=== PATIENT | male | born 1950 | race Caucasian/White ===

== ENCOUNTER 2017-01-14 09:33 | Inpatient (IN) | payer MEDICARE, OTHER ==
[~2017-01-14] VITALS: Ht 172.7 cm; Wt 134.5 kg
[2017-01-14] VITALS (11 sets, daily range): BP systolic 95–142; BP diastolic 56–90; PULSE 82–123; RESP 15–21; TEMP 100; Ht 172.7 cm; Wt 134.5 kg
[~2017-01-14 09:33] MED LIST: ADV25050; AMLO5TAB4; ASPI-535; CARV25TA43; COL250; DUTA0.5C; ENOX40DI14; FERR-55; FINA5TAB; LAS20; LISI40TA9; METF500T4 PO; SIMV20TA; SPIR25TA
[2017-01-14] MEDS ORDERED: SODIUM CHLORIDE 0.9% 1L BAG IV* STA (09:40)
[2017-01-14 09:47] LABS: AADO2 Arterial 64.6 mmHg (7.0-24.0); Allen Test ACCEPTAB; Arterial Base Excess 7.6 mmol/L (-3.0-3); Arterial COHb 0.1 % (0.0-3.0); Arterial Fraction of Oxyhgb 95.4 % (93.0-99.0); Arterial HCO3 31.9 mmol/L (22.0-26.0); Arterial MetHb 0.1 % (0.0-1.5); Arterial Total Hemglobin 13.5 g/dl (12.0-18.0); MODE NASAL CANNULA
[2017-01-14] MEDS ORDERED: CEFEPIME 1GM/50 ML (PMX) 50 ML IVPB ONE (10:00)
[2017-01-14] MEDS ORDERED: ACETAMINOPHEN 650 MG SUPP PR ONE (10:00)
[2017-01-14] MEDS ORDERED: VANCOMYCIN 1 GM (PMX) 250 ML IVPB SCH (10:00)
[2017-01-14] MEDS ORDERED: ALBUTEROL 0.083% (NEB) 2.5 MG/3 ML AMP HHN STA (10:00)
[2017-01-14] MEDS ORDERED: PIPER-TAZO 3.375 GM IV (PMX) 50 ML IV ONE (10:00)
[2017-01-14] MEDS ORDERED: HYDROCORTISONE 100 MG INJ IV ONE (10:00)
[2017-01-14] MEDS ORDERED: ALBUTEROL 0.5% (NEB) 2.5 MG/0.5 ML AMP ONE (10:03)
[2017-01-14] MEDS ORDERED: IPRATROPIUM (NEB) 0.5 MG/2.5 ML AMP ONE (10:03)
--- NOTE | 2017-01-14 10:04 | ERD ---
ER Documentation Chief Complaint Chief Complaint HPI 66-year-old man brought in by EMS from intermediate for decreased mentation beginning this morning. Patient has a history of recent sepsis and has difficulty ambulating, normally using a wheelchair which was near his bed. Patient has had no vomiting or diarrhea. HPI was limited as patient was mostly nonverbal. Patient was transported here by EMS without further complications. HPI supplemented by reviewing past medical history, intermediate records, speaking to EMS, and later his PMD. ROS All systems reviewed and are negative except as per history of present illness. Medications Home Meds Reported Medications Potassium Chloride* (K-Dur*) 20 Meq Tab.prt.sr, 20 MEQ PO DAILY, TAB.SA GIVIN AT 9AM 01/14/17 Vancomycin Hcl* (Vancomycin Hcl* Liq) 8.33 Mg/Ml Soln, 250 MG PO QID, ML FOR 14 DAYS STOP 01-16-17 01/14/17 Ascorbic Acid* (Vitamin C*) 500 Mg Capsule.sa, 500 MG PO DAILY, CAP 01/14/17 Tiotropium [place]* (Spiriva*) 18 Mcg Cap.w.dev, 1 CAP INHALATION DAILY, #30 CAP 01/14/17 Tamsulosin Hcl* (Tamsulosin Hcl*) 0.4 Mg Cap.er.24h, 0.4 MG PO HS, CAP 01/14/17 Spironolactone* (Aldactone*) 25 Mg Tablet, 25 MG PO DAILY, #30 TAB 01/14/17 Risperidone* (Risperidone*) 1 Mg Tablet, 1 MG PO BID, TAB 01/14/17 Protein Supplement (Promod) 946 Ml Liquid, 30 ML PO TID STOP 02-05-17 01/14/17 Potassium Chloride* (K-Dur*) 10 Meq Tab.prt.sr, 10 MEQ PO DAILY, TAB GIVE AT 5PM 01/14/17 Multivitamins* (Theragran*) 1 Tab Tab, 1 TAB PO DAILY, TAB 01/14/17 Magnesium Hydroxide* (Milk Of Magnesia*) 400 Mg/5 Ml Oral.susp, 30 ML PO DAILY Y for CONSTIPATION, ML 01/14/17 Metronidazole* (Metronidazole*) 500 Mg Tablet, 500 MG PO TID, TAB FOR 14 DAYS STOP 01-16-17 01/14/17 Lactobacillus Acidophilus* (Lactinex*) 1 Tab Chew, 1 TAB PO TID, TAB 01/14/17 Furosemide* (Furosemide*) 40 Mg Tablet, 40 MG PO BID, TAB 01/14/17 Ipratropium-Albuterol (Ipratropium-Albuterol) 0.5-3 Mg/3 Ml Ampul.neb, 3 ML INHALATION Q6 Y for SHORTNESS OF BREATH, #30 VIAL 01/14/17 Cholecalciferol* (Vitamin D3*) 1,000 Unit Tablet, 1000 UNIT PO DAILY, TAB 01/14/17 Carvedilol* (Carvedilol*) 12.5 Mg Tablet, 12.5 MG PO BID, #60 TAB 01/14/17 Atorvastatin Calcium (Atorvastatin Calcium) 10 Mg Tablet, 10 MG PO QHS, #30 TAB 01/14/17 Aspirin (Low Dose Aspirin) 81 Mg Tablet., 81 MG PO DAILY, #30 TAB 01/14/17 Acetaminophen* (Acetaminophen*) 650 Mg Tablet, 650 MG PO Q4 Y for PAIN AND OR ELEVATED TEMP, #30 TAB 01/14/17 Discontinued Reported Medications Metformin* (Glucophage*) 500 Mg Tab, 500 MG PO DAILY 04/24/11 Dutasteride* (Avodart*) 0.5 Mg Capsule 04/10/10 Docusate Sodium (Colace) 250 Mg Cap 04/10/10 Carvedilol (Coreg) 25 Mg Tablet 04/10/10 Aspirin Ec (Aspir 81) 81 Mg Tablet. 04/10/10 Amlodipine Besylate* (Norvasc*) 5 Mg Tablet 04/10/10 Lisinopril* (Lisinopril*) 40 Mg Tablet 04/10/10 Furosemide (Lasix) 20 Mg Tab 04/10/10 Ferrous Sulfate* (Ferrous Sulfate*) 325 Mg Tablet 04/10/10 Enoxaparin Sodium* (Lovenox*) 40 Mg/0.4 Ml Disp.syrin 04/10/10 Salmeterol Xinaf/Fluticasone* (Advair 250/50 Diskus*) 1 Inh Inha 04/10/10 Finasteride* (Proscar*) 5 Mg Tablet 04/10/10 Simvastatin* (Zocor*) 20 Mg Tablet 04/10/10 Spironolactone* (Aldactone*) 25 Mg Tablet 04/10/10 Allergies Allergies: Coded Allergies: Sulfa (Sulfonamide Antibiotics) (Verified Allergy, Mild, 01/14/17) codeine (Verified Allergy, Mild, 01/14/17) iodine (Verified Allergy, Mild, 01/14/17) meperidine (Verified Allergy, Mild, 01/14/17) PMhx/Soc Super morbid obesity, recent C. difficile colitis, schizophrenia, CHF, COPD, hypertension, diabetes mellitus, hyperlipidemia, recent septic shock, BPH, wheelchair-bound, sacral decubitus ulceration, pacemaker History of Surgery: Yes (PILONIDAL CYST,TONSILS,REPAIR WOUND RT LEG,FACIAL SX,) Anesthesia Reaction: No Hx Neurological Disorder: No Hx Respiratory Disorders: Yes (COPD,CHRONIC BROCHITIS) Hx Cardiac Disorders: Yes (A FIB, HTN, CAD) Hx Psychiatric Problems: Yes (SCHIZOPHRENIA) Hx Miscellaneous Medical Probl: No (HX OF DVT,PULMONARY EMBOLISM) Hx Alcohol Use: Yes (HX OF ALCHOHOL ABUSE) Hx Substance Use: No Hx Tobacco Use: Yes (HX OF 3 1/2PACKS DAILY 30 YEARS) FmHx Family History: diabetes Physical Exam Vitals Vital Signs Date Time Temp Pulse Resp B/P Pulse Ox O2 Delivery O2 Flow Rate FiO2 01/14/17 10:16 136 20 94 Nasal Cannula 2.0 01/14/17 10:00 100.0 105 20 128/78 100 Nasal Cannula 6.0 01/14/17 09:51 Nasal Cannula 01/14/17 09:33 100.3 129 24 127/82 96 Per nursing records Physical Exam GENERAL: Well-developed, dehydrated, rectal temperature 100.3F HEENT: Dry mucous membranes, pink conjunctiva, no cervical spine tenderness or step-off deformities, no goiter. NEURO: Eyes closed although patient is able to follow simple commands, pupils equal round reactive to light, no focal deficits, no facial asymmetry, nonverbal CARDIAC: Tachycardic and regular, no murmurs rubs or gallops LUNGS: Poor breath sounds bilaterally, no wheezing or stridor ABDOMEN: Soft nontender, no guarding, no rigidity, no rebound, no psoas sign no obturator sign. SKIN: Hot to touch and dry, he has a malodorous sacral decubitus ulceration with purulent discharge and surrounding skin erythema, chronic skin changes to the lower extremities bilaterally EXTREMITIES: 3+ pitting edema in the lower extremities and dependent areas, calves are bilaterally symmetrical, no Homans sign, no popliteal cord sign. Distal pulses equal and bilateral PSYCH: Unable to assess Result Diagram: 01/14/1793901/14/1740 Results 24 hrs Laboratory Tests Test 01/14/17 09:35 01/14/17 09:40 01/14/17 09:45 01/14/17 09:50 Blood Gas Specimen Source Blood arterial Arterial Blood Date Drawn 01/14/2017 9:40:43 AM Arterial Blood pH (Temp corrected) 7.486 Arterial Blood pCO2 (Temp correct) 43.2mmhg Arterial Blood pO2 (Temp corrected) 76.8mmHG Arterial Blood HCO3 31.9mmol/L Arterial Blood Base Excess 7.6mmol/L Arterial Blood Oxygen Saturation 95.6mmHG Ernesto Test ACCEPTAB Arterial Blood Gas Puncture Site Right Radial Arterial Blood Carboxyhemoglobin 0.1% Arterial Blood Methemoglobin 0.1% Blood Gas A-a O2 Differential 64.6mmHg Oxyhemoglobin Percent 95.4% Total Hemoglobin 13.5g/dl Blood Gas Temperature 37.0C Blood Gas Modality NASAL CANNULA FiO2 27.0% Blood Gas Notified Whom RT Blood Gas Notified Time 01/14/2017 9:47:15 AM White Blood Count 8.210^3/ul Red Blood Count 4.5810^6/ul Hemoglobin 13.0g/dl Hematocrit 42.1% Mean Corpuscular Volume 91.9fl Mean Corpuscular Hemoglobin 28.4pg Mean Corpuscular Hemoglobin Concent 30.9g/dl Red Cell Distribution Width 16.6% Platelet Count 94964^3/UL Mean Platelet Volume 10.4fl Neutrophils % 76.9% Lymphocytes % 11.6% Monocytes % 8.7% Eosinophils % 1.3% Basophils % 0.5% Nucleated Red Blood Cells % 0.0/100WBC Neutrophils # 6.310^3/ul Lymphocytes # 1.010^3/ul Monocytes # 0.710^3/ul Eosinophils # 0.110^3/ul Basophils # 0.010^3/ul Nucleated Red Blood Cells # 0.010^3/ul Prothrombin Time 16.6Sec Prothrombin Time Ratio 1.3 INR International Normalized Ratio 1.33 Activated Partial Thromboplast Time 27.5Sec Sodium Level 153mmol/L Potassium Level 3.5mmol/L Chloride Level 105mmol/L Carbon Dioxide Level 38mmol/L Anion Gap 14 Blood Urea Nitrogen 17mg/dl Creatinine 0.95mg/dl Glucose Level 95mg/dl Lactic Acid Level 1.2mmol/L Calcium Level 8.5mg/dl Total Bilirubin 0.2mg/dl Direct Bilirubin 0.00mg/dl Indirect Bilirubin 0.2mg/dl Aspartate Amino Transf (AST/SGOT) 28IU/L Alanine Aminotransferase (ALT/SGPT) 37IU/L Alkaline Phosphatase 49IU/L Troponin I 0.058ng/ml Total Protein 5.6g/dl Albumin 2.9g/dl Globulin 2.70g/dl Albumin/Globulin Ratio 1.07 Lipase 174U/L Bedside Glucose 92mg/dL Urine Color CADY Urine Clarity CLEAR Urine pH 5.0 Urine Specific [place] 1.021 Urine Ketones TRACEmg/dL Urine Nitrite NEGATIVEmg/dL Urine Bilirubin NEGATIVEmg/dL Urine Urobilinogen NEGATIVEmg/dL Urine Leukocyte Esterase 1+Jatinder/ul Urine Microscopic RBC 3/HPF Urine Microscopic WBC 12/HPF Urine Mucus MODERATE/HPF Urine Hemoglobin NEGATIVEmg/dL Urine Glucose NEGATIVEmg/dL Urine Total Protein NEGATIVEmg/dl Current Medications Medications (Trade) Dose Ordered Sig/Joana Route PRN Reason Start Time Stop Time Status Last Admin Dose Admin Sodium Chloride 2000 ml 2,000 ml BOLUS OVER 2 HOURS STAT IV* 01/14/17 09:40 01/14/17 09:43 DC 01/14/17 10:22 Cefepime HCl 50 ml @ 100 mls/hr ONCE ONCE IVPB 01/14/17 10:00 01/14/17 10:29 DC 01/14/17 10:18 Piperacillin Sod/ Tazobactam Sod 50 ml @ 100 mls/hr ONCE ONCE IV 01/14/17 10:00 01/14/17 10:29 DC 01/14/17 10:18 Vancomycin HCl (Vancocin) 250 ml @ 125 mls/hr ONCE IVPB 01/14/17 10:00 01/14/17 11:59 DC 01/14/17 10:21 Acetaminophen (Tylenol Supp) 650 mg ONCE ONCE MS 01/14/17 10:00 01/14/17 10:01 DC 01/14/17 10:00 Hydrocortisone (Solu-Cortef) 200 mg ONCE ONCE IV 01/14/17 10:00 01/14/17 10:07 DC 01/14/17 11:15 Albuterol (Proventil 0.083% (Neb)) 10 mg ONCE STAT HHN 01/14/17 10:00 01/14/17 10:07 DC 01/14/17 10:15 Ipratropium [place] (Atrovent 0.02% (Neb)) 0.5 mg STK-MED ONCE .ROUTE 01/14/17 10:03 01/14/17 10:04 DC Albuterol (Proventil 0.5% (Neb)) 2.5 mg STK-MED ONCE .ROUTE 01/14/17 10:03 01/14/17 10:04 DC Procedures/MDM IV line was established patient was placed on child monitor rhythm strip revealed a tachycardia at 120 bpm. Rectal temperature was 100.3F although I suspect early sepsis and active infection. Blood cultures, urine cultures, respiratory cultures, wound cultures were all ordered results are pending I will follow-up. Nielsen catheter was placed. EKG performed, read by me revealed a sinus tachycardia at 120 bpm with PACs, normal axis, intraventricular conduction delay with a QRS duration of 118 ms, no concerning ST elevations or depressions noted. ABG on low flow oxygen revealed a pH of 7.49, PCO2 43, PaO2 80 revealing chronic metabolic alkalosis due to COPD. Patient was suctioned. I ordered 2 L normal saline intravenously for dehydration, sepsis protocol IV fluids were deferred as patient has a history of congestive heart failure. Patient also received acetaminophen 650 mg per rectum, cefepime 1 g IV, Zosyn 3.375 g IV, vancomycin 1 g IV. I administered albuterol 10 mg via nebulizer and hydrocortisone 200 mg IV 1 One view chest x-ray reveals a right lower lobe infiltrate, no pneumothorax, no under the diaphragm. Urine analysis was concerning for early urinary tract infection. CBC was unremarkable, electrolytes revealed dehydration, liver function tests are normal, troponin was negative Lactic acid level was low. I do not suspect sepsis. Patient will be admitted to telemetry setting for continued medical management and IV antibiotics. Departure Diagnosis: Primary Impression: Acute encephalopathy Additional Impressions: Infected decubitus ulcer Pressure ulcer stage: unspecified pressure ulcer stage Qualified Code: L89.90 - Infected decubitus ulcer, unspecified ulcer stage Acute UTI Healthcare-associated pneumonia Condition: Serious JOHANNE HICKMAN MD Jan 14, 2017 09:59
[2017-01-14 10:07] LABS: BASOPHILS % 0.5 % (0.0-2.0); EOSINOPHILS # 0.1 10^3/ul (0.0-0.5); EOSINOPHILS % 1.3 % (0.0-7.0); HEMATOCRIT 42.1 % (42.0-52.0); LYMPHOCYTES % 11.6 % (15.0-51.0); MEAN CORPUSCULAR HEMOGLOBIN 28.4 pg (29.0-33.0); MEAN CORPUSCULAR HGB CONC 30.9 g/dl (32.0-37.0); MEAN CORPUSCULAR VOLUME 91.9 fl (82.0-101.0); MEAN PLATELET VOLUME 10.4 fl (7.4-10.4); MONOCYTE # 0.7 10^3/ul (0.3-0.9); MONOCYTES % 8.7 % (0.0-11.0); NEUTROPHIL # 6.3 10^3/ul (1.6-7.5); NEUTROPHILS % 76.9 % (39.0-77.0); PLATELET COUNT 231 10^3/UL (140-415); RED BLOOD COUNT 4.58 10^6/ul (4.70-6.10); RED CELL DISTRIBUTION WIDTH 16.6 % (11.5-14.5); WHITE BLOOD COUNT 8.2 10^3/ul (4.8-10.8)
--- NOTE | 2017-01-14 10:08 | RADRPT ---
PROCEDURE: XR Chest. CLINICAL INDICATION: Shortness of breath. TECHNIQUE: Single frontal view. COMPARISON: None. FINDINGS: There is right basilar atelectasis. The lungs are otherwise clear. The heart is enlarged. There is a left-sided single lead permanent pacemaker/internal cardiac defibr illator. There is no pleural effusion. There is no pneumothorax. IMPRESSION: 1. Right basilar atelectasis. 2. Cardiomegaly. 3. Permanent pacemaker/AICD. 4. Otherwise unremarkable chest radiograph. RPTAT: QQ .Buck Cruz MD, MD Date Time Electronically viewed and signed by .Buck Cruz MD, MD on 01/14/2017 10:08 .R/
[2017-01-14] MEDS ORDERED: ASPI-664 PO (10:13)
[2017-01-14] MEDS ORDERED: ATOR10TA65 PO (10:13)
[2017-01-14] MEDS ORDERED: ACET-2047 PO (10:13)
[2017-01-14] MEDS ORDERED: CHOL100062 PO (10:14)
[2017-01-14] MEDS ORDERED: CARV12.579 PO (10:14)
[2017-01-14] MEDS ORDERED: IPRA3AMP INHALATION (10:15)
[2017-01-14] MEDS ORDERED: FURO40TA4 PO (10:15)
[2017-01-14] MEDS ORDERED: LACTINEX PO (10:16)
[2017-01-14] MEDS ORDERED: METR500T14 PO (10:17)
[2017-01-14] MEDS ORDERED: MAGN400O4 PO (10:17)
[2017-01-14] MEDS ORDERED: MULTI PO (10:18)
[2017-01-14] MEDS ORDERED: POTA10TA37 PO (10:20)
[2017-01-14] MEDS ORDERED: RISP1TAB3 PO (10:21)
[2017-01-14] MEDS ORDERED: PROT946L PO (10:21)
[2017-01-14 10:22] LABS: ADD UMIC YES; UR ASCORBIC ACID NEGATIVE (NEGATIVE); UR BILIRUBIN (Dip) NEGATIVE (NEGATIVE); UR BLOOD (Dip) NEGATIVE (NEGATIVE); UR CLARITY CLEAR (CLEAR); UR COLOR AMBER (YELLOW); UR GLUCOSE (Dip) NEGATIVE (NEGATIVE); UR KETONES (Dip) TRACE mg/dL (NEGATIVE); UR LEUKOCYTE ESTERASE (Dip) 1+ Leu/ul (NEGATIVE); UR MUCUS MODERATE /HPF (NONE SEEN); UR NITRITE (Dip) NEGATIVE (NEGATIVE); UR RBC 3 /HPF (0-5); UR SPECIFIC GRAVITY (Dip) 1.021 (1.003-1.030); UR TOTAL PROTEIN (Dip) NEGATIVE (NEGATIVE); UR UROBILINOGEN (Dip) NEGATIVE (NEGATIVE)
[2017-01-14] MEDS ORDERED: SPIR25TA PO (10:22)
[2017-01-14] MEDS ORDERED: TAMS0.4C2 PO (10:22)
[2017-01-14] MEDS ORDERED: TIOT18CA INHALATION (10:23)
[2017-01-14] MEDS ORDERED: ASCO500C7 PO (10:23)
[2017-01-14] MEDS ORDERED: VAN120L PO (10:26)
[2017-01-14 10:28] LABS: INR 1.33; PARTIAL THROMBOPLASTIN TIME 27.5 Sec (25.0-35.0); PROTIME 16.6 Sec (12.2-14.2); PT RATIO 1.3
[2017-01-14] MEDS ORDERED: POTA20TA15 PO (10:31)
[2017-01-14 10:32] LABS: ALBUMIN 2.9 g/dl (3.3-4.9); ALBUMIN/GLOBULIN RATIO 1.07; BILIRUBIN,INDIRECT 0.2 mg/dl (0-1.1); BILIRUBIN,TOTAL 0.2 mg/dl (0.2-1.3); CALCIUM 8.5 mg/dl (8.4-10.2); CREATININE 0.95 mg/dl (0.61-1.24); POTASSIUM 3.5 mmol/L (3.5-5.1); TOTAL PROTEIN 5.6 g/dl (6.1-8.1)
[2017-01-14 10:43] LABS: TROPONIN-I 0.058 ng/ml (0.00-0.12)
[2017-01-14] MEDS ORDERED: DOCUSATE SODIUM 100 MG CAP PO PRN (14:30)
[2017-01-14] MEDS ORDERED: ONDANSETRON 4 MG INJ IV PRN (14:30)
[2017-01-14] MEDS ORDERED: ACETAMINOPHEN 325 MG TAB PO PRN ×2 (14:30)
[2017-01-14] MEDS ORDERED: MAGNESIUM HYDROXIDE 30ML CUP PO PRN (14:30)
[2017-01-14] MEDS ORDERED: NACL 0.9% 3 ML SYG IV SCH (14:30)
[2017-01-14] MEDS ORDERED: VANCOMYCIN IV PER PHARMACY XX SCH (14:30)
[2017-01-14] MEDS ORDERED: VANCOMYCIN 1 GM in NS 250 ML IVPB ONE (15:30)
[2017-01-14] MEDS: ENOXAPARIN 40 MG/0.4 ML SYG SC SCH (16:28)
--- NOTE | 2017-01-14 16:39 | HP ---
DATE OF ADMISSION: 01/14/2017 REASON FOR ADMISSION: Encephalopathy, sepsis, urinary rule out pneumonia, decubitus wound. HISTORY OF PRESENT ILLNESS: The patient is a 66-year-old morbidly obese female with histo ry of congestive heart failure, status post AICD placement by Dr. Ruiz in March 2010 and histor y of extensive psychiatric disorder, hypertension, diabetes mellitus, BPH, schizophrenia, who was re cently discharged home at [facility] secondary to sepsis, was found to have C. diff colitis, d ehydration, renal failure and urinary tract infection as well. The patient at that time was between 10 and was to the intensive care unit and be seen by the infectious disease specialist, Dr. Marvin pichardo. Patient was then stabilized and transferred to [facility] nursing [facility]. During his stay, the patient continued to his treatment for C. diff colitis with oral vancomycin and Flagy l. I have seen him and are multiple times in the past 2 to 3 weeks, there was concern of possible p roblem with swallowing flash dysphagia and he was placed on a pureed diet and do awaiting further te sting. Patient was in usual state of health up until today when the nursing staff noted the patient to be more encephalopathic. With consider increasing concern for possible impending respiratory fa ilure, and 911 was called. The patient was brought into [facility], the patient w as evaluated extensively was found to be febrile up to 100.3. Tachycardic to 129 suggestive of seps is workup revealed a urinalysis was positive for nitrite, not hypoxic for leukocyte esterase suggest martina of UTI. He was noted to have a stage II sacral wound which may be infected and chest x-ray show ed right lung atelectasis versus possible pneumonia. Per ER interpretation, the patient was admitte d to telemetry unit, currently in the ICU but steady status. The patient is overall lethargic but o verall arousable and answering my questions. The patient did report having some phlegm production a nd slight congestion earlier and was noticing shortness of breath. Otherwise, no other complaints. As of note I also did multiple blood workup at [facility] and there was no specific acute find ings. The patient now is admitted for further care. PAST MEDICAL HISTORY: Congestive heart failure, both systolic and diastolic dysfunction, status post AICD, history of diab etes mellitus, appears to be controlled, BPH, recurrent UTIs, dyslipidemia, morbidly obese state and history of sacral wounds, schizophrenia, dysphagia, psychiatric disorder, recent Clostridium diffic ile colitis. Scrotal edema. ALLERGIES: 1. CODEINE, IODINE, MEPERIDINE, SULFA. MEDICATIONS: Include the followin. Flagyl 500 t.i.d. 2. Vancomycin 250 q.i.d. post-opium and albuterol every as directed. 3. Flomax 0.4 at bedtime. 4. Spiriva 1 cap daily. 5. Atorvastatin 10 mg at bedtime. 6. Coreg 12.5 b.i.d. 7. Aldactone 25 mg daily. 8. Tylenol p.r.n. 9. Aspirin 81 mg daily. 10. Risperidone 1 mg b.i.d. 11. Lasix 40 mg b.i.d. 12. KCL 10 mEq daily and Xarelto 20 daily. Promod t.i.d. 13. Lactinex 1 tab t.i.d. commode BCG as directed Vitamin C 500 mg daily. 14. Vitamin D 1000 daily. 15. Multivitamin 1 tablet daily. SURGICAL HISTORY: Pacemaker, AICD placement. DIET: Pureed diet. FAMILY HISTORY: Unknown. The patient's primary medical doctor is unknown. His prior primary docto r was Dr Kristian Heath. . SOCIAL HISTORY: No history of tobacco, alcohol or drug use. The patient lives at [facility]. PHYSICAL EXAMINATION: VITAL SIGNS: Blood pressure is 170/86, pulse is 101, respiration is 20, and temperature, saturation 100% on 6 liters nasal cannula. GENERAL: The patient is lethargic, arousable. The patient is pale Morbidly obese state. CARDIOVASCULAR: S1, S2 irregular, irregular. LUNGS: Clear bilaterally. Faint rhonchi at the bases. ABDOMEN: Soft, nontender. EXTREMITIES: Trace edema to +1 edema bilateral lower extremities, much better than we I aw him last time. NEUROLOGIC: The patient is spontaneously moving all extremities. LABORATORY DATA: White count is 8.2, hemoglobin 13, hematocrit 42, platelets 231, neutrophils 77%, lymphocytes 12%. Chemistry: Sodium is 153, potassium 3.5, chloride 105, bicarbonate 30, BUN 17, cr eatinine 0.95, glucose of 95. Lactic acid 1.5. AST 28, ALT 37, alkaline phosphatase 49, troponin n egative at 0.058, total protein 5.6, albumin 2.8, lipase is 174. Urinalysis shows +1 leukocyte laura rase, WBC 12, INR is 1.33. Blood gas shows a pH of 7.48, pCO2 of 43, pO2 of 77, bicarbonate 31% sat uration is adequate at 96% on 27% FIO2. INR was 1.33. IMAGING TESTS: Chest x-ray shows efficiently right basilar atelectasis, cardiomegaly, permanent pac emaker, AICD, otherwise unremarkable chest radiograph. EKG: shows atrial fibrillation with RVR with premature aberrantly conducted complexes, low voltage QRS, incomplete right bundle branch block, ST-T abnormality, consider anterolateral ischemia or digi talis dystonic affect. ASSESSMENT AND PLAN: This is an unfortunate 66-year-old male with a history of congestive heart failure, AICD placement, atrial fibrillation, diabetes mellitus, off medication, psychiatric disorder, presents with increased encephalopathy and patient's condition and chest congestion. 1. Respiratory: The patient was placed on O2 support, breathing treatment as needed will be provid ed and aspiration precautions and speech therapy to evaluate for possible aspiration. The patient w ill be treated for pneumonia with cefepime and vancomycin. 2. Cardiovascular: Patient with history of congestive heart failure. Appears to be overall compen sated. Will resume all home Lasix dose at 40 b.i.d. obtain. Another equal cardiogram to evaluate e jection fraction. We will consult cardiology, patient has atrial fibrillation, currently on anticoa gulation with aspirin and will place him on Lovenox as well for DVT prophylaxis. Further anticoagulation: Cardiology team. Continue Coreg, Lipitor and Aldactone. 1. Infectious disease. The patient with evidence of infection, possible infected sacral wound. Cu ltures will be obtained and also possible pneumonia. The patient was placed on cefepime and vancomy leonidas, but wound care. Continue empiric treatment for C. difficile colitis with oral vancomycin. 2. Renal. Observe no evidence of renal insufficiency. 3. Dysphagia. Speech therapy to evaluate the patient. 4. The patient will be placed on Protonix for GI prophylaxis. 5. Psychiatric disorder. We will hold some of his psych meds as the patient is encephalopathic and weak to prevent drowsiness 6. May benefit from a sleep study as an outpatient basis. The patient is morbidly obese with a BMI of 45 definite likely has obstructive sleep apnea. 7. Benign prostatic hypertrophy. Continue Flomax. 8. Stool softeners will be provided. 9. We decided to try to contact family members and informed them of the patient's condition. Again , air mattress bed. Vitamins will be done and wound consultation will be obtained. 10. Sacral wound. Offloading. We will follow closely. Dictated By: MARY MONTERO/SHANTAL Conf#: [id number] DID#: [id number]
--- NOTE | 2017-01-14 16:45 | CONS ---
DATE OF ADMISSION: 01/14/2017 DATE OF CONSULTATION: 01/14/2017 TYPE OF CONSULTATION: Infectious Disease. REASON FOR CONSULTATION: Antibiotic management. HISTORY OF PRESENT ILLNESS: Nickolas Dey is a 66-year-old male brought in from care home with decreased mentation. His past problems include a history of sepsis. 1. Difficulty ambulating. 2. Morbid obesity. 3. Recent Clostridium difficile colitis. 4. Schizophrenia. 5. Chronic obstructive pulmonary disease. 6. Congestive heart failure with coronary artery disease 7. Hypertension. 8. Diabetes mellitus. 9. Hyperlipidemia. 10. Benign prostatic hypertrophy. 11. Atrial fibrillation. 12. History of deep venous thrombosis and pulmonary emboli. 13. History of alcohol abuse. 14. Status post pilonidal cyst surgery. 15. Status post tonsillectomy and appendectomy, status post T and A. 16. Status post repair of a wound in the right leg. 17. Facial surgery. 18. History of tobacco abuse, 3.5 packs per day for 30 years. Acutely, the patient comes in the emergency room with shortness of breath and presumed sepsis. On a dmission, his white count is 8.2, H and H of 13 and 42.1, platelet count 231,000. BUN and creatinin e 17/0.95. Sodium is elevated at 153. His CO2 was 38 consistent with COPD. PAST MEDICAL HISTORY: Operations as outlined. FAMILY HISTORY: Noncontributory. SOCIAL HISTORY: As outlined he smokes 3 and a half packs of cigarettes a day for last 30 years. No history of stroke. He has a history of alcohol abuse. No IV drug abuse. ALLERGIES: 1. SULFA. 2. CODEINE. 3. IODINE 4. MEPERIDINE. MEDICATIONS: Per chart. REVIEW OF SYSTEMS: Noncontributory. PHYSICAL EXAMINATION: GENERAL: The patient is a chronically ill-appearing male who is morbidly obese, in no acute distres s. VITAL SIGNS: Stable. T-max of 100.3. SKIN: Warm to the touch. He has a malodorous sacral decubitus ulcer with purulent discharge and peterson rrounding skin erythema and chronic skin changes in the lower extremities. HEENT: Within normal limits. NECK: Supple. LYMPH NODES: None palpable. CHEST: Decreased breath sounds at the bases. HEART: Tachycardic without murmur or gallop. ABDOMEN: Soft, obese, nontender, without organosplenomegaly or masses. EXTREMITIES: 3+ pitting edema in the lower extremities without cyanosis or clubbing. RECTAL AND GENITAL: Deferred. NEUROLOGIC: No obvious focal neurological abnormalities. IMPRESSION AND PLAN: The patient had an IV line placed, the blood cultures, urine, respiratory cult ures, wound cultures were done, the impression in the emergency room was acute encephalopathy infect ed decubitus ulcer. He denied also have an acute urinary tract infection. His urine showed 1+ leuk ocyte esterase and 12 white cells per high powered field. He was placed on vancomycin and cefepime. Cultures have been taken. Blood cultures, urine and wound cultures, stool and sputum cultures so he is well covered with regard to his cultures. He may need some intervention with regard to his in fected decubitus and some surgery should become involved. I will dictate my findings to Dr. Heath. Dictated By: ANNA ROACH MD, JD/SHANTAL Conf#: [id number] DID#: [id number]
[2017-01-14] MEDS: FUROSEMIDE 40 MG TAB PO SCH ×2 (18:00→21:01)
[2017-01-14] MEDS: VANCOMYCIN HCL 250 MG/5ML POSYG PO SCH ×2 (18:00→20:56)
[2017-01-14] MEDS: ATORVASTATIN 10 MG TAB PO SCH (20:55)
[2017-01-14] MEDS: TAMSULOSIN (SR) 0.4 MG CAP PO SCH (20:56)
[2017-01-14] MEDS: L ACIDOPHIL/B LACTIS/B LONGUM CAPSULE PO SCH (20:56)
[2017-01-14] MEDS: CEFEPIME 1GM/50 ML (PMX) 50 ML IV SCH (21:00)
[2017-01-15] VITALS (26 sets, daily range): BP systolic 98–147; BP diastolic 55–104; PULSE 71–144; RESP 12–20
[2017-01-15] MEDS: VANCOMYCIN HCL 250 MG/5ML POSYG PO SCH ×5 (00:29→21:24)
[2017-01-15] MEDS: VANCOMYCIN 1.5 GM in SOD CHLORIDE 0.9% 250 ML IVPB SCH ×2 (02:26→13:42)
[2017-01-15 05:16] LABS: BASOPHILS % 0.3 % (0.0-2.0); EOSINOPHILS % 0.2 % (0.0-7.0); HEMATOCRIT 37.5 % (42.0-52.0); HEMOGLOBIN 11.7 g/dl (14.0-18.0); LYMPHOCYTES # 0.9 10^3/ul (0.8-2.9); LYMPHOCYTES % 10.3 % (15.0-51.0); MEAN CORPUSCULAR HEMOGLOBIN 28.5 pg (29.0-33.0); MEAN CORPUSCULAR HGB CONC 31.2 g/dl (32.0-37.0); MEAN CORPUSCULAR VOLUME 91.5 fl (82.0-101.0); MEAN PLATELET VOLUME 10.3 fl (7.4-10.4); MONOCYTE # 0.9 10^3/ul (0.3-0.9); MONOCYTES % 10.6 % (0.0-11.0); NEUTROPHIL # 6.7 10^3/ul (1.6-7.5); NEUTROPHILS % 77.1 % (39.0-77.0); PLATELET COUNT 203 10^3/UL (140-415); RED CELL DISTRIBUTION WIDTH 16.7 % (11.5-14.5); WHITE BLOOD COUNT 8.7 10^3/ul (4.8-10.8)
[2017-01-15 05:48] LABS: ALBUMIN 2.5 g/dl (3.3-4.9); ALBUMIN/GLOBULIN RATIO 0.92; BILIRUBIN,INDIRECT 0.2 mg/dl (0-1.1); BILIRUBIN,TOTAL 0.2 mg/dl (0.2-1.3); CALCIUM 8.5 mg/dl (8.4-10.2); CHOL/HDL RATIO 2.4 RATIO; CREATININE 0.9 mg/dl (0.61-1.24); POTASSIUM 3.4 mmol/L (3.5-5.1); TOTAL PROTEIN 5.2 g/dl (6.1-8.1)
[2017-01-15 06:16] LABS: THYROID STIMULATING HORMONE 0.732 MIU/L (0.465-4.680)
[2017-01-15] MEDS: PANTOPRAZOLE (EC) 40 MG TAB PO SCH (06:42)
[2017-01-15] MEDS: FUROSEMIDE 40 MG TAB PO SCH ×2 (06:43→17:05)
[2017-01-15] MEDS: L ACIDOPHIL/B LACTIS/B LONGUM CAPSULE PO SCH ×2 (08:13→21:25)
[2017-01-15] MEDS: ASPIRIN (EC) 81 MG TAB PO SCH ×2 (08:13→08:59)
[2017-01-15] MEDS: ASCORBIC ACID 500 MG TAB PO SCH (08:13)
[2017-01-15] MEDS: MULTIVITAMINS THERAPEUTIC TAB PO SCH (08:13)
[2017-01-15] MEDS: CHOLECALCIFEROL 1,000 UNIT TAB PO SCH (08:16)
[2017-01-15] MEDS: SPIRONOLACTONE 25 MG TAB PO SCH ×2 (08:16→08:59)
[2017-01-15] MEDS: CEFEPIME 1GM/50 ML (PMX) 50 ML IV SCH ×2 (08:24→21:25)
[2017-01-15] MEDS: ENOXAPARIN 40 MG/0.4 ML SYG SC SCH (08:31)
--- NOTE | 2017-01-15 09:33 | CONS ---
Date/Time of Note Date/Time of Note DATE: 01/15/17 TIME: 09:30 Assessment/Plan Assessment/Plan Chief Complaint/Hosp Course ID PROGRESS NOTE CURRENT ABX: DAY # 2=> Vanco IV + Cefepime + Vanco PO 24H INTERVAL SUMMARY * Awake & responsive, afebrile, VSS, NAD, not able to move BUEXT or BLEXT on command * 01/14/17 CXR: IMPRESSION:1. Right basilar atelectasis. 2. Cardiomegaly. 3. Permanent pacemaker/AICD. 4. Otherwise unremarkable chest radiograph. * MICRO: UA 1+ Leuk Esterase, 15 pyuria; * 01/14/17 Shannan: 01/14/17-0955Source: BLOOD Microbiology BLOOD CULTURE Preliminary BCULT GRAM BOTTLE 1 Gram positive cocci in pairs and clusters . seen on gram stain of the broth MEDICAL HISTORY 1. Difficulty ambulating-> WC bound 2. Morbid obesity. 3. Recent Clostridium difficile colitis. 4. Schizophrenia. 5. Chronic obstructive pulmonary disease. 6. Congestive heart failure with coronary artery disease 7. Hypertension. 8. Diabetes mellitus. 9. Hyperlipidemia. 10. Benign prostatic hypertrophy. 11. Atrial fibrillation. 12. History of deep venous thrombosis and pulmonary emboli. 13. History of alcohol abuse. 14. Status post pilonidal cyst surgery. 15. Status post tonsillectomy and appendectomy, status post T and A. 16. Status post repair of a wound in the right leg. 17. Facial surgery. 18. History of tobacco abuse, 3.5 packs per day for 30 years. PHYSICAL EXAMINATION: GENERAL: Awake, super morbid obese, VSS, NAD HEENT: AT, NC, anicteric, moist oral membranes NECK: Trach midline, supple, increased neck circumference makes it difficult to appreciate JVD status CHEST: Equal chest rise bilaterally, without dyspnea on observation HEART: Pulse RRR ABDOMEN: Large, Soft, NT, EXT: Warm, moves all ext, generalized edema SKIN: No rash, no diaphoresis ID ASSESSMENT: 66 yo super morbid obesity, schozophrenia, hx of ETOH, CMY w/EF<30%, ICD M admit with: 1. Sepsis w/GPC bacteremia, w/Tmax 100.3, tachycardia, mild rise in lactic acid 1.2-> 1.5-> 1.1, acute encephalopathy * ?UTI per UA? * 01/14/17 Shannan: 01/14/17-0955Source: BLOOD Microbiology BLOOD CULTURE Preliminary BCULT GRAM BOTTLE 1 Gram positive cocci in pairs and clusters . seen on gram stain of the broth 2. HCAP @ SN[facility] 3. Large infected sacral decub 4. Recent C. difficile colitis 5. COPD-> Hx of former long-term tobacco 6. HTN 7. HLD 8. Diabetes mellitus 9. CAD/Hx of remote NM, Afib w/pacemaker implant status 10. CHF -> Hx of ischemic + ETOH cardiomyopathy w/systolic HF, s/p ICD placement 11. BPH w/hx of urinary retention, hx of UTI 12. Wheelchair-bound 13. Sacral decubitus ulceration (?)MRSA ABX ALLERGY: Sulfa, Iodine INVASIVES: PIV CURRENT ABX: DAY # 2=> Vanco IV + Cefepime + Vanco PO ID RECOMMENDATIONS/PLAN: 1. Continue current ABX awaiting results of urine cx 2. Patient is now awake, alert, and responsive => Improved on current ABX . . Problems: Consultation Date/Type/Reason Admit Date/Time Jan 14, 2017 at 10:52 Initial Consult Date Exam/Review of Systems Vital Signs Vitals Vital Signs Date Time Temp Pulse Resp B/P Pulse Ox O2 Delivery O2 Flow Rate FiO2 01/15/17 08:00 114 138/92 99 Nasal Cannula 2.0 01/15/17 07:00 97.7 17 Intake and Output 01/14/17 01/14/17 01/15/17 15:00 23:00 07:00 Intake Total 150 ml 400 ml Output Total 100 ml 125 ml 510 ml Balance -100 ml 25 ml -110 ml Results Result Diagram: 01/15/17 0448 01/15/17 0448 Results 24 hrs Laboratory Tests Test 01/14/17 09:35 01/14/17 09:40 01/14/17 09:45 01/14/17 09:50 Blood Gas Specimen Source Blood arterial Arterial Blood Date Drawn 01/14/2017 9:40:43 AM Arterial Blood pH (Temp corrected) 7.486 H Arterial Blood pCO2 (Temp correct) 43.2 Arterial Blood pO2 (Temp corrected) 76.8 L Arterial Blood HCO3 31.9 H Arterial Blood Base Excess 7.6 H Arterial Blood Oxygen Saturation 95.6 Ernesto Test ACCEPTAB Arterial Blood Gas Puncture Site Right Radial Arterial Blood Carboxyhemoglobin 0.1 Arterial Blood Methemoglobin 0.1 Blood Gas A-a O2 Differential 64.6 H Oxyhemoglobin Percent 95.4 Total Hemoglobin 13.5 Blood Gas Temperature 37.0 Blood Gas Modality NASAL CANNULA FiO2 27.0 Blood Gas Notified Whom RT Blood Gas Notified Time 01/14/2017 9:47:15 AM White Blood Count 8.2 Red Blood Count 4.58 L Hemoglobin 13.0 L Hematocrit 42.1 Mean Corpuscular Volume 91.9 Mean Corpuscular Hemoglobin 28.4 L Mean Corpuscular Hemoglobin Concent 30.9 L Red Cell Distribution Width 16.6 H Platelet Count 231 Mean Platelet Volume 10.4 Neutrophils % 76.9 Lymphocytes % 11.6 L Monocytes % 8.7 Eosinophils % 1.3 Basophils % 0.5 Nucleated Red Blood Cells % 0.0 Neutrophils # 6.3 Lymphocytes # 1.0 Monocytes # 0.7 Eosinophils # 0.1 Basophils # 0.0 Nucleated Red Blood Cells # 0.0 Prothrombin Time 16.6 H Prothrombin Time Ratio 1.3 INR International Normalized Ratio 1.33 Activated Partial Thromboplast Time 27.5 Sodium Level 153 H Potassium Level 3.5 Chloride Level 105 Carbon Dioxide Level 38 H Anion Gap 14 Blood Urea Nitrogen 17 Creatinine 0.95 Glucose Level 95 Lactic Acid Level 1.2 Calcium Level 8.5 Total Bilirubin 0.2 Direct Bilirubin 0.00 Indirect Bilirubin 0.2 Aspartate Amino Transf (AST/SGOT) 28 Alanine Aminotransferase (ALT/SGPT) 37 Alkaline Phosphatase 49 Troponin I 0.058 Total Protein 5.6 L Albumin 2.9 L Globulin 2.70 Albumin/Globulin Ratio 1.07 Lipase 174 Bedside Glucose 92 Urine Color CADY Urine Clarity CLEAR Urine pH 5.0 Urine Specific Kun[place] 1.021 Urine Ketones TRACE A Urine Nitrite NEGATIVE Urine Bilirubin NEGATIVE Urine Urobilinogen NEGATIVE Urine Leukocyte Esterase 1+ H Urine Microscopic RBC 3 Urine Microscopic WBC 12 H Urine Mucus MODERATE Urine Hemoglobin NEGATIVE Urine Glucose NEGATIVE Urine Total Protein NEGATIVE Test 01/14/17 12:28 01/14/17 15:44 01/15/17 04:48 Lactic Acid Level 1.5 1.1 White Blood Count 8.7 Red Blood Count 4.10 L Hemoglobin 11.7 L Hematocrit 37.5 L Mean Corpuscular Volume 91.5 Mean Corpuscular Hemoglobin 28.5 L Mean Corpuscular Hemoglobin Concent 31.2 L Red Cell Distribution Width 16.7 H Platelet Count 203 Mean Platelet Volume 10.3 Neutrophils % 77.1 H Lymphocytes % 10.3 L Monocytes % 10.6 Eosinophils % 0.2 Basophils % 0.3 Nucleated Red Blood Cells % 0.0 Neutrophils # 6.7 Lymphocytes # 0.9 Monocytes # 0.9 Eosinophils # 0.0 Basophils # 0.0 Nucleated Red Blood Cells # 0.0 Sodium Level 155 H Potassium Level 3.4 L Chloride Level 113 H Carbon Dioxide Level 34 H Anion Gap 11 Blood Urea Nitrogen 22 H Creatinine 0.90 Glucose Level 85 Hemoglobin A1c 5.8 Calcium Level 8.5 Total Bilirubin 0.2 Direct Bilirubin 0.00 Indirect Bilirubin 0.2 Aspartate Amino Transf (AST/SGOT) 26 Alanine Aminotransferase (ALT/SGPT) 34 Alkaline Phosphatase 39 L Total Protein 5.2 L Albumin 2.5 L Globulin 2.70 Albumin/Globulin Ratio 0.92 Triglycerides Level 64 Cholesterol Level 65 L LDL Cholesterol, Calculated 25 HDL Cholesterol 27 L Cholesterol/HDL Ratio 2.4 Thyroid Stimulating Hormone (TSH) 0.732 Medications Medications Current Medications Ondansetron HCl (Zofran Inj) 4 mg Q6H PRN IV NAUSEA AND/OR VOMITING; Start at 14:30 Docusate Sodium (Colace) 100 mg Q12H PRN PO CONSTIPATION; Start 01/14/17 at 14 :30 Magnesium Hydroxide (Milk Of Mag) 30 ml DAILY PRN PO CONSTIPATION; Start 01/14 at 14:30 Pantoprazole 40 mg 40 mg DAILY@06 PO Last administered on 01/15/17 06:42; Admin Dose 40 MG; Start 01/15/17 at 06:00 Cefepime HCl (Maxipime 1gm/50 ml (Pmx)) 50 ml @ 100 mls/hr Q12 IV Last administered on 01/15/17 08:24; Admin Dose 100 MLS/HR; Start 01/14/17 at 21: 00 Acetaminophen (Tylenol Tab) 650 mg Q4 PRN PO PAIN AND OR ELEVATED TEMP; Start 01/14/17 at 14:30 Ascorbic Acid (Vitamin C) 500 mg DAILY PO ; Start 01/15/17 at 09:00 Aspirin (Halfprin) 81 mg DAILY PO Last administered on 01/15/17 08:59; Admin Dose 81 MG; Start 01/15/17 at 09:00 Atorvastatin Calcium (Lipitor) 10 mg QHS PO Last administered on 01/14/17 20: 55; Admin Dose 10 MG; Start 01/14/17 at 21:00 Carvedilol (Coreg) 12.5 mg BID PO Last administered on 01/15/17 08:59; Admin Dose 12.5 MG; Start 01/14/17 at 21:00 Cholecalciferol (Vitamin D) 1,000 unit DAILY PO ; Start 01/15/17 at 09:00 Multivitamins Therapeutic (Theragran) 1 tab DAILY PO ; Start 01/15/17 at 09:00 Spironolactone (Aldactone) 25 mg DAILY PO Last administered on 01/15/17 08:59 ; Admin Dose 25 MG; Start 01/15/17 at 09:00 Tamsulosin HCl (Flomax) 0.4 mg HS PO Last administered on 01/14/17 20:56; Admin Dose 0.4 MG; Start 01/14/17 at 21:00 Vancomycin HCl (Vancomycin Oral Syringe) 250 mg Q6 PO Last administered on 06:42; Admin Dose 250 MG; Start 01/14/17 at 18:00 Lactobacillus Acidophilus (Florajen3 Capsule) 1 each BID PO Last administered on 01/14/17 20:56; Admin Dose 1 EACH; Start 01/14/17 at 21:00 Enoxaparin Sodium 40 mg 40 mg DAILY SC Last administered on 01/15/17 08:31; Admin Dose 40 MG; Start 01/14/17 at 15:30 Vancomycin HCl/ Sodium Chloride (Vancocin/NS) 250 ml @ 83.333 mls/ hr Q12H IVPB Last administered on 01/15/17 02:26; Admin Dose 83.333 MLS/HR; Start at 02:00 MIKE RHODES NP Jan 15, 2017 09:33
[2017-01-15] MEDS ORDERED: POTASSIUM CHLORIDE (SR) 20 MEQ TAB PO STA (10:05)
[2017-01-15] MEDS ORDERED: POTASSIUM CHLORIDE 250 ML IVPB ONE (10:30)
--- NOTE | 2017-01-15 12:32 | RADRPT ---
PROCEDURE: CT Brain without contrast. CLINICAL INDICATION: Stroke TECHNIQUE: A CT of the brain was performed on a Siemens CT scanner utilizing axial imaging from th e skull base through the vertex without IV contrast. Multiplanar reformatted images were made. Belkis ges were reviewed on a PACS workstation. The CTDIvol is 50.97 mGy and the DLP is 821 mGycm. DICOM images are available. One of the following 3 dose reduction techniques were used during this CT examination: 1) Automated exposure control 2) Adjustment of the mA +/- kV according to patient size or 3) Use of iterative reconstruction technique COMPARISON: None FINDINGS: There is no intracranial hemorrhage, mass effect, or midline shift. No extra-axial fluid collection is seen. The ventricles and sulci are age appropriate. Mild diffuse volume loss is present. Mild de creased attenuation is present in the bilateral centrum semiovale and periventricular white matter c ompatible with mild chronic microvascular ischemic disease. Mild vascular calcifications are present of the intracranial internal carotid arteries per The visualized scalp and calvarium are normal. The bilateral orbits are normal. The bilateral parana bernardo sinuses, mastoid air cells and middle ear cavities are clear. IMPRESSION: 1. No evidence of acute intracranial infarcts, hemorrhage, or acute intracranial pathology. 2. Mild chronic microvascular ischemic disease and diffuse volume loss. 3. Mild atherosclerotic vascular disease A call report was made to Patient's ICU Nurse, Renetta Clark, at 01/15/2017 12:29:50 PM following th e completion of the examination by the undersigned. RPTAT: HDC .Dominga Johnson MD, Date Time Electronically viewed and signed by .Dominga Johnson MD, MD on 01/15/2017 12:32 .C/
[2017-01-15] MEDS: FLUCONAZOLE 100 MG/NS (PMX) 50 ML IVPB SCH ×2 (14:30→17:06)
--- NOTE | 2017-01-15 14:59 | PN ---
DATE: 01/15/2017 SUBJECTIVE: Patient seen. Unfortunately, he failed bedside swallow evaluation and he remains n.p.o . Because of his dysphagia and somewhat lethargy, I ordered a CAT scan of the brain as MRI cannot b e done as he had a pacemaker and AICD placed. A CAT scan showed no evidence of acute intracranial i nfarct, hemorrhage or acute intracranial pathology. There is mild chronic microvascular ischemic di sease and diffuse volume loss and moderate atherosclerotic vascular disease is seen. I asked Dr. Yamila moon, the neurologist, to see the patient in consultation and I appreciate ID involvement and cardio logy involvement by Dr. Ruiz. All cultures showing some pathology. PHYSICAL EXAMINATION: VITAL SIGNS: Temperature 98.3, pulse 86, respirations 16, blood pressure 123/97, saturation 100% on 2 liters. GENERAL: The patient is lying in bed, flat affect, staring, but arousable and answering my question s. CARDIOVASCULAR: S1 and S2, irregularly irregular. LUNGS: Clear, decreased bilaterally. ABDOMEN: Soft, obese. EXTREMITIES: Trace to +1 edema lower extremities. LABORATORY DATA: White count is 8.7, hemoglobin 11.7, hematocrit 38, platelet 203. Neutrophils 77%, lymphocytes 10%. Chemistry: Sodium is 155, potassium is low at 3.4, chloride 113, bicarbonate ___ __, BUN is 22, creatinine 0.9, glucose of 85. Hemoglobin A1c is 5.8, normal. AST 26, ALT 34, alkal ine phosphatase 39, albumin is low at 2.5. Cholesterol 65, LDL 25, HDL 27. Lipase was 174 on admis mahnaz. TSH 0.7. Cultures: Blood cultures showed gram-positive cocci in clusters. Urine culture sh owed gram-negative rods, less than 10 to the 4th. Respiratory culture shows yeast and wound culture shows gram-negative rods, +1. Stool for C. diff turned out negative. ASSESSMENT AND PLAN: This is a 66-year-old male with history of congestive heart failure, automatic implantable cardioverter-defibrillator placement, atrial fibrillation, diabetes mellitus, off medications, psychiatric disorder who presented with increased encephalopathy, was found to hav e pneumonia, urinary tract infection, sacral wound. 1. Respiratory. Continue O2 support, breathing treatments. Failed his speech eval. We will sundeep nue to attempt to evaluate his swallowing: Continue treatment for pneumonia with cefepime and vanco mycin. 2. Cardiovascular. Patient with history of congestive heart failure. Continue to observe. Unable to tolerate p.o. We may just put NG tube placement so he can get his meds and food. Patient with atrial fibrillation. Continue anticoagulation with Lovenox for now. Follow up echocardiogram resul ts. I appreciate Dr. Ruiz, cardiology input. We will follow recommendations. 3. Infectious disease. The patient with sacral wound, pneumonia, urinary tract infection. Follow up all cultures. Continue broad spectrum antibiotic. Continue empiric treatment with oral vancomyc in for Clostridium difficile colitis. 4. Renal: Monitor kidney function. The patient with hypernatremia. Free fluid via NG tube would be beneficial. 5. Dysphagia, failed speech eval. Continue to monitor. 6. Continue Protonix for gastrointestinal prophylaxis. 7. Psychiatric disorder. I held psychiatric medications secondary to patient's drowsiness and cons ulted neurology as the patient has flat affect. 8. Benign prostatic hypertrophy. Continue Flomax. 9. I spoke with family members, with Rahat Dey phone number [phone]. 10. Sacral wound. Continue wound care. 11. Add Diflucan for yeast in the sputum. We will follow. Dictated By: MARY MONTERO/SHANTAL Conf#: [id number] DID#: [id number]
--- NOTE | 2017-01-15 15:16 | RADRPT ---
PROCEDURE: XR Chest. CLINICAL INDICATION: Ng tube placement TECHNIQUE: Single portable view of the chest was obtained COMPARISON: CHEST 01/14/2017 FINDINGS: There is a nasogastric tube within the distal esophagus/GE junction.. The heart, lungs and mediastin um are otherwise unchanged. There is mild cardiomegaly. There is right lower lobe atelectasis. There is a left-sided AICD in place. RPTAT:AA IMPRESSION: Nasogastric tube with its tip within the distal esophagus/GE junction. Advancement is recommended. No other significant change. Right lower lobe atelectasis/infiltrate. .Christian Zhu MD, MD Date Time Electronically viewed and signed by .Christian Zhu MD, MD on 01/15/2017 15:15 .S/
--- NOTE | 2017-01-15 15:50 | RADRPT ---
Echocardiogram Report Patient Name: LINDA LOCKHART Gender: Male Date: 1950 Study Date: 15-Jan-2017 [employer] Porter: [facility] Location: 112-A Ref. Physician: MARY FORREST Quality: Technically Difficult Study Procedures: Transthoracic echocardiogram with complete 2D, M-Mode, and doppler examination. Indications: Congestive Heart Failure. 2D/M Mode Doppler Measurement Value Normal Ranges Measurement Value Normal Ranges LVIDd 2D 4.7 3.5 - 5.6 cm AV Peak Kiet 1.2 m/sec LVIDs 2D 3.1 2.1 - 4.1 cm AV Peak PG 6.0 mmHg FS 2D 34.6 % LVOT Peak Kiet 0.9 m/sec LVPWd 2D 1.1 0.6 - 1.1 cm LVOT Peak PG 3.0 mmHg IVSd 2D 1.1 0.6 - 1.1 cm MV E Peak Kiet 1.1 m/sec IVS/LVPW 2D 1.0 MV A Peak Kiet 0.6 m/sec AoR Diam 2D 2.9 2.0 - 3.7 cm MV E/A 1.9 LA/Ao 2D 1 0 - 1 MV Decel Time 116 msec EDV 2D 103.0 cm3 MV E/A 1.9 ESV 2D 28.7 cm3 TR Peak Kiet 2.9 m/sec LA Dimen 2D 3.3 2.3 - 4.0 cm TR Peak PG 34.0 mmHg RVSP 37.0 mmHg Findings Left Ventricle: Normal left ventricular systolic function. Normal left ventricular cavity size. Left ventricular wall thickness upper limits of normal. Ejection fraction is visually estimated at 60 %. Abnormal Diastolic Function. Right Ventricle: Normal right ventricular size. Normal right ventricular systolic function. Pacemaker right heart. Left Atrium: The left atrium is normal in size. Right Atrium: The right atrium is normal in size. Mitral Valve: Mild mitral leaflet calcification. Mild mitral annular calcification. Trace mitral regurgitation. Aortic Valve: No significant aortic stenosis. Aortic cusps appear mildly calcified. Mild aortic valve regurgitation. Tricuspid Valve: Normal appearance of the tricuspid valve. Estimated peak PA systolic pressure 37 mmHg. There is mild tricuspid regurgitation. Pulmonic Valve: Pulmonic valve not well visualized. There is trace pulmonic regurgitation. Pericardium: Normal pericardium with no significant pericardial effusion. Aorta: Normal aortic root. IVC: Normal IVC with respiratory collapse, however patient on ventilator. Conclusions Normal left ventricular systolic function. Normal left ventricular cavity size. Left ventricular wall thickness upper limits of normal. Ejection fraction is visually estimated at 60 %. Abnormal Diastolic Function. Normal appearance of the tricuspid valve. Estimated peak PA systolic pressure 37 mmHg. There is mild tricuspid regurgitation. Mild mitral leaflet calcification. Mild mitral annular calcification. Trace mitral regurgitation. No significant aortic stenosis. Aortic cusps appear mildly calcified. Mild aortic valve regurgitation. Electronically Signed By: Flavio Ruiz 15-Jan-2017 15:50:11 -0800 Patient Name: LINDA LOCKHART Study Date: 15-Jan-2017 [id number]
--- NOTE | 2017-01-15 17:56 | RADRPT ---
PROCEDURE: XR Chest. CLINICAL INDICATION: NG tube placement. TECHNIQUE: Single frontal view of the chest was obtained COMPARISON: Chest radiograph dated January 15, 2017 at 2:52 p.m. FINDINGS: AICD device overlying the left chest wall. Feeding tube tip overlying the stomach. The heart is magnified. There are low lung volumes with bibasilar subsegmental atelectasis. No definite focal consolidations , pleural effusion, or pneumothorax is seen. The osseous structures are not well visualized. IMPRESSION: 1. Feeding tube tip overlying the stomach. 2. Low lung volumes with bibasilar subsegmental atelectasis. RPTAT:AAJJ Physician Lily Date Time Electronically viewed and signed by Physician Lily on 01/15/2017 17:56 QL/
--- NOTE | 2017-01-15 19:25 | CONS ---
DATE OF ADMISSION: 01/14/2017 DATE OF CONSULTATION: 01/15/2017 REFERRING PHYSICIAN: Dr. Heath REASON FOR EVALUATION: Cough, tachybrady arrhythmia, ICD, hypertension. HISTORY OF PRESENT ILLNESS: Mr. Dey is a 66-year-old gentleman known to me for a long time with a history of heart failure with improved ejection fraction, history of ICD placement, history of psyc hiatric disease, hypertension, diabetes, schizoaffective disorder who was recently hospitalized at [facility] with C. diff colitis as well as dehydration, renal failure who represents to the [facility] now with episodes of hypoxia and altered mental status. The patient has been borderline febri le and tachycardic to 129. It appears that he has urinary tract infections as well. I have been as ked to see the patient in consultation for cardiac risk stratification. The patient is definitely n ot at his baseline. He has a strong evidence of fluid overload. He is with waning mental status. He also has episodes of atrial tachycardias as well as SVTs, which were noted. The patient had an I CD interrogated at my office fairly recently. There is no ischemia noted. He is in fluid overload. I think for now conservative therapy is expected. The patient will be treated for his infectious process, and we will continue to adjust therapy as needed. From a cardiac standpoint, we will try t o diurese the patient. He is already on Lasix to which he appears to be somewhat responding. We wi ll continue to follow now and provide more recommendations and more information as his condition bec omes available. PAST MEDICAL HISTORY: Heart failure, systolic, acute on chronic; ICD; diabetes; hypertension; BPH; ____ ejection fraction; morbid obesity; schizoaffective disorder; psychiatric disorder; recent C. di ff infection; scrotal edema. ALLERGIES: THE PATIENT IS ALLERGIC TO: 1. CODEINE. 2. IODINE. 3. MEPERIDINE. 4. SULFA. MEDICATIONS: The patient is on: 1. Flagyl 500 mg. 2. Vancomycin. 3. Flomax 0.5 mg. 4. Spiriva. 5. Atorvastatin. 6. Coreg 12.5 mg a day. 7. Aldactone. 8. Aspirin 81 mg. 9. Risperdal 10. Lasix 40 mg b.i.d. 11. ____. 12. Vitamin D. SURGICAL HISTORY: The patient had ICD placement. FAMILY HISTORY: Negative for sudden cardiac or premature coronary artery disease. SOCIAL HISTORY: The patient does not smoke, does not drink, does not use any drugs. REVIEW OF SYSTEMS: CONSTITUTIONAL: Some fevers and chills, recent weight gain, has altered mental status. HEENT: No changes in vision or hearing. CARDIAC: No chest pain reported now. RESPIRATORY: No shortness of breath. GASTROINTESTINAL: No nausea or vomiting. GENITOURINARY: No dysuria or hematuria. NEUROLOGIC: History of altered mental status with history of psychiatric disease. PHYSICAL EXAMINATION: VITAL SIGNS: Temperature is 97.6, heart rate now in the 90s, blood pressure 102/62. GENERAL: He is an obese gentleman, in no distress, alert and oriented x2 to 3, waning and waxing. HEAD: Normocephalic, atraumatic. Eyes anicteric. NECK: Supple. JVD is about 9 to 10 cm. There is no lymphadenopathy or thyromegaly. HEART: ICD site appears to be well healed. PMI is nondisplaced. LUNGS: Coarse with some scattered wheezes. ABDOMEN: Distended, bowel sounds present. No hepatosplenomegaly. GENITOURINARY: Intact. EXTREMITIES: Show edema. LABORATORY DATA: White blood cell 8.7, hemoglobin ____, platelets 203. Sodium 155, potassium 3.5. BUN is 22, creatinine 0.9. Troponin is negative at 0.01. ASSESSMENT AND PLAN: 1. Congestive heart failure. The patient has heart failure, systolic, acute on chronic. Will cont inue to adjust therapy as necessary, now patient appears to be responding somewhat to diuresis. Con tinue to monitor. 2. Hypernatremia, etiology is unclear. Dr. Heath follows. Will defer to Dr. Heath. 3. Implantable cardioverter defibrillator. The patient has history of ICD. The device was interro gated in the last 3 months in my office with good function. No further risk stratification needed. 4. Supraventricular tachycardia. The patient with SVTs, likely atrial tachycardias. Continue to m onitor now. Continue to replace electrolytes. 5. Hypokalemia. Continue to replace potassium as needed. I would like to thank Dr. Heath for referring this patient for my evaluation. Dictated By: LAM GONZALEZ MD ML/NTS Conf#: [id number] [facility]#: [id number] CC: MARY HEATH MD;*[facility]*
[2017-01-15] MEDS: TAMSULOSIN (SR) 0.4 MG CAP PO SCH (21:24)
[2017-01-15] MEDS: ATORVASTATIN 10 MG TAB PO SCH (21:25)
[2017-01-16] VITALS (16 sets, daily range): BP systolic 107–138; BP diastolic 61–92; PULSE 93–129; RESP 16–21
[2017-01-16] MEDS: PANTOPRAZOLE (EC) 40 MG TAB PO SCH (05:57)
[2017-01-16] MEDS: VANCOMYCIN 1 GM in NS 250 ML IVPB SCH ×2 (05:57→17:12)
[2017-01-16] MEDS: FUROSEMIDE 40 MG TAB PO SCH ×2 (05:58→17:11)
[2017-01-16] MEDS ORDERED: DIGOXIN 500 MCG INJ IV ONE (06:00)
[2017-01-16] MEDS: VANCOMYCIN HCL 250 MG/5ML POSYG PO SCH ×3 (06:06→18:25)
[2017-01-16 07:34] LABS: BASOPHIL # 0.1 10^3/ul (0.0-0.1); BASOPHILS % 0.5 % (0.0-2.0); EOSINOPHILS # 0.2 10^3/ul (0.0-0.5); EOSINOPHILS % 1.9 % (0.0-7.0); HEMATOCRIT 41.2 % (42.0-52.0); HEMOGLOBIN 12.6 g/dl (14.0-18.0); LYMPHOCYTES # 0.9 10^3/ul (0.8-2.9); LYMPHOCYTES % 8.3 % (15.0-51.0); MEAN CORPUSCULAR HEMOGLOBIN 28.3 pg (29.0-33.0); MEAN CORPUSCULAR HGB CONC 30.6 g/dl (32.0-37.0); MEAN CORPUSCULAR VOLUME 92.6 fl (82.0-101.0); MEAN PLATELET VOLUME 10.8 fl (7.4-10.4); MONOCYTES % 9.6 % (0.0-11.0); NEUTROPHIL # 8.2 10^3/ul (1.6-7.5); NEUTROPHILS % 78.6 % (39.0-77.0); PLATELET COUNT 221 10^3/UL (140-415); RED BLOOD COUNT 4.45 10^6/ul (4.70-6.10); RED CELL DISTRIBUTION WIDTH 17.2 % (11.5-14.5); WHITE BLOOD COUNT 10.5 10^3/ul (4.8-10.8)
[2017-01-16 07:56] LABS: CALCIUM 8.8 mg/dl (8.4-10.2); CREATININE 0.95 mg/dl (0.61-1.24); POTASSIUM 3.7 mmol/L (3.5-5.1)
[2017-01-16 07:59] LABS: MAGNESIUM 2.3 mg/dl (1.7-2.5); PHOSPHORUS 2.9 mg/dl (2.5-4.9)
[2017-01-16] MEDS: CEFEPIME 1GM/50 ML (PMX) 50 ML IV SCH ×2 (08:55→21:22)
[2017-01-16] MEDS: MULTIVITAMINS THERAPEUTIC TAB PO SCH (08:56)
[2017-01-16] MEDS: ASPIRIN (EC) 81 MG TAB PO SCH (08:56)
[2017-01-16] MEDS: ASCORBIC ACID 500 MG TAB PO SCH (08:56)
[2017-01-16] MEDS: SPIRONOLACTONE 25 MG TAB PO SCH (08:56)
[2017-01-16] MEDS: CHOLECALCIFEROL 1,000 UNIT TAB PO SCH (08:56)
[2017-01-16] MEDS: L ACIDOPHIL/B LACTIS/B LONGUM CAPSULE PO SCH ×2 (09:04→21:22)
[2017-01-16] MEDS: ENOXAPARIN 40 MG/0.4 ML SYG SC SCH (09:23)
--- NOTE | 2017-01-16 11:13 | CONS ---
Date/Time of Note Date/Time of Note DATE: 01/16/17 TIME: 11:08 Assessment/Plan Assessment/Plan Additional Assessment/Plan 1. Congestive heart failure. The patient has heart failure, systolic, acute on chronic. Will continue to adjust therapy as necessary, now patient appears to be responding somewhat to diuresis. Continue to monitor. CON't diuresis as tolerated. 2. Hypernatremia, etiology is unclear. Dr. Heath follows. Will defer to Dr. Heath. 3. Implantable cardioverter defibrillator. The patient has history of ICD. The device was interrogated in the last 3 months in my office with good function. No further risk stratification needed. 4. Supraventricular tachycardia. The patient with SVTs, likely atrial tachycardias. Continue to monitor now. Continue to replace electrolytes. Per report: A. Fib with RVR last night - added dig and coreg - will increase therapy as tolerated. i reviewed rhytym strip - dificult tracing, maybe sinus tach with PAC - will hold off on global anti-coag now. 5. Hypokalemia. Continue to replace potassium as needed. Consultation Date/Type/Reason Admit Date/Time Jan 14, 2017 at 10:52 Initial Consult Date 24 HR Interval Summary Free Text/Dictation Per report: A. Fib with RVR last night - added dig and coreg - will increase therapy as tolerated. i reviewed rhytym strip - dificult tracing, maybe sinus tach with PAC - will hold off on global anti-coag now. ROS: No fever, no chills, no nausea, no vomiting, no diarrhea/constipation No recent weight changes No chest pain, no PND, no orthopnea + SOB No dizziness, blurred vision No thirst, no heat or cold intolerance Exam/Review of Systems Vital Signs Vitals Vital Signs Date Time Temp Pulse Resp B/P Pulse Ox O2 Delivery O2 Flow Rate FiO2 01/16/17 08:08 96 01/16/17 08:00 Nasal Cannula 2.0 01/16/17 07:55 97.6 16 136/92 99 Intake and Output 01/15/17 01/15/17 01/16/17 14:59 22:59 06:59 Intake Total 383.333 ml 459.999 ml 1120 ml Output Total 560 ml 275 ml 650 ml Balance -176.667 ml 184.999 ml 470 ml Exam General: WN/WD/NAD, AOx confused HEENT: Unicetric/atraumatic/EOMI (follow commands) NECK: JVD elevated, no thyromegaly Lymph: no lymphadenopathy HEART: regular with no S3, II/ systolic murmur at apex LUNGS: Coarse sounds ABD: soft, NT, ND, +BS : Intact Neuro: non focal SKIN: chronic changes EXT: 1-2+ edema Results Result Diagram: 01/16/17 0707 01/16/17 0707 Results 24 hrs Laboratory Tests Test 01/16/17 01:20 01/16/17 07:07 Vancomycin Level Trough 20.7 *H White Blood Count 10.5 # Red Blood Count 4.45 L Hemoglobin 12.6 L Hematocrit 41.2 L Mean Corpuscular Volume 92.6 Mean Corpuscular Hemoglobin 28.3 L Mean Corpuscular Hemoglobin Concent 30.6 L Red Cell Distribution Width 17.2 H Platelet Count 221 Mean Platelet Volume 10.8 H Neutrophils % 78.6 H Lymphocytes % 8.3 L Monocytes % 9.6 Eosinophils % 1.9 Basophils % 0.5 Nucleated Red Blood Cells % 0.0 Neutrophils # 8.2 H Lymphocytes # 0.9 Monocytes # 1.0 H Eosinophils # 0.2 Basophils # 0.1 Nucleated Red Blood Cells # 0.0 Sodium Level 156 H Potassium Level 3.7 Chloride Level 115 H Carbon Dioxide Level 34 H Anion Gap 11 Blood Urea Nitrogen 25 H Creatinine 0.95 Glucose Level 96 Calcium Level 8.8 Phosphorus Level 2.9 Magnesium Level 2.3 Medications Medications Current Medications Ondansetron HCl (Zofran Inj) 4 mg Q6H PRN IV NAUSEA AND/OR VOMITING; Start at 14:30 Docusate Sodium (Colace) 100 mg Q12H PRN PO CONSTIPATION; Start 01/14/17 at 14 :30 Magnesium Hydroxide (Milk Of Mag) 30 ml DAILY PRN PO CONSTIPATION; Start 01/14 at 14:30 Pantoprazole 40 mg 40 mg DAILY@06 PO Last administered on 01/16/17 05:57; Admin Dose 40 MG; Start 01/15/17 at 06:00 Cefepime HCl (Maxipime 1gm/50 ml (Pmx)) 50 ml @ 100 mls/hr Q12 IV Last administered on 01/16/17 08:55; Admin Dose 100 MLS/HR; Start 01/14/17 at 21: 00 Acetaminophen (Tylenol Tab) 650 mg Q4 PRN PO PAIN AND OR ELEVATED TEMP; Start 01/14/17 at 14:30 Ascorbic Acid (Vitamin C) 500 mg DAILY PO Last administered on 01/16/17 08:56 ; Admin Dose 500 MG; Start 01/15/17 at 09:00 Aspirin (Halfprin) 81 mg DAILY PO Last administered on 01/16/17 08:56; Admin Dose 81 MG; Start 01/15/17 at 09:00 Atorvastatin Calcium (Lipitor) 10 mg QHS PO Last administered on 01/15/17 21: 25; Admin Dose 10 MG; Start 01/14/17 at 21:00 Carvedilol (Coreg) 12.5 mg BID PO Last administered on 01/16/17 05:58; Admin Dose 12.5 MG; Start 01/14/17 at 21:00 Cholecalciferol (Vitamin D) 1,000 unit DAILY PO Last administered on 08:56; Admin Dose 1,000 UNIT; Start 01/15/17 at 09:00 Multivitamins Therapeutic (Theragran) 1 tab DAILY PO Last administered on 01/16 08:56; Admin Dose 1 TAB; Start 01/15/17 at 09:00 Spironolactone (Aldactone) 25 mg DAILY PO Last administered on 01/16/17 08:56 ; Admin Dose 25 MG; Start 01/15/17 at 09:00 Tamsulosin HCl (Flomax) 0.4 mg HS PO Last administered on 01/15/17 21:24; Admin Dose 0.4 MG; Start 01/14/17 at 21:00 Vancomycin HCl (Vancomycin Oral Syringe) 250 mg Q6 PO Last administered on 06:06; Admin Dose 250 MG; Start 01/14/17 at 18:00 Lactobacillus Acidophilus (Florajen3 Capsule) 1 each BID PO Last administered on 01/16/17 09:04; Admin Dose 1 EACH; Start 01/14/17 at 21:00 Enoxaparin Sodium 40 mg 40 mg DAILY SC Last administered on 01/16/17 09:23; Admin Dose 40 MG; Start 01/14/17 at 15:30 Fluconazole/ Sodium Chloride 50 ml @ 50 mls/hr Q24H IVPB Last administered on 01/15/17 17:06; Admin Dose 50 MLS/HR; Start 01/15/17 at 14:30 Vancomycin HCl (Vancocin) 250 ml @ 125 mls/hr Q12H IVPB Last administered on 01/16/17 05:57; Admin Dose 125 MLS/HR; Start 01/16/17 at 06:00 LAM GONZALEZ MD Jan 16, 2017 11:12
[2017-01-16] MEDS ORDERED: PENDING SANTYL ORDER FOR WOUND CARE XX PRN (12:00)
--- NOTE | 2017-01-16 13:22 | CONS ---
Date/Time of Note Date/Time of Note DATE: 01/16/17 TIME: 13:10 Assessment/Plan Assessment/Plan Chief Complaint/Hosp Course Dysphagia Problems: Additional Assessment/Plan The patient is a 66-year-old morbidly obese male with history of congestive heart failure, status post AICD, psychiatric disorder, hypertension, diabetes mellitus, BPH, schizophrenia, recently discharged home at [facility] secondary to sepsis, was found to have C. diff colitis, dehydration, renal failure and urinary tract infection. He started with difficulty swallowing and was noted while he was in custodial. He was transferred to [facility] following found to be altered and confusion. His initial evaluation shows him to have been febrile and tachycardia suggestive of sepsis. He was also seen to have a sacral wound with possible infection. Chest x-ray showed possible pneumonia. He had several blood cultures while in custodial and they were reported as negative. He obviously has progressive dysphagia. Differential diagnoses is stroke, infection, structural esophageal abnormality or even a cervical spine spur causing compression of the esophagus. Plan 1 MRI of the brain 2 MRI of the C-spine 3 speech and swallowing evaluation 4 may need a GI evaluation for upper endoscopy 5 continue NG tube until then 6 will follow Consultation Date/Type/Reason Admit Date/Time Jan 14, 2017 at 10:52 Date of Consultation: Jan 16, 2017 Type of Consultation: Neurology Reason for Consultation Difficulty swallowing Referring Provider: MARY FORREST MD Hx of Present Illness The patient is a 66-year-old morbidly obese male with history of congestive heart failure, status post AICD, psychiatric disorder, hypertension, diabetes mellitus, BPH, schizophrenia, recently discharged home at [facility] secondary to sepsis, was found to have C. diff colitis, dehydration, renal failure and urinary tract infection. He started with difficulty swallowing and was noted while he was in custodial. He was transferred to [facility] following found to be altered and confusion. His initial evaluation shows him to have been febrile and tachycardia suggestive of sepsis. He was also seen to have a sacral wound with possible infection. Chest x-ray showed possible pneumonia. He had several blood cultures while in custodial and they were reported as negative. Neurology consult was called to evaluate his dysphagia. CT scan of the brain showed mild chronic white matter disease, mild atrophy, nothing acute. Constitutional: febrile Eyes: no complaints ENT: no complaints Respiratory: no complaints Cardiovascular: no complaints Gastrointestinal: no complaints Genitourinary: no complaints Musculoskeletal: no complaints Skin: no complaints Neurologic: other (Difficulty swallowing) Endocrine: no complaints Lymphatic: no complaints Psychological: nl mood/affect, no complaints Immunologic: no complaints Social History Smoking Status: Never smoker Exam/Review of Systems Vital Signs Vitals Vital Signs Date Time Temp Pulse Resp B/P Pulse Ox O2 Delivery O2 Flow Rate FiO2 01/16/17 12:07 102 01/16/17 11:41 98.7 16 123/84 97 01/16/17 08:00 Nasal Cannula 2.0 Intake and Output 01/15/17 01/15/17 01/16/17 15:00 23:00 07:00 Intake Total 466.666 ml 416.666 ml 1080 ml Output Total 295 ml 305 ml 585 ml Balance 171.666 ml 111.666 ml 495 ml Exam Constitutional: alert, obese, oriented Psych: nl mood/affect, no complaints Head: atraumatic, normocephalic Eyes: EOMI, nl conjunctiva, nl lids, nl sclera ENMT: mucosa pink and moist, nl external ears & nose, nl lips & teeth, nl nasal mucosa & septum Neck: non-tender, supple Respiratory: clear to auscultation, normal air movement Cardiovascular: nl pulses, regular rate and rhythm Gastrointestinal: nl liver, spleen, non-tender, soft Extremities: normal pulses Neurological: other (Alert, awake, oriented 3, extraocular movements are present, gag reflex is present, no focal cranial nerve abnormality except for dysphagia, currently has NG tube placed, limited but nonfocal motor exam, hyperreflexia) Results Result Diagram: 01/16/1770601/16/17 0707 Results 24 hrs Laboratory Tests Test 01/16/17 01:20 01/16/17 07:07 Vancomycin Level Trough 20.7 *H White Blood Count 10.5 # Red Blood Count 4.45 L Hemoglobin 12.6 L Hematocrit 41.2 L Mean Corpuscular Volume 92.6 Mean Corpuscular Hemoglobin 28.3 L Mean Corpuscular Hemoglobin Concent 30.6 L Red Cell Distribution Width 17.2 H Platelet Count 221 Mean Platelet Volume 10.8 H Neutrophils % 78.6 H Lymphocytes % 8.3 L Monocytes % 9.6 Eosinophils % 1.9 Basophils % 0.5 Nucleated Red Blood Cells % 0.0 Neutrophils # 8.2 H Lymphocytes # 0.9 Monocytes # 1.0 H Eosinophils # 0.2 Basophils # 0.1 Nucleated Red Blood Cells # 0.0 Sodium Level 156 H Potassium Level 3.7 Chloride Level 115 H Carbon Dioxide Level 34 H Anion Gap 11 Blood Urea Nitrogen 25 H Creatinine 0.95 Glucose Level 96 Calcium Level 8.8 Phosphorus Level 2.9 Magnesium Level 2.3 Medications Medications Current Medications Ondansetron HCl (Zofran Inj) 4 mg Q6H PRN IV NAUSEA AND/OR VOMITING; Start at 14:30 Docusate Sodium (Colace) 100 mg Q12H PRN PO CONSTIPATION; Start 01/14/17 at 14 :30 Magnesium Hydroxide (Milk Of Mag) 30 ml DAILY PRN PO CONSTIPATION; Start 01/14 at 14:30 Pantoprazole 40 mg 40 mg DAILY@06 PO Last administered on 01/16/17 05:57; Admin Dose 40 MG; Start 01/15/17 at 06:00 Cefepime HCl (Maxipime 1gm/50 ml (Pmx)) 50 ml @ 100 mls/hr Q12 IV Last administered on 01/16/17 08:55; Admin Dose 100 MLS/HR; Start 01/14/17 at 21: 00 Acetaminophen (Tylenol Tab) 650 mg Q4 PRN PO PAIN AND OR ELEVATED TEMP; Start 01/14/17 at 14:30 Ascorbic Acid (Vitamin C) 500 mg DAILY PO Last administered on 01/16/17 08:56 ; Admin Dose 500 MG; Start 01/15/17 at 09:00 Aspirin (Halfprin) 81 mg DAILY PO Last administered on 01/16/17 08:56; Admin Dose 81 MG; Start 01/15/17 at 09:00 Atorvastatin Calcium (Lipitor) 10 mg QHS PO Last administered on 01/15/17 21: 25; Admin Dose 10 MG; Start 01/14/17 at 21:00 Carvedilol (Coreg) 12.5 mg BID PO Last administered on 01/16/17 05:58; Admin Dose 12.5 MG; Start 01/14/17 at 21:00 Cholecalciferol (Vitamin D) 1,000 unit DAILY PO Last administered on 08:56; Admin Dose 1,000 UNIT; Start 01/15/17 at 09:00 Multivitamins Therapeutic (Theragran) 1 tab DAILY PO Last administered on 01/16 08:56; Admin Dose 1 TAB; Start 01/15/17 at 09:00 Spironolactone (Aldactone) 25 mg DAILY PO Last administered on 01/16/17 08:56 ; Admin Dose 25 MG; Start 01/15/17 at 09:00 Tamsulosin HCl (Flomax) 0.4 mg HS PO Last administered on 01/15/17 21:24; Admin Dose 0.4 MG; Start 01/14/17 at 21:00 Vancomycin HCl (Vancomycin Oral Syringe) 250 mg Q6 PO Last administered on 11:34; Admin Dose 250 MG; Start 01/14/17 at 18:00 Lactobacillus Acidophilus (Florajen3 Capsule) 1 each BID PO Last administered on 01/16/17 09:04; Admin Dose 1 EACH; Start 01/14/17 at 21:00 Enoxaparin Sodium 40 mg 40 mg DAILY SC Last administered on 01/16/17 09:23; Admin Dose 40 MG; Start 01/14/17 at 15:30 Fluconazole/ Sodium Chloride 50 ml @ 50 mls/hr Q24H IVPB Last administered on 01/15/17 17:06; Admin Dose 50 MLS/HR; Start 01/15/17 at 14:30 Vancomycin HCl (Vancocin) 250 ml @ 125 mls/hr Q12H IVPB Last administered on 01/16/17 05:57; Admin Dose 125 MLS/HR; Start 01/16/17 at 06:00 Aspirin (Ecotrin) 325 mg DAILY PO ; Start 01/17/17 at 09:00 Miscellaneous Information (Pending Santyl Order For Wound Care) This patient hampton... PRN PRN XX WOUND CARE; Start 01/16/17 at 12:00 Collagenase (Santyl) 1 applic DAILY TOP ; Start 01/16/17 at 13:[address] scan of the brain 01/15/2017 IMPRESSION: 1. No evidence of acute intracranial infarcts, hemorrhage, or acute intracranial pathology. 2. Mild chronic microvascular ischemic disease and diffuse volume loss. 3. Mild atherosclerotic vascular disease A call report was made to Patient's ICU Nurse, Renetta Clark, at 01/15/2017 12: 29:50 PM following the completion of the examination by the undersigned. RPTAT: HDC .Dominga Johnson MD, MD Date Time Electronically viewed and signed by .Dominga Johnson MD, MD on 01/15/2017 12: 32 SURENDRA VAZQUEZ MD Jan 16, 2017 13:21
[2017-01-16] MEDS: COLLAGENASE 30 GM TUBE TOP SCH (14:13)
[2017-01-16] MEDS: FLUCONAZOLE 100 MG/NS (PMX) 50 ML IVPB SCH (15:06)
--- NOTE | 2017-01-16 17:36 | CONS ---
Date/Time of Note Date/Time of Note DATE: 01/16/17 TIME: 17:34 Assessment/Plan Assessment/Plan Chief Complaint/Hosp Course ID PROGRESS NOTE CURRENT ABX: DAY # 3=> Vanco IV + Cefepime + Vanco PO 24H INTERVAL SUMMARY * TNS out of ICU to tele -> NPO w/NGT in place / * Awake & responsive, afebrile, VSS, NAD, not able to move BUEXT or BLEXT on command * 01/14/17 CXR: IMPRESSION:1. Right basilar atelectasis. 2. Cardiomegaly. 3. Permanent pacemaker/AICD. 4. Otherwise unremarkable chest radiograph. * MICRO: UA 1+ Leuk Esterase, 15 pyuria; = GNR Proteus Mirabilis * Suspect contaminated BCx on admission due to * BLOOD CULTURE Preliminary BCULT GRAM BOTTLE 1 Gram positive rods . seen on gram stain of the broth Organism 1 GRAM POSITIVE RIC * 01/14/17 Shannan: 01/14/[id number]: BLOOD Microbiology BLOOD CULTURE Preliminary BCULT GRAM BOTTLE 1 Gram positive cocci in pairs and clusters . seen on gram stain of the broth MEDICAL HISTORY 1. Difficulty ambulating-> WC bound 2. Morbid obesity. 3. Recent Clostridium difficile colitis. 4. Schizophrenia. 5. Chronic obstructive pulmonary disease. 6. Congestive heart failure with coronary artery disease 7. Hypertension. 8. Diabetes mellitus. 9. Hyperlipidemia. 10. Benign prostatic hypertrophy. 11. Atrial fibrillation. 12. History of deep venous thrombosis and pulmonary emboli. 13. History of alcohol abuse. 14. Status post pilonidal cyst surgery. 15. Status post tonsillectomy and appendectomy, status post T and A. 16. Status post repair of a wound in the right leg. 17. Facial surgery. 18. History of tobacco abuse, 3.5 packs per day for 30 years. PHYSICAL EXAMINATION: GENERAL: Awake, super morbid obese, VSS, NAD HEENT: AT, NC, anicteric, moist oral membranes NECK: Trach midline, supple, increased neck circumference makes it difficult to appreciate JVD status CHEST: Equal chest rise bilaterally, without dyspnea on observation HEART: Pulse RRR ABDOMEN: Large, Soft, NT, EXT: Warm, moves all ext, generalized edema SKIN: No rash, no diaphoresis ID ASSESSMENT: 66 yo super morbid obesity, schozophrenia, hx of ETOH, CMY w/EF<30%, ICD M admit with: 1. Sepsis w/Tmax 100.3, tachycardia, mild rise in lactic acid 1.2-> 1.5-> 1.1, acute encephalopathy * UTI = GNR Proteus Mirabilis * Suspect contaminated BCx on admission due to different pathogens growing = GPRods #1 & Gram positive cocci in pairs and clusters #2 2. HCAP @ SNF 3. Large infected sacral decub WOUND CULTURE Preliminary Organism 1 PROTEUS MIRABILIS QUANTITY 1+ Organism 2 COLIFORM QUANTITY SCANT GROWTH Organism 3 GRAM NEGATIVE RIC QUANTITY SCANT GROWTH Organism 4 ENTEROCOCCUS SPECIES QUANTITY ISOLATED FROM BROTH ONLY 4. Recent C. difficile colitis 5. COPD-> Hx of former long-term tobacco 6. HTN 7. HLD 8. Diabetes mellitus 9. CAD/Hx of remote [place], Afib w/pacemaker implant status 10. CHF -> Hx of ischemic + ETOH cardiomyopathy w/systolic HF, s/p ICD placement 11. BPH w/hx of urinary retention, hx of UTI 12. Wheelchair-bound 13. Oral Candidiasis (-)MRSA ABX ALLERGY: Sulfa, Iodine INVASIVES: PIV CURRENT ABX: DAY # 3=> Vanco IV + Cefepime + Vanco PO ID RECOMMENDATIONS/PLAN: 1. Continue current ABX awaiting final results of blood/wound Cx 2. Patient is now awake, alert, and responsive => Improved on current ABX 3. Aspiration precautions . . Problems: Consultation Date/Type/Reason Admit Date/Time Jan 14, 2017 at 10:52 Type of Consultation: ID Referring Provider: MARY FORREST MD Exam/Review of Systems Vital Signs Vitals Vital Signs Date Time Temp Pulse Resp B/P Pulse Ox O2 Delivery O2 Flow Rate FiO2 01/16/17 16:41 104 01/16/17 15:39 99.2 17 124/80 99 01/16/17 08:00 Nasal Cannula 2.0 Intake and Output 01/15/17 01/15/17 01/16/17 15:00 23:00 07:00 Intake Total 466.666 ml 416.666 ml 1080 ml Output Total 295 ml 305 ml 585 ml Balance 171.666 ml 111.666 ml 495 ml Results Result Diagram: 01/16/17 0707 01/16/17 0707 Results 24 hrs Laboratory Tests Test 01/16/17 01:20 01/16/17 07:07 Vancomycin Level Trough 20.7 *H White Blood Count 10.5 # Red Blood Count 4.45 L Hemoglobin 12.6 L Hematocrit 41.2 L Mean Corpuscular Volume 92.6 Mean Corpuscular Hemoglobin 28.3 L Mean Corpuscular Hemoglobin Concent 30.6 L Red Cell Distribution Width 17.2 H Platelet Count 221 Mean Platelet Volume 10.8 H Neutrophils % 78.6 H Lymphocytes % 8.3 L Monocytes % 9.6 Eosinophils % 1.9 Basophils % 0.5 Nucleated Red Blood Cells % 0.0 Neutrophils # 8.2 H Lymphocytes # 0.9 Monocytes # 1.0 H Eosinophils # 0.2 Basophils # 0.1 Nucleated Red Blood Cells # 0.0 Sodium Level 156 H Potassium Level 3.7 Chloride Level 115 H Carbon Dioxide Level 34 H Anion Gap 11 Blood Urea Nitrogen 25 H Creatinine 0.95 Glucose Level 96 Calcium Level 8.8 Phosphorus Level 2.9 Magnesium Level 2.3 Medications Medications Current Medications Ondansetron HCl (Zofran Inj) 4 mg Q6H PRN IV NAUSEA AND/OR VOMITING; Start at 14:30 Docusate Sodium (Colace) 100 mg Q12H PRN PO CONSTIPATION; Start 01/14/17 at 14 :30 Magnesium Hydroxide (Milk Of Mag) 30 ml DAILY PRN PO CONSTIPATION; Start 01/14 at 14:30 Pantoprazole 40 mg 40 mg DAILY@06 PO Last administered on 01/16/17 05:57; Admin Dose 40 MG; Start 01/15/17 at 06:00 Cefepime HCl (Maxipime 1gm/50 ml (Pmx)) 50 ml @ 100 mls/hr Q12 IV Last administered on 01/16/17 08:55; Admin Dose 100 MLS/HR; Start 01/14/17 at 21: 00 Acetaminophen (Tylenol Tab) 650 mg Q4 PRN PO PAIN AND OR ELEVATED TEMP; Start 01/14/17 at 14:30 Ascorbic Acid (Vitamin C) 500 mg DAILY PO Last administered on 01/16/17 08:56 ; Admin Dose 500 MG; Start 01/15/17 at 09:00 Aspirin (Halfprin) 81 mg DAILY PO Last administered on 01/16/17 08:56; Admin Dose 81 MG; Start 01/15/17 at 09:00 Atorvastatin Calcium (Lipitor) 10 mg QHS PO Last administered on 01/15/17 21: 25; Admin Dose 10 MG; Start 01/14/17 at 21:00 Carvedilol (Coreg) 12.5 mg BID PO Last administered on 01/16/17 05:58; Admin Dose 12.5 MG; Start 01/14/17 at 21:00 Cholecalciferol (Vitamin D) 1,000 unit DAILY PO Last administered on 08:56; Admin Dose 1,000 UNIT; Start 01/15/17 at 09:00 Multivitamins Therapeutic (Theragran) 1 tab DAILY PO Last administered on 01/16 08:56; Admin Dose 1 TAB; Start 01/15/17 at 09:00 Spironolactone (Aldactone) 25 mg DAILY PO Last administered on 01/16/17 08:56 ; Admin Dose 25 MG; Start 01/15/17 at 09:00 Tamsulosin HCl (Flomax) 0.4 mg HS PO Last administered on 01/15/17 21:24; Admin Dose 0.4 MG; Start 01/14/17 at 21:00 Vancomycin HCl (Vancomycin Oral Syringe) 250 mg Q6 PO Last administered on 11:34; Admin Dose 250 MG; Start 01/14/17 at 18:00 Lactobacillus Acidophilus (Florajen3 Capsule) 1 each BID PO Last administered on 01/16/17 09:04; Admin Dose 1 EACH; Start 01/14/17 at 21:00 Enoxaparin Sodium 40 mg 40 mg DAILY SC Last administered on 01/16/17 09:23; Admin Dose 40 MG; Start 01/14/17 at 15:30 Fluconazole/ Sodium Chloride 50 ml @ 50 mls/hr Q24H IVPB Last administered on 01/16/17 15:06; Admin Dose 50 MLS/HR; Start 01/15/17 at 14:30 Vancomycin HCl (Vancocin) 250 ml @ 125 mls/hr Q12H IVPB Last administered on 01/16/17 17:12; Admin Dose 125 MLS/HR; Start 01/16/17 at 06:00 Aspirin (Ecotrin) 325 mg DAILY PO ; Start 01/17/17 at 09:00 Miscellaneous Information (Pending Santyl Order For Wound Care) This patient [place]... PRN PRN XX WOUND CARE; Start 01/16/17 at 12:00 Collagenase (Santyl) 1 applic DAILY TOP Last administered on 01/16/17t 14:13; Admin Dose 1 APPLIC; Start 01/16/17 at 13:00 MIKE RHODES NP Jan 16, 2017 17:36
--- NOTE | 2017-01-16 17:41 | PN ---
DATE: 01/16/2017 The patient was transferred to telemetry unit floor. I appreciate Dr. Vazquez, neurology consult, Dr. Ruiz, cardiology followup. The patient overnight was tachycardic to the 140's. I did give h im a dose of digoxin x1. The patient remains tachycardic at 102. The patient is alert, answering my questions appropriately. Most of his cultures all positive including blood cultures, urine cult ures and respiratory cultures and wound cultures. Still awaiting air mattress bed. The patient is complaining of pain in the sacral area. PHYSICAL EXAMINATION: VITAL SIGNS: Temperature is 98.7, pulse 102, respirations 16, blood pressure 123/84, saturation 97% on 2 liters. GENERAL: The patient is morbidly obese patient is pale, weak looking. CARDIOVASCULAR: S1, S2, tachycardic. LUNGS: Decreased bilaterally. ABDOMEN: Soft. Slight discomfort throughout. EXTREMITIES: Trace to +1 edema. LABORATORY DATA: White count is 10.5, hemoglobin is 12.6, hematocrit 41, platelet count of 221, grace trophils 79%, lymphocytes 8%. Chemistry: Sodium 156, potassium 3.7, chloride 115, bicarbonate 34, BUN is 25, creatinine 0.95, glucose of 96. Urinalysis on admission was positive. Blood cultures s hows gram-positive rods and then gram-positive cocci in clusters in the second bottle. Urine cultu re shows Proteus mirabilis sensitive to cefotaxime, gentamicin, tobramycin. Sputum culture shows y east, not Meghana albicans. Wound culture shows Proteus mirabilis sensitive to cefotaxime, gentamic in, tobramycin. Stool for C. diff negative. MEDICATIONS: 1. Aspirin 325 daily. 2. Santyl daily. 3. Vancomycin dose per pharmacy. 4. Diflucan 100 IV q.24h. 5. Vitamin C 500 mg daily. 6. Aspirin 81 mg daily. 7. Vitamin D 1000 daily. 8. Multivitamin 1 tablet daily. 9. Aldactone 25 daily. 10. Protonix 40 mg daily. 11. Cefepime 1 gram q.12h. 12. Lipitor 10 mg at bedtime. 13. Coreg 12.5 b.i.d. 14. Flomax 0.4 at bedtime, 15. Lactobacillus b.i.d. 16. Vancomycin dose per pharmacy. 17. Lasix 40 p.o. b.i.d. 18. Lovenox 40 mg subcutaneous daily. 19. Zofran p.r.n. 20. Colace p.r.n. 21. Milk of magnesia p.r.n. 22. Vancomycin dose per pharmacy. 23. DuoNeb as directed. 24. Tylenol p.r.n. ASSESSMENT AND PLAN: This is an unfortunate 66-year-old male with history of CHF, AICD de fibrillator, atrial fibrillation, diabetes mellitus, off medications, psychiatric disorder, who pre sents with increased encephalopathy, was found basically to be septic with evidence of pneumonia, UT I, sacral wound. 1. Respiratory. Continue O2 support and breathing treatments. Monitor for fluid overload state. Continue broad spectrum antibiotics. May need to discontinue Diflucan and start him on other antifu ngals. 2. Cardiovascular. Patient with history of CHF. Continue oral diuretic therapy. He is on aspirin for cardiac protection. 3. Infectious disease. The patient with sacral wound, pneumonia, UTI, follow up all cultures. ID to follow. No evidence of Clostridium difficile. 4. Renal. The patient with hypernatremia. Continue water flushes. 5. Dysphagia. Likely secondary to above medical problems continue to evaluate his speech. 6. Continue Protonix for GI prophylaxis. 7. Psychiatric disorder. I held all antipsychotics, as patient was lethargic, currently more awak e observe. 8. Benign prostatic hypertrophy. Continue Flomax. 9. Sacral wound, awaiting air mattress bed. Continue vitamins. 10. Continue beta blockers. The patient is already on Coreg. 11. We will follow. Dictated By: MARY MONTERO/SHANTAL Conf#: [id number] DID#: [id number] CC: SURENDRA VAZQUEZ MD; LAM RUIZ MD; MARY FORREST MD;*End*
[2017-01-16] MEDS: TAMSULOSIN (SR) 0.4 MG CAP PO SCH (21:22)
[2017-01-16] MEDS: ATORVASTATIN 10 MG TAB PO SCH (21:22)
[2017-01-17] VITALS (12 sets, daily range): BP systolic 100–125; BP diastolic 57–79; PULSE 84–120; RESP 17–18
[2017-01-17] MEDS: VANCOMYCIN HCL 250 MG/5ML POSYG PO SCH ×4 (00:10→17:37)
[2017-01-17] MEDS: ALBUTEROL/IPRATROPIUM (NEB) 3 ML AMP NEB PRN (01:22)
[2017-01-17] MEDS: VANCOMYCIN 1 GM in NS 250 ML IVPB SCH ×2 (05:25→17:34)
[2017-01-17] MEDS: PANTOPRAZOLE (EC) 40 MG TAB PO SCH (05:25)
[2017-01-17] MEDS: FUROSEMIDE 40 MG TAB PO SCH ×2 (05:26→17:37)
[2017-01-17 08:30] LABS: BASOPHILS % 0.2 % (0.0-2.0); EOSINOPHILS % 0.2 % (0.0-7.0); HEMOGLOBIN 11.9 g/dl (14.0-18.0); LYMPHOCYTES # 0.6 10^3/ul (0.8-2.9); LYMPHOCYTES % 4.6 % (15.0-51.0); MEAN CORPUSCULAR HEMOGLOBIN 28.3 pg (29.0-33.0); MEAN CORPUSCULAR HGB CONC 30.5 g/dl (32.0-37.0); MEAN CORPUSCULAR VOLUME 92.9 fl (82.0-101.0); MEAN PLATELET VOLUME 10.6 fl (7.4-10.4); MONOCYTE # 1.2 10^3/ul (0.3-0.9); MONOCYTES % 9.5 % (0.0-11.0); NEUTROPHILS % 84.5 % (39.0-77.0); PLATELET COUNT 177 10^3/UL (140-415); RED CELL DISTRIBUTION WIDTH 17.3 % (11.5-14.5)
[2017-01-17] MEDS: CEFEPIME 1GM/50 ML (PMX) 50 ML IV SCH ×2 (08:35→20:26)
[2017-01-17] MEDS: SPIRONOLACTONE 25 MG TAB PO SCH (08:38)
[2017-01-17] MEDS: CHOLECALCIFEROL 1,000 UNIT TAB PO SCH (08:38)
[2017-01-17] MEDS: L ACIDOPHIL/B LACTIS/B LONGUM CAPSULE PO SCH ×2 (08:39→20:48)
[2017-01-17] MEDS: MULTIVITAMINS THERAPEUTIC TAB PO SCH (08:39)
[2017-01-17] MEDS: ASCORBIC ACID 500 MG TAB PO SCH (08:39)
[2017-01-17] MEDS: COLLAGENASE 30 GM TUBE TOP SCH (08:40)
[2017-01-17] MEDS: ENOXAPARIN 40 MG/0.4 ML SYG SC SCH (08:42)
[2017-01-17] MEDS: ASPIRIN 325 MG TAB NGT SCH (08:53)
[2017-01-17 08:58] LABS: CALCIUM 8.4 mg/dl (8.4-10.2); CREATININE 0.92 mg/dl (0.61-1.24); POTASSIUM 3.4 mmol/L (3.5-5.1)
[2017-01-17] MEDS ORDERED: ASPIRIN (EC) 325 MG TAB PO SCH (09:00)
[2017-01-17] MEDS: FLUCONAZOLE 100 MG/NS (PMX) 50 ML IVPB SCH (14:13)
--- NOTE | 2017-01-17 15:21 | CONS ---
Date/Time of Note Date/Time of Note DATE: 01/17/17 TIME: 15:18 Assessment/Plan Assessment/Plan Chief Complaint/Hosp Course Dysphagia Problems: Additional Assessment/Plan The patient is a 66-year-old morbidly obese male with history of congestive heart failure, status post AICD, psychiatric disorder, hypertension, diabetes mellitus, BPH, schizophrenia, recently discharged home at [facility] secondary to sepsis, was found to have C. diff colitis, dehydration, renal failure and urinary tract infection. He started with difficulty swallowing and was noted while he was in intermediate. He was transferred to [facility] following found to be altered and confusion. His initial evaluation shows him to have been febrile and tachycardia suggestive of sepsis. He was also seen to have a sacral wound with possible infection. Chest x-ray showed possible pneumonia. He had several blood cultures while in intermediate and they were reported as negative. He obviously has progressive dysphagia. Differential diagnoses is stroke, infection, structural esophageal abnormality or even a cervical spine spur causing compression of the esophagus. MRI of the brain and C-spine could not be done due to pacemaker. Plan 1 CT of the C-spine 2 speech and swallowing evaluation 3 may need a GI evaluation for upper endoscopy 4 continue NG tube until then 5 will follow Consultation Date/Type/Reason Admit Date/Time Jan 14, 2017 at 10:52 Initial Consult Date 01/16/17 Type of Consultation: ID Referring Provider: MARY FORREST MD 24 HR Interval Summary Free Text/Dictation Clinically same. MRI could not be done due to pacemaker Exam/Review of Systems Vital Signs Vitals Vital Signs Date Time Temp Pulse Resp B/P Pulse Ox O2 Delivery O2 Flow Rate FiO2 01/17/17 12:28 84 01/17/17 11: 99.2 17 115/64 91 01/17/17 07:56 Nasal Cannula 2.0 Intake and Output 01/16/17 01/16/17 01/17/17 15:00 23:00 07:00 Intake Total 300 ml 1110 ml 1085 ml Output Total 900 ml 500 ml Balance 300 ml 210 ml 585 ml Exam Sleepy but arousable, following all commands, moving all extremities on verbal commands. Constitutional: other (Sleepy) Psych: nl mood/affect, no complaints Head: atraumatic, normocephalic Eyes: EOMI, nl conjunctiva, nl lids, nl sclera ENMT: mucosa pink and moist, nl external ears & nose, nl lips & teeth, nl nasal mucosa & septum Neck: non-tender, supple Respiratory: clear to auscultation, normal air movement Cardiovascular: nl pulses, regular rate and rhythm Gastrointestinal: nl liver, spleen, non-tender, soft Musculoskeletal: nl extremities to inspection Results Result Diagram: 01/17/17 0801/17/17 0805 Results 24 hrs Laboratory Tests Test 01/17/17 08:05 White Blood Count 13.0 #H Red Blood Count 4.20 L Hemoglobin 11.9 L Hematocrit 39.0 L Mean Corpuscular Volume 92.9 Mean Corpuscular Hemoglobin 28.3 L Mean Corpuscular Hemoglobin Concent 30.5 L Red Cell Distribution Width 17.3 H Platelet Count 177 Mean Platelet Volume 10.6 H Neutrophils % 84.5 H Lymphocytes % 4.6 L Monocytes % 9.5 Eosinophils % 0.2 Basophils % 0.2 Nucleated Red Blood Cells % 0.0 Neutrophils # 11.0 H Lymphocytes # 0.6 L Monocytes # 1.2 H Eosinophils # 0.0 Basophils # 0.0 Nucleated Red Blood Cells # 0.0 Sodium Level 155 H Potassium Level 3.4 L Chloride Level 114 H Carbon Dioxide Level 35 H Anion Gap 9 Blood Urea Nitrogen 22 H Creatinine 0.92 Glucose Level 134 Calcium Level 8.4 Medications Medications Current Medications Ondansetron HCl (Zofran Inj) 4 mg Q6H PRN IV NAUSEA AND/OR VOMITING; Start at 14:30 Docusate Sodium (Colace) 100 mg Q12H PRN PO CONSTIPATION; Start 01/14/17 at 14 :30 Magnesium Hydroxide (Milk Of Mag) 30 ml DAILY PRN PO CONSTIPATION; Start 01/14 at 14:30 Pantoprazole 40 mg 40 mg DAILY@06 PO Last administered on 01/17/17 05:25; Admin Dose 40 MG; Start 01/15/17 at 06:00 Cefepime HCl (Maxipime 1gm/50 ml (Pmx)) 50 ml @ 100 mls/hr Q12 IV Last administered on 01/17/17 08:35; Admin Dose 100 MLS/HR; Start 01/14/17 at 21: 00 Acetaminophen (Tylenol Tab) 650 mg Q4 PRN PO PAIN AND OR ELEVATED TEMP; Start 01/14/17 at 14:30 Ascorbic Acid (Vitamin C) 500 mg DAILY PO Last administered on 01/17/17 08:39 ; Admin Dose 500 MG; Start 01/15/17 at 09:00 Atorvastatin Calcium (Lipitor) 10 mg QHS PO Last administered on 01/16/17 21: 22; Admin Dose 10 MG; Start 01/14/17 at 21:00 Carvedilol (Coreg) 12.5 mg BID PO Last administered on 01/17/17 08:39; Admin Dose 12.5 MG; Start 01/14/17 at 21:00 Cholecalciferol (Vitamin D) 1,000 unit DAILY PO Last administered on 08:38; Admin Dose 1,000 UNIT; Start 01/15/17 at 09:00 Multivitamins Therapeutic (Theragran) 1 tab DAILY PO Last administered on 01/17 08:39; Admin Dose 1 TAB; Start 01/15/17 at 09:00 Spironolactone (Aldactone) 25 mg DAILY PO Last administered on 01/17/17 08:38 ; Admin Dose 25 MG; Start 01/15/17 at 09:00 Tamsulosin HCl (Flomax) 0.4 mg HS PO Last administered on 01/16/17 21:22; Admin Dose 0.4 MG; Start 01/14/17 at 21:00 Vancomycin HCl (Vancomycin Oral Syringe) 250 mg Q6 PO Last administered on 12:13; Admin Dose 250 MG; Start 01/14/17 at 18:00 Lactobacillus Acidophilus (Florajen3 Capsule) 1 each BID PO Last administered on 01/17/17 08:39; Admin Dose 1 EACH; Start 01/14/17 at 21:00 Enoxaparin Sodium 40 mg 40 mg DAILY SC Last administered on 01/17/17 08:42; Admin Dose 40 MG; Start 01/14/17 at 15:30 Vancomycin HCl (Vancocin) 250 ml @ 125 mls/hr Q12H IVPB Last administered on 01/17/17 05:25; Admin Dose 125 MLS/HR; Start 01/16/17 at 06:00 Miscellaneous Information (Pending [facility] Order For Wound Care) This patient hampton... PRN PRN XX WOUND CARE; Start 01/16/17 at 12:00 Collagenase (Santyl) 1 applic DAILY TOP Last administered on 01/17/17 08:40; Admin Dose 1 APPLIC; Start 01/16/17 at 13:00 Aspirin (Aspirin) 325 mg DAILY NGT Last administered on 01/17/17 08:53; Admin Dose 325 MG; Start 01/17/17 at 09:00 Miscellaneous Information VANCOMYCIN TROUGH AT 0500 ONCE ONCE XX ; Start 01/18/17 at 05:00; Stop 01/18/17 at 05:01 Caspofungin/ Sodium Chloride (Cancidas/NS) 250 ml @ 250 mls/hr Q24H IVPB ; Start 01/17/17 at 15:30; Status UNSURENDRA MAHONEY MD Jan 17, 2017 15:21
--- NOTE | 2017-01-17 15:26 | CONS ---
Date/Time of Note Date/Time of Note DATE: 01/17/17 TIME: 15:18 Assessment/Plan Assessment/Plan Chief Complaint/Hosp Course ID PROGRESS NOTE CURRENT ABX: DAY # 4=> Vanco IV + Cefepime + Vanco PO 24H INTERVAL SUMMARY * Low grade TMax 99.+, WBC elevated to 13. today * More lethargic today, NGT in place, generalized edema -- was more awake prior days, taking POs w/help, confused requires soft restraints * 01/14/17 CXR: IMPRESSION:1. Right basilar atelectasis. 2. Cardiomegaly. 3. Permanent pacemaker/AICD. 4. Otherwise unremarkable chest radiograph. * MICRO: * UA 1+ Leuk Esterase, 15 pyuria; = GNR Proteus Mirabilis * 01/14/17 BCx 1/ bottles = MDRO COAGULASE NEGATIVE STAPH * 01/14/17 BCx 1/2 still pending final ID BLOOD CULTURE Preliminary GRAM POSITIVE RIC * WOUND CULTURE Preliminary Organism 1 PROTEUS MIRABILIS QUANTITY 1+ Organism 2 K.PNEUMONIAE SSP PNEUMONIAE QUANTITY SCANT GROWTH Organism 3 ENTEROCOCCUS SPECIES QUANTITY ISOLATED FROM BROTH ONLY P. MIRAB K PNE SPP ENT SPS M.I.C. RX M.I.C. RX M.I.C. RX --------- --- --------- --- --------- --- AMPICILLIN >=32 R <=2 S CEFAZOLIN R CEFOTAXIME S S CIPROFLOXACIN >=4 R <=0.25 S GENTAMICIN <=1 S <=1 S LEVOFLOXACIN >=8 R <=0.12 S PENICILLIN-G 4 S VANCOMYCIN <=0.5 S TOBRAMYCIN <=1 S <=1 S TRIMETHOPRIM/SULFAMETHOXAZOLE >=320 R <=20 S ----- MEDICAL HISTORY 1. Difficulty ambulating-> WC bound 2. Morbid obesity. 3. Recent Clostridium difficile colitis. 4. Schizophrenia. 5. Chronic obstructive pulmonary disease. 6. Congestive heart failure with coronary artery disease 7. Hypertension. 8. Diabetes mellitus. 9. Hyperlipidemia. 10. Benign prostatic hypertrophy. 11. Atrial fibrillation. 12. History of deep venous thrombosis and pulmonary emboli. 13. History of alcohol abuse. 14. Status post pilonidal cyst surgery. 15. Status post tonsillectomy and appendectomy, status post T and A. 16. Status post repair of a wound in the right leg. 17. Facial surgery. 18. History of tobacco abuse, 3.5 packs per day for 30 years. PHYSICAL EXAMINATION: GENERAL: Lethargic, morbid obese, VSS, NAD HEENT: AT, NC, anicteric, moist oral membranes NECK: Trach midline, supple, increased neck circumference makes it difficult to appreciate JVD status CHEST: Equal chest rise bilaterally, without dyspnea on observation HEART: Pulse RRR ABDOMEN: Large, Soft, NT, EXT: Warm, moves all ext, generalized edema SKIN: No rash, no diaphoresis ID ASSESSMENT: 66 yo super morbid obesity, schozophrenia, hx of ETOH, CMY w/EF<30%, ICD M admit with: 1. Sepsis w/Tmax 100.3, tachycardia, mild rise in lactic acid 1.2-> 1.5-> 1.1, acute encephalopathy => due to #2 #3 #4 #5 2. UTI = GNR Proteus Mirabilis 3. Bacteremia =>Possible true opportunistic septicemia due to large infected wound * 01/14/17 BCx 1/2 bottles = MDRO COAGULASE NEGATIVE STAPH * 01/14/17 BCx 1/2 still pending final ID BLOOD CULTURE Preliminary GRAM POSITIVE RIC 4. HCAP @ SNF 5. Large infected sacral decub WOUND CULTURE Preliminary Organism 1 PROTEUS MIRABILIS QUANTITY 1+ Organism 2 K.PNEUMONIAE SSP PNEUMONIAE QUANTITY SCANT GROWTH Organism 3 ENTEROCOCCUS SPECIES 4. Recent C. difficile colitis 5. COPD-> Hx of former long-term tobacco 6. HTN 7. HLD 8. Diabetes mellitus 9. CAD/Hx of remote [place], Afib w/pacemaker implant status 10. CHF -> Hx of ischemic + ETOH cardiomyopathy w/systolic HF, s/p ICD placement 11. BPH w/hx of urinary retention, hx of UTI 12. Wheelchair-bound 13. Oral Candidiasis (-)MRSA ABX ALLERGY: Sulfa, Iodine INVASIVES: PIV CURRENT ABX: DAY #4 => Vanco IV + Cefepime + Vanco PO ID RECOMMENDATIONS/PLAN: 1. Continue current ABX awaiting final results of blood/wound Cx 2. Patient is now awake, alert, and responsive => Improved on current ABX 3. Aspiration precautions . . Problems: Consultation Date/Type/Reason Admit Date/Time Jan 14, 2017 at 10:52 Type of Consultation: ID Referring Provider: MARY FORREST MD Exam/Review of Systems Vital Signs Vitals Vital Signs Date Time Temp Pulse Resp B/P Pulse Ox O2 Delivery O2 Flow Rate FiO2 01/17/17 12:28 84 01/17/17 11: 99.2 17 115/64 91 01/17/17 07:56 Nasal Cannula 2.0 Intake and Output 01/16/17 01/16/17 01/17/17 15:00 23:00 07:00 Intake Total 300 ml 1110 ml 1085 ml Output Total 900 ml 500 ml Balance 300 ml 210 ml 585 ml Results Result Diagram: 01/17/17 0801/17/17 0805 Results 24 hrs Laboratory Tests Test 01/17/17 08:05 White Blood Count 13.0 #H Red Blood Count 4.20 L Hemoglobin 11.9 L Hematocrit 39.0 L Mean Corpuscular Volume 92.9 Mean Corpuscular Hemoglobin 28.3 L Mean Corpuscular Hemoglobin Concent 30.5 L Red Cell Distribution Width 17.3 H Platelet Count 177 Mean Platelet Volume 10.6 H Neutrophils % 84.5 H Lymphocytes % 4.6 L Monocytes % 9.5 Eosinophils % 0.2 Basophils % 0.2 Nucleated Red Blood Cells % 0.0 Neutrophils # 11.0 H Lymphocytes # 0.6 L Monocytes # 1.2 H Eosinophils # 0.0 Basophils # 0.0 Nucleated Red Blood Cells # 0.0 Sodium Level 155 H Potassium Level 3.4 L Chloride Level 114 H Carbon Dioxide Level 35 H Anion Gap 9 Blood Urea Nitrogen 22 H Creatinine 0.92 Glucose Level 134 Calcium Level 8.4 Medications Medications Current Medications Ondansetron HCl (Zofran Inj) 4 mg Q6H PRN IV NAUSEA AND/OR VOMITING; Start at 14:30 Docusate Sodium (Colace) 100 mg Q12H PRN PO CONSTIPATION; Start 01/14/17 at 14 :30 Magnesium Hydroxide (Milk Of Mag) 30 ml DAILY PRN PO CONSTIPATION; Start 01/14 at 14:30 Pantoprazole 40 mg 40 mg DAILY@06 PO Last administered on 01/17/17 05:25; Admin Dose 40 MG; Start 01/15/17 at 06:00 Cefepime HCl (Maxipime 1gm/50 ml (Pmx)) 50 ml @ 100 mls/hr Q12 IV Last administered on 01/17/17 08:35; Admin Dose 100 MLS/HR; Start 01/14/17 at 21: 00 Acetaminophen (Tylenol Tab) 650 mg Q4 PRN PO PAIN AND OR ELEVATED TEMP; Start 01/14/17 at 14:30 Ascorbic Acid (Vitamin C) 500 mg DAILY PO Last administered on 01/17/17 08:39 ; Admin Dose 500 MG; Start 01/15/17 at 09:00 Atorvastatin Calcium (Lipitor) 10 mg QHS PO Last administered on 01/16/17 21: 22; Admin Dose 10 MG; Start 01/14/17 at 21:00 Carvedilol (Coreg) 12.5 mg BID PO Last administered on 01/17/17 08:39; Admin Dose 12.5 MG; Start 01/14/17 at 21:00 Cholecalciferol (Vitamin D) 1,000 unit DAILY PO Last administered on 08:38; Admin Dose 1,000 UNIT; Start 01/15/17 at 09:00 Multivitamins Therapeutic (Theragran) 1 tab DAILY PO Last administered on 01/17 08:39; Admin Dose 1 TAB; Start 01/15/17 at 09:00 Spironolactone (Aldactone) 25 mg DAILY PO Last administered on 01/17/17 08:38 ; Admin Dose 25 MG; Start 01/15/17 at 09:00 Tamsulosin HCl (Flomax) 0.4 mg HS PO Last administered on 01/16/17 21:22; Admin Dose 0.4 MG; Start 01/14/17 at 21:00 Vancomycin HCl (Vancomycin Oral Syringe) 250 mg Q6 PO Last administered on 12:13; Admin Dose 250 MG; Start 01/14/17 at 18:00 Lactobacillus Acidophilus (Florajen3 Capsule) 1 each BID PO Last administered on 01/17/17 08:39; Admin Dose 1 EACH; Start 01/14/17 at 21:00 Enoxaparin Sodium 40 mg 40 mg DAILY SC Last administered on 01/17/17 08:42; Admin Dose 40 MG; Start 01/14/17 at 15:30 Vancomycin HCl (Vancocin) 250 ml @ 125 mls/hr Q12H IVPB Last administered on 01/17/17 05:25; Admin Dose 125 MLS/HR; Start 01/16/17 at 06:00 Miscellaneous Information (Pending Santyl Order For Wound Care) This patient hampton... PRN PRN XX WOUND CARE; Start 01/16/17 at 12:00 Collagenase (Santyl) 1 applic DAILY TOP Last administered on 01/17/17 08:40; Admin Dose 1 APPLIC; Start 01/16/17 at 13:00 Aspirin (Aspirin) 325 mg DAILY NGT Last administered on 01/17/17 08:53; Admin Dose 325 MG; Start 01/17/17 at 09:00 Miscellaneous Information VANCOMYCIN TROUGH AT 0500 ONCE ONCE XX ; Start 01/18/17 at 05:00; Stop 01/18/17 at 05:01 Caspofungin/ Sodium Chloride (Cancidas/NS) 250 ml @ 250 mls/hr Q24H IVPB ; Start 01/17/17 at 15:30; Status MIKE ROSS INSULATOR TECHNICIAN Jan 17, 2017 15:26
[2017-01-17] MEDS ORDERED: CASPOFUNGIN 70 MG in NS 250 ML IVPB ONE (16:30)
[2017-01-17] MEDS: ATORVASTATIN 10 MG TAB PO SCH (20:48)
[2017-01-17] MEDS: TAMSULOSIN (SR) 0.4 MG CAP PO SCH (20:48)
[2017-01-18] VITALS (11 sets, daily range): BP systolic 93–115; BP diastolic 63–70; PULSE 85–106; RESP 16–19
[2017-01-18] MEDS: VANCOMYCIN HCL 250 MG/5ML POSYG PO SCH ×4 (00:31→18:00)
[2017-01-18] MEDS: PANTOPRAZOLE (EC) 40 MG TAB PO SCH (05:58)
[2017-01-18] MEDS: FUROSEMIDE 40 MG TAB PO SCH ×2 (05:58→18:00)
[2017-01-18] MEDS: VANCOMYCIN 1 GM in NS 250 ML IVPB SCH (06:00)
[2017-01-18 06:39] LABS: BASOPHILS % 0.3 % (0.0-2.0); EOSINOPHILS # 0.1 10^3/ul (0.0-0.5); EOSINOPHILS % 0.6 % (0.0-7.0); HEMATOCRIT 36.5 % (42.0-52.0); HEMOGLOBIN 11.1 g/dl (14.0-18.0); LYMPHOCYTES # 0.6 10^3/ul (0.8-2.9); LYMPHOCYTES % 5.8 % (15.0-51.0); MEAN CORPUSCULAR HEMOGLOBIN 28.7 pg (29.0-33.0); MEAN CORPUSCULAR HGB CONC 30.4 g/dl (32.0-37.0); MEAN CORPUSCULAR VOLUME 94.3 fl (82.0-101.0); MEAN PLATELET VOLUME 11.2 fl (7.4-10.4); MONOCYTE # 0.9 10^3/ul (0.3-0.9); MONOCYTES % 8.8 % (0.0-11.0); NEUTROPHIL # 8.7 10^3/ul (1.6-7.5); NEUTROPHILS % 83.3 % (39.0-77.0); PLATELET COUNT 168 10^3/UL (140-415); RED BLOOD COUNT 3.87 10^6/ul (4.70-6.10); RED CELL DISTRIBUTION WIDTH 17.5 % (11.5-14.5); WHITE BLOOD COUNT 10.5 10^3/ul (4.8-10.8)
[2017-01-18 06:46] LABS: ALBUMIN 2.3 g/dl (3.3-4.9); ALBUMIN/GLOBULIN RATIO 0.92; BILIRUBIN,DIRECT 0.1 mg/dl (0.00-0.20); BILIRUBIN,INDIRECT 0.4 mg/dl (0-1.1); BILIRUBIN,TOTAL 0.5 mg/dl (0.2-1.3); CALCIUM 8.3 mg/dl (8.4-10.2); CREATININE 0.93 mg/dl (0.61-1.24); POTASSIUM 3.9 mmol/L (3.5-5.1); TOTAL PROTEIN 4.8 g/dl (6.1-8.1)
--- NOTE | 2017-01-18 06:57 | PN ---
DATE: 01/17/2017 SUBJECTIVE: The patient seen, remains lethargic but overall responds to me when I wake him or stimu late him. The patient remains very weak. Case discussed with Dr. Meyers, the neurologist. The jimmy baxter continues to have a low-grade temperature of 99.5 and he is slightly tachycardic at times. PHYSICAL EXAMINATION: VITAL SIGNS: Temperature 99.2 most recent temperature, pulse 84, respirations 17, blood pressure 11 5/64, saturation 91% on 2 liters. GENERAL: The patient is lethargic, sick looking, patient is pale. HEENT: Dry mucous membranes. CARDIOVASCULAR: S1 and S2, irregular. Distant heart sounds. LUNGS: Decreased bilaterally. ABDOMEN: Soft, nontender. EXTREMITIES: Trace to +1 edema upper and lower extremities. LABORATORY DATA: White count increased to 13, hemoglobin 11.9, hematocrit 39, platelets 177, neutro phils 85%, lymphocytes 4%. Chemistry: Sodium 155, potassium 3.4, chloride 114, bicarbonate 35, BUN is 22, creatinine 0.92, glucose of 134. Again, blood cultures 1 bottle showed coagulase negative s taph. The second one shows gram-positive rods. Urine culture shows Proteus mirabilis sensitive to tobramycin, gentamicin, and cefotaxime. Respiratory culture shows yeast, not Meghana albicans, and wound culture shows multiple organisms including Proteus mirabilis, Klebsiella pneumoniae and Enter ococcus. The first 2 are sensitive to cefotaxime. Enterococcus is sensitive to vancomycin. Stool for C. diff is negative. CURRENT MEDICATIONS: Include: 1. Aspirin 325 daily. 2. Santyl daily. 3. Vancomycin IV dose per pharmacy. 4. Diflucan IV daily. Will discontinue that and place him on Cancidas. 5. Vitamin C 500 mg daily. 6. Vitamin D 1000 daily. 7. Multivitamin 1 tablet daily. 8. daily. 9. Protonix 40 mg daily. 10. Cefepime 1 gram q.12h. 11. Lipitor 10 mg at bedtime. 12. Coreg 12.5 b.i.d. 13. Flomax 0.4 at bedtime. 14. Lactobacillus b.i.d. 15. Vancomycin orally 250 q. 6. 16. Lasix 40 b.i.d. 17. Lovenox 40 mg subcutaneous daily. 18. Zofran p.r.n. 19. Colace p.r.n. 20. Milk of magnesia p.r.n. 21. Vancomycin as directed. 22. DuoNeb as directed. 23. Tylenol p.r.n. ASSESSMENT AND PLAN: This is a 66-year-old male with history of congestive heart failure, automatic implantable cardioverter-defibrillator, atrial fibrillation, diabetes mellitus off medica tions and psychiatric disorder, presents with increased encephalopathy, was found to be basically se ptic with evidence of pneumonia, urinary tract infection, sacral wound and possible bacteremia. 1. Respiratory. Continue O2 support. Monitor for fluid overload state. Remains on diuretics. Ch est x-ray done on the shows low lung volumes with basilar atelectasis. Continue breathing bernadette tments, supportive care. 2. Cardiovascular: Slightly remains tachycardic, likely from sepsis, observe. Continue Lovenox fo r deep venous thrombosis prophylaxis. Continue beta blockers. 3. Infectious disease. The patient with a sacral wound, pneumonia, urinary tract infection. The p atient does have sputum culture positive for Meghana, not albicans. Will discontinue Diflucan and p lace the patient on Cancidas. The patient may have dysphagia secondary to infectious etiology such as Meghana. Empirically remains on oral vancomycin since patient recently had Clostridium difficile colitis. 4. Renal. The patient remains with hypernatremia. Continue free water flushes. 5. Dysphagia. Continue nasogastric tube feeding. 6. Nutrition. Increase feeding to 40 mL as recommended by dietitian. 7. Psychiatric disorder. I am avoiding any antipsychotics secondary to lethargy and a CAT scan of the brain was otherwise unremarkable. 8. Benign prostatic hypertrophy, on Flomax. 9. Sacral wound. Air mattress bed, vitamins, offloading as much as possible. Condition remains gu arded. Still very concerned, especially is very weak. 10. Renal. Again, replace potassium and we will monitor sodium levels. We will keep the family in formed him patient's ongoing condition. Dictated By: MARY MONTERO/SHANTAL Conf#: [id number] DID#: [id number]
[2017-01-18 07:12] LABS: MAGNESIUM 2.5 mg/dl (1.7-2.5); PHOSPHORUS 2.3 mg/dl (2.5-4.9)
--- NOTE | 2017-01-18 10:07 | RADRPT ---
PROCEDURE: CT scan of the neck without contrast. CLINICAL INDICATION: Dysphagia TECHNIQUE: CT scan of the neck was performed. The patient was examined without the use of intrave nous iodinated contrast. No reported complications occurred. One or more of the following dose re duction techniques were used: Automated exposure control, Adjustment of the mA and/or kV according t o patient size, and/or use of iterative reconstruction technique. DICOM images are available. DOSE: CTDI = 19 mGy and the DLP = 505 mGy-cm. COMPARISON: None available FINDINGS: Evaluation of the soft tissues and vasculature is limited without contrast. Nasal-enteric tube is looped in the posterior oral cavity/oropharynx and with inferior tip not inclu ded in this scan. No evidence of cervical lymphadenopathy The bilateral parotid and submandibular glands are unremarkable The thyroid gland is unremarkable. No significant airway narrowing The bilateral prestyloid parapharyngeal spaces and retropharyngeal s paces are unremarkable. Mild scattered paranasal sinus mucosal thickening with layering fluid in the right sphenoid sinus. T race right mastoid fluid. Cervical spine degenerative changes. No aggressive osteoblastic or osteolytic lesions of the visuali zed skull base or cervical spine. The visualized lung apices are clear. IMPRESSION: Nasal-enteric tube is looped in the posterior oral cavity/oropharynx and with inferior tip not inclu ded in this scan. No evidence of cervical lymphadenopathy Mild layering fluid in the right sphenoid sinus. Trace right mastoid fluid. RPTAT: AA .Refugio Schwab MD, MD Date Time Electronically viewed and signed by .Refugio Schwab MD, on 01/18/2017 10:07 .T/
[2017-01-18] MEDS: COLLAGENASE 30 GM TUBE TOP SCH (11:27)
[2017-01-18] MEDS: CEFEPIME 1GM/50 ML (PMX) 50 ML IV SCH ×2 (11:27→20:13)
[2017-01-18] MEDS: L ACIDOPHIL/B LACTIS/B LONGUM CAPSULE PO SCH ×2 (11:28→20:14)
[2017-01-18] MEDS: ASCORBIC ACID 500 MG TAB PO SCH (11:28)
[2017-01-18] MEDS: CHOLECALCIFEROL 1,000 UNIT TAB PO SCH (11:28)
[2017-01-18] MEDS: ASPIRIN 325 MG TAB NGT SCH (11:29)
[2017-01-18] MEDS: MULTIVITAMINS THERAPEUTIC TAB PO SCH (11:29)
[2017-01-18] MEDS: SPIRONOLACTONE 25 MG TAB PO SCH (11:30)
[2017-01-18] MEDS: ENOXAPARIN 40 MG/0.4 ML SYG SC SCH (11:59)
--- NOTE | 2017-01-18 12:39 | CONS ---
Date/Time of Note Date/Time of Note DATE: 01/18/17 TIME: 12:37 Consult Date/Type/Reason Admit Date/Time Jan 14, 2017 at 10:52 Initial Consult Date 01/16/17 Type of Consultation: Neurology Reason for Consultation dysphagia Ordering Provider: MARY FORREST MD Subjective remains encephalopathic NGT in place Objective Vital Signs Date Time Temp Pulse Resp B/P Pulse Ox O2 Delivery O2 Flow Rate FiO2 01/18/17 12:19 98.4 92 18 115/66 97 01/18/17 06:22 4.0 01/17/17 20:06 Nasal Cannula Intake and Output 01/17/17 01/17/17 01/18/17 15:00 23:00 07:00 Intake Total 50 ml 880 ml 1080 ml Output Total 500 ml 450 ml Balance 50 ml 380 ml 630 ml Exam Sleepy but arousable, following all commands, moving all extremities on verbal commands. Constitutional: other (Sleepy) Psych: nl mood/affect, no complaints Head: atraumatic, normocephalic Eyes: EOMI, nl conjunctiva, nl lids, nl sclera ENMT: mucosa pink and moist, nl external ears & nose, nl lips & teeth, nl nasal mucosa & septum Neck: non-tender, supple Respiratory: clear to auscultation, normal air movement Cardiovascular: nl pulses, regular rate and rhythm Gastrointestinal: nl liver, spleen, non-tender, soft Musculoskeletal: nl extremities to inspection Results/Medications Result Diagram: 01/18/1712 01/18/1712 Results 24 hrs Laboratory Tests Test 01/18/17 06:11 01/18/17 06:12 Ammonia < 9 L White Blood Count 10.5 Red Blood Count 3.87 L Hemoglobin 11.1 L Hematocrit 36.5 L Mean Corpuscular Volume 94.3 Mean Corpuscular Hemoglobin 28.7 L Mean Corpuscular Hemoglobin Concent 30.4 L Red Cell Distribution Width 17.5 H Platelet Count 168 Mean Platelet Volume 11.2 H Neutrophils % 83.3 H Lymphocytes % 5.8 L Monocytes % 8.8 Eosinophils % 0.6 Basophils % 0.3 Nucleated Red Blood Cells % 0.0 Neutrophils # 8.7 H Lymphocytes # 0.6 L Monocytes # 0.9 Eosinophils # 0.1 Basophils # 0.0 Nucleated Red Blood Cells # 0.0 Sodium Level 157 H Potassium Level 3.9 Chloride Level 115 H Carbon Dioxide Level 37 H Anion Gap 9 Blood Urea Nitrogen 24 H Creatinine 0.93 Glucose Level 110 Calcium Level 8.3 L Phosphorus Level 2.3 L Magnesium Level 2.5 Total Bilirubin 0.5 Direct Bilirubin 0.10 Indirect Bilirubin 0.4 Aspartate Amino Transf (AST/SGOT) 294 H Alanine Aminotransferase (ALT/SGPT) 91 H Alkaline Phosphatase 331 H Total Protein 4.8 L Albumin 2.3 L Globulin 2.50 Albumin/Globulin Ratio 0.92 Vancomycin Level Trough 19.3 Medications Current Medications Ondansetron HCl (Zofran Inj) 4 mg Q6H PRN IV NAUSEA AND/OR VOMITING; Start at 14:30 Docusate Sodium (Colace) 100 mg Q12H PRN PO CONSTIPATION; Start 01/14/17 at 14 :30 Magnesium Hydroxide (Milk Of Mag) 30 ml DAILY PRN PO CONSTIPATION; Start 01/14 at 14:30 Pantoprazole 40 mg 40 mg DAILY@06 PO Last administered on 01/18/17 05:58; Admin Dose 40 MG; Start 01/15/17 at 06:00 Cefepime HCl (Maxipime 1gm/50 ml (Pmx)) 50 ml @ 100 mls/hr Q12 IV Last administered on 01/18/17 11:27; Admin Dose 100 MLS/HR; Start 01/14/17 at 21: 00 Acetaminophen (Tylenol Tab) 650 mg Q4 PRN PO PAIN AND OR ELEVATED TEMP; Start 01/14/17 at 14:30 Ascorbic Acid (Vitamin C) 500 mg DAILY PO Last administered on 01/18/17 11:28 ; Admin Dose 500 MG; Start 01/15/17 at 09:00 Atorvastatin Calcium (Lipitor) 10 mg QHS PO Last administered on 01/17/17 20: 48; Admin Dose 10 MG; Start 01/14/17 at 21:00 Carvedilol (Coreg) 12.5 mg BID PO Last administered on 01/18/17 11:35; Admin Dose 12.5 MG; Start 01/14/17 at 21:00 Cholecalciferol (Vitamin D) 1,000 unit DAILY PO Last administered on 11:28; Admin Dose 1,000 UNIT; Start 01/15/17 at 09:00 Multivitamins Therapeutic (Theragran) 1 tab DAILY PO Last administered on 01/18 11:29; Admin Dose 1 TAB; Start 01/15/17 at 09:00 Spironolactone (Aldactone) 25 mg DAILY PO Last administered on 01/18/17 11:30 ; Admin Dose 25 MG; Start 01/15/17 at 09:00 Tamsulosin HCl (Flomax) 0.4 mg HS PO Last administered on 01/17/17 20:48; Admin Dose 0.4 MG; Start 01/14/17 at 21:00 Vancomycin HCl (Vancomycin Oral Syringe) 250 mg Q6 PO Last administered on 12:04; Admin Dose 250 MG; Start 01/14/17 at 18:00 Lactobacillus Acidophilus (Florajen3 Capsule) 1 each BID PO Last administered on 01/18/17 11:28; Admin Dose 1 EACH; Start 01/14/17 at 21:00 Enoxaparin Sodium (Lovenox) 40 mg DAILY SC Last administered on 01/18/17 11: 59; Admin Dose 40 MG; Start 01/14/17 at 15:30 Miscellaneous Information (Pending Santyl Order For Wound Care) This patient hampton... PRN PRN XX WOUND CARE; Start 01/16/17 at 12:00 Collagenase (Santyl) 1 applic DAILY TOP Last administered on 01/18/17 11:27; Admin Dose 1 APPLIC; Start 01/16/17 at 13:00 Aspirin 325 mg 325 mg DAILY NGT Last administered on 01/18/17 11:29; Admin Dose 325 MG; Start 01/17/17 at 09:00 Caspofungin 50 mg/ Sodium Chloride 250 ml @ 250 mls/hr Q24H IVPB ; Start 01/18 at 16:00 Vancomycin HCl 750 mg/Dextrose/ Water 150 ml @ 75 mls/hr Q12H IVPB ; Start at 13:00 Dextrose (D5W) 1,000 ml @ 50 mls/hr Q20H IV ; Start 01/18/17 at 12:30 Assessment/Plan Chief Complaint/Hosp Course 66-year-old morbidly obese male with history of congestive heart failure, status post AICD, psychiatric disorder, hypertension, diabetes mellitus, BPH, schizophrenia, recently discharged home at [facility] secondary to sepsis , was found to have C. diff colitis, dehydration, renal failure and urinary tract infection. He started with difficulty swallowing and was noted [facility] he was [facility]. He was transferred to [facility] following found to be altered and confusion. His initial evaluation shows him to have been febrile and tachycardia suggestive of sepsis. He was also seen to have a sacral wound with possible infection. Chest x-ray showed possible pneumonia. He had several blood cultures while in penitentiary and they were reported as negative. He obviously has progressive dysphagia. Differential diagnoses is stroke, infection, structural esophageal abnormality or even a cervical spine spur causing compression of the esophagus. MRI of the brain and C-spine could not be done due to pacemaker. CT head no acute pathology. Plan CT- soft tissues- Nasal-enteric tube is looped in the posterior oral cavity/oropharynx and with inferior tip not included in this scan. No evidence of cervical lymphadenopathy Mild layering fluid in the right sphenoid sinus. Trace right mastoid fluid. Continue speech and swallow eval, NGT in placement GI evaluation will follow Problems: MANDI COOMBS MD Jan 18, 2017 12:39
--- NOTE | 2017-01-18 14:44 | PN ---
DATE: 01/18/2017 SUBJECTIVE: The patient is lethargic, lying comfortably in bed. He is afebrile. WBC today 10.5, H and H 11.1 and 36.5, platelets 168, neutrophils 83.3, BUN 24, creatinine 0.93. MICROBIOLOGY: Blood culture on admission grew Corynebacterium and coagulase-negative Staph species. Urine culture grew Proteus mirabilis. Sputum culture grew yeast. Sacral wound grew Enterococcus staph species, Klebsiella pneumoniae and Proteus mirabilis. Stool for C. diff was negative. Repea t blood cultures negative. MRSA negative. DIAGNOSTICS: Patient had a soft tissue neck CT this morning that revealed no evidence of cervical l ymphadenopathy, trace right mastoid fluid and mild layering fluid in the right sphenoid sinus. INDWELLINGS: NG tube, Nielsen catheter, peripheral IV. ANTIMICROBIALS: 1. Vancomycin. 2. Cancidas. 3. Cefepime 4. Oral vancomycin. PHYSICAL EXAMINATION: GENERAL: This is a morbidly obese elderly white man who is in no distress. HEENT: Head atraumatic, normocephalic. Sclerae anicteric. Buccal mucosa dry. NECK: Supple. CHEST: Rise symmetrical. Breath sounds diminished to bases. HEART: S1, S2. ABDOMEN: Soft. Bowel tones present. EXTREMITIES: Without cyanosis. ASSESSMENT: 1. Sepsis with fevers, tachycardia and encephalopathy on admission. 2. Proteus mirabilis urinary tract infection. 3. Bacteremia, likely contaminant with repeat blood cultures negative. 4. Infected sacral decubitus. 5. History of recent Clostridium difficile colitis. 6. Diabetes. 7. Oral candidiasis. PLAN: The patient remains stable. Continue present care. Continue on current antibiotics, anti-as piration measures, local wound care. Dictated By: JONY ANDERS CONSTRUCTION FRAMER for ANNA ROACH MD NI/NTS Conf#: [id number] DID#: [id number] CC: MARY FORREST MD;*EndCC*
[2017-01-18] MEDS: ALBUTEROL/IPRATROPIUM (NEB) 3 ML AMP NEB PRN (14:52)
--- NOTE | 2017-01-18 15:11 | PN ---
DATE: 01/18/2017 SUBJECTIVE: Patient seen. The patient is feeling better, responding to me appropriately overall ap pears to be weak. The patient remains with NG tube feeding. Noted increased sodium at 157. I star toyin the patient on D5W at a low rate IV. PHYSICAL EXAMINATION: VITAL SIGNS: Temperature 98.4, pulse 92, respirations 18, blood pressure 115/66, saturation 97% on 4 liters. GENERAL: The patient is morbidly obese, frail, pale. CARDIOVASCULAR: S1, S2. LUNGS: Decreased bilaterally, poor inspiratory effort. ABDOMEN: Soft, nontender. EXTREMITIES: Trace to +1 edema throughout, actually right upper extremity is +2 edema, he had it ly ing down. LABORATORY DATA: White count 10.5, hemoglobin 11.1, hematocrit 37, platelet count 116, ____. Chemi stry: Sodium 157, potassium 3.9, chloride 115, bicarbonate 37, BUN is 24, creatinine 0.93 and gluco se of 110, phosphorus 2.3, magnesium 2.5, alkaline phosphatase is very high at 331. AST 294, ALT 91 . Ammonia level is less than 9. Albumin 2.3. His LFTs jumped up, on the 24th LFTs were all normal . Repeat blood cultures 01/17/2017 are negative. No MRSA of the nares, ____ was negative and blood cultures on admission shows choline and bacterium species 1 out of 2 bottles which may be secondary to contamination. MEDICATIONS: 1. Caspofungin IV daily. 2. Vancomycin dose per pharmacy. 3. D5W at 50 mL an hour. 4. Aspirin 325 daily. 5. Santyl daily. 6. Vitamin C 500 mg daily. 7. Vitamin D 1000 daily. 8. Multivitamin 1 tab daily. 9. Aldactone 25 daily. 10. Protonix 40 mg daily. 11. Cefepime 1 gram IV q.12h. 12. Lipitor 10 mg at bedtime. 13. Coreg 12.5 b.i.d. 14. Flomax 0.4 at bedtime. 15. Lactobacillus b.i.d. 16. Vancomycin 250 q.6h. 17. Lasix 40 twice a day. 18. Lovenox 40 mg subq every day. 19. Zofran p.r.n. 20. Colace p.r.n. 21. Milk of magnesia p.r.n. 22. DuoNebs p.r.n. 23. Tylenol p.r.n. ASSESSMENT AND PLAN: This is an unfortunate 66-year-old male with history of congestive h eart failure, automatic implantable cardioverter-defibrillator, history of atrial fibrillation, diab etes mellitus, off medications, who presents with increased encephalopathy, was found to be basicall y septic with evidence of pneumonia, urinary tract infection, sacral wound and possible bacteremia. 1. Respiratory. Continue O2 support. Monitor for fluid overload state. Continue diuretic therapy , antibiotics, aspiration precautions, remains n.p.o. as he has dysphagia. 2. Cardiovascular. Observe. Continue deep venous thrombosis prophylaxis. Continue beta blockers with Coreg. 3. Infectious disease. Currently being treated for sacral wound, pneumonia urinary tract infection . Continue Cancidas as sputum culture show yeast, not Meghana albicans, +1. 4. Renal. The patient with hypernatremia, free water and D5W IV to be given. 5. Dysphagia. Speech therapy to follow. 6. He underwent also CT scan of the neck which showed no evidence of cervical lymphadenopathy, mild layering fluid in the right sphenoid sinus in place. Right mastoid fluid. There is also nasal ___ _ looped in the posterior oral pharynx with inferior ____ fluid in the scan. I also consulted gastr ointestinal for dysphagia for possible EGD. 7. Nutrition. Continue current diet is. Diabetisource is 40 mL an hour. 8. Psychiatric disorder antipsychotics are on hold secondary to patient's weakness. 9. Benign prostatic hypertrophy. On Flomax. 10. Sacral wound. Continue offloading, vitamins, and nutrition. Continue to monitor closely. Ove rall, condition remains guarded. We will follow. Dictated By: MARY MONTERO/SHANTAL Conf#: [id number] DID#: [id number]
[2017-01-18] MEDS: VANCOMYCIN 750 MG in DEXTROSE 5% 150 ML IVPB SCH (16:51)
--- NOTE | 2017-01-18 18:07 | CONS ---
Date/Time of Note Date/Time of Note DATE: 01/18/17 TIME: 18:01 Assessment/Plan Assessment/Plan Chief Complaint/Hosp Course IMp: 1.SVT's- currently SR with PAC's. TSH WNL 2.CHF-diastolic acute on chronic by echo this admit 3.HTN 4. 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 -Contnue coreg -Continue asa -Continue abx's and f/u cx data -Continue statin Problems: Consultation Date/Type/Reason Admit Date/Time Jan 14, 2017 at 10:52 Initial Consult Date 01/16/17 Type of Consultation: cardiology Reason for Consultation PAC/CHF Referring Provider: MARY FORREST MD Exam/Review of Systems Vital Signs Vitals Vital Signs Date Time Temp Pulse Resp B/P Pulse Ox O2 Delivery O2 Flow Rate FiO2 01/18/17 18:01 4.0 01/18/17 16:26 85 01/18/17 16:00 98.4 16 115/66 98 01/18/17 14:56 Nasal Cannula Intake and Output 01/17/17 01/17/17 01/18/17 15:00 23:00 07:00 Intake Total 50 ml 880 ml 1080 ml Output Total 500 ml 450 ml Balance 50 ml 380 ml 630 ml Exam Review of Systems: CONSTITUTIONAL: No fevers, chills. PULMONARY: No sob CARDIOVASCULAR: No chest pain/palpitations GASTROINTESTINAL: No nausea/vomiting. GENITOURINARY: No hematuria/dysuria. MUSCULOSKELETAL: No myagias/arthalgias. PSYCHIATRIC: The patient denies depression. NEUROLOGIC: confused/lethargic Constitutional: alert Psych: confusion Head: normocephalic ENMT: mucosa pink and moist, other (NGT in place) Respiratory: diminished breath sounds (at bases/B) Cardiovascular: other (PAC), regular rate and rhythm Gastrointestinal: non-tender, soft Musculoskeletal: muscle weakness (generalized) Extremities: edema (bilateral) Neurological: lethargic Results Result Diagram: 01/18/17 0612 01/18/17 0612 Results 24 hrs Laboratory Tests Test 01/18/17 06:11 01/18/17 06:12 Ammonia < 9 L White Blood Count 10.5 Red Blood Count 3.87 L Hemoglobin 11.1 L Hematocrit 36.5 L Mean Corpuscular Volume 94.3 Mean Corpuscular Hemoglobin 28.7 L Mean Corpuscular Hemoglobin Concent 30.4 L Red Cell Distribution Width 17.5 H Platelet Count 168 Mean Platelet Volume 11.2 H Neutrophils % 83.3 H Lymphocytes % 5.8 L Monocytes % 8.8 Eosinophils % 0.6 Basophils % 0.3 Nucleated Red Blood Cells % 0.0 Neutrophils # 8.7 H Lymphocytes # 0.6 L Monocytes # 0.9 Eosinophils # 0.1 Basophils # 0.0 Nucleated Red Blood Cells # 0.0 Sodium Level 157 H Potassium Level 3.9 Chloride Level 115 H Carbon Dioxide Level 37 H Anion Gap 9 Blood Urea Nitrogen 24 H Creatinine 0.93 Glucose Level 110 Calcium Level 8.3 L Phosphorus Level 2.3 L Magnesium Level 2.5 Total Bilirubin 0.5 Direct Bilirubin 0.10 Indirect Bilirubin 0.4 Aspartate Amino Transf (AST/SGOT) 294 H Alanine Aminotransferase (ALT/SGPT) 91 H Alkaline Phosphatase 331 H Total Protein 4.8 L Albumin 2.3 L Globulin 2.50 Albumin/Globulin Ratio 0.92 Vancomycin Level Trough 19.3 Medications Medications Current Medications Ondansetron HCl (Zofran Inj) 4 mg Q6H PRN IV NAUSEA AND/OR VOMITING; Start at 14:30 Docusate Sodium (Colace) 100 mg Q12H PRN PO CONSTIPATION; Start 01/14/17 at 14 :30 Magnesium Hydroxide (Milk Of Mag) 30 ml DAILY PRN PO CONSTIPATION; Start 01/14 at 14:30 Pantoprazole 40 mg 40 mg DAILY@06 PO Last administered on 01/18/17 05:58; Admin Dose 40 MG; Start 01/15/17 at 06:00 Cefepime HCl (Maxipime 1gm/50 ml (Pmx)) 50 ml @ 100 mls/hr Q12 IV Last administered on 01/18/17 11:27; Admin Dose 100 MLS/HR; Start 01/14/17 at 21: 00 Acetaminophen (Tylenol Tab) 650 mg Q4 PRN PO PAIN AND OR ELEVATED TEMP; Start 01/14/17 at 14:30 Ascorbic Acid (Vitamin C) 500 mg DAILY PO Last administered on 01/18/17 11:28 ; Admin Dose 500 MG; Start 01/15/17 at 09:00 Atorvastatin Calcium (Lipitor) 10 mg QHS PO Last administered on 01/17/17 20: 48; Admin Dose 10 MG; Start 01/14/17 at 21:00 Carvedilol (Coreg) 12.5 mg BID PO Last administered on 01/18/17 11:35; Admin Dose 12.5 MG; Start 01/14/17 at 21:00 Cholecalciferol (Vitamin D) 1,000 unit DAILY PO Last administered on 11:28; Admin Dose 1,000 UNIT; Start 01/15/17 at 09:00 Multivitamins Therapeutic (Theragran) 1 tab DAILY PO Last administered on 01/18 11:29; Admin Dose 1 TAB; Start 01/15/17 at 09:00 Spironolactone (Aldactone) 25 mg DAILY PO Last administered on 01/18/17 11:30 ; Admin Dose 25 MG; Start 01/15/17 at 09:00 Tamsulosin HCl (Flomax) 0.4 mg HS PO Last administered on 01/17/17 20:48; Admin Dose 0.4 MG; Start 01/14/17 at 21:00 Vancomycin HCl (Vancomycin Oral Syringe) 250 mg Q6 PO Last administered on 12:04; Admin Dose 250 MG; Start 01/14/17 at 18:00 Lactobacillus Acidophilus (Florajen3 Capsule) 1 each BID PO Last administered on 01/18/17 11:28; Admin Dose 1 EACH; Start 01/14/17 at 21:00 Enoxaparin Sodium (Lovenox) 40 mg DAILY SC Last administered on 01/18/17 11: 59; Admin Dose 40 MG; Start 01/14/17 at 15:30 Miscellaneous Information (Pending Santyl Order For Wound Care) This patient hampton... PRN PRN XX WOUND CARE; Start 01/16/17 at 12:00 Collagenase (Santyl) 1 applic DAILY TOP Last administered on 01/18/17 11:27; Admin Dose 1 APPLIC; Start 01/16/17 at 13:00 Aspirin 325 mg 325 mg DAILY NGT Last administered on 01/18/17 11:29; Admin Dose 325 MG; Start 01/17/17 at 09:00 Caspofungin 50 mg/ Sodium Chloride 250 ml @ 250 mls/hr Q24H IVPB ; Start 01/18 at 16:00 Vancomycin HCl 750 mg/Dextrose/ Water 150 ml @ 75 mls/hr Q12H IVPB Last administered on 01/18/17t 16:51; Admin Dose 75 MLS/HR; Start 01/18/17 at 13:00 Dextrose (D5W) 1,000 ml @ 50 mls/hr Q20H IV ; Start 01/18/17 at 12:30 PREET BECERRA Jan 18, 2017 18:07
[2017-01-18] MEDS: CASPOFUNGIN 50 MG in SOD CHLORIDE 0.9% 250 ML IVPB SCH ×2 (19:46→19:51)
[2017-01-18] MEDS: DEXTROSE 5% 1,000 ML IV SCH (19:46)
[2017-01-18] MEDS: ATORVASTATIN 10 MG TAB PO SCH (20:14)
[2017-01-18] MEDS: TAMSULOSIN (SR) 0.4 MG CAP PO SCH (20:14)
[2017-01-19] VITALS (13 sets, daily range): BP systolic 100–125; BP diastolic 46–68; PULSE 85–117; RESP 15–22
[2017-01-19] MEDS: VANCOMYCIN HCL 250 MG/5ML POSYG PO SCH ×4 (00:39→17:28)
[2017-01-19] MEDS: VANCOMYCIN 750 MG in DEXTROSE 5% 150 ML IVPB SCH ×2 (00:52→12:43)
[2017-01-19] MEDS: FUROSEMIDE 40 MG TAB PO SCH ×2 (05:40→17:29)
[2017-01-19] MEDS: PANTOPRAZOLE (EC) 40 MG TAB PO SCH (05:40)
[2017-01-19] MEDS: DEXTROSE 5% 1,000 ML IV SCH (08:30)
[2017-01-19] MEDS: ASPIRIN 325 MG TAB NGT SCH (09:00)
[2017-01-19] MEDS: CHOLECALCIFEROL 1,000 UNIT TAB PO SCH (09:00)
[2017-01-19] MEDS: MULTIVITAMINS THERAPEUTIC TAB PO SCH (09:01)
[2017-01-19] MEDS: CEFEPIME 1GM/50 ML (PMX) 50 ML IV SCH ×2 (09:01→21:28)
[2017-01-19] MEDS: SPIRONOLACTONE 25 MG TAB PO SCH (09:01)
[2017-01-19] MEDS: ASCORBIC ACID 500 MG TAB PO SCH (09:01)
[2017-01-19] MEDS: L ACIDOPHIL/B LACTIS/B LONGUM CAPSULE PO SCH ×2 (09:01→21:33)
[2017-01-19] MEDS: COLLAGENASE 30 GM TUBE TOP SCH (09:02)
[2017-01-19] MEDS: ENOXAPARIN 40 MG/0.4 ML SYG SC SCH (09:11)
[2017-01-19 09:14] LABS: ABNORMAL IP MESSAGE 1; BASOPHILS % 0.6 % (0.0-2.0); EOSINOPHILS # 0.1 10^3/ul (0.0-0.5); EOSINOPHILS % 1.8 % (0.0-7.0); HEMATOCRIT 36.7 % (42.0-52.0); LYMPHOCYTES # 0.4 10^3/ul (0.8-2.9); LYMPHOCYTES % 6.7 % (15.0-51.0); MEAN CORPUSCULAR HEMOGLOBIN 28.5 pg (29.0-33.0); MEAN CORPUSCULAR VOLUME 95.1 fl (82.0-101.0); MEAN PLATELET VOLUME 11.3 fl (7.4-10.4); MONOCYTE # 0.6 10^3/ul (0.3-0.9); MONOCYTES % 10.1 % (0.0-11.0); NEUTROPHIL # 4.9 10^3/ul (1.6-7.5); NEUTROPHILS % 78.9 % (39.0-77.0); NUCLEATED RED BLOOD CELLS% 0.3 /100WBC (0.0-0.0); PLATELET COUNT 152 10^3/UL (140-415); POSITIVE DIFF @See below; RED BLOOD COUNT 3.86 10^6/ul (4.70-6.10); RED CELL DISTRIBUTION WIDTH 17.6 % (11.5-14.5); WHITE BLOOD COUNT 6.3 10^3/ul (4.8-10.8)
[2017-01-19 09:29] LABS: ALBUMIN 2.4 g/dl (3.3-4.9); ALBUMIN/GLOBULIN RATIO 0.85; BILIRUBIN,INDIRECT 0.3 mg/dl (0-1.1); BILIRUBIN,TOTAL 0.3 mg/dl (0.2-1.3); CALCIUM 8.4 mg/dl (8.4-10.2); CREATININE 0.99 mg/dl (0.61-1.24); POTASSIUM 3.4 mmol/L (3.5-5.1); TOTAL PROTEIN 5.2 g/dl (6.1-8.1)
[2017-01-19 09:45] LABS: MAGNESIUM 2.5 mg/dl (1.7-2.5); PHOSPHORUS 2.5 mg/dl (2.5-4.9)
--- NOTE | 2017-01-19 09:50 | RADRPT ---
PROCEDURE: US right upper quadrant abdomen CLINICAL INDICATION: Abnormal liver function tests TECHNIQUE: Multiple real-time images were acquired of the abdomen right upper quadrant COMPARISON: None available FINDINGS: Suboptimal sonogram secondary to patient's body habitus and inability to move. The liver is within normal limits in size. Liver parenchyma is diffusely heterogeneous and predomin antly hyperechoic; the liver is partially visualized. Echogenic material within the gallbladder lumen is suspicious for sludge. Possible gallstone in the gallbladder neck. There is no abnormal pericholecystic fluid or gallbladder wall thickening. No i ntrahepatic bile duct dilation seen. The common bile duct measures 9.6 mm in maximal dimension. The pancreas, upper abdominal aorta, and upper inferior vena cava are obscured by overlying bowel ga s and thus not evaluable. The right kidney measures 12.9 cm in length. There is suspicion for right kidney parenchyma increas ed echogenicity, but this is not certain secondary to suboptimal analysis of the right kidney. No right upper quadrant ascites or right hydronephrosis seen. Possible small right pleural effusion. IMPRESSION: 1. Suboptimal sonogram secondary to the patient's body habitus and inability to move. 2. Suspect gallbladder sludge. Possible gallstone in the gallbladder neck. Dilated common bile duct. 3. Incompletely visualized liver is diffusely heterogeneous and predominantly hyperechoic; different ial considerations include fatty liver, but other etiologies are possible. Possible small right pleu ral effusion. 4. Suspect right kidney parenchyma increased echogenicity which may be secondary to medical renal d isease. 5. Pancreas, upper abdominal aorta, and upper inferior vena cava are obscured by overlying bowel gas and thus not evaluable. Compare to prior corresponding imaging studies. RPTAT: TT Physician Cass Date Time Electronically viewed and signed by Physician Cass on 01/19/2017 09:49 HOA/
--- NOTE | 2017-01-19 10:44 | CONS ---
Date/Time of Note Date/Time of Note DATE: 01/19/17 TIME: 10:41 Assessment/Plan Assessment/Plan Additional Assessment/Plan 1. Congestive heart failure. The patient has heart failure, systolic, acute on chronic. Will continue to adjust therapy as necessary, now patient appears to be responding somewhat to diuresis. Continue to monitor. Con't diuresis as tolerated. GOOD URINE OUTPUT. EF normalized by latest ECHO. 2. Hypernatremia, etiology is unclear. Dr. Heath follows. Will defer to Dr. Heath. 3. Implantable cardioverter defibrillator. The patient has history of ICD. The device was interrogated in the last 3 months in my office with good function. No further risk stratification needed. 4. Supraventricular tachycardia. The patient with SVTs, likely atrial tachycardias. Continue to monitor now. Continue to replace electrolytes. Per report: A. Fib with RVR last night - added dig and coreg - will increase therapy as tolerated. i reviewed rhytym strip - dificult tracing, maybe sinus tach with PAC - will hold off on global anti-coag now. 5. Hypokalemia. Continue to replace potassium as needed.REPLACE NOW. Consultation Date/Type/Reason Admit Date/Time Jan 14, 2017 at 10:52 Type of Consultation: cardiology Referring Provider: MARY HEATH MD 24 HR Interval Summary Free Text/Dictation NO acute events - no ectopy on tele - HR controlled - good urine output. ROS: No fever, no chills, no nausea, no vomiting, no diarrhea/constipation No recent weight changes No chest pain, no PND, no orthopnea No dizziness, blurred vision No thirst, no heat or cold intolerance (per nurse, pot confused) Exam/Review of Systems Vital Signs Vitals Vital Signs Date Time Temp Pulse Resp B/P Pulse Ox O2 Delivery O2 Flow Rate FiO2 01/19/17 08:15 Nasal Cannula 4.0 01/19/17 08:00 90 01/19/17 07:25 99.3 15 100/53 95 Intake and Output 01/18/17 01/18/17 01/19/17 15:00 23:00 07:00 Intake Total 1230 ml 1390 ml Output Total 550 ml 550 ml Balance 680 ml 840 ml Exam General: WN/WD/NAD, AOx 0 confused HEENT: Unicetric/atraumatic/EOMI (does not follow commands) NECK: JVD elevated, no thyromegaly Lymph: no lymphadenopathy, NGT in HEART: regular with no S3, II/ systolic murmur at apex LUNGS: Coarse sounds ABD: soft, NT, ND, +BS : Intact Neuro: non focal SKIN: chronic changes EXT: trace edema Results Result Diagram: 01/19/17 0842 01/19/17 0842 Results 24 hrs Laboratory Tests Test 01/19/17 08:42 White Blood Count 6.3 # Red Blood Count 3.86 L Hemoglobin 11.0 L Hematocrit 36.7 L Mean Corpuscular Volume 95.1 Mean Corpuscular Hemoglobin 28.5 L Mean Corpuscular Hemoglobin Concent 30.0 L Red Cell Distribution Width 17.6 H Platelet Count 152 Mean Platelet Volume 11.3 H Neutrophils % 78.9 H Lymphocytes % 6.7 L Monocytes % 10.1 Eosinophils % 1.8 Basophils % 0.6 Nucleated Red Blood Cells % 0.3 H Neutrophils # 4.9 Lymphocytes # 0.4 L Monocytes # 0.6 Eosinophils # 0.1 Basophils # 0.0 Nucleated Red Blood Cells # 0.0 Sodium Level 155 H Potassium Level 3.4 L Chloride Level 114 H Carbon Dioxide Level 38 H Anion Gap 6 L Blood Urea Nitrogen 20 Creatinine 0.99 Glucose Level 106 Calcium Level 8.4 Phosphorus Level 2.5 Magnesium Level 2.5 Total Bilirubin 0.3 Direct Bilirubin 0.00 Indirect Bilirubin 0.3 Aspartate Amino Transf (AST/SGOT) 152 H Alanine Aminotransferase (ALT/SGPT) 106 H Alkaline Phosphatase 394 H Total Protein 5.2 L Albumin 2.4 L Globulin 2.80 Albumin/Globulin Ratio 0.85 Medications Medications Current Medications Ondansetron HCl (Zofran Inj) 4 mg Q6H PRN IV NAUSEA AND/OR VOMITING; Start at 14:30 Docusate Sodium (Colace) 100 mg Q12H PRN PO CONSTIPATION; Start 01/14/17 at 14 :30 Magnesium Hydroxide (Milk Of Mag) 30 ml DAILY PRN PO CONSTIPATION; Start 01/14 at 14:30 Pantoprazole 40 mg 40 mg DAILY@06 PO Last administered on 01/19/17t 05:40; Admin Dose 40 MG; Start 01/15/17 at 06:00 Cefepime HCl (Maxipime 1gm/50 ml (Pmx)) 50 ml @ 100 mls/hr Q12 IV Last administered on 01/19/17 09:01; Admin Dose 100 MLS/HR; Start 01/14/17 at 21: 00 Acetaminophen (Tylenol Tab) 650 mg Q4 PRN PO PAIN AND OR ELEVATED TEMP; Start 01/14/17 at 14:30 Ascorbic Acid (Vitamin C) 500 mg DAILY PO Last administered on 01/19/17 09:01 ; Admin Dose 500 MG; Start 01/15/17 at 09:00 Atorvastatin Calcium (Lipitor) 10 mg QHS PO Last administered on 01/18/17 20: 14; Admin Dose 10 MG; Start 01/14/17 at 21:00 Carvedilol (Coreg) 12.5 mg BID PO Last administered on 01/18/17 11:35; Admin Dose 12.5 MG; Start 01/14/17 at 21:00 Cholecalciferol (Vitamin D) 1,000 unit DAILY PO Last administered on 09:00; Admin Dose 1,000 UNIT; Start 01/15/17 at 09:00 Multivitamins Therapeutic (Theragran) 1 tab DAILY PO Last administered on 01/19 09:01; Admin Dose 1 TAB; Start 01/15/17 at 09:00 Spironolactone (Aldactone) 25 mg DAILY PO Last administered on 01/19/17 09:01 ; Admin Dose 25 MG; Start 01/15/17 at 09:00 Tamsulosin HCl (Flomax) 0.4 mg HS PO Last administered on 01/18/17 20:14; Admin Dose 0.4 MG; Start 01/14/17 at 21:00 Vancomycin HCl (Vancomycin Oral Syringe) 250 mg Q6 PO Last administered on 05:40; Admin Dose 250 MG; Start 01/14/17 at 18:00 Lactobacillus Acidophilus (Florajen3 Capsule) 1 each BID PO Last administered on 01/19/17 09:01; Admin Dose 1 EACH; Start 01/14/17 at 21:00 Enoxaparin Sodium (Lovenox) 40 mg DAILY SC Last administered on 01/19/17 09: 11; Admin Dose 40 MG; Start 01/14/17 at 15:30 Miscellaneous Information (Pending Santyl Order For Wound Care) This patient hampton... PRN PRN XX WOUND CARE; Start 01/16/17 at 12:00 Collagenase (Santyl) 1 applic DAILY TOP Last administered on 01/19/17 09:02; Admin Dose 1 APPLIC; Start 01/16/17 at 13:00 Aspirin 325 mg 325 mg DAILY NGT Last administered on 01/19/17 09:00; Admin Dose 325 MG; Start 01/17/17 at 09:00 Caspofungin 50 mg/ Sodium Chloride 250 ml @ 250 mls/hr Q24H IVPB Last administered on 01/18/17 19:51; Admin Dose 250 MLS/HR; Start 01/18/17 at 16: 00 Vancomycin HCl 750 mg/Dextrose/ Water 150 ml @ 75 mls/hr Q12H IVPB Last administered on 01/19/17 00:52; Admin Dose 75 MLS/HR; Start 01/18/17 at 13:00 Dextrose (D5W) 1,000 ml @ 50 mls/hr Q20H IV Last administered on 01/18/17 19 :46; Admin Dose 50 MLS/HR; Start 01/18/17 at 12:30 Miscellaneous Information (*Rx Drug Level Order Reminder*) VANCOMYCIN TROUGH ON 12/24... ONCE ONCE XX ; Start 01/20/17 at 00:00; Stop 01/20/17 at 00:01 LAM GONZALEZ MD Jan 19, 2017 10:44
[2017-01-19] MEDS ORDERED: POTASSIUM CHLORIDE 20 MEQ POWDER FOR ORAL SOLN NGT ONE (11:00)
[2017-01-19 14:50] LABS: AADO2 Arterial 43.4 mmHg (7.0-24.0); Allen Test ACCEPTAB; Arterial Base Excess 7.4 mmol/L (-3.0-3); Arterial COHb 0.3 % (0.0-3.0); Arterial Fraction of Oxyhgb 97.7 % (93.0-99.0); Arterial HCO3 33.7 mmol/L (22.0-26.0); Arterial MetHb 0.2 % (0.0-1.5); Arterial Total Hemglobin 11.8 g/dl (12.0-18.0); MODE NASAL CANNULA
[2017-01-19] MEDS: CASPOFUNGIN 50 MG in SOD CHLORIDE 0.9% 250 ML IVPB SCH (16:22)
--- NOTE | 2017-01-19 17:09 | PN ---
DATE: 01/19/2017 SUBJECTIVE: Patient seen, and upon evaluation, I noted the patient has difficulty talking. He told me that he is feeling that he is going to choke. I got his nurse, and we both suctioned him orally and then deep suctioning was done by the nursing staff through the nose and a copious amount of thi ck secretions was removed. The patient is overall now feeling much better, able to talk more clearl y, but overall I am very concerned that the patient has difficulty clearing his own secretions. Car diology and neurology are involved. I just consulted also gastroenterology, as patient may need a f eeding tube and also may need ERCP as abdominal ultrasound revealed slightly increased common bile d uct size at 9.6 mm and he has some gallbladder sludge. PHYSICAL EXAMINATION: VITAL SIGNS: The patient continues to have a fever. Temperature was 100.2 at midnight. GENERAL: The patient is very frail, weak, morbidly obese, pale, copious secretions were suctioned. CARDIOVASCULAR: S1, S2. LUNGS: Decreased bilaterally, decreased airway movement. ABDOMEN: Soft, nontender. EXTREMITIES: Trace to +1 edema throughout. LABORATORY DATA: White count is 6.3, hemoglobin 11, hematocrit 37, platelets 152, neutrophils 79%, lymphocytes 7%. Chemistry: Sodium 155, potassium 3.4, chloride 114, bicarbonate 38, BUN is 20, cre atinine 0.99, glucose of 106, AST is high at 152, better, ALT high at 106, alkaline phosphatase very high 394. Blood cultures, repeat ones, are negative. MRSA screening negative. Stool for C. diff was negative. CURRENT MEDICATIONS: Include: 1. Caspofungin IV dose per pharmacy. 2. Vancomycin dose per pharmacy. 3. Aspirin 325 daily. 4. Santyl 1 ____ daily. 5. Vitamin C 500 mg daily. 6. Vitamin D 1000 daily. 7. Multivitamin 1 tab daily. 8. Aldactone 25 mg daily. 9. Protonix 40 mg daily. 10. Cefepime 1 gram q. 12. 11. Lipitor 10 mg at bedtime. 12. Coreg 12.5 b.i.d. 13. Flomax 0.4 at bedtime. 14. Lactobacillus b.i.d. 15. Vancomycin orally 250 q. 6. 16. Lasix 40 mg b.i.d. 17. Lovenox p.r.n. 18. Zofran p.r.n. 19. Colace p.r.n. 20. Milk of magnesia p.r.n. 21. DuoNeb p.r.n. 22. Tylenol p.r.n. The patient is also closely seen by the infectious disease specialist. ASSESSMENT AND PLAN: This is a very unfortunate 66-year-old male with history of CHF, AIC D pacemaker, atrial fibrillation, diabetes mellitus, off medication, who presented with increased en cephalopathy, was found to be septic with possible pneumonia, UTI, sacral wounds and possible bacter emia. 1. Respiratory. Continue aggressive suctioning, O2 support, breathing treatments. Consider ABG to see if he has CO2 retention. He may benefit from BiPAP at night. 2. Cardiovascular: The patient is on deep vein thrombosis prophylaxis and beta blockers with Coreg . 3. Infectious disease. Patient with sacral wound, pneumonia, urinary tract infection. Continue ab ove antibiotics. Also, on Cancidas for yeast in the sputum. 4. Renal. The patient with hyponatremia. Continue gentle hydration with D5W. 5. Dysphagia. Continue speech swallow evaluation. The patient most likely is too high risk to gris mae, would recommend to proceed with G-tube placement. 6. Dilated common bile duct with possible gallbladder sludge. We will consult GI and possible surg ical team. 7. Nutrition. Continue DiabetiSource at 40 mL an hour. G-tube will be probably the next step. 8. Psychiatric disorder: All psych medications are on hold secondary to increased weakness and let hargy. 9. Benign prostatic hypertrophy. Continue Flomax. 10. Continue wound care to the sacral wound. The patient is on air mattress bed, frequent turning and wound care. We will follow. Dictated By: MARY MONTERO/SHANTAL Conf#: [id number] DID#: [id number]
--- NOTE | 2017-01-19 17:22 | PN ---
DATE: 01/19/2017 SUBJECTIVE: No acute changes. The patient remains lethargic, in no distress and afebrile, T-max 10 0.2 last night. T-current 99.3, pulse 84, respirations 15, blood pressure 105/68, saturation 97% on 4 liters nasal cannula. WBC 6.3, H and H 11 and 36.7, platelets 152, neutrophils 78.9, BUN 20, creatinine 0.99. INDWELLINGS: Nielsen and NG tube, peripheral IV. ANTIMICROBIALS: 1. Vancomycin. 2. Cancidas. 3. Cefepime. PHYSICAL EXAMINATION: GENERAL: This is an obese, chronically ill-appearing, elderly man who is in no distress. HEENT: Head atraumatic, normocephalic. Sclerae anicteric. Buccal mucosa dry. NECK: Supple. CHEST: Rise symmetrical. Breath sounds diminished to bases. HEART: S1, S2. ABDOMEN: Soft. Bowel tones present. EXTREMITIES: Bilateral trace edema. ASSESSMENT 1. Sepsis. 2. Acute encephalopathy. 3. Proteus mirabilis urinary tract infection. 4. Bacteremia with blood culture on admission growing coagulase-negative Staphylococcus and Coryneb acterium species. Repeat blood cultures negative. 5. Unstageable sacral wound with wound culture growing Klebsiella and Enterococcus species, coagula se-negative Staphylococcus species and Proteus mirabilis. 6. Pneumonia with sputum culture growing yeast, not Meghana albicans. 7. Diabetes. 8. History of recent Clostridium difficile colitis, completing treatment with oral vancomycin. PLAN: The patient remains stable. We will continue him on current antibiotics. Continue anti-aspi ration measures. Follow recommendations of specialists. Dictated By: JONY ANDERS WORKERS COMPENSATION ADMINISTRATOR for ANNA ROACH MD NI/NTS Conf#: [id number] DID#: [id number] CC: MARY FORREST MD;*EndCC*
--- NOTE | 2017-01-19 20:16 | CONS ---
DATE OF ADMISSION: 01/14/2017 DATE OF CONSULTATION: GASTROINTESTINAL CONSULTATION REASON FOR CONSULT: Dilated bile duct and dysphagia. Dear Dr. Heath: Thank you for allowing me to participate in taking care of your patient, who is a 66-year-old gentle man with morbid obesity, status post AICD, psychiatric disorder, diabetes mellitus, hypertension, __ ___ schizophrenia, comes to the hospital complaining of shortness of breath. The patient was found to have a temperature of 103. He was tachycardic, brought to the emergency room. In the ER, the jayjay ya was found to be in respiratory distress. He was placed on oxygen, aspiration precaution and a dmitted to the telemetry floor. The patient was started on appropriate antibiotic. GI consult was called in for a dilated biliary system, and also for possible dysphagia. The patient is lethargic, barely he will answer the question, but he denies upper abdominal pain. He is nauseous, but no vomi ting. PAST MEDICAL HISTORY: As described. ALLERGIES: 1. CODEINE. 2. MEPERIDINE. MEDICATIONS: All reviewed. PAST SURGICAL HISTORY: Pacemaker, AICD placement. DIET: He is on pureed diet. FAMILY HISTORY: Unknown. SOCIAL HISTORY: No history of tobacco, alcohol or drug use. PHYSICAL EXAMINATION: GENERAL: He is overweight. VITALS: Stable. Lethargic. HEENT: Unremarkable. CARDIOVASCULAR: No murmur. LUNGS: Clear. ABDOMEN: Benign. EXTREMITIES: He has trace edema. LABORATORY DATA: WBC is 6.3, hematocrit is 36, SGOT is 152, SGPT 106, alkaline phosphatase 394. He had an imaging study done. Ultrasound of the abdomen showed possible gallstone in the gallbladder neck, and also dilated bile duct. The bile duct was 9.6 mm in diameter. He also had a fatty liver. IMPRESSION: 1. Abnormal LFT, most probably related to fatty liver. Rule out bile duct stone, given the dilated biliary system. Patient is not a candidate for MRCP, given AICD. We will get a CAT scan of the ab domen and pelvis done. 2. Status post AICD. 3. Atrial fibrillation. 4. Diabetes mellitus. 5. Possible pneumonia. 6. Urinary tract infection. 7. Sacral wound. 8. Psychiatric disorder. 9. Dysphagia. PLAN: To continue present care. We will get CT scan done. The patient is not a candidate for MRCP and we will ask speech therapy to also do a swallow evaluation. Dictated By: HERRERA HARGROVE/SHANTAL Conf#: [id number] DID#: [id number] CC: MARY HEATH MD;*EndCC*
[2017-01-19] MEDS: TAMSULOSIN (SR) 0.4 MG CAP PO SCH (21:28)
[2017-01-19] MEDS: ATORVASTATIN 10 MG TAB PO SCH (21:28)
[2017-01-20] VITALS (13 sets, daily range): BP systolic 84–141; BP diastolic 55–91; PULSE 68–90; RESP 14–20
[2017-01-20] MEDS: VANCOMYCIN HCL 250 MG/5ML POSYG PO SCH ×4 (00:09→17:26)
[2017-01-20] MEDS: VANCOMYCIN 750 MG in DEXTROSE 5% 150 ML IVPB SCH ×2 (01:41→12:24)
[2017-01-20] MEDS: DEXTROSE 5% 1,000 ML IV SCH (04:35)
[2017-01-20] MEDS: PANTOPRAZOLE (EC) 40 MG TAB PO SCH (04:59)
[2017-01-20] MEDS: FUROSEMIDE 40 MG TAB PO SCH ×2 (05:00→17:27)
--- NOTE | 2017-01-20 07:32 | RADRPT ---
AMENDMENT: 01/20/2017 12:55:10 AM Ashley Edwards M.d That this report is not for this patient was discussed with Kia Sanchez RN by Dr. Ashley Edwards on N 2016 at 12:52 AM. IT is unable to delete the report this evening but will be notified in the morning. AMENDMENT: 01/20/2017 12:46:48 AM Ashley Edwards M.d Please note that this report is not for this patient. Please disregard this report. PROCEDURE: CT RIGHT FOOT WITHOUT CONTRAST CLINICAL INDICATION: 66-year of age, male. Trauma. Lisfranc injury. TECHNIQUE: A noncontrast CT of the right foot was performed. Coronal and sagittal reformatted im ages were obtained from the axial source images. Images were reviewed on a high-resolution PACS work station. DICOM images are available. CTDIvol: 18.4 mGy. DLP: 738 mGy-cm. One or more of the following dose reduction techniques were used: - Automated exposure control. - Adjustment of the mA and/or kV according to patient size. - Use of iterative reconstruction technique. COMPARISON: None available. FINDINGS: There is a lateral fracture dislocation of the tarsometatarsal joints of all five rays in keeping wi th a homolateral Lisfranc injury. Injury is as follows. There is a mild lateral subluxation of the first metatarsal at the tarsometatarsal joint with a tiny bone fragment at the medial base of the first metatarsal. There is dorsal and lateral dislocation of the second metatarsal at the tarsometatarsal joint with d isruption of the Lisfranc ligament and multiple small avulsion fractures arising from the medial and middle cuneiforms. There is a well corticated ossicle between the bases of the first and second met atarsals that is developmental. There is an acute mildly comminuted and displaced fracture through t he distal shaft of the second metatarsal with medial displacement of the distal fracture fragment a full shaft width. There is lateral dislocation of the third, fourth and fifth metatarsals at the tarsometatarsal joint s with tiny avulsion fracture fragments at the dislocation. There are displaced fractures through th e distal shafts of the third and fourth metatarsals with displacement a full shaft width. Negative f or acute fracture of the fifth metatarsal. Normal alignment of the MTP joints. No additional acute fractures are identified at the ankle or in the hind foot. Talonavicular and calcaneocuboid joints are normal. Well corticated ossicle at the do rsal aspect of the talonavicular joint is unrelated to acute trauma. MTP joints and phalanges are no rmal. Flexor tendons, peroneal tendons and extensor tendons appear normal of the ankle. Achilles tendon an d plantar fascia are normal. There is extensive soft tissue swelling at the dorsum of the forefoot. IMPRESSION: Homolateral Lisfranc fracture dislocation involving all five rays with lateral subluxation of the fi rst metatarsal and lateral dislocation of the second through fifth metatarsals at the TMT joints. Th ere are associated displaced fractures of the distal shafts of the second, third and fourth metatars als as described. RPTAT: HCTS Physician Rowena Date Time Electronically viewed and signed by Physician Rowena on 01/20/2017 00:56 /
[2017-01-20] MEDS: MULTIVITAMINS THERAPEUTIC TAB PO SCH (08:20)
[2017-01-20] MEDS: ASCORBIC ACID 500 MG TAB PO SCH (08:20)
[2017-01-20] MEDS: CEFEPIME 1GM/50 ML (PMX) 50 ML IV SCH ×2 (08:20→20:31)
[2017-01-20] MEDS: CHOLECALCIFEROL 1,000 UNIT TAB PO SCH (08:20)
[2017-01-20] MEDS: L ACIDOPHIL/B LACTIS/B LONGUM CAPSULE PO SCH ×2 (08:20→20:32)
[2017-01-20] MEDS: ASPIRIN 325 MG TAB NGT SCH (08:20)
[2017-01-20] MEDS: SPIRONOLACTONE 25 MG TAB PO SCH (08:20)
[2017-01-20] MEDS: ENOXAPARIN 40 MG/0.4 ML SYG SC SCH (08:25)
[2017-01-20] MEDS: COLLAGENASE 30 GM TUBE TOP SCH (08:29)
[2017-01-20 09:08] LABS: ABNORMAL IP MESSAGE 1; BASOPHILS % 0.7 % (0.0-2.0); EOSINOPHILS # 0.1 10^3/ul (0.0-0.5); EOSINOPHILS % 2.6 % (0.0-7.0); HEMATOCRIT 35.9 % (42.0-52.0); LYMPHOCYTES # 0.5 10^3/ul (0.8-2.9); LYMPHOCYTES % 9.5 % (15.0-51.0); MEAN CORPUSCULAR HEMOGLOBIN 28.9 pg (29.0-33.0); MEAN CORPUSCULAR HGB CONC 30.6 g/dl (32.0-37.0); MEAN CORPUSCULAR VOLUME 94.2 fl (82.0-101.0); MEAN PLATELET VOLUME 11.8 fl (7.4-10.4); MONOCYTE # 0.7 10^3/ul (0.3-0.9); MONOCYTES % 13.2 % (0.0-11.0); NEUTROPHIL # 3.9 10^3/ul (1.6-7.5); NEUTROPHILS % 71.8 % (39.0-77.0); PLATELET COUNT 151 10^3/UL (140-415); POSITIVE DIFF @See below; RED BLOOD COUNT 3.81 10^6/ul (4.70-6.10); RED CELL DISTRIBUTION WIDTH 17.6 % (11.5-14.5); WHITE BLOOD COUNT 5.5 10^3/ul (4.8-10.8)
[2017-01-20 09:19] LABS: MAGNESIUM 2.4 mg/dl (1.7-2.5); PHOSPHORUS 2.9 mg/dl (2.5-4.9)
[2017-01-20 09:21] LABS: ALBUMIN 2.5 g/dl (3.3-4.9); ALBUMIN/GLOBULIN RATIO 0.86; BILIRUBIN,INDIRECT 0.3 mg/dl (0-1.1); BILIRUBIN,TOTAL 0.3 mg/dl (0.2-1.3); CALCIUM 8.3 mg/dl (8.4-10.2); CREATININE 0.96 mg/dl (0.61-1.24); POTASSIUM 3.7 mmol/L (3.5-5.1); TOTAL PROTEIN 5.4 g/dl (6.1-8.1)
--- NOTE | 2017-01-20 14:04 | CONS ---
Date/Time of Note Date/Time of Note DATE: 01/20/17 TIME: 13:59 Assessment/Plan Assessment/Plan Chief Complaint/Hosp Course IMp: 1.SVT's- currently SR with PAC's. TSH WNL. Review of strip stoday reveal likley PAF short runs 2.CHF-diastolic acute on chronic by echo this admit 3.HTN 4. Hypernatremia 5.encephalopathy 6.H/O ICD Recc: -Tele -serial ecg's -Continue lasix/aldactone po and follow volume status/blending coordinator -Contnue coreg -Continue abx's and f/u cx data -Continue statin -Continue free water for na -Continue asa/lovenox for now but will discuss with PMD if no contraindication will start systemic apple-coag with eliquis and d/c asa/lovenox Problems: Consultation Date/Type/Reason Admit Date/Time Jan 14, 2017 at 10:52 Initial Consult Date 01/16/17 Type of Consultation: cardiology Reason for Consultation AF Referring Provider: MARY FORREST MD Exam/Review of Systems Vital Signs Vitals Vital Signs Date Time Temp Pulse Resp B/P Pulse Ox O2 Delivery O2 Flow Rate FiO2 01/20/17 13:59 4.0 01/20/17 12:16 71 01/20/17 12:00 Nasal Cannula 01/20/17 11:15 98.4 15 111/71 100 Intake and Output 01/19/17 01/19/17 01/20/17 15:00 23:00 07:00 Intake Total 1780 ml 1240 ml Output Total 800 ml Balance 1780 ml 440 ml Exam Review of Systems: CONSTITUTIONAL: No fevers, chills. PULMONARY: No sob CARDIOVASCULAR: No chest pain/palpitations GASTROINTESTINAL: No nausea/vomiting. GENITOURINARY: No hematuria/dysuria. MUSCULOSKELETAL: No myagias/arthalgias. PSYCHIATRIC: The patient denies depression. NEUROLOGIC: lethargic/confused Constitutional: alert, oriented Psych: no complaints Head: normocephalic ENMT: mucosa pink and moist Neck: jvd (9 cm water), supple Respiratory: diminished breath sounds (at bases/B) Cardiovascular: regular rate and rhythm Gastrointestinal: non-tender, soft Musculoskeletal: muscle weakness (generalized) Extremities: pitting pedal edema (trace/B) Neurological: lethargic Results Result Diagram: 11/29/17 0820 01/20/17 0820 Results 24 hrs Laboratory Tests Test 01/19/17 14:26 01/20/17 00:23 01/20/17 08:20 Blood Gas Specimen Source Blood arterial Arterial Blood Date Drawn 01/19/2017 2:40:31 PM Arterial Blood pH (Temp corrected) 7.397 Arterial Blood pCO2 (Temp correct) 56.1 H Arterial Blood pO2 (Temp corrected) 126.4 H Arterial Blood HCO3 33.7 H Arterial Blood Base Excess 7.4 H Arterial Blood Oxygen Saturation 98.2 H Ernesto Test ACCEPTAB Arterial Blood Gas Puncture Site Left Radial Arterial Blood Carboxyhemoglobin 0.3 Arterial Blood Methemoglobin 0.2 Blood Gas A-a O2 Differential 43.4 H Oxyhemoglobin Percent 97.7 Total Hemoglobin 11.8 L Blood Gas Temperature 37.0 Blood Gas Modality NASAL CANNULA FiO2 33.0 Blood Gas Notified Whom JLD Blood Gas Notified Time 01/19/2017 2:50:08 PM Vancomycin Level Trough 14.5 White Blood Count 5.5 Red Blood Count 3.81 L Hemoglobin 11.0 L Hematocrit 35.9 L Mean Corpuscular Volume 94.2 Mean Corpuscular Hemoglobin 28.9 L Mean Corpuscular Hemoglobin Concent 30.6 L Red Cell Distribution Width 17.6 H Platelet Count 151 Mean Platelet Volume 11.8 H Neutrophils % 71.8 Lymphocytes % 9.5 L Monocytes % 13.2 H Eosinophils % 2.6 Basophils % 0.7 Nucleated Red Blood Cells % 0.0 Neutrophils # 3.9 Lymphocytes # 0.5 L Monocytes # 0.7 Eosinophils # 0.1 Basophils # 0.0 Nucleated Red Blood Cells # 0.0 Sodium Level 150 H Potassium Level 3.7 Chloride Level 110 Carbon Dioxide Level 37 H Anion Gap 7 L Blood Urea Nitrogen 20 Creatinine 0.96 Glucose Level 125 Calcium Level 8.3 L Phosphorus Level 2.9 Magnesium Level 2.4 Total Bilirubin 0.3 Direct Bilirubin 0.00 Indirect Bilirubin 0.3 Aspartate Amino Transf (AST/SGOT) 101 H Alanine Aminotransferase (ALT/SGPT) 103 H Alkaline Phosphatase 413 H Total Protein 5.4 L Albumin 2.5 L Globulin 2.90 Albumin/Globulin Ratio 0.86 Medications Medications Current Medications Ondansetron HCl (Zofran Inj) 4 mg Q6H PRN IV NAUSEA AND/OR VOMITING; Start at 14:30 Docusate Sodium (Colace) 100 mg Q12H PRN PO CONSTIPATION; Start 01/14/17 at 14 :30 Magnesium Hydroxide (Milk Of Mag) 30 ml DAILY PRN PO CONSTIPATION; Start 01/14 at 14:30 Pantoprazole 40 mg 40 mg DAILY@06 PO Last administered on 01/20/17 04:59; Admin Dose 40 MG; Start 01/15/17 at 06:00 Cefepime HCl (Maxipime 1gm/50 ml (Pmx)) 50 ml @ 100 mls/hr Q12 IV Last administered on 01/20/17 08:20; Admin Dose 100 MLS/HR; Start 01/14/17 at 21: 00 Acetaminophen (Tylenol Tab) 650 mg Q4 PRN PO PAIN AND OR ELEVATED TEMP; Start 01/14/17 at 14:30 Ascorbic Acid (Vitamin C) 500 mg DAILY PO Last administered on 01/20/17 08:20 ; Admin Dose 500 MG; Start 01/15/17 at 09:00 Atorvastatin Calcium (Lipitor) 10 mg QHS PO Last administered on 01/19/17 21: 28; Admin Dose 10 MG; Start 01/14/17 at 21:00 Carvedilol (Coreg) 12.5 mg BID PO Last administered on 01/20/17 09:02; Admin Dose 12.5 MG; Start 01/14/17 at 21:00 Cholecalciferol (Vitamin D) 1,000 unit DAILY PO Last administered on 08:20; Admin Dose 1,000 UNIT; Start 01/15/17 at 09:00 Multivitamins Therapeutic (Theragran) 1 tab DAILY PO Last administered on 01/20 08:20; Admin Dose 1 TAB; Start 01/15/17 at 09:00 Spironolactone (Aldactone) 25 mg DAILY PO Last administered on 01/20/17 08:20 ; Admin Dose 25 MG; Start 01/15/17 at 09:00 Tamsulosin HCl (Flomax) 0.4 mg HS PO Last administered on 01/19/17 21:28; Admin Dose 0.4 MG; Start 01/14/17 at 21:00 Vancomycin HCl (Vancomycin Oral Syringe) 250 mg Q6 PO Last administered on 12:24; Admin Dose 250 MG; Start 01/14/17 at 18:00 Lactobacillus Acidophilus (Florajen3 Capsule) 1 each BID PO Last administered on 01/20/17 08:20; Admin Dose 1 EACH; Start 01/14/17 at 21:00 Enoxaparin Sodium (Lovenox) 40 mg DAILY SC Last administered on 01/20/17 08: 25; Admin Dose 40 MG; Start 01/14/17 at 15:30 Miscellaneous Information (Pending Santyl Order For Wound Care) This patient hampton... PRN PRN XX WOUND CARE; Start 01/16/17 at 12:00 Collagenase (Santyl) 1 applic DAILY TOP Last administered on 01/20/17 08:29; Admin Dose 1 APPLIC; Start 01/16/17 at 13:00 Aspirin 325 mg 325 mg DAILY NGT Last administered on 01/20/17 08:20; Admin Dose 325 MG; Start 01/17/17 at 09:00 Caspofungin 50 mg/ Sodium Chloride 250 ml @ 250 mls/hr Q24H IVPB Last administered on 01/19/17 16:22; Admin Dose 250 MLS/HR; Start 01/18/17 at 16: 00 Vancomycin HCl 750 mg/Dextrose/ Water 150 ml @ 75 mls/hr Q12H IVPB Last administered on 01/20/17 12:24; Admin Dose 75 MLS/HR; Start 01/18/17 at 13:00 Dextrose (D5W) 1,000 ml @ 50 mls/hr Q20H IV Last administered on 01/20/17 04 :35; Admin Dose 50 MLS/HR; Start 01/18/17 at 12:30 PREET BECERRA 29, 2017 14:04
--- NOTE | 2017-01-20 15:31 | PN ---
DATE: 01/20/2017 INFECTIOUS DISEASE PROGRESS NOTE SUBJECTIVE: No acute changes. The patient is more awake, looks comfortable. Afebrile. WBC today 5.5, no shift, no bands. BUN 20, creatinine 0.96. MICROBIOLOGY: Blood culture on admission grew coag negative staph species. Repeat blood cultures n egative. ANTIMICROBIALS: The patient is on ____ vancomycin and Cefepime day #7. INDWELLINGS: NG tube, Nielsen catheter. PHYSICAL EXAMINATION: GENERAL: This is a chronically ill-appearing, obese elderly man who is in no distress. The patient is lethargic but arousable and follows simple commands. HEAD: Atraumatic, normocephalic. Sclerae anicteric. NECK: Obese. CHEST: Rise symmetrical. Breath sounds diminished to bases. HEART: S1, S2. ABDOMEN: Soft, bowel tones present. EXTREMITIES: Without cyanosis. Bilateral lower extremity edema. ASSESSMENT: 1. Status post septic shock. 2. Resolving encephalopathy. 3. Proteus mirabilis urinary tract infection. 4. Coagulase-negative Staphylococcus bacteremia, possibly contaminant, repeat blood cultures negati ve. 5. Sacral decubitus with wound culture growing Klebsiella, Enterococcus, coagulase-negative Staphyl ococcus species and Proteus mirabilis. 6. Resolving pneumonia, sputum culture grew yeast, not Meghana albicans, remains on ____. 7. Diabetes. 8. History of recent Clostridium difficile colitis, patient remains on oral vancomycin. 9. Abnormal liver function tests, gastroenterology on case. 10. Coronary artery disease with atrial fibrillation, status post automatic implantable cardioverte r-defibrillator. PLAN: Patient remains clinically stable. He is being followed by multiple consultants. Repeat blo od cultures negative. Continue on current antibiotics. Continue anti-aspiration measures, pending CT abdomen. Dictated By: JONY ANDERS TOP CUTTER for ANNA ROACH MD NI/NTS Conf#: [id number] DID#: [id number] CC: MARY FORREST MD;*EndCC*
[2017-01-20] MEDS: CASPOFUNGIN 50 MG in SOD CHLORIDE 0.9% 250 ML IVPB SCH (15:53)
--- NOTE | 2017-01-20 18:39 | CONS ---
Date/Time of Note Date/Time of Note DATE: 01/20/17 TIME: 18:36 Assessment/Plan Assessment/Plan Additional Assessment/Plan IMPRESSION: 1. Abnormal LFT, most probably related to fatty liver. Rule out bile duct stone, given the dilated biliary system. Patient is not a candidate for MRCP, given AICD. We will get a CAT scan of the abdomen and pelvis done. 2. Status post AICD. 3. Atrial fibrillation. 4. Diabetes mellitus. 5. Possible pneumonia. 6. Urinary tract infection. 7. Sacral wound. 8. Psychiatric disorder. 9. Dysphagia. Plan The could not do a CAT scan of the abdomen and pelvis because of his weight MRCP is not possible because of AICD We will continue to monitor liver function tests PEG once he is more stable Consultation Date/Type/Reason Admit Date/Time Jan 14, 2017 at 10:52 Initial Consult Date 01/16/17 Type of Consultation: cardiology Referring Provider: MARY FORREST MD 24 HR Interval Summary Free Text/Dictation Patient is lethargic and does not communicate Exam/Review of Systems Vital Signs Vitals Vital Signs Date Time Temp Pulse Resp B/P Pulse Ox O2 Delivery O2 Flow Rate FiO2 01/20/17 16:21 78 01/20/17 16:00 Nasal Cannula 5.0 01/20/17 15:34 98.8 16 126/91 98 Intake and Output 01/19/17 01/19/17 01/20/17 15:00 23:00 07:00 Intake Total 1780 ml 1240 ml Output Total 800 ml Balance 1780 ml 440 ml Exam Respiratory: diminished breath sounds Cardiovascular: nl pulses, regular rate and rhythm Gastrointestinal: nl liver, spleen, non-tender, soft Extremities: normal pulses Neurological: lethargic Results Result Diagram: 01/20/17 0820 01/20/17 0820 Results 24 hrs Laboratory Tests Test 01/20/17 00:23 01/20/17 08:20 Vancomycin Level Trough 14.5 White Blood Count 5.5 Red Blood Count 3.81 L Hemoglobin 11.0 L Hematocrit 35.9 L Mean Corpuscular Volume 94.2 Mean Corpuscular Hemoglobin 28.9 L Mean Corpuscular Hemoglobin Concent 30.6 L Red Cell Distribution Width 17.6 H Platelet Count 151 Mean Platelet Volume 11.8 H Neutrophils % 71.8 Lymphocytes % 9.5 L Monocytes % 13.2 H Eosinophils % 2.6 Basophils % 0.7 Nucleated Red Blood Cells % 0.0 Neutrophils # 3.9 Lymphocytes # 0.5 L Monocytes # 0.7 Eosinophils # 0.1 Basophils # 0.0 Nucleated Red Blood Cells # 0.0 Sodium Level 150 H Potassium Level 3.7 Chloride Level 110 Carbon Dioxide Level 37 H Anion Gap 7 L Blood Urea Nitrogen 20 Creatinine 0.96 Glucose Level 125 Calcium Level 8.3 L Phosphorus Level 2.9 Magnesium Level 2.4 Total Bilirubin 0.3 Direct Bilirubin 0.00 Indirect Bilirubin 0.3 Aspartate Amino Transf (AST/SGOT) 101 H Alanine Aminotransferase (ALT/SGPT) 103 H Alkaline Phosphatase 413 H Total Protein 5.4 L Albumin 2.5 L Globulin 2.90 Albumin/Globulin Ratio 0.86 Medications Medications Current Medications Ondansetron HCl (Zofran Inj) 4 mg Q6H PRN IV NAUSEA AND/OR VOMITING; Start at 14:30 Docusate Sodium (Colace) 100 mg Q12H PRN PO CONSTIPATION; Start 01/14/17 at 14 :30 Magnesium Hydroxide (Milk Of Mag) 30 ml DAILY PRN PO CONSTIPATION; Start 01/14 at 14:30 Pantoprazole 40 mg 40 mg DAILY@06 PO Last administered on 01/20/17 04:59; Admin Dose 40 MG; Start 01/15/17 at 06:00 Cefepime HCl (Maxipime 1gm/50 ml (Pmx)) 50 ml @ 100 mls/hr Q12 IV Last administered on 01/20/17 08:20; Admin Dose 100 MLS/HR; Start 01/14/17 at 21: 00 Acetaminophen (Tylenol Tab) 650 mg Q4 PRN PO PAIN AND OR ELEVATED TEMP; Start 01/14/17 at 14:30 Ascorbic Acid (Vitamin C) 500 mg DAILY PO Last administered on 01/20/17 08:20 ; Admin Dose 500 MG; Start 01/15/17 at 09:00 Atorvastatin Calcium (Lipitor) 10 mg QHS PO Last administered on 01/19/17 21: 28; Admin Dose 10 MG; Start 01/14/17 at 21:00 Carvedilol (Coreg) 12.5 mg BID PO Last administered on 01/20/17 09:02; Admin Dose 12.5 MG; Start 01/14/17 at 21:00 Cholecalciferol (Vitamin D) 1,000 unit DAILY PO Last administered on 08:20; Admin Dose 1,000 UNIT; Start 01/15/17 at 09:00 Multivitamins Therapeutic (Theragran) 1 tab DAILY PO Last administered on 01/20 08:20; Admin Dose 1 TAB; Start 01/15/17 at 09:00 Spironolactone (Aldactone) 25 mg DAILY PO Last administered on 01/20/17 08:20 ; Admin Dose 25 MG; Start 01/15/17 at 09:00 Tamsulosin HCl (Flomax) 0.4 mg HS PO Last administered on 01/19/17 21:28; Admin Dose 0.4 MG; Start 01/14/17 at 21:00 Vancomycin HCl (Vancomycin Oral Syringe) 250 mg Q6 PO Last administered on 17:26; Admin Dose 250 MG; Start 01/14/17 at 18:00 Lactobacillus Acidophilus (Florajen3 Capsule) 1 each BID PO Last administered on 01/20/17 08:20; Admin Dose 1 EACH; Start 01/14/17 at 21:00 Enoxaparin Sodium (Lovenox) 40 mg DAILY SC Last administered on 01/20/17 08: 25; Admin Dose 40 MG; Start 01/14/17 at 15:30 Miscellaneous Information (Pending Santyl Order For Wound Care) This patient hampton... PRN PRN XX WOUND CARE; Start 01/16/17 at 12:00 Collagenase (Santyl) 1 applic DAILY TOP Last administered on 01/20/17 08:29; Admin Dose 1 APPLIC; Start 01/16/17 at 13:00 Aspirin 325 mg 325 mg DAILY NGT Last administered on 01/20/17 08:20; Admin Dose 325 MG; Start 01/17/17 at 09:00 Caspofungin 50 mg/ Sodium Chloride 250 ml @ 250 mls/hr Q24H IVPB Last administered on 01/20/17 15:53; Admin Dose 250 MLS/HR; Start 01/18/17 at 16: 00 Vancomycin HCl 750 mg/Dextrose/ Water 150 ml @ 75 mls/hr Q12H IVPB Last administered on 01/20/17 12:24; Admin Dose 75 MLS/HR; Start 01/18/17 at 13:00 Dextrose (D5W) 1,000 ml @ 50 mls/hr Q20H IV Last administered on 01/20/17 04 :35; Admin Dose 50 MLS/HR; Start 01/18/17 at 12:30 HERRERA ELLSI MD Jan 20, 2017 18:39
[2017-01-20] MEDS: ALBUTEROL/IPRATROPIUM (NEB) 3 ML AMP NEB PRN (19:47)
[2017-01-20] MEDS: ACETYLCYSTEINE 20% 4 ML VIAL NEB SCH (19:47)
[2017-01-20] MEDS: TAMSULOSIN (SR) 0.4 MG CAP PO SCH (20:31)
[2017-01-20] MEDS: ATORVASTATIN 10 MG TAB PO SCH (20:32)
--- NOTE | 2017-01-20 23:21 | PN ---
DATE: 01/20/2017 SUBJECTIVE: Patient seen. The patient continues to have quite a lot of secretions, we are suctioni ng him frequently. We will add Mucomyst nebulizer to help to open up the secretions. I requested a sandee culture. PHYSICAL EXAMINATION: VITAL SIGNS: Patient is now afebrile, temperature is 98.8, pulse 78, respirations 16, blood pressur e 126/91, saturation is adequate, 98% on 5 liters. GENERAL: The patient remains quite lethargic. The patient is pale, difficult for him to swallow. His gag reflex is almost absent. CARDIOVASCULAR: Positive S1 and S2. Irregularly irregular. LUNGS: Clear. Decreased airway movement. ABDOMEN: Soft, nontender. EXTREMITIES: Trace to +1 edema in lower extremities. LABORATORY DATA: White count is 5.5, hemoglobin is 11, hematocrit 36, platelet count is 151, neutro phils 72%, lymphocytes 10%, monocytes 13%. Chemistry: Sodium 150, improved, potassium 3.7, chlorid e 110, bicarbonate 37, BUN of 20, creatinine 0.96 and glucose of 125. LFTs improved. AST 101, ALT 103, alkaline phosphatase 413, it is high. MRCP could not be done as patient has a pacemaker. In a ddition, a CAT scan could not be done because of patient's weight. Urinalysis did show positive ulices dence of UTI with +1 leukocyte esterase on admission. Urine culture and multiple other cultures wer e all positive, including wound culture shows Proteus mirabilis, Klebsiella pneumoniae, enterococcus and coagulase negative staph; respiratory culture shows yeast, not Meghana albicans; urine culture shows Proteus mirabilis, and one blood culture shows Corynebacterium species. Repeat blood cultures 01/17/2017 are negative. MEDICATIONS: Include: 1. Caspofungin IV dose per pharmacy. 2. Vancomycin dose per pharmacy. 3. Aspirin 81 mg daily. 4. Santyl daily. 5. Vitamin C 500 mg daily. 6. Vitamin D 1000 daily. 7. Multivitamin 1 tab daily. 8. Aldactone 25 daily. 9. Protonix 40 mg daily. 10. Cefepime 1 gram q.12. 11. Lipitor 10 mg at bedtime. 12. Coreg 12.5 b.i.d. 13. Flomax 0.4 at bedtime. 14. Lactobacillus b.i.d. 15. Vancomycin 250 orally q.6. 16. Lasix 40 b.i.d. 17. Lovenox 40 mg subcutaneous every day. 18. Zofran p.r.n. 19. Colace p.r.n. 20. Milk of magnesia p.r.n. 21. Vancomycin dose per pharmacy. 22. DuoNeb p.r.n. 23. Tylenol p.r.n. ASSESSMENT AND PLAN: This is a 66-year-old male with history of congestive heart failure, AICD pacemaker, atrial fibrillation, diabetes mellitus, off medication, who presented with increase d encephalopathy, was found to be septic with possible pneumonia, urinary tract infection, sacral wo und and possible bacteremia. 1. Respiratory. Continue aggressive suctioning, breathing treatment around the clock and O2 suppor t. We will add Mucomyst to open up his secretions. 2. Cardiovascular. Continue DVT prophylaxis. Continue beta blockers. 3. Infectious disease. Remains on the above antibiotics. Follow up all cultures and repeat sputum culture. 4. Renal. Patient with hypernatremia, improved with gentle hydration with D5W. 5. Dysphagia, likely will not be able to swallow in the near future as patient appears to be quite lethargic and very high risk of aspiration, failed swallow evaluation initially. Would continue wit h NG tube feeding. May proceed with G-tube feeding, most likely. 6. Dilated common bile duct. MRCP cannot be done, as well as a CAT scan. We may need to proceed w ith MRCP in the setting of elevated LFTs and alkaline phosphatase. 7. Nutrition. Continue current diet. 8. Psychiatric disorder. All psych meds are on hold secondary to patient's condition. 9. BPH. Continue Flomax. 10. Continue wound care to the sacral wound. Again, the patient does not have any significant abdominal pain, so I doubt cholecystitis, but we wi ll follow closely. Condition is guarded. The patient is FULL CODE. Dictated By: MARY MONTERO/SHANTAL Conf#: [id number] DID#: [id number]
[2017-01-21] VITALS (11 sets, daily range): BP systolic 108–127; BP diastolic 63–84; PULSE 73–116; RESP 16–20
[2017-01-21] MEDS: VANCOMYCIN HCL 250 MG/5ML POSYG PO SCH ×4 (00:14→18:55)
[2017-01-21] MEDS: DEXTROSE 5% 1,000 ML IV SCH ×2 (00:15→20:30)
[2017-01-21] MEDS: VANCOMYCIN 750 MG in DEXTROSE 5% 150 ML IVPB SCH ×2 (01:24→12:52)
[2017-01-21] MEDS: ACETYLCYSTEINE 20% 4 ML VIAL NEB SCH ×4 (01:35→20:27)
[2017-01-21] MEDS: ALBUTEROL/IPRATROPIUM (NEB) 3 ML AMP NEB PRN ×4 (01:35→20:27)
[2017-01-21] MEDS: PANTOPRAZOLE (EC) 40 MG TAB PO SCH (06:26)
[2017-01-21] MEDS: FUROSEMIDE 40 MG TAB PO SCH ×2 (06:31→18:55)
[2017-01-21] MEDS: COLLAGENASE 30 GM TUBE TOP SCH (09:00)
[2017-01-21 09:15] LABS: ABNORMAL IP MESSAGE 1; BASOPHILS % 0.5 % (0.0-2.0); EOSINOPHILS # 0.2 10^3/ul (0.0-0.5); EOSINOPHILS % 2.7 % (0.0-7.0); HEMATOCRIT 35.6 % (42.0-52.0); HEMOGLOBIN 10.6 g/dl (14.0-18.0); LYMPHOCYTES # 0.6 10^3/ul (0.8-2.9); LYMPHOCYTES % 10.1 % (15.0-51.0); MEAN CORPUSCULAR HGB CONC 29.8 g/dl (32.0-37.0); MEAN CORPUSCULAR VOLUME 94.2 fl (82.0-101.0); MONOCYTE # 0.6 10^3/ul (0.3-0.9); MONOCYTES % 11.1 % (0.0-11.0); NEUTROPHILS % 72.9 % (39.0-77.0); PLATELET COUNT 175 10^3/UL (140-415); POSITIVE DIFF @See below; RED BLOOD COUNT 3.78 10^6/ul (4.70-6.10); WHITE BLOOD COUNT 5.5 10^3/ul (4.8-10.8)
[2017-01-21 09:48] LABS: ALBUMIN 2.6 g/dl (3.3-4.9); BILIRUBIN,INDIRECT 0.2 mg/dl (0-1.1); BILIRUBIN,TOTAL 0.2 mg/dl (0.2-1.3); CREATININE 0.89 mg/dl (0.61-1.24); TOTAL PROTEIN 5.2 g/dl (6.1-8.1)
[2017-01-21 10:02] LABS: MAGNESIUM 2.4 mg/dl (1.7-2.5); PHOSPHORUS 3.2 mg/dl (2.5-4.9)
[2017-01-21] MEDS: L ACIDOPHIL/B LACTIS/B LONGUM CAPSULE PO SCH ×2 (10:08→22:02)
[2017-01-21] MEDS: CHOLECALCIFEROL 1,000 UNIT TAB PO SCH (10:08)
[2017-01-21] MEDS: SPIRONOLACTONE 25 MG TAB PO SCH (10:08)
[2017-01-21] MEDS: ASPIRIN 325 MG TAB NGT SCH (10:08)
[2017-01-21] MEDS: ASCORBIC ACID 500 MG TAB PO SCH (10:09)
[2017-01-21] MEDS: MULTIVITAMINS THERAPEUTIC TAB PO SCH (10:09)
[2017-01-21] MEDS: CEFEPIME 1GM/50 ML (PMX) 50 ML IV SCH ×2 (10:09→22:02)
[2017-01-21] MEDS: ENOXAPARIN 40 MG/0.4 ML SYG SC SCH (10:18)
--- NOTE | 2017-01-21 14:50 | CONS ---
Date/Time of Note Date/Time of Note DATE: 01/21/17 TIME: 14:46 Assessment/Plan Assessment/Plan Chief Complaint/Hosp Course SUBJECTIVE: No acute changes. Sleeping, looks comfortable. Afebrile. MICROBIOLOGY: Blood culture on admission grew coag negative staph species. Repeat blood cultures negative. ANTIMICROBIALS: The patient is on Cefepime vancomycin and Cefepime day #8. INDWELLINGS: NG tube, Nielsen catheter. PHYSICAL EXAMINATION: GENERAL: This is a chronically ill-appearing, obese elderly man who is in no distress. The patient is lethargic but arousable and follows simple commands. HEAD: Atraumatic, normocephalic. Sclerae anicteric. NECK: Obese. CHEST: Rise symmetrical. Breath sounds diminished to bases. HEART: S1, S2. ABDOMEN: Soft, bowel tones present. EXTREMITIES: Without cyanosis. Bilateral lower extremity edema. ASSESSMENT: 1. Status post septic shock. 2. Encephalopathy. 3. Proteus mirabilis urinary tract infection. 4. Coagulase-negative Staphylococcus bacteremia, possibly contaminant, repeat blood cultures negative. 5. Sacral decubitus with wound culture growing Klebsiella, Enterococcus, coagulase-negative Staphylococcus species and Proteus mirabilis. 6. Resolving pneumonia, sputum culture grew yeast, not Meghana albicans 7. Diabetes. 8. History of recent Clostridium difficile colitis, patient remains on oral vancomycin. 9. Abnormal liver function tests, gastroenterology on case. 10. Coronary artery disease with atrial fibrillation, status post automatic implantable cardioverter-defibrillator. PLAN: Patient remains stable. He is being followed by multiple consultants. Repeat blood cultures negative. Continue antibiotics. Continue anti-aspiration measures DW staff Problems: Consultation Date/Type/Reason Admit Date/Time Jan 14, 2017 at 10:52 Initial Consult Date 01/16/17 Type of Consultation: ID Referring Provider: MARY FORREST MD Exam/Review of Systems Vital Signs Vitals Vital Signs Date Time Temp Pulse Resp B/P Pulse Ox O2 Delivery O2 Flow Rate FiO2 01/21/17 12:00 116 01/21/17 11:16 97.7 16 110/84 98 01/21/17 08:30 Nasal Cannula 5.0 Intake and Output 01/20/17 01/20/17 01/21/17 15:00 23:00 07:00 Intake Total 200 ml 1605 ml 940 ml Output Total 900 ml Balance 200 ml 705 ml 940 ml Results Result Diagram: 01/21/1772101/21/17 0722 Results 24 hrs Laboratory Tests Test 01/21/17 07:22 White Blood Count 5.5 Red Blood Count 3.78 L Hemoglobin 10.6 L Hematocrit 35.6 L Mean Corpuscular Volume 94.2 Mean Corpuscular Hemoglobin 28.0 L Mean Corpuscular Hemoglobin Concent 29.8 L Red Cell Distribution Width 17.0 H Platelet Count 175 Mean Platelet Volume 12.0 H Neutrophils % 72.9 Lymphocytes % 10.1 L Monocytes % 11.1 H Eosinophils % 2.7 Basophils % 0.5 Nucleated Red Blood Cells % 0.0 Neutrophils # 4.0 Lymphocytes # 0.6 L Monocytes # 0.6 Eosinophils # 0.2 Basophils # 0.0 Nucleated Red Blood Cells # 0.0 Sodium Level 146 H Potassium Level 4.0 Chloride Level 106 Carbon Dioxide Level 35 H Anion Gap 9 Blood Urea Nitrogen 21 H Creatinine 0.89 Glucose Level 123 Calcium Level 8.0 L Phosphorus Level 3.2 Magnesium Level 2.4 Total Bilirubin 0.2 Direct Bilirubin 0.00 Indirect Bilirubin 0.2 Aspartate Amino Transf (AST/SGOT) 61 H Alanine Aminotransferase (ALT/SGPT) 75 H Alkaline Phosphatase 320 H Total Protein 5.2 L Albumin 2.6 L Globulin 2.60 Albumin/Globulin Ratio 1.00 Medications Medications Current Medications Ondansetron HCl (Zofran Inj) 4 mg Q6H PRN IV NAUSEA AND/OR VOMITING; Start at 14:30 Docusate Sodium (Colace) 100 mg Q12H PRN PO CONSTIPATION; Start 01/14/17 at 14 :30 Magnesium Hydroxide (Milk Of Mag) 30 ml DAILY PRN PO CONSTIPATION; Start 01/14 at 14:30 Pantoprazole 40 mg 40 mg DAILY@06 PO Last administered on 01/21/17 06:26; Admin Dose 40 MG; Start 01/15/17 at 06:00 Cefepime HCl (Maxipime 1gm/50 ml (Pmx)) 50 ml @ 100 mls/hr Q12 IV Last administered on 01/21/17 10:09; Admin Dose 100 MLS/HR; Start 01/14/17 at 21: 00 Acetaminophen (Tylenol Tab) 650 mg Q4 PRN PO PAIN AND OR ELEVATED TEMP; Start 01/14/17 at 14:30 Ascorbic Acid (Vitamin C) 500 mg DAILY PO Last administered on 01/21/17 10:09 ; Admin Dose 500 MG; Start 01/15/17 at 09:00 Atorvastatin Calcium (Lipitor) 10 mg QHS PO Last administered on 01/20/17 20: 32; Admin Dose 10 MG; Start 01/14/17 at 21:00 Carvedilol (Coreg) 12.5 mg BID PO Last administered on 01/21/17 10:09; Admin Dose 12.5 MG; Start 01/14/17 at 21:00 Cholecalciferol (Vitamin D) 1,000 unit DAILY PO Last administered on 10:08; Admin Dose 1,000 UNIT; Start 01/15/17 at 09:00 Multivitamins Therapeutic (Theragran) 1 tab DAILY PO Last administered on 01/21 10:09; Admin Dose 1 TAB; Start 01/15/17 at 09:00 Spironolactone (Aldactone) 25 mg DAILY PO Last administered on 01/21/17 10:08 ; Admin Dose 25 MG; Start 01/15/17 at 09:00 Tamsulosin HCl (Flomax) 0.4 mg HS PO Last administered on 01/20/17 20:31; Admin Dose 0.4 MG; Start 01/14/17 at 21:00 Vancomycin HCl (Vancomycin Oral Syringe) 250 mg Q6 PO Last administered on 12:52; Admin Dose 250 MG; Start 01/14/17 at 18:00 Lactobacillus Acidophilus (Florajen3 Capsule) 1 each BID PO Last administered on 01/21/17 10:08; Admin Dose 1 EACH; Start 01/14/17 at 21:00 Enoxaparin Sodium (Lovenox) 40 mg DAILY SC Last administered on 01/21/17 10: 18; Admin Dose 40 MG; Start 01/14/17 at 15:30 Miscellaneous Information (Pending Santyl Order For Wound Care) This patient hampton... PRN PRN XX WOUND CARE; Start 01/16/17 at 12:00 Collagenase (Santyl) 1 applic DAILY TOP Last administered on 01/21/17 09:00; Admin Dose 1 APPLIC; Start 11/25/17 at 13:00 Aspirin 325 mg 325 mg DAILY NGT Last administered on 01/21/17 10:08; Admin Dose 325 MG; Start 01/17/17 at 09:00 Caspofungin 50 mg/ Sodium Chloride 250 ml @ 250 mls/hr Q24H IVPB Last administered on 01/20/17 15:53; Admin Dose 250 MLS/HR; Start 01/18/17 at 16: 00 Vancomycin HCl 750 mg/Dextrose/ Water 150 ml @ 75 mls/hr Q12H IVPB Last administered on 01/21/17 12:52; Admin Dose 75 MLS/HR; Start 01/18/17 at 13:00 Dextrose (D5W) 1,000 ml @ 50 mls/hr Q20H IV Last administered on 01/20/17 04 :35; Admin Dose 50 MLS/HR; Start 01/18/17 at 12:30 JONY ANDERS NP Jan 21, 2017 14:50
[2017-01-21] MEDS: CASPOFUNGIN 50 MG in SOD CHLORIDE 0.9% 250 ML IVPB SCH (16:00)
--- NOTE | 2017-01-21 17:42 | RADRPT ---
PROCEDURE: XR Chest. CLINICAL INDICATION: Shortness of breath TECHNIQUE: PA and Lateral views of the chest were obtained. COMPARISON: January 15, 2017 FINDINGS: There are low lung volumes bilaterally. There is cardiomegaly. There is calcified atherosclerosis of the aortic arch. There is left-sided pacer with a single lead. There is no evidence of pleural effu mahnaz. There is no pneumothorax. There is a large shaped opacity in the right mid/lower lung field wh ich may be secondary to atelectasis. Follow-up to resolution is advised. If this does not resolve a CT scan is recommended. There is a feeding tube seen projecting over the expected location of the st omach. IMPRESSION: Wedge-shaped opacity in the right mid/lower lung field most consistent with atelectasis, pneumonia i s less likely differential consideration. Follow-up to resolution is advised. If this does not resol ve a CT scan is recommended. Left-sided pacer. Feeding tube seen projecting over the expected location of the stomach. Cardiomegaly and calcified atherosclerosis of the aortic arch. RPTAT: QQ .Jed Dunlap MD, Date Time Electronically viewed and signed by .Jed Dunlap MD, MD on 01/21/2017 17:42 .G/
--- NOTE | 2017-01-21 18:55 | CONS ---
Date/Time of Note Date/Time of Note DATE: 01/21/17 TIME: 18:51 Assessment/Plan Assessment/Plan Chief Complaint/Hosp Course IMp: 1.SVT's- currently SR with PAC's. TSH WNL. Review of or prior strip reveal likley PAF short runs. 2.CHF-diastolic acute on chronic by echo this admit 3.HTN 4. Hypernatremia-slowly decreasing 5.encephalopathy 6.H/O ICD Recc: -Tele -serial ecg's -Continue lasix/aldactone po and follow volume status/manager language -Contnue coreg -Continue abx's and f/u cx data -Continue statin -Continue free water for na -Continue asa/lovenox for now but will discuss with PMD if no contraindication will start systemic apple-coag with eliquis and d/c asa/lovenox Problems: Consultation Date/Type/Reason Admit Date/Time Jan 14, 2017 at 10:52 Initial Consult Date 01/16/17 Type of Consultation: cardiology Reason for Consultation arrythmia Referring Provider: MARY FORREST MD Exam/Review of Systems Vital Signs Vitals Vital Signs Date Time Temp Pulse Resp B/P Pulse Ox O2 Delivery O2 Flow Rate FiO2 01/21/17 17:17 98 6.0 01/21/17 16:00 96 01/21/17 16:00 Simple Mask 01/21/17 15:55 98.1 16 127/65 Intake and Output 01/20/17 01/20/17 01/21/17 15:00 23:00 07:00 Intake Total 200 ml 1605 ml 940 ml Output Total 900 ml Balance 200 ml 705 ml 940 ml Exam Review of Systems: CONSTITUTIONAL: No fevers, chills. PULMONARY: No sob CARDIOVASCULAR: No chest pain/palpitations GASTROINTESTINAL: No nausea/vomiting. GENITOURINARY: No hematuria/dysuria. MUSCULOSKELETAL: No myagias/arthalgias. PSYCHIATRIC: The patient denies depression. NEUROLOGIC: lethargic Constitutional: alert Psych: no complaints Head: normocephalic ENMT: mucosa pink and moist Neck: jvd (9 cm water), supple Respiratory: diminished breath sounds Cardiovascular: regular rate and rhythm Gastrointestinal: non-tender, soft Musculoskeletal: muscle tone (normal) Extremities: edema (none) Neurological: other (No focal deficits) Results Result Diagram: 01/21/1722 01/21/17 0722 Results 24 hrs Laboratory Tests Test 01/21/17 07:22 White Blood Count 5.5 Red Blood Count 3.78 L Hemoglobin 10.6 L Hematocrit 35.6 L Mean Corpuscular Volume 94.2 Mean Corpuscular Hemoglobin 28.0 L Mean Corpuscular Hemoglobin Concent 29.8 L Red Cell Distribution Width 17.0 H Platelet Count 175 Mean Platelet Volume 12.0 H Neutrophils % 72.9 Lymphocytes % 10.1 L Monocytes % 11.1 H Eosinophils % 2.7 Basophils % 0.5 Nucleated Red Blood Cells % 0.0 Neutrophils # 4.0 Lymphocytes # 0.6 L Monocytes # 0.6 Eosinophils # 0.2 Basophils # 0.0 Nucleated Red Blood Cells # 0.0 Sodium Level 146 H Potassium Level 4.0 Chloride Level 106 Carbon Dioxide Level 35 H Anion Gap 9 Blood Urea Nitrogen 21 H Creatinine 0.89 Glucose Level 123 Calcium Level 8.0 L Phosphorus Level 3.2 Magnesium Level 2.4 Total Bilirubin 0.2 Direct Bilirubin 0.00 Indirect Bilirubin 0.2 Aspartate Amino Transf (AST/SGOT) 61 H Alanine Aminotransferase (ALT/SGPT) 75 H Alkaline Phosphatase 320 H Total Protein 5.2 L Albumin 2.6 L Globulin 2.60 Albumin/Globulin Ratio 1.00 Medications Medications Current Medications Ondansetron HCl (Zofran Inj) 4 mg Q6H PRN IV NAUSEA AND/OR VOMITING; Start at 14:30 Docusate Sodium (Colace) 100 mg Q12H PRN PO CONSTIPATION; Start 01/14/17 at 14 :30 Magnesium Hydroxide (Milk Of Mag) 30 ml DAILY PRN PO CONSTIPATION; Start 01/14 at 14:30 Pantoprazole 40 mg 40 mg DAILY@06 PO Last administered on 01/21/17 06:26; Admin Dose 40 MG; Start 01/15/17 at 06:00 Cefepime HCl (Maxipime 1gm/50 ml (Pmx)) 50 ml @ 100 mls/hr Q12 IV Last administered on 01/21/17 10:09; Admin Dose 100 MLS/HR; Start 01/14/17 at 21: 00 Acetaminophen (Tylenol Tab) 650 mg Q4 PRN PO PAIN AND OR ELEVATED TEMP; Start 01/14/17 at 14:30 Ascorbic Acid (Vitamin C) 500 mg DAILY PO Last administered on 01/21/17 10:09 ; Admin Dose 500 MG; Start 01/15/17 at 09:00 Atorvastatin Calcium (Lipitor) 10 mg QHS PO Last administered on 01/20/17 20: 32; Admin Dose 10 MG; Start 01/14/17 at 21:00 Carvedilol (Coreg) 12.5 mg BID PO Last administered on 01/21/17 10:09; Admin Dose 12.5 MG; Start 01/14/17 at 21:00 Cholecalciferol (Vitamin D) 1,000 unit DAILY PO Last administered on 10:08; Admin Dose 1,000 UNIT; Start 01/15/17 at 09:00 Multivitamins Therapeutic (Theragran) 1 tab DAILY PO Last administered on 01/21 10:09; Admin Dose 1 TAB; Start 01/15/17 at 09:00 Spironolactone (Aldactone) 25 mg DAILY PO Last administered on 01/21/17 10:08 ; Admin Dose 25 MG; Start 01/15/17 at 09:00 Tamsulosin HCl (Flomax) 0.4 mg HS PO Last administered on 01/20/17 20:31; Admin Dose 0.4 MG; Start 01/14/17 at 21:00 Vancomycin HCl (Vancomycin Oral Syringe) 250 mg Q6 PO Last administered on 12:52; Admin Dose 250 MG; Start 01/14/17 at 18:00 Lactobacillus Acidophilus (Florajen3 Capsule) 1 each BID PO Last administered on 01/21/17 10:08; Admin Dose 1 EACH; Start 01/14/17 at 21:00 Enoxaparin Sodium (Lovenox) 40 mg DAILY SC Last administered on 01/21/17 10: 18; Admin Dose 40 MG; Start 01/14/17 at 15:30 Miscellaneous Information (Pending Santyl Order For Wound Care) This patient hampton... PRN PRN XX WOUND CARE; Start 01/16/17 at 12:00 Collagenase (Santyl) 1 applic DAILY TOP Last administered on 01/21/17 09:00; Admin Dose 1 APPLIC; Start 01/16/17 at 13:00 Aspirin 325 mg 325 mg DAILY NGT Last administered on 01/21/17 10:08; Admin Dose 325 MG; Start 01/17/17 at 09:00 Caspofungin 50 mg/ Sodium Chloride 250 ml @ 250 mls/hr Q24H IVPB Last administered on 01/21/17 16:00; Admin Dose 250 MLS/HR; Start 01/18/17 at 16: 00 Vancomycin HCl 750 mg/Dextrose/ Water 150 ml @ 75 mls/hr Q12H IVPB Last administered on 01/21/17 12:52; Admin Dose 75 MLS/HR; Start 01/18/17 at 13:00 Dextrose (D5W) 1,000 ml @ 50 mls/hr Q20H IV Last administered on 01/20/17 04 :35; Admin Dose 50 MLS/HR; Start 01/18/17 at 12:30 PREET BECERRA Jan 21, 2017 18:55
--- NOTE | 2017-01-21 19:29 | PN ---
DATE: 01/21/2017 SUBJECTIVE: The patient remains lethargic, arousable, but still has a lot of secretions, we are meagan te concerned as the patient has difficulty managing his secretions, very concerning. We will obtain another ABG to monitor for CO2 retention. PHYSICAL EXAMINATION: VITAL SIGNS: Temperature 97.7, pulse 60 to 116, respirations 16, blood pressure 110/84, saturation 98% on 5 liters. GENERAL: The patient is in no acute distress but lethargic and needs to be suctioned frequently. CARDIOVASCULAR: S1, S2. Distant heart sounds. LUNGS: Decreased bilaterally. ABDOMEN: Soft, nontender. EXTREMITIES: Trace to +1 edema. LABORATORY DATA: White count is 5.5, hemoglobin 10.6, hematocrit 36, platelet count 135. 73% , lymphocytes 10%. Chemistry: Sodium 146, potassium 4.0, chloride 106, bicarbonate 35, BUN is 21, creatinine 0.89, glucose 123. LFTs did improve, AST 61, ALT 75, alkaline phosphatase 320. Albumin is 2.6. Respiratory culture shows normal respiratory leif, culture is from yesterday. Blood cultu res negative. MRSA negative. Initial cultures of the wound. Respiratory culture, urine and blood were all positive. MEDICATIONS: 1. Mucomyst every 6 hours. 2. Caspofungin IV daily. 3. Vancomycin dose per pharmacy. 4. Aspirin 325 daily. 5. Santyl as directed. 6. Vitamin C 500 mg daily. 7. Vitamin D 1000 daily. 8. Multivitamin 1 tablet daily. 9. Aldactone 25 daily. 10. Protonix 40 mg daily. 11. Cefepime 1 gram q.12h. 12. Lipitor 10 mg at bedtime. 13. Coreg 12.5 b.i.d. 14. Flomax 0.4 nightly. 15. Lactobacillus b.i.d. 16. Vancomycin 250 q. 6 hours. 17. Lasix 40 p.o. b.i.d. 18. Lovenox 20 mg b.i.d. subcutaneous daily. 17. Zofran p.r.n. 18. Colace p.r.n. 19. Milk of magnesia p.r.n. 20. DuoNeb p.r.n. 21. Tylenol p.r.n. IMAGING: Again, last chest x-ray on 01/15/2017 was reviewed. Will obtain another chest x-ray. ASSESSMENT AND PLAN: This is a 66-year-old male with history of CHF, AICD pacemaker, atri al fibrillation, diabetes mellitus, off medications, presents with increased encephalopathy, was fou nd to be septic with possible pneumonia, UTI, sacral wound and possible bacteremia. 1. Respiratory: Still has difficulty with secretions. Continue aggressive suctioning obtain anoth er chest x-ray and ABG. Consider pulmonary consult as I am quite concerned. Continue Mucomyst to o pen up his secretions. 2. Cardiovascular. Continue deep venous thrombosis prophylaxis, beta blockers. 3. Infectious disease. Continue above antibiotics. The patient is afebrile. Repeat cultures are negative. 4. Renal. Hypernatremia, improving with D5W. 5. Dysphagia. I do not anticipate him able to swallow, we will continue NG tube feeding, will amy adams recommend G-tube placement. Dr. Rubalcava is following. 6. Transaminitis. MRCP and CAT scan cannot be done because patient is morbidly obese and has a pac emaker. Continue monitoring closely LFTs. 7. Nutrition support via NG tube. No evidence of residual. 8. Psychiatric disorder, on hold secondary to patient's mental status. 9. Benign prostatic hypertrophy. Continue Flomax. 11. Continue wound care to the sacrum. On air mattress bed, frequent turning. Overall, prognosis remains guarded am concerned he may have suffered a stroke and he has problems sw allowing and he is more lethargic because of it. Again, CAT scan upon presentation to the brain did not show any acute pathology. We will follow. Dictated By: MARY MONTERO/SHANTAL Conf#: [id number] DID#: [id number]
--- NOTE | 2017-01-21 19:50 | CONS ---
Date/Time of Note Date/Time of Note DATE: 01/21/17 TIME: 19:49 Assessment/Plan Assessment/Plan Additional Assessment/Plan Assessment/Plan Additional Assessment/Plan IMPRESSION: 1. Abnormal LFT, most probably related to fatty liver. Rule out bile duct stone, given the dilated biliary system. Patient is not a candidate for MRCP, given AICD. We will get a CAT scan of the abdomen and pelvis done. 2. Status post AICD. 3. Atrial fibrillation. 4. Diabetes mellitus. 5. Possible pneumonia. 6. Urinary tract infection. 7. Sacral wound. 8. Psychiatric disorder. 9. Dysphagia. 10. Obesity Plan Radiology department could not do a CAT scan of the abdomen and pelvis because of his weight MRCP is not possible because of AICD We will continue to monitor liver function tests PEG once he is more stable Consultation Date/Type/Reason Admit Date/Time Jan 14, 2017 at 10:52 Initial Consult Date 01/16/17 Type of Consultation: cardiology Referring Provider: MARY FORREST MD 24 HR Interval Summary Constitutional: no complaints Exam/Review of Systems Vital Signs Vitals Vital Signs Date Time Temp Pulse Resp B/P Pulse Ox O2 Delivery O2 Flow Rate FiO2 01/21/17 17:17 98 6.0 01/21/17 16:00 96 01/21/17 16:00 Simple Mask 01/21/17 15:55 98.1 16 127/65 Intake and Output 01/20/17 01/20/17 01/21/17 14:59 22:59 06:59 Intake Total 200 ml 1605 ml 940 ml Output Total 900 ml Balance 200 ml 705 ml 940 ml Exam Constitutional: alert, oriented, well developed Psych: nl mood/affect, no complaints Head: atraumatic, normocephalic Eyes: EOMI, PERRL, nl conjunctiva, nl lids, nl sclera ENMT: nl external ears & nose, nl lips & teeth, nl nasal mucosa & septum Neck: non-tender, supple Respiratory: clear to auscultation, normal air movement Cardiovascular: nl pulses, regular rate and rhythm Gastrointestinal: nl liver, spleen, non-tender, soft Musculoskeletal: nl extremities to inspection, nl gait and stance Extremities: normal pulses Neurological: MATERIAL ANALYST II-XII intact, nl mental status, nl speech, nl strength Skin: nl turgor, No rash or lesions Lymph: nl lymph nodes Results Result Diagram: 01/21/17 0722 01/21/17 0722 Results 24 hrs Laboratory Tests Test 01/21/17 07:22 White Blood Count 5.5 Red Blood Count 3.78 L Hemoglobin 10.6 L Hematocrit 35.6 L Mean Corpuscular Volume 94.2 Mean Corpuscular Hemoglobin 28.0 L Mean Corpuscular Hemoglobin Concent 29.8 L Red Cell Distribution Width 17.0 H Platelet Count 175 Mean Platelet Volume 12.0 H Neutrophils % 72.9 Lymphocytes % 10.1 L Monocytes % 11.1 H Eosinophils % 2.7 Basophils % 0.5 Nucleated Red Blood Cells % 0.0 Neutrophils # 4.0 Lymphocytes # 0.6 L Monocytes # 0.6 Eosinophils # 0.2 Basophils # 0.0 Nucleated Red Blood Cells # 0.0 Sodium Level 146 H Potassium Level 4.0 Chloride Level 106 Carbon Dioxide Level 35 H Anion Gap 9 Blood Urea Nitrogen 21 H Creatinine 0.89 Glucose Level 123 Calcium Level 8.0 L Phosphorus Level 3.2 Magnesium Level 2.4 Total Bilirubin 0.2 Direct Bilirubin 0.00 Indirect Bilirubin 0.2 Aspartate Amino Transf (AST/SGOT) 61 H Alanine Aminotransferase (ALT/SGPT) 75 H Alkaline Phosphatase 320 H Total Protein 5.2 L Albumin 2.6 L Globulin 2.60 Albumin/Globulin Ratio 1.00 Medications Medications Current Medications Ondansetron HCl (Zofran Inj) 4 mg Q6H PRN IV NAUSEA AND/OR VOMITING; Start at 14:30 Docusate Sodium (Colace) 100 mg Q12H PRN PO CONSTIPATION; Start 01/14/17 at 14 :30 Magnesium Hydroxide (Milk Of Mag) 30 ml DAILY PRN PO CONSTIPATION; Start 01/14 at 14:30 Pantoprazole 40 mg 40 mg DAILY@06 PO Last administered on 01/21/17 06:26; Admin Dose 40 MG; Start 01/15/17 at 06:00 Cefepime HCl (Maxipime 1gm/50 ml (Pmx)) 50 ml @ 100 mls/hr Q12 IV Last administered on 01/21/17 10:09; Admin Dose 100 MLS/HR; Start 01/14/17 at 21: 00 Acetaminophen (Tylenol Tab) 650 mg Q4 PRN PO PAIN AND OR ELEVATED TEMP; Start 01/14/17 at 14:30 Ascorbic Acid (Vitamin C) 500 mg DAILY PO Last administered on 01/21/17 10:09 ; Admin Dose 500 MG; Start 01/15/17 at 09:00 Atorvastatin Calcium (Lipitor) 10 mg QHS PO Last administered on 01/20/17 20: 32; Admin Dose 10 MG; Start 01/14/17 at 21:00 Carvedilol (Coreg) 12.5 mg BID PO Last administered on 01/21/17 10:09; Admin Dose 12.5 MG; Start 01/14/17 at 21:00 Cholecalciferol (Vitamin D) 1,000 unit DAILY PO Last administered on 10:08; Admin Dose 1,000 UNIT; Start 01/15/17 at 09:00 Multivitamins Therapeutic (Theragran) 1 tab DAILY PO Last administered on 01/21 10:09; Admin Dose 1 TAB; Start 01/15/17 at 09:00 Spironolactone (Aldactone) 25 mg DAILY PO Last administered on 01/21/17 10:08 ; Admin Dose 25 MG; Start 01/15/17 at 09:00 Tamsulosin HCl (Flomax) 0.4 mg HS PO Last administered on 01/20/17 20:31; Admin Dose 0.4 MG; Start 01/14/17 at 21:00 Vancomycin HCl (Vancomycin Oral Syringe) 250 mg Q6 PO Last administered on 18:55; Admin Dose 250 MG; Start 01/14/17 at 18:00 Lactobacillus Acidophilus (Florajen3 Capsule) 1 each BID PO Last administered on 01/21/17 10:08; Admin Dose 1 EACH; Start 01/14/17 at 21:00 Enoxaparin Sodium (Lovenox) 40 mg DAILY SC Last administered on 01/21/17 10: 18; Admin Dose 40 MG; Start 01/14/17 at 15:30 Miscellaneous Information (Pending Santyl Order For Wound Care) This patient hampton... PRN PRN XX WOUND CARE; Start 01/16/17 at 12:00 Collagenase (Santyl) 1 applic DAILY TOP Last administered on 01/21/17 09:00; Admin Dose 1 APPLIC; Start 01/16/17 at 13:00 Aspirin 325 mg 325 mg DAILY NGT Last administered on 01/21/17 10:08; Admin Dose 325 MG; Start 01/17/17 at 09:00 Caspofungin 50 mg/ Sodium Chloride 250 ml @ 250 mls/hr Q24H IVPB Last administered on 01/21/17 16:00; Admin Dose 250 MLS/HR; Start 01/18/17 at 16: 00 Vancomycin HCl 750 mg/Dextrose/ Water 150 ml @ 75 mls/hr Q12H IVPB Last administered on 01/21/17 12:52; Admin Dose 75 MLS/HR; Start 01/18/17 at 13:00 Dextrose (D5W) 1,000 ml @ 50 mls/hr Q20H IV Last administered on 01/20/17 04 :35; Admin Dose 50 MLS/HR; Start 01/18/17 at 12:30 HERRERA ELLIS MD Jan 21, 2017 19:50
[2017-01-21] MEDS: ATORVASTATIN 10 MG TAB PO SCH (22:02)
[2017-01-21] MEDS: TAMSULOSIN (SR) 0.4 MG CAP PO SCH (22:02)
[2017-01-21 22:08] LABS: AADO2 Arterial 64.2 mmHg (7.0-24.0); Allen Test ACCEPTAB; Arterial Base Excess 6.6 mmol/L (-3.0-3); Arterial COHb 0.2 % (0.0-3.0); Arterial Fraction of Oxyhgb 93.8 % (93.0-99.0); Arterial HCO3 32.1 mmol/L (22.0-26.0); Arterial MetHb 0 % (0.0-1.5); Arterial Total Hemglobin 12.2 g/dl (12.0-18.0); MODE NASAL CANNULA
[2017-01-22] VITALS (12 sets, daily range): BP systolic 109–126; BP diastolic 58–87; PULSE 75–114; RESP 16–22
[2017-01-22] MEDS: VANCOMYCIN HCL 250 MG/5ML POSYG PO SCH ×5 (00:51→23:33)
[2017-01-22] MEDS: VANCOMYCIN 750 MG in DEXTROSE 5% 150 ML IVPB SCH ×2 (00:52→12:29)
[2017-01-22] MEDS: ACETYLCYSTEINE 20% 4 ML VIAL NEB SCH ×4 (01:49→20:26)
[2017-01-22] MEDS: ALBUTEROL/IPRATROPIUM (NEB) 3 ML AMP NEB PRN ×4 (01:50→20:37)
[2017-01-22] MEDS: PANTOPRAZOLE (EC) 40 MG TAB PO SCH (06:07)
[2017-01-22] MEDS: FUROSEMIDE 40 MG TAB PO SCH ×2 (06:08→18:10)
[2017-01-22 08:21] LABS: BASOPHILS % 0.5 % (0.0-2.0); EOSINOPHILS # 0.1 10^3/ul (0.0-0.5); EOSINOPHILS % 2.3 % (0.0-7.0); HEMATOCRIT 34.6 % (42.0-52.0); HEMOGLOBIN 10.5 g/dl (14.0-18.0); LYMPHOCYTES # 0.8 10^3/ul (0.8-2.9); MEAN CORPUSCULAR HEMOGLOBIN 28.3 pg (29.0-33.0); MEAN CORPUSCULAR HGB CONC 30.3 g/dl (32.0-37.0); MEAN CORPUSCULAR VOLUME 93.3 fl (82.0-101.0); MEAN PLATELET VOLUME 11.2 fl (7.4-10.4); MONOCYTE # 0.7 10^3/ul (0.3-0.9); MONOCYTES % 11.2 % (0.0-11.0); NEUTROPHIL # 4.3 10^3/ul (1.6-7.5); NEUTROPHILS % 69.4 % (39.0-77.0); PLATELET COUNT 157 10^3/UL (140-415); RED BLOOD COUNT 3.71 10^6/ul (4.70-6.10); RED CELL DISTRIBUTION WIDTH 16.7 % (11.5-14.5); WHITE BLOOD COUNT 6.2 10^3/ul (4.8-10.8)
[2017-01-22 08:44] LABS: CALCIUM 8.4 mg/dl (8.4-10.2); CREATININE 0.86 mg/dl (0.61-1.24); MAGNESIUM 2.3 mg/dl (1.7-2.5); PHOSPHORUS 3.2 mg/dl (2.5-4.9); POTASSIUM 3.6 mmol/L (3.5-5.1)
[2017-01-22] MEDS: CEFEPIME 1GM/50 ML (PMX) 50 ML IV SCH ×2 (09:31→21:36)
[2017-01-22] MEDS: L ACIDOPHIL/B LACTIS/B LONGUM CAPSULE PO SCH ×2 (09:31→21:36)
[2017-01-22] MEDS: SPIRONOLACTONE 25 MG TAB PO SCH (09:31)
[2017-01-22] MEDS: ASCORBIC ACID 500 MG TAB PO SCH (09:31)
[2017-01-22] MEDS: MULTIVITAMINS THERAPEUTIC TAB PO SCH (09:31)
[2017-01-22] MEDS: CHOLECALCIFEROL 1,000 UNIT TAB PO SCH (09:31)
[2017-01-22] MEDS: ASPIRIN 325 MG TAB NGT SCH (09:31)
[2017-01-22] MEDS: ENOXAPARIN 40 MG/0.4 ML SYG SC SCH (09:57)
[2017-01-22] MEDS: COLLAGENASE 30 GM TUBE TOP SCH (09:57)
--- NOTE | 2017-01-22 11:46 | CONS ---
Date/Time of Note Date/Time of Note DATE: 01/22/17 TIME: 11:45 Consultation Date/Type/Reason Admit Date/Time Jan 14, 2017 at 10:52 Date of Consultation: Jan 22, 2017 Type of Consultation: Pulmonary Hx of Present Illness Pulmonary consult dictated [id number] Patient doing well on current treatment regimen. On account of hypercapnia patient would qualify for BiPAP device and would also benefit from a sleep study on an outpatient basis. Social History Smoking Status: Never smoker Exam/Review of Systems Vital Signs Vitals Vital Signs Date Time Temp Pulse Resp B/P Pulse Ox O2 Delivery O2 Flow Rate FiO2 01/22/17 11:23 97.9 78 16 110/66 97 01/22/17 08:03 Simple Mask 8.0 Intake and Output 01/21/17 01/21/17 01/22/17 15:00 23:00 07:00 Intake Total 880 ml 940 ml Output Total 850 ml 500 ml Balance 30 ml 440 ml Results Result Diagram: 01/22/17 0706 01/22/17 0706 Results 24 hrs Laboratory Tests Test 01/21/17 15:28 01/22/17 07:06 Blood Gas Specimen Source Blood arterial Arterial Blood Date Drawn 01/21/2017 3:34:14 PM Arterial Blood pH (Temp corrected) 7.425 Arterial Blood pCO2 (Temp correct) 50.0 H Arterial Blood pO2 (Temp corrected) 69.2 L Arterial Blood HCO3 32.1 H Arterial Blood Base Excess 6.6 H Arterial Blood Oxygen Saturation 94.0 L Ernesto Test ACCEPTAB Arterial Blood Gas Puncture Site Left Radial Arterial Blood Carboxyhemoglobin 0.2 Arterial Blood Methemoglobin 0 Blood Gas A-a O2 Differential 64.2 H Oxyhemoglobin Percent 93.8 Total Hemoglobin 12.2 Blood Gas Temperature 37.0 Blood Gas Actual Respiration Rate 18 Blood Gas Modality NASAL CANNULA FiO2 27.0 Blood Gas Notified Whom DU BROWNLEE Blood Gas Notified Time 01/21/2017 3:51:13 PM White Blood Count 6.2 Red Blood Count 3.71 L Hemoglobin 10.5 L Hematocrit 34.6 L Mean Corpuscular Volume 93.3 Mean Corpuscular Hemoglobin 28.3 L Mean Corpuscular Hemoglobin Concent 30.3 L Red Cell Distribution Width 16.7 H Platelet Count 157 Mean Platelet Volume 11.2 H Neutrophils % 69.4 Lymphocytes % 13.0 L Monocytes % 11.2 H Eosinophils % 2.3 Basophils % 0.5 Nucleated Red Blood Cells % 0.0 Neutrophils # 4.3 Lymphocytes # 0.8 Monocytes # 0.7 Eosinophils # 0.1 Basophils # 0.0 Nucleated Red Blood Cells # 0.0 Sodium Level 144 Potassium Level 3.6 Chloride Level 103 Carbon Dioxide Level 38 H Anion Gap 7 L Blood Urea Nitrogen 21 H Creatinine 0.86 Glucose Level 115 Calcium Level 8.4 Phosphorus Level 3.2 Magnesium Level 2.3 Medications Medications Current Medications Ondansetron HCl (Zofran Inj) 4 mg Q6H PRN IV NAUSEA AND/OR VOMITING; Start at 14:30 Docusate Sodium (Colace) 100 mg Q12H PRN PO CONSTIPATION; Start 01/14/17 at 14 :30 Magnesium Hydroxide (Milk Of Mag) 30 ml DAILY PRN PO CONSTIPATION; Start 01/14 at 14:30 Pantoprazole 40 mg 40 mg DAILY@06 PO Last administered on 01/22/17 06:07; Admin Dose 40 MG; Start 01/15/17 at 06:00 Cefepime HCl (Maxipime 1gm/50 ml (Pmx)) 50 ml @ 100 mls/hr Q12 IV Last administered on 01/22/17 09:31; Admin Dose 100 MLS/HR; Start 01/14/17 at 21:00 Acetaminophen (Tylenol Tab) 650 mg Q4 PRN PO PAIN AND OR ELEVATED TEMP; Start 01/14/17 at 14:30 Ascorbic Acid (Vitamin C) 500 mg DAILY PO Last administered on 01/22/17 09:31 ; Admin Dose 500 MG; Start 01/15/17 at 09:00 Atorvastatin Calcium (Lipitor) 10 mg QHS PO Last administered on 01/21/17 22: 02; Admin Dose 10 MG; Start 01/14/17 at 21:00 Carvedilol (Coreg) 12.5 mg BID PO Last administered on 01/22/17 09:31; Admin Dose 12.5 MG; Start 01/14/17 at 21:00 Cholecalciferol (Vitamin D) 1,000 unit DAILY PO Last administered on 01/22/17 09:31; Admin Dose 1,000 UNIT; Start 01/15/17 at 09:00 Multivitamins Therapeutic (Theragran) 1 tab DAILY PO Last administered on 09:31; Admin Dose 1 TAB; Start 01/15/17 at 09:00 Spironolactone (Aldactone) 25 mg DAILY PO Last administered on 01/22/17 09:31 ; Admin Dose 25 MG; Start 01/15/17 at 09:00 Tamsulosin HCl (Flomax) 0.4 mg HS PO Last administered on 01/21/17 22:02; Admin Dose 0.4 MG; Start 01/14/17 at 21:00 Vancomycin HCl (Vancomycin Oral Syringe) 250 mg Q6 PO Last administered on 01/22 06:08; Admin Dose 250 MG; Start 01/14/17 at 18:00 Lactobacillus Acidophilus (Florajen3 Capsule) 1 each BID PO Last administered on 01/22/17 09:31; Admin Dose 1 EACH; Start 01/14/17 at 21:00 Enoxaparin Sodium (Lovenox) 40 mg DAILY SC Last administered on 01/22/17 09:57 ; Admin Dose 40 MG; Start 01/14/17 at 15:30 Miscellaneous Information (Pending Santyl Order For Wound Care) This patient hampton... PRN PRN XX WOUND CARE; Start 01/16/17 at 12:00 Collagenase (Santyl) 1 applic DAILY TOP Last administered on 01/22/17 09:57; Admin Dose 1 APPLIC; Start 01/16/17 at 13:00 Aspirin 325 mg 325 mg DAILY NGT Last administered on 01/22/17 09:31; Admin Dose 325 MG; Start 01/17/17 at 09:00 Caspofungin 50 mg/ Sodium Chloride 250 ml @ 250 mls/hr Q24H IVPB Last administered on 01/21/17 16:00; Admin Dose 250 MLS/HR; Start 01/18/17 at 16: 00 Vancomycin HCl 750 mg/Dextrose/ Water 150 ml @ 75 mls/hr Q12H IVPB Last administered on 01/22/17 00:52; Admin Dose 75 MLS/HR; Start 01/18/17 at 13:00 Dextrose (D5W) 1,000 ml @ 50 mls/hr Q20H IV Last administered on 01/20/17 04 :35; Admin Dose 50 MLS/HR; Start 01/18/17 at 12:30 QARNI,NEYMAR Jan 22, 2017 11:46
--- NOTE | 2017-01-22 12:27 | CONS ---
DATE OF ADMISSION: 01/14/2017 DATE OF CONSULTATION: 01/22/2017 REFERRING PHYSICIAN: Dr. Heath REASON FOR REFERRAL: Evaluation of hypercapnia. HISTORY OF PRESENT ILLNESS: Mr. Dey is a pleasant 66-year-old white male who was admitted on the of last month with complaints of not feeling well. Upon evaluation, the patient was found to b e septic with culmination of UTI as well as decubitus ulcer. The patient has been started on approp riate antibiotic regimen with significant improvement in clinical symptoms. The patient initial enc ephalopathy also has markedly improved to the point where the patient now is completely awake and al ert. He denies any shortness of breath, abdominal pain, fever, chills, nausea or vomiting. PAST MEDICAL HISTORY: 1. History of congestive heart failure. 2. History of cardiac arrhythmia, status post AICD placement. 3. History of psychiatric disorder. 4. Hypertension. 5. Diabetes. 6. BPH. 7. Schizophrenia. 8. History of C. diff colitis. 9. History of dehydration. 10. History of recurrent UTI. MEDICATIONS: 1. Caspofungin 50 mg daily. 2. Cefepime 1 gram q.12h. 3. D5 at 50 mL per hour. 4. Vancomycin 750 mg IV daily. 5. DuoNeb q.6h. 6. Aspirin 325 mg a day. 7. Lipitor 10 mg a day. 8. Coreg 12.5 mg b.i.d. 9. Lovenox 40 mg a day. 10. Lasix 40 mg orally b.i.d. 11. Patient is on multivitamin. 12. Protonix 40 mg daily. 13. Flomax 0.4 mg a day. ALLERGIES: SULFA DRUGS, CODEINE, IODINE and MEPERIDINE. SOCIAL HISTORY: No history of any alcohol or drug abuse. FAMILY HISTORY: The patient is single. He lives in a longterm facility. OCCUPATIONAL HISTORY: Noncontributory. REVIEW OF SYSTEMS: Denies any headache, visual changes, dysphagia, odynophagia, chest pain, shortne ss of breath, cough, wheezing, sputum production, abdominal pain, nausea, vomiting, fever, chills, b ut does complain of snoring. Denies any edema. Does complain of chronic dyspnea on exertion. PHYSICAL EXAMINATION: GENERAL: Elderly male appears morbidly obese, currently in no distress. VITAL SIGNS: Temperature 97.9 degrees Fahrenheit, pulse of 78 per minute, respiratory rate is 16 pe r minute, blood pressure 110/66, O2 saturation 97% on 4 liter nasal cannula. HEENT: Supple neck. JVD difficult to see, because of short neck. No lymphadenopathy. Patient is edentulous. Pupils are small bilaterally. CHEST: Diminished breath sounds bilaterally. HEART: S1, S2 audible. No murmurs. Pacemaker in left chest wall. ABDOMEN: Soft, nondistended, protuberant. Bowel sounds audible, nontender. EXTREMITIES: Trace edema. NEUROLOGIC: Patient is awake and follows simple commands and moves all 4 extremities. LABORATORY DATA: From today, sodium 144, potassium 3.6, chloride 103, bicarbonate 38, BUN 7, creati nine 0.8. ABG done on of this month on 27% FIO2 via nasal cannula, pH 7.42, CO2 of 50, pO2 of 69, O2 sat 96%. White count from today is 6.2, hemoglobin 10.5, platelet count 157. Wound Gram sta in culture showing Proteus, Klebseilla pneumonia, enterococcus and coagulase negative Staph aureus a s well as yeast. Urine culture is growing Proteus mirabilis. Blood cultures are positive for coagu lase negative Staph aureus. IMAGING: Chest x-ray was reviewed from yesterday, which is showing minimal right lower lobe subsegm ental atelectasis. ASSESSMENT AND RECOMMENDATIONS: 1. Patient admitted for sacral decubitus ulcers and urinary tract infection as well as bacteremia w ith significant clinical improvement. 2. Likely underlying hypercapnic chronic respiratory failure due to sleep apnea obesity/hypoventila tion syndrome. 3. Encephalopathy with marked interval improvement. 4. Minimal right lower lobe subsegmental atelectasis. 5. Mild anemia and mild thrombocytopenia. RECOMMENDATIONS: Continue current treatment. Patient responding well to current treatment regimen. The patient will need to have a sleep study done on an outpatient basis and will also qualify for BiPAP to be used at home without a sleep study on account of hypercapnia. Dictated By: NEYMAR BECKFORD/SHANTAL Conf#: [id number] DID#: [id number]
--- NOTE | 2017-01-22 12:36 | CONS ---
Date/Time of Note Date/Time of Note DATE: 01/22/17 TIME: 12:36 Assessment/Plan Assessment/Plan Additional Assessment/Plan IMPRESSION: 1. Abnormal LFT, most probably related to fatty liver. Rule out bile duct stone, given the dilated biliary system. Patient is not a candidate for MRCP, given AICD. We will get a CAT scan of the abdomen and pelvis done. 2. Status post AICD. 3. Atrial fibrillation. 4. Diabetes mellitus. 5. Possible pneumonia. 6. Urinary tract infection. 7. Sacral wound. 8. Psychiatric disorder. 9. Dysphagia. 10. Obesity Plan Radiology department could not do a CAT scan of the abdomen and pelvis because of his weight MRCP is not possible because of AICD We will continue to monitor liver function tests PEG once he is more stable. Son is on 10 L of oxygen through Venturi mask. I discussed with the radiographer mammographer if cleared will proceed with PEG on Wednesday Consultation Date/Type/Reason Admit Date/Time Jan 14, 2017 at 10:52 Initial Consult Date 01/16/17 Type of Consultation: Pulmonary Referring Provider: MARY FORREST MD 24 HR Interval Summary Constitutional: improved Exam/Review of Systems Vital Signs Vitals Vital Signs Date Time Temp Pulse Resp B/P Pulse Ox O2 Delivery O2 Flow Rate FiO2 01/22/17 12:13 114 01/22/17 11:23 97.9 16 110/66 97 01/22/17 08:03 Simple Mask 8.0 Intake and Output 01/21/17 01/21/17 01/22/17 15:00 23:00 07:00 Intake Total 880 ml 940 ml Output Total 850 ml 500 ml Balance 30 ml 440 ml Exam Constitutional: alert, oriented, well developed Psych: nl mood/affect, no complaints Head: atraumatic, normocephalic Eyes: EOMI, PERRL, nl conjunctiva, nl lids, nl sclera ENMT: nl external ears & nose, nl lips & teeth, nl nasal mucosa & septum Neck: non-tender, supple Respiratory: clear to auscultation, normal air movement Cardiovascular: nl pulses, regular rate and rhythm Gastrointestinal: nl liver, spleen, non-tender, soft Musculoskeletal: nl extremities to inspection, nl gait and stance Extremities: normal pulses Neurological: 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, nl mental status, nl speech, nl strength Skin: nl turgor, No rash or lesions Lymph: nl lymph nodes Results Result Diagram: 01/22/17 0706 01/22/17 0706 Results 24 hrs Laboratory Tests Test 01/21/17 15:28 01/22/17 07:06 Blood Gas Specimen Source Blood arterial Arterial Blood Date Drawn 01/21/2017 3:34:14 PM Arterial Blood pH (Temp corrected) 7.425 Arterial Blood pCO2 (Temp correct) 50.0 H Arterial Blood pO2 (Temp corrected) 69.2 L Arterial Blood HCO3 32.1 H Arterial Blood Base Excess 6.6 H Arterial Blood Oxygen Saturation 94.0 L Ernesto Test ACCEPTAB Arterial Blood Gas Puncture Site Left Radial Arterial Blood Carboxyhemoglobin 0.2 Arterial Blood Methemoglobin 0 Blood Gas A-a O2 Differential 64.2 H Oxyhemoglobin Percent 93.8 Total Hemoglobin 12.2 Blood Gas Temperature 37.0 Blood Gas Actual Respiration Rate 18 Blood Gas Modality NASAL CANNULA FiO2 27.0 Blood Gas Notified Whom DU RT Blood Gas Notified Time 01/21/2017 3:51:13 PM White Blood Count 6.2 Red Blood Count 3.71 L Hemoglobin 10.5 L Hematocrit 34.6 L Mean Corpuscular Volume 93.3 Mean Corpuscular Hemoglobin 28.3 L Mean Corpuscular Hemoglobin Concent 30.3 L Red Cell Distribution Width 16.7 H Platelet Count 157 Mean Platelet Volume 11.2 H Neutrophils % 69.4 Lymphocytes % 13.0 L Monocytes % 11.2 H Eosinophils % 2.3 Basophils % 0.5 Nucleated Red Blood Cells % 0.0 Neutrophils # 4.3 Lymphocytes # 0.8 Monocytes # 0.7 Eosinophils # 0.1 Basophils # 0.0 Nucleated Red Blood Cells # 0.0 Sodium Level 144 Potassium Level 3.6 Chloride Level 103 Carbon Dioxide Level 38 H Anion Gap 7 L Blood Urea Nitrogen 21 H Creatinine 0.86 Glucose Level 115 Calcium Level 8.4 Phosphorus Level 3.2 Magnesium Level 2.3 Medications Medications Current Medications Ondansetron HCl (Zofran Inj) 4 mg Q6H PRN IV NAUSEA AND/OR VOMITING; Start at 14:30 Docusate Sodium (Colace) 100 mg Q12H PRN PO CONSTIPATION; Start 01/14/17 at 14 :30 Magnesium Hydroxide (Milk Of Mag) 30 ml DAILY PRN PO CONSTIPATION; Start 01/14 at 14:30 Pantoprazole 40 mg 40 mg DAILY@06 PO Last administered on 01/22/17 06:07; Admin Dose 40 MG; Start 01/15/17 at 06:00 Cefepime HCl (Maxipime 1gm/50 ml (Pmx)) 50 ml @ 100 mls/hr Q12 IV Last administered on 01/22/17 09:31; Admin Dose 100 MLS/HR; Start 01/14/17 at 21:00 Acetaminophen (Tylenol Tab) 650 mg Q4 PRN PO PAIN AND OR ELEVATED TEMP; Start 01/14/17 at 14:30 Ascorbic Acid (Vitamin C) 500 mg DAILY PO Last administered on 01/22/17 09: ; Admin Dose 500 MG; Start 01/15/17 at 09:00 Atorvastatin Calcium (Lipitor) 10 mg QHS PO Last administered on 01/21/17 22: 02; Admin Dose 10 MG; Start 01/14/17 at 21:00 Carvedilol (Coreg) 12.5 mg BID PO Last administered on 01/22/17:; Admin Dose 12.5 MG; Start 01/14/17 at 21:00 Cholecalciferol (Vitamin D) 1,000 unit DAILY PO Last administered on 01/22/17:; Admin Dose 1,000 UNIT; Start 01/15/17 at 09:00 Multivitamins Therapeutic (Theragran) 1 tab DAILY PO Last administered on :; Admin Dose 1 TAB; Start 01/15/17 at 09:00 Spironolactone (Aldactone) 25 mg DAILY PO Last administered on 01/22/17:31 ; Admin Dose 25 MG; Start 01/15/17 at 09:00 Tamsulosin HCl (Flomax) 0.4 mg HS PO Last administered on 01/21/17 22:02; Admin Dose 0.4 MG; Start 01/14/17 at 21:00 Vancomycin HCl (Vancomycin Oral Syringe) 250 mg Q6 PO Last administered on 01/22 12:29; Admin Dose 250 MG; Start 01/14/17 at 18:00 Lactobacillus Acidophilus (Florajen3 Capsule) 1 each BID PO Last administered on 01/22/17 09:31; Admin Dose 1 EACH; Start 01/14/17 at 21:00 Enoxaparin Sodium (Lovenox) 40 mg DAILY SC Last administered on 01/22/17 09:57 ; Admin Dose 40 MG; Start 01/14/17 at 15:30 Miscellaneous Information (Pending Santyl Order For Wound Care) This patient hampton... PRN PRN XX WOUND CARE; Start 01/16/17 at 12:00 Collagenase (Santyl) 1 applic DAILY TOP Last administered on 01/22/17 09:57; Admin Dose 1 APPLIC; Start 01/16/17 at 13:00 Aspirin 325 mg 325 mg DAILY NGT Last administered on 01/22/17 09:31; Admin Dose 325 MG; Start 01/17/17 at 09:00 Caspofungin 50 mg/ Sodium Chloride 250 ml @ 250 mls/hr Q24H IVPB Last administered on 01/21/17 16:00; Admin Dose 250 MLS/HR; Start 01/18/17 at 16: 00 Vancomycin HCl 750 mg/Dextrose/ Water 150 ml @ 75 mls/hr Q12H IVPB Last administered on 01/22/17 12:29; Admin Dose 75 MLS/HR; Start 01/18/17 at 13:00 Dextrose (D5W) 1,000 ml @ 50 mls/hr Q20H IV Last administered on 01/20/17 04 :35; Admin Dose 50 MLS/HR; Start 01/18/17 at 12:30 HERRERA ELLIS MD Jan 22, 2017 12:36
--- NOTE | 2017-01-22 12:56 | CONS ---
Date/Time of Note Date/Time of Note DATE: 01/22/17 TIME: 12:55 Assessment/Plan Assessment/Plan Chief Complaint/Hosp Course SUBJECTIVE: No acute changes. Sleeping, arousable, looks comfortable. Afebrile. MICROBIOLOGY: Blood culture on admission grew coag negative staph species. Repeat blood cultures negative. ANTIMICROBIALS: The patient is on Cefepime vancomycin and Cefepime day #9. INDWELLINGS: NG tube, Nielsen catheter. PHYSICAL EXAMINATION: GENERAL: This is a chronically ill-appearing, obese elderly man who is in no distress. The patient is lethargic but arousable and follows simple commands. HEAD: Atraumatic, normocephalic. Sclerae anicteric. NECK: Obese. CHEST: Rise symmetrical. Breath sounds diminished to bases. HEART: S1, S2. ABDOMEN: Soft, bowel tones present. EXTREMITIES: Without cyanosis. Bilateral lower extremity edema. ASSESSMENT: 1. Status post septic shock. 2. Encephalopathy. 3. Proteus mirabilis urinary tract infection. 4. Coagulase-negative Staphylococcus bacteremia, possibly contaminant, repeat blood cultures negative. 5. Sacral decubitus with wound culture growing Klebsiella, Enterococcus, coagulase-negative Staphylococcus species and Proteus mirabilis. 6. Resolving pneumonia, sputum culture grew yeast, not Meghana albicans 7. Diabetes. 8. History of recent Clostridium difficile colitis, patient remains on oral vancomycin. 9. Abnormal liver function tests, gastroenterology on case. 10. Coronary artery disease with atrial fibrillation, status post automatic implantable cardioverter-defibrillator. PLAN: Patient remains stable. Completing antibiotics, continue present care, aspiration precautions, pulmonary rec-s noted DW staff Problems: Consultation Date/Type/Reason Admit Date/Time Jan 14, 2017 at 10:52 Initial Consult Date 01/16/17 Type of Consultation: id Referring Provider: MARY FORREST MD Exam/Review of Systems Vital Signs Vitals Vital Signs Date Time Temp Pulse Resp B/P Pulse Ox O2 Delivery O2 Flow Rate FiO2 01/22/17 12:13 114 01/22/17 11:23 97.9 16 110/66 97 01/22/17 08:03 Simple Mask 8.0 Intake and Output 01/21/17 01/21/17 01/22/17 15:00 23:00 07:00 Intake Total 880 ml 940 ml Output Total 850 ml 500 ml Balance 30 ml 440 ml Results Result Diagram: 01/22/17 0706 01/22/17 0706 Results 24 hrs Laboratory Tests Test 01/21/17 15:28 01/22/17 07:06 Blood Gas Specimen Source Blood arterial Arterial Blood Date Drawn 01/21/2017 3:34:14 PM Arterial Blood pH (Temp corrected) 7.425 Arterial Blood pCO2 (Temp correct) 50.0 H Arterial Blood pO2 (Temp corrected) 69.2 L Arterial Blood HCO3 32.1 H Arterial Blood Base Excess 6.6 H Arterial Blood Oxygen Saturation 94.0 L Ernesto Test ACCEPTAB Arterial Blood Gas Puncture Site Left Radial Arterial Blood Carboxyhemoglobin 0.2 Arterial Blood Methemoglobin 0 Blood Gas A-a O2 Differential 64.2 H Oxyhemoglobin Percent 93.8 Total Hemoglobin 12.2 Blood Gas Temperature 37.0 Blood Gas Actual Respiration Rate 18 Blood Gas Modality NASAL CANNULA FiO2 27.0 Blood Gas Notified Whom DU BROWNLEE Blood Gas Notified Time 01/21/2017 3:51:13 PM White Blood Count 6.2 Red Blood Count 3.71 L Hemoglobin 10.5 L Hematocrit 34.6 L Mean Corpuscular Volume 93.3 Mean Corpuscular Hemoglobin 28.3 L Mean Corpuscular Hemoglobin Concent 30.3 L Red Cell Distribution Width 16.7 H Platelet Count 157 Mean Platelet Volume 11.2 H Neutrophils % 69.4 Lymphocytes % 13.0 L Monocytes % 11.2 H Eosinophils % 2.3 Basophils % 0.5 Nucleated Red Blood Cells % 0.0 Neutrophils # 4.3 Lymphocytes # 0.8 Monocytes # 0.7 Eosinophils # 0.1 Basophils # 0.0 Nucleated Red Blood Cells # 0.0 Sodium Level 144 Potassium Level 3.6 Chloride Level 103 Carbon Dioxide Level 38 H Anion Gap 7 L Blood Urea Nitrogen 21 H Creatinine 0.86 Glucose Level 115 Calcium Level 8.4 Phosphorus Level 3.2 Magnesium Level 2.3 Medications Medications Current Medications Ondansetron HCl (Zofran Inj) 4 mg Q6H PRN IV NAUSEA AND/OR VOMITING; Start at 14:30 Docusate Sodium (Colace) 100 mg Q12H PRN PO CONSTIPATION; Start 01/14/17 at 14 :30 Magnesium Hydroxide (Milk Of Mag) 30 ml DAILY PRN PO CONSTIPATION; Start 01/14 at 14:30 Pantoprazole 40 mg 40 mg DAILY@06 PO Last administered on 01/22/17 06:07; Admin Dose 40 MG; Start 01/15/17 at 06:00 Cefepime HCl (Maxipime 1gm/50 ml (Pmx)) 50 ml @ 100 mls/hr Q12 IV Last administered on 01/22/17 09:31; Admin Dose 100 MLS/HR; Start 01/14/17 at 21:00 Acetaminophen (Tylenol Tab) 650 mg Q4 PRN PO PAIN AND OR ELEVATED TEMP; Start 01/14/17 at 14:30 Ascorbic Acid (Vitamin C) 500 mg DAILY PO Last administered on 01/22/17: ; Admin Dose 500 MG; Start 01/15/17 at 09:00 Atorvastatin Calcium (Lipitor) 10 mg QHS PO Last administered on 01/21/17 22: 02; Admin Dose 10 MG; Start 01/14/17 at 21:00 Carvedilol (Coreg) 12.5 mg BID PO Last administered on 01/22/17:; Admin Dose 12.5 MG; Start 01/14/17 at 21:00 Cholecalciferol (Vitamin D) 1,000 unit DAILY PO Last administered on 01/22/17:; Admin Dose 1,000 UNIT; Start 01/15/17 at 09:00 Multivitamins Therapeutic (Theragran) 1 tab DAILY PO Last administered on :; Admin Dose 1 TAB; Start 01/15/17 at 09:00 Spironolactone (Aldactone) 25 mg DAILY PO Last administered on 01/22/17: ; Admin Dose 25 MG; Start 01/15/17 at 09:00 Tamsulosin HCl (Flomax) 0.4 mg HS PO Last administered on 01/21/17 22:02; Admin Dose 0.4 MG; Start 01/14/17 at 21:00 Vancomycin HCl (Vancomycin Oral Syringe) 250 mg Q6 PO Last administered on 01/22 12:29; Admin Dose 250 MG; Start 01/14/17 at 18:00 Lactobacillus Acidophilus (Florajen3 Capsule) 1 each BID PO Last administered on 01/22/17 09:31; Admin Dose 1 EACH; Start 01/14/17 at 21:00 Enoxaparin Sodium (Lovenox) 40 mg DAILY SC Last administered on 01/22/17 09:57 ; Admin Dose 40 MG; Start 01/14/17 at 15:30 Miscellaneous Information (Pending Santyl Order For Wound Care) This patient hampton... PRN PRN XX WOUND CARE; Start 01/16/17 at 12:00 Collagenase (Santyl) 1 applic DAILY TOP Last administered on 01/22/17 09:57; Admin Dose 1 APPLIC; Start 01/16/17 at 13:00 Aspirin 325 mg 325 mg DAILY NGT Last administered on 01/22/17 09:31; Admin Dose 325 MG; Start 01/17/17 at 09:00 Caspofungin 50 mg/ Sodium Chloride 250 ml @ 250 mls/hr Q24H IVPB Last administered on 01/21/17 16:00; Admin Dose 250 MLS/HR; Start 01/18/17 at 16: 00 Vancomycin HCl 750 mg/Dextrose/ Water 150 ml @ 75 mls/hr Q12H IVPB Last administered on 01/22/17 12:29; Admin Dose 75 MLS/HR; Start 01/18/17 at 13:00 Dextrose (D5W) 1,000 ml @ 50 mls/hr Q20H IV Last administered on 01/20/17 04 :35; Admin Dose 50 MLS/HR; Start 01/18/17 at 12:30 Miscellaneous Information (*Rx Drug Level Order Reminder*) VANCO TROUGH @ 0, 000 ON ... ONCE ONCE XX ; Start 01/23/17 at 00:00; Stop 01/23/17 at 00:01 JONY ANDERS NP Jan 22, 2017 12:56
[2017-01-22] MEDS: CASPOFUNGIN 50 MG in SOD CHLORIDE 0.9% 250 ML IVPB SCH (16:00)
[2017-01-22] MEDS: DEXTROSE 5% 1,000 ML IV SCH (16:30)
--- NOTE | 2017-01-22 18:19 | PN ---
DATE: 01/22/2017 SUBJECTIVE: The patient seen, still quite lethargic. The patient was placed on a face mask. I omaira reciate Dr. Olivo's pulmonary input. The patient is likely not a candidate to be fed by mouth. Wou ld like to proceed with G-tube placement. Dr. Rubalcava is following; when stable, G-tube likely need s to be placed. PHYSICAL EXAMINATION: VITAL SIGNS: Temperature 98.4, pulse 74, respirations 16, blood pressure 118/71, saturation 96% on 8 liters simple mask. GENERAL: The patient is in no distress, but overall somnolent and lethargic, arousable. CARDIOVASCULAR: S1, S2. Distant heart sound. LUNGS: Decreased breath sounds bilaterally. ABDOMEN: Soft, nontender. EXTREMITIES: Trace to 1+ edema, bilateral lower extremities. LABORATORY DATA: White count 6.2, hemoglobin 10.5, hematocrit 35, platelets 157, neutrophils 69%, l ymphocytes 13%. Chemistry: Sodium 144, potassium 3.6, chloride 103, bicarbonate 38, BUN is 21, cre atinine 0.81 and glucose of 115. No LFTs today. Urine culture on admission showed Proteus mirabili s. Repeat blood cultures negative. Repeat sputum culture is negative. MEDICATIONS: Reviewed, include the followin. Mucomyst every 6 hours. 2. Caspofungin IV dose per pharmacy: 3. Vancomycin dose per pharmacy. 4. Aspirin 325 daily. 5. Santyl daily. 6. Vitamin C 500 mg daily. 7. Vitamin D 1000 daily. 8. Multivitamin 1 tablet daily. 9. Aldactone 25 daily. 10. Protonix 40 mg daily. 11. Cefepime 1 gram q. 12. 12. Lipitor 10 mg at bedtime. 13. Coreg 12.5 b.i.d. 14. Flomax 0.4 at bedtime. 15. Lactobacillus b.i.d. 16. Vancomycin orally 250 q. 6 as the patient has been treated for Clostridium difficile colitis. 17. Lasix 40 mg b.i.d. 18. Lovenox ____ mg subcutaneous daily. 19. Zofran p.r.n. 20. Colace. 21. Milk of magnesia. 22. DuoNebs. 23. Tylenol p.r.n. ASSESSMENT AND PLAN: This is a very unfortunate 66-year-old male with history of congesti ve heart failure, automated implantable cardioverter defibrillator pacemaker, diabetes mellitus, off medication, who presents with increased encephalopathy, was found to be septic with possible pneumo lea, urinary tract infection, sacral wound and possible bacteremia. 1. Respiratory. Continue aggressive suctioning. Monitor chest x-ray. ABG done yesterday afternoo n shows a pH of 7.42, pCO2 of 50, pO2 of 69, saturation 94%. 2. Cardiovascular. Continue deep venous thrombosis prophylaxis and beta blockers. 3. Infectious disease. Continue above antibiotics for treatment of urinary tract infection and wou nd infection. Continue on fungal treatment for positive sputum cultures. 4. Transaminitis. Cannot have MRCP or CAT scan secondary to weight and pacemaker. Monitor LFTs to dyson. 5. Nutrition. Continue NG tube feeding. Would like to proceed with G-tube placement, as it will b e more comfortable for him. 6. Benign prostatic hypertrophy, on Flomax. 7. Continue wound care to the sacrum. mattress bed, and frequent turning is requested. 8. Overall prognosis remains guarded. The patient is lethargic. I am concerned about possible cer ebrovascular accident as the patient does have AFib. We will follow. Dictated By: MARY MONTERO/SHANTAL Conf#: [id number] DID#: [id number]
[2017-01-22] MEDS: TAMSULOSIN (SR) 0.4 MG CAP PO SCH (21:36)
[2017-01-22] MEDS: ATORVASTATIN 10 MG TAB PO SCH (21:36)
[2017-01-23] VITALS (13 sets, daily range): BP systolic 95–131; BP diastolic 57–76; PULSE 71–144; RESP 18–22
[2017-01-23] MEDS: ALBUTEROL/IPRATROPIUM (NEB) 3 ML AMP NEB PRN ×3 (02:04→19:43)
[2017-01-23] MEDS: ACETYLCYSTEINE 20% 4 ML VIAL NEB SCH ×4 (02:04→19:43)
[2017-01-23] MEDS: VANCOMYCIN 750 MG in DEXTROSE 5% 150 ML IVPB SCH (03:42)
[2017-01-23] MEDS: PANTOPRAZOLE (EC) 40 MG TAB PO SCH (05:51)
[2017-01-23] MEDS: VANCOMYCIN HCL 250 MG/5ML POSYG PO SCH (05:52)
[2017-01-23] MEDS: FUROSEMIDE 40 MG TAB PO SCH ×2 (05:52→18:15)
[2017-01-23 07:01] LABS: WHITE BLOOD COUNT 6.5 10^3/ul (4.8-10.8)
[2017-01-23 07:02] LABS: BASOPHILS % 0.5 % (0.0-2.0); EOSINOPHILS # 0.2 10^3/ul (0.0-0.5); EOSINOPHILS % 2.6 % (0.0-7.0); HEMATOCRIT 33.5 % (42.0-52.0); HEMOGLOBIN 10.5 g/dl (14.0-18.0); LYMPHOCYTES # 0.8 10^3/ul (0.8-2.9); LYMPHOCYTES % 11.8 % (15.0-51.0); MEAN CORPUSCULAR HEMOGLOBIN 28.5 pg (29.0-33.0); MEAN CORPUSCULAR HGB CONC 31.3 g/dl (32.0-37.0); MEAN CORPUSCULAR VOLUME 90.8 fl (82.0-101.0); MEAN PLATELET VOLUME 11.3 fl (7.4-10.4); MONOCYTE # 0.7 10^3/ul (0.3-0.9); MONOCYTES % 10.7 % (0.0-11.0); NEUTROPHIL # 4.6 10^3/ul (1.6-7.5); NEUTROPHILS % 70.7 % (39.0-77.0); PLATELET COUNT 157 10^3/UL (140-415); RED BLOOD COUNT 3.69 10^6/ul (4.70-6.10); RED CELL DISTRIBUTION WIDTH 16.1 % (11.5-14.5)
[2017-01-23 07:28] LABS: MAGNESIUM 2.2 mg/dl (1.7-2.5); PHOSPHORUS 2.9 mg/dl (2.5-4.9)
[2017-01-23 07:34] LABS: ALBUMIN 2.4 g/dl (3.3-4.9); ALBUMIN/GLOBULIN RATIO 0.88; BILIRUBIN,INDIRECT 0.3 mg/dl (0-1.1); BILIRUBIN,TOTAL 0.3 mg/dl (0.2-1.3); CALCIUM 7.9 mg/dl (8.4-10.2); CREATININE 0.72 mg/dl (0.61-1.24); POTASSIUM 3.5 mmol/L (3.5-5.1); TOTAL PROTEIN 5.1 g/dl (6.1-8.1)
[2017-01-23] MEDS: CEFEPIME 1GM/50 ML (PMX) 50 ML IV SCH (10:00)
[2017-01-23] MEDS: ASPIRIN 325 MG TAB NGT SCH (10:00)
[2017-01-23] MEDS: SPIRONOLACTONE 25 MG TAB PO SCH (10:01)
[2017-01-23] MEDS: CHOLECALCIFEROL 1,000 UNIT TAB PO SCH (10:01)
[2017-01-23] MEDS: MULTIVITAMINS THERAPEUTIC TAB PO SCH (10:01)
[2017-01-23] MEDS: ASCORBIC ACID 500 MG TAB PO SCH (10:01)
[2017-01-23] MEDS: L ACIDOPHIL/B LACTIS/B LONGUM CAPSULE PO SCH ×2 (10:01→21:28)
[2017-01-23] MEDS: ENOXAPARIN 40 MG/0.4 ML SYG SC SCH (10:10)
--- NOTE | 2017-01-23 13:11 | CONS ---
Date/Time of Note Date/Time of Note DATE: 01/23/17 TIME: 13:10 Assessment/Plan Assessment/Plan Additional Assessment/Plan IMPRESSION: 1. Abnormal LFT, most probably related to fatty liver. Rule out bile duct stone, given the dilated biliary system. Patient is not a candidate for MRCP, given AICD. We will get a CAT scan of the abdomen and pelvis done. 2. Status post AICD. 3. Atrial fibrillation. 4. Diabetes mellitus. 5. Possible pneumonia. 6. Urinary tract infection. 7. Sacral wound. 8. Psychiatric disorder. 9. Dysphagia. 10. Obesity Plan Radiology department could not do a CAT scan of the abdomen and pelvis because of his weight MRCP is not possible because of AICD We will continue to monitor liver function tests PEG once he is more stable. Son is on 10 L of oxygen through Venturi mask. I will discuss with the locksmith helper if cleared will proceed with PEG on Wednesday Consultation Date/Type/Reason Admit Date/Time Jan 14, 2017 at 10:52 Initial Consult Date 01/16/17 Type of Consultation: id Referring Provider: MARY FORREST MD 24 HR Interval Summary Subjective hx not possible: pt non-verbal Exam/Review of Systems Vital Signs Vitals Vital Signs Date Time Temp Pulse Resp B/P Pulse Ox O2 Delivery O2 Flow Rate FiO2 01/23/17 12:05 71 01/23/17 11:24 98.2 18 121/62 98 01/23/17 08:07 8.0 01/23/17 08:06 Simple Mask 01/23/17 02:06 60 Intake and Output 01/22/17 01/22/17 01/23/17 14:59 22:59 06:59 Intake Total 870 ml Output Total 950 ml Balance -80 ml Exam Respiratory: diminished breath sounds Cardiovascular: nl pulses, regular rate and rhythm Musculoskeletal: nl extremities to inspection, nl gait and stance Extremities: normal pulses Neurological: lethargic Results Result Diagram: 01/23/17 0601/23/17604 Results 24 hrs Laboratory Tests Test 01/23/17 00:44 01/23/17 06:05 01/23/17 06:06 Vancomycin Level Trough 17.0 White Blood Count 6.5 Red Blood Count 3.69 L Hemoglobin 10.5 L Hematocrit 33.5 L Mean Corpuscular Volume 90.8 Mean Corpuscular Hemoglobin 28.5 L Mean Corpuscular Hemoglobin Concent 31.3 L Red Cell Distribution Width 16.1 H Platelet Count 157 Mean Platelet Volume 11.3 H Neutrophils % 70.7 Lymphocytes % 11.8 L Monocytes % 10.7 Eosinophils % 2.6 Basophils % 0.5 Nucleated Red Blood Cells % 0.0 Neutrophils # 4.6 Lymphocytes # 0.8 Monocytes # 0.7 Eosinophils # 0.2 Basophils # 0.0 Nucleated Red Blood Cells # 0.0 Sodium Level 143 Potassium Level 3.5 Chloride Level 99 Carbon Dioxide Level 39 H Anion Gap 9 Blood Urea Nitrogen 20 Creatinine 0.72 Glucose Level 115 Calcium Level 7.9 L Total Bilirubin 0.3 Direct Bilirubin 0.00 Indirect Bilirubin 0.3 Aspartate Amino Transf (AST/SGOT) 37 Alanine Aminotransferase (ALT/SGPT) 60 Alkaline Phosphatase 206 H Total Protein 5.1 L Albumin 2.4 L Globulin 2.70 Albumin/Globulin Ratio 0.88 Phosphorus Level 2.9 Magnesium Level 2.2 Medications Medications Current Medications Ondansetron HCl (Zofran Inj) 4 mg Q6H PRN IV NAUSEA AND/OR VOMITING; Start at 14:30 Docusate Sodium (Colace) 100 mg Q12H PRN PO CONSTIPATION; Start 01/14/17 at 14 :30 Magnesium Hydroxide (Milk Of Mag) 30 ml DAILY PRN PO CONSTIPATION; Start 01/14 at 14:30 Pantoprazole 40 mg 40 mg DAILY@06 PO Last administered on 01/23/17 05:51; Admin Dose 40 MG; Start 01/15/17 at 06:00 Cefepime HCl (Maxipime 1gm/50 ml (Pmx)) 50 ml @ 100 mls/hr Q12 IV Last administered on 01/23/17 10:00; Admin Dose 100 MLS/HR; Start 01/14/17 at 21:00 Acetaminophen (Tylenol Tab) 650 mg Q4 PRN PO PAIN AND OR ELEVATED TEMP; Start 01/14/17 at 14:30 Ascorbic Acid (Vitamin C) 500 mg DAILY PO Last administered on 01/23/17 10:01 ; Admin Dose 500 MG; Start 01/15/17 at 09:00 Atorvastatin Calcium (Lipitor) 10 mg QHS PO Last administered on 01/22/17 21: 36; Admin Dose 10 MG; Start 01/14/17 at 21:00 Carvedilol (Coreg) 12.5 mg BID PO Last administered on 01/23/17 10:01; Admin Dose 12.5 MG; Start 01/14/17 at 21:00 Cholecalciferol (Vitamin D) 1,000 unit DAILY PO Last administered on 01/23/17 10:01; Admin Dose 1,000 UNIT; Start 01/15/17 at 09:00 Multivitamins Therapeutic (Theragran) 1 tab DAILY PO Last administered on 10:01; Admin Dose 1 TAB; Start 01/15/17 at 09:00 Spironolactone (Aldactone) 25 mg DAILY PO Last administered on 01/23/17 10:01 ; Admin Dose 25 MG; Start 01/15/17 at 09:00 Tamsulosin HCl (Flomax) 0.4 mg HS PO Last administered on 01/22/17 21:36; Admin Dose 0.4 MG; Start 01/14/17 at 21:00 Vancomycin HCl (Vancomycin Oral Syringe) 250 mg Q6 PO Last administered on 01/23 05:52; Admin Dose 250 MG; Start 01/14/17 at 18:00 Lactobacillus Acidophilus (Florajen3 Capsule) 1 each BID PO Last administered on 01/23/17 10:01; Admin Dose 1 EACH; Start 01/14/17 at 21:00 Enoxaparin Sodium (Lovenox) 40 mg DAILY SC Last administered on 01/23/17 10:10 ; Admin Dose 40 MG; Start 01/14/17 at 15:30 Miscellaneous Information (Pending Santyl Order For Wound Care) This patient hampton... PRN PRN XX WOUND CARE; Start 01/16/17 at 12:00 Collagenase (Santyl) 1 applic DAILY TOP Last administered on 01/22/17 09:57; Admin Dose 1 APPLIC; Start 01/16/17 at 13:00 Aspirin 325 mg 325 mg DAILY NGT Last administered on 01/23/17 10:00; Admin Dose 325 MG; Start 01/17/17 at 09:00 Caspofungin 50 mg/ Sodium Chloride 250 ml @ 250 mls/hr Q24H IVPB Last administered on 01/22/17 16:00; Admin Dose 250 MLS/HR; Start 01/18/17 at 16:00 Dextrose 1,000 ml @ 50 mls/hr Q20H IV Last administered on 01/22/17t 16:30; Admin Dose 50 MLS/HR; Start 01/18/17 at 12:30 Vancomycin HCl/ Sodium Chloride (Vancocin/NS) 250 ml @ 83.333 mls/ hr Q24H IVPB ; Start 01/23/17 at 18:00 HERRERA ELLIS MD Jan 23, 2017 13:11
--- NOTE | 2017-01-23 13:28 | CONS ---
Date/Time of Note Date/Time of Note DATE: 01/23/17 TIME: 13:27 Assessment/Plan Assessment/Plan Chief Complaint/Hosp Course SUBJECTIVE: No acute changes. Sleeping, arousable, looks comfortable. Afebrile. MICROBIOLOGY: Blood culture on admission grew coag negative staph species. Repeat blood cultures negative. ANTIMICROBIALS: The patient is on Cefepime vancomycin and Cefepime day #10. INDWELLINGS: NG tube, Nielsen catheter. PHYSICAL EXAMINATION: GENERAL: This is a chronically ill-appearing, obese elderly man who is in no distress. The patient is lethargic but arousable and follows simple commands. HEAD: Atraumatic, normocephalic. Sclerae anicteric. NECK: Obese. CHEST: Rise symmetrical. Breath sounds diminished to bases. HEART: S1, S2. ABDOMEN: Soft, bowel tones present. EXTREMITIES: Without cyanosis. Bilateral lower extremity edema. ASSESSMENT: 1. Status post septic shock. 2. Encephalopathy. 3. Proteus mirabilis urinary tract infection. 4. Coagulase-negative Staphylococcus bacteremia, possibly contaminant, repeat blood cultures negative. 5. Sacral decubitus with wound culture growing Klebsiella, Enterococcus, coagulase-negative Staphylococcus species and Proteus mirabilis. 6. Resolving pneumonia, sputum culture grew yeast, not Meghana albicans 7. Diabetes. 8. History of recent Clostridium difficile colitis, patient remains on oral vancomycin. 9. Abnormal liver function tests, gastroenterology on case. 10. Coronary artery disease with atrial fibrillation, status post automatic implantable cardioverter-defibrillator. PLAN: Patient remains stable, completed antibiotics, continue present care, aspiration precautions, pulmonary rec-s staff Problems: Consultation Date/Type/Reason Admit Date/Time Jan 14, 2017 at 10:52 Initial Consult Date 01/16/17 Type of Consultation: id Referring Provider: MARY FORREST MD Exam/Review of Systems Vital Signs Vitals Vital Signs Date Time Temp Pulse Resp B/P Pulse Ox O2 Delivery O2 Flow Rate FiO2 01/23/17 12:05 71 01/23/17 11:24 98.2 18 121/62 98 01/23/17 08:07 8.0 01/23/17 08:06 Simple Mask 01/23/17 02:06 60 Intake and Output 01/22/17 01/22/17 01/23/17 15:00 23:00 07:00 Intake Total 870 ml Output Total 950 ml Balance -80 ml Results Result Diagram: 01/23/17 0605 01/23/17 0605 Results 24 hrs Laboratory Tests Test 01/23/17 00:44 01/23/17 06:05 01/23/17 06:06 Vancomycin Level Trough 17.0 White Blood Count 6.5 Red Blood Count 3.69 L Hemoglobin 10.5 L Hematocrit 33.5 L Mean Corpuscular Volume 90.8 Mean Corpuscular Hemoglobin 28.5 L Mean Corpuscular Hemoglobin Concent 31.3 L Red Cell Distribution Width 16.1 H Platelet Count 157 Mean Platelet Volume 11.3 H Neutrophils % 70.7 Lymphocytes % 11.8 L Monocytes % 10.7 Eosinophils % 2.6 Basophils % 0.5 Nucleated Red Blood Cells % 0.0 Neutrophils # 4.6 Lymphocytes # 0.8 Monocytes # 0.7 Eosinophils # 0.2 Basophils # 0.0 Nucleated Red Blood Cells # 0.0 Sodium Level 143 Potassium Level 3.5 Chloride Level 99 Carbon Dioxide Level 39 H Anion Gap 9 Blood Urea Nitrogen 20 Creatinine 0.72 Glucose Level 115 Calcium Level 7.9 L Total Bilirubin 0.3 Direct Bilirubin 0.00 Indirect Bilirubin 0.3 Aspartate Amino Transf (AST/SGOT) 37 Alanine Aminotransferase (ALT/SGPT) 60 Alkaline Phosphatase 206 H Total Protein 5.1 L Albumin 2.4 L Globulin 2.70 Albumin/Globulin Ratio 0.88 Phosphorus Level 2.9 Magnesium Level 2.2 Medications Medications Current Medications Ondansetron HCl (Zofran Inj) 4 mg Q6H PRN IV NAUSEA AND/OR VOMITING; Start at 14:30 Docusate Sodium (Colace) 100 mg Q12H PRN PO CONSTIPATION; Start 01/14/17 at 14 :30 Magnesium Hydroxide (Milk Of Mag) 30 ml DAILY PRN PO CONSTIPATION; Start 01/14 at 14:30 Pantoprazole 40 mg 40 mg DAILY@06 PO Last administered on 01/23/17 05:51; Admin Dose 40 MG; Start 01/15/17 at 06:00 Cefepime HCl (Maxipime 1gm/50 ml (Pmx)) 50 ml @ 100 mls/hr Q12 IV Last administered on 01/23/17 10:00; Admin Dose 100 MLS/HR; Start 01/14/17 at 21:00 Acetaminophen (Tylenol Tab) 650 mg Q4 PRN PO PAIN AND OR ELEVATED TEMP; Start 01/14/17 at 14:30 Ascorbic Acid (Vitamin C) 500 mg DAILY PO Last administered on 01/23/17 10:01 ; Admin Dose 500 MG; Start 01/15/17 at 09:00 Atorvastatin Calcium (Lipitor) 10 mg QHS PO Last administered on 01/22/17 21: 36; Admin Dose 10 MG; Start 01/14/17 at 21:00 Carvedilol (Coreg) 12.5 mg BID PO Last administered on 01/23/17 10:01; Admin Dose 12.5 MG; Start 01/14/17 at 21:00 Cholecalciferol (Vitamin D) 1,000 unit DAILY PO Last administered on 01/23/17 10:01; Admin Dose 1,000 UNIT; Start 01/15/17 at 09:00 Multivitamins Therapeutic (Theragran) 1 tab DAILY PO Last administered on 10:01; Admin Dose 1 TAB; Start 01/15/17 at 09:00 Spironolactone (Aldactone) 25 mg DAILY PO Last administered on 01/23/17 10:01 ; Admin Dose 25 MG; Start 01/15/17 at 09:00 Tamsulosin HCl (Flomax) 0.4 mg HS PO Last administered on 01/22/17 21:36; Admin Dose 0.4 MG; Start 01/14/17 at 21:00 Vancomycin HCl (Vancomycin Oral Syringe) 250 mg Q6 PO Last administered on 01/23 05:52; Admin Dose 250 MG; Start 01/14/17 at 18:00 Lactobacillus Acidophilus (Florajen3 Capsule) 1 each BID PO Last administered on 01/23/17 10:01; Admin Dose 1 EACH; Start 01/14/17 at 21:00 Enoxaparin Sodium (Lovenox) 40 mg DAILY SC Last administered on 01/23/17 10:10 ; Admin Dose 40 MG; Start 01/14/17 at 15:30 Miscellaneous Information (Pending Santyl Order For Wound Care) This patient hampton... PRN PRN XX WOUND CARE; Start 01/16/17 at 12:00 Collagenase (Santyl) 1 applic DAILY TOP Last administered on 01/22/17 09:57; Admin Dose 1 APPLIC; Start 01/16/17 at 13:00 Aspirin 325 mg 325 mg DAILY NGT Last administered on 01/23/17 10:00; Admin Dose 325 MG; Start 01/17/17 at 09:00 Caspofungin 50 mg/ Sodium Chloride 250 ml @ 250 mls/hr Q24H IVPB Last administered on 01/22/17 16:00; Admin Dose 250 MLS/HR; Start 01/18/17 at 16:00 Dextrose 1,000 ml @ 50 mls/hr Q20H IV Last administered on 01/22/17 16:30; Admin Dose 50 MLS/HR; Start 01/18/17 at 12:30 Vancomycin HCl/ Sodium Chloride (Vancocin/NS) 250 ml @ 83.333 mls/ hr Q24H IVPB ; Start 01/23/17 at 18:00 JONY ANDERS NP Jan 23, 2017 13:28
[2017-01-23] MEDS: COLLAGENASE 30 GM TUBE TOP SCH (13:46)
[2017-01-23] MEDS: DEXTROSE 5% 1,000 ML IV SCH (14:09)
[2017-01-23] MEDS ORDERED: GLUCAGON 1 MG INJ IM PRN (14:30)
[2017-01-23] MEDS ORDERED: GLUCOSE GEL 15 GRAM TUBE BUCCAL PRN (14:30)
[2017-01-23] MEDS ORDERED: DEXTROSE 50% 50 ML SYRINGE IV PRN ×2 (14:30)
[2017-01-23] MEDS ORDERED: GLUCOSE GEL 15 GRAM TUBE PO PRN ×2 (14:30)
--- NOTE | 2017-01-23 14:30 | CONS ---
Date/Time of Note Date/Time of Note DATE: 01/23/17 TIME: 14:29 Assessment/Plan Assessment/Plan Chief Complaint/Hosp Course IMp: 1.SVT's- currently SR with PAC's. TSH WNL. Review of or prior strip reveal likley PAF short runs. Most recently c/w SR with PAC's 2.CHF-diastolic acute on chronic by echo this admit 3.HTN 4. 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 -Contnue coreg -Continue abx's and f/u cx data -Continue statin -Continue free water for na -Continue asa/lovenox for now but will discuss with PMD if no contraindication will start systemic apple-coag with eliquis and d/c asa/lovenox Problems: Consultation Date/Type/Reason Admit Date/Time Jan 14, 2017 at 10:52 Initial Consult Date 01/16/17 Type of Consultation: cardiology Reason for Consultation sob/arrythmia Referring Provider: MARY FORREST MD Exam/Review of Systems Vital Signs Vitals Vital Signs Date Time Temp Pulse Resp B/P Pulse Ox O2 Delivery O2 Flow Rate FiO2 01/23/17 14:26 95 8.0 01/23/17 14:25 82 16 Simple Mask 01/23/17 11:24 98.2 121/62 01/23/17 02:06 60 Intake and Output 01/22/17 01/22/17 01/23/17 14:59 22:59 06:59 Intake Total 870 ml Output Total 950 ml Balance -80 ml Exam Review of Systems: CONSTITUTIONAL: No fevers, chills. PULMONARY: No sob CARDIOVASCULAR: No chest pain/palpitations GASTROINTESTINAL: No nausea/vomiting. GENITOURINARY: No hematuria/dysuria. MUSCULOSKELETAL: No myagias/arthalgias. PSYCHIATRIC: The patient denies depression. NEUROLOGIC: No weakness Constitutional: other (sleeping) Head: normocephalic ENMT: mucosa pink and moist Neck: jvd (9 cm water), supple Respiratory: diminished breath sounds (at bases/B) Cardiovascular: other (PAC's), regular rate and rhythm Gastrointestinal: non-tender, soft Musculoskeletal: muscle tone (normal) Extremities: edema (trace/B) Neurological: lethargic Results Result Diagram: 01/23/17 0605 01/23/17 0605 Results 24 hrs Laboratory Tests Test 01/23/17 00:44 01/23/17 06:05 01/23/17 06:06 Vancomycin Level Trough 17.0 White Blood Count 6.5 Red Blood Count 3.69 L Hemoglobin 10.5 L Hematocrit 33.5 L Mean Corpuscular Volume 90.8 Mean Corpuscular Hemoglobin 28.5 L Mean Corpuscular Hemoglobin Concent 31.3 L Red Cell Distribution Width 16.1 H Platelet Count 157 Mean Platelet Volume 11.3 H Neutrophils % 70.7 Lymphocytes % 11.8 L Monocytes % 10.7 Eosinophils % 2.6 Basophils % 0.5 Nucleated Red Blood Cells % 0.0 Neutrophils # 4.6 Lymphocytes # 0.8 Monocytes # 0.7 Eosinophils # 0.2 Basophils # 0.0 Nucleated Red Blood Cells # 0.0 Sodium Level 143 Potassium Level 3.5 Chloride Level 99 Carbon Dioxide Level 39 H Anion Gap 9 Blood Urea Nitrogen 20 Creatinine 0.72 Glucose Level 115 Calcium Level 7.9 L Total Bilirubin 0.3 Direct Bilirubin 0.00 Indirect Bilirubin 0.3 Aspartate Amino Transf (AST/SGOT) 37 Alanine Aminotransferase (ALT/SGPT) 60 Alkaline Phosphatase 206 H Total Protein 5.1 L Albumin 2.4 L Globulin 2.70 Albumin/Globulin Ratio 0.88 Phosphorus Level 2.9 Magnesium Level 2.2 Medications Medications Current Medications Ondansetron HCl (Zofran Inj) 4 mg Q6H PRN IV NAUSEA AND/OR VOMITING; Start at 14:30 Docusate Sodium (Colace) 100 mg Q12H PRN PO CONSTIPATION; Start 01/14/17 at 14 :30 Magnesium Hydroxide (Milk Of Mag) 30 ml DAILY PRN PO CONSTIPATION; Start 01/14 at 14:30 Pantoprazole (Protonix Tab) 40 mg DAILY@06 PO Last administered on 01/23/17 05 :51; Admin Dose 40 MG; Start 01/15/17 at 06:00 Acetaminophen (Tylenol Tab) 650 mg Q4 PRN PO PAIN AND OR ELEVATED TEMP; Start 01/14/17 at 14:30 Ascorbic Acid (Vitamin C) 500 mg DAILY PO Last administered on 01/23/17 10:01 ; Admin Dose 500 MG; Start 01/15/17 at 09:00 Atorvastatin Calcium (Lipitor) 10 mg QHS PO Last administered on 01/22/17 21: 36; Admin Dose 10 MG; Start 01/14/17 at 21:00 Carvedilol (Coreg) 12.5 mg BID PO Last administered on 01/23/17 10:01; Admin Dose 12.5 MG; Start 01/14/17 at 21:00 Cholecalciferol (Vitamin D) 1,000 unit DAILY PO Last administered on 01/23/17 10:01; Admin Dose 1,000 UNIT; Start 01/15/17 at 09:00 Multivitamins Therapeutic (Theragran) 1 tab DAILY PO Last administered on 10:01; Admin Dose 1 TAB; Start 01/15/17 at 09:00 Spironolactone (Aldactone) 25 mg DAILY PO Last administered on 01/23/17 10:01 ; Admin Dose 25 MG; Start 01/15/17 at 09:00 Tamsulosin HCl (Flomax) 0.4 mg HS PO Last administered on 01/22/17 21:36; Admin Dose 0.4 MG; Start 01/14/17 at 21:00 Lactobacillus Acidophilus (Florajen3 Capsule) 1 each BID PO Last administered on 01/23/17 10:01; Admin Dose 1 EACH; Start 01/14/17 at 21:00 Enoxaparin Sodium (Lovenox) 40 mg DAILY SC Last administered on 01/23/17 10:10 ; Admin Dose 40 MG; Start 01/14/17 at 15:30 Miscellaneous Information (Pending Santyl Order For Wound Care) This patient hampton... PRN PRN XX WOUND CARE; Start 01/16/17 at 12:00 Collagenase (Santyl) 1 applic DAILY TOP Last administered on 01/23/17 13:46; Admin Dose 1 APPLIC; Start 01/16/17 at 13:00 Aspirin 325 mg 325 mg DAILY NGT Last administered on 01/23/17 10:00; Admin Dose 325 MG; Start 01/17/17 at 09:00 Dextrose (D5W) 1,000 ml @ 50 mls/hr Q20H IV Last administered on 01/23/17 14: 09; Admin Dose 50 MLS/HR; Start 01/18/17 at 12:30 Diagnostic Test (Pha) (Accu-Chek) 1 ea 02 XX ; Start 01/24/17 at 02:00 Insulin Aspart (Novolog Insulin Pen) NOVOLOG *MODERATE* ALGORI... Q6 SC ; Start 01/23/17 at 18:00 Miscellaneous Information 1 ea NOTE XX ; Start 01/23/17 at 14:30 Glucose (Glutose) 15 gm Q15M PRN PO DECREASED GLUCOSE; Start 01/23/17 at 14:30 Glucose (Glutose) 22.5 gm Q15M PRN PO DECREASED GLUCOSE; Start 01/23/17 at 14: 30 Dextrose (D50w Syringe) 25 ml Q15M PRN IV DECREASED GLUCOSE; Start 01/23/17 at 14:30 Dextrose (D50w Syringe) 50 ml Q15M PRN IV DECREASED GLUCOSE; Start 01/23/17 at 14:30 Glucagon (Glucagen) 1 mg Q15M PRN IM DECREASED GLUCOSE; Start 01/23/17 at 14:30 Glucose (Glutose) 15 gm Q15M PRN BUCCAL DECREASED GLUCOSE; Start 01/23/17 at 14 :30 PREET BECERRA Jan 23, 2017 14:30
--- NOTE | 2017-01-23 15:36 | CONS ---
Date/Time of Note Date/Time of Note DATE: 01/23/17 TIME: 15:33 Consult Date/Type/Reason Admit Date/Time Jan 14, 2017 at 10:52 Initial Consult Date 01/22/17 Type of Consultation: Pulm Ordering Provider: MARY FORREST MD Subjective Still with dyspnea on high flow O2 Objective Vital Signs Date Time Temp Pulse Resp B/P Pulse Ox O2 Delivery O2 Flow Rate FiO2 01/23/17 14:26 95 8.0 01/23/17 14:25 82 16 Simple Mask 01/23/17 11:24 98.2 121/62 01/23/17 02:06 60 Intake and Output 01/22/17 01/22/17 01/23/17 15:00 23:00 07:00 Intake Total 870 ml Output Total 950 ml Balance -80 ml Exam HEENT: Neck supple; no JVD; no LAD CVS: Irreg, S1 and S2 CHEST: Basilar rales ABD: Obese, NT, + BS EXT: No c/c; + edema Results/Medications Result Diagram: 01/23/17 0601/23/17 0605 Results 24 hrs Laboratory Tests Test 01/23/17 00:44 01/23/17 06:05 01/23/17 06:06 Vancomycin Level Trough 17.0 White Blood Count 6.5 Red Blood Count 3.69 L Hemoglobin 10.5 L Hematocrit 33.5 L Mean Corpuscular Volume 90.8 Mean Corpuscular Hemoglobin 28.5 L Mean Corpuscular Hemoglobin Concent 31.3 L Red Cell Distribution Width 16.1 H Platelet Count 157 Mean Platelet Volume 11.3 H Neutrophils % 70.7 Lymphocytes % 11.8 L Monocytes % 10.7 Eosinophils % 2.6 Basophils % 0.5 Nucleated Red Blood Cells % 0.0 Neutrophils # 4.6 Lymphocytes # 0.8 Monocytes # 0.7 Eosinophils # 0.2 Basophils # 0.0 Nucleated Red Blood Cells # 0.0 Sodium Level 143 Potassium Level 3.5 Chloride Level 99 Carbon Dioxide Level 39 H Anion Gap 9 Blood Urea Nitrogen 20 Creatinine 0.72 Glucose Level 115 Calcium Level 7.9 L Total Bilirubin 0.3 Direct Bilirubin 0.00 Indirect Bilirubin 0.3 Aspartate Amino Transf (AST/SGOT) 37 Alanine Aminotransferase (ALT/SGPT) 60 Alkaline Phosphatase 206 H Total Protein 5.1 L Albumin 2.4 L Globulin 2.70 Albumin/Globulin Ratio 0.88 Phosphorus Level 2.9 Magnesium Level 2.2 Medications Current Medications Ondansetron HCl (Zofran Inj) 4 mg Q6H PRN IV NAUSEA AND/OR VOMITING; Start at 14:30 Docusate Sodium (Colace) 100 mg Q12H PRN PO CONSTIPATION; Start 01/14/17 at 14 :30 Magnesium Hydroxide (Milk Of Mag) 30 ml DAILY PRN PO CONSTIPATION; Start 01/14 at 14:30 Pantoprazole (Protonix Tab) 40 mg DAILY@06 PO Last administered on 01/23/17 05 :51; Admin Dose 40 MG; Start 01/15/17 at 06:00 Acetaminophen (Tylenol Tab) 650 mg Q4 PRN PO PAIN AND OR ELEVATED TEMP; Start 01/14/17 at 14:30 Ascorbic Acid (Vitamin C) 500 mg DAILY PO Last administered on 01/23/17 10:01 ; Admin Dose 500 MG; Start 01/15/17 at 09:00 Atorvastatin Calcium (Lipitor) 10 mg QHS PO Last administered on 01/22/17 21: 36; Admin Dose 10 MG; Start 01/14/17 at 21:00 Carvedilol (Coreg) 12.5 mg BID PO Last administered on 01/23/17 10:01; Admin Dose 12.5 MG; Start 01/14/17 at 21:00 Cholecalciferol (Vitamin D) 1,000 unit DAILY PO Last administered on 01/23/17 10:01; Admin Dose 1,000 UNIT; Start 01/15/17 at 09:00 Multivitamins Therapeutic (Theragran) 1 tab DAILY PO Last administered on 10:01; Admin Dose 1 TAB; Start 01/15/17 at 09:00 Spironolactone (Aldactone) 25 mg DAILY PO Last administered on 01/23/17 10:01 ; Admin Dose 25 MG; Start 01/15/17 at 09:00 Tamsulosin HCl (Flomax) 0.4 mg HS PO Last administered on 01/22/17 21:36; Admin Dose 0.4 MG; Start 01/14/17 at 21:00 Lactobacillus Acidophilus (Florajen3 Capsule) 1 each BID PO Last administered on 01/23/17 10:01; Admin Dose 1 EACH; Start 01/14/17 at 21:00 Enoxaparin Sodium (Lovenox) 40 mg DAILY SC Last administered on 01/23/17 10:10 ; Admin Dose 40 MG; Start 01/14/17 at 15:30 Miscellaneous Information (Pending Santyl Order For Wound Care) This patient [place]... PRN PRN XX WOUND CARE; Start 01/16/17 at 12:00 Collagenase (Santyl) 1 applic DAILY TOP Last administered on 01/23/17 13:46; Admin Dose 1 APPLIC; Start 01/16/17 at 13:00 Aspirin 325 mg 325 mg DAILY NGT Last administered on 01/23/17 10:00; Admin Dose 325 MG; Start 01/17/17 at 09:00 Dextrose (D5W) 1,000 ml @ 50 mls/hr Q20H IV Last administered on 01/23/17 14: 09; Admin Dose 50 MLS/HR; Start 01/18/17 at 12:30 Diagnostic Test (Pha) (Accu-Chek) 1 ea 02 XX ; Start 01/24/17 at 02:00 Insulin Aspart (Novolog Insulin Pen) NOVOLOG *MODERATE* ALGORI... Q6 SC ; Start 01/23/17 at 18:00 Miscellaneous Information 1 ea NOTE XX ; Start 01/23/17 at 14:30 Glucose (Glutose) 15 gm Q15M PRN PO DECREASED GLUCOSE; Start 01/23/17 at 14:30 Glucose (Glutose) 22.5 gm Q15M PRN PO DECREASED GLUCOSE; Start 01/23/17 at 14: 30 Dextrose (D50w Syringe) 25 ml Q15M PRN IV DECREASED GLUCOSE; Start 01/23/17 at 14:30 Dextrose (D50w Syringe) 50 ml Q15M PRN IV DECREASED GLUCOSE; Start 01/23/17 at 14:30 Glucagon (Glucagen) 1 mg Q15M PRN IM DECREASED GLUCOSE; Start 01/23/17 at 14:30 Glucose (Glutose) 15 gm Q15M PRN BUCCAL DECREASED GLUCOSE; Start 01/23/17 at 14 :30 Assessment/Plan Additional Assessment/Plan IMP: 1. Acute on chronic hypoxemic/hypercapnic Resp Insufficiency. 2. CHF 3. FAM/OHS RECS: 1. Nocturnal BiPAP 2. Titrate FiO2 to SpO2 88-92 3. ICS 4. Diuresis CADEN MORENO MD Jan 23, 2017 15:36
--- NOTE | 2017-01-23 17:40 | PN ---
DATE: 01/23/2017 SUBJECTIVE: The patient remains lethargic, arousable, but goes back to sleep. 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 Case discussed with cardiology. Again, the patient's full anticoagulation such as Eliquis is on hold as the patient may need a G-tube placement. PHYSICAL EXAMINATION: VITAL SIGNS: Temperature 98.2, pulse 72, respirations 16, blood pressure 121/62, saturation 97% on 8 L. GENERAL: The patient is very lethargic. The patient is morbidly obese. HEENT: Patient is pale. CARDIOVASCULAR: S1 and S2. LUNGS: Decreased with crackles. ABDOMEN: Soft, nontender. EXTREMITIES: Trace to +1 edema throughout. LABORATORY DATA: White count 6.5, hemoglobin 10.5, hematocrit 34, platelets 157, with normal differ ential. Chemistry: Sodium 143, potassium 3.5, chloride 99, bicarbonate 29, BUN is 20, creatinine 0 .72, glucose of 115. LFTs have improved significantly. AST is now normal at 37, ALT 60, alkaline p hosphatase 206, albumin 2.4. Respiratory culture on 01/20 is negative. Blood cultures on 01/17 neg ative as well. No new radiographic imaging. On 01/21, his chest x-ray shows wedge-shaped opacity in the right mid lung field, most consistent with atelectasis. Pneumonia is less likely differential diagnosis. Fol lowup is advised. MEDICATIONS: Include: 1. Accu-Chek q.a.c ____ q. 6 h. 2. Mucomyst every 6 hours. 3. Aspirin 325 daily. 4. Santyl daily. 5. Vitamin C 500 mg daily. 6. Vitamin D 1000 daily. 7. Multivitamin 1 tablet daily. 8. Aldactone 25 daily. 8. Protonix 40 mg daily. 9. Lipitor 10 mg at bedtime. 10. Coreg 12.5 b.i.d. 11. Flomax 0.4 at bedtime. 13. Lactobacillus b.i.d. 14. Lasix 40 p.o. b.i.d. 15. Lovenox ____ mg subcutaneous daily. 16. Zofran p.r.n. 17. Colace p.r.n. 18. Milk of magnesia p.r.n. 19. Also on DuoNeb p.r.n. 20. Tylenol p.r.n. ASSESSMENT AND PLAN: This is a 66-year-old male with history of congestive heart failure, AICD pacemaker, diabetes mellitus who is currently off medications for diabetes who presents with i ncreased encephalopathy, was found to be septic with possible pneumonia, UTI, sacral wound and possi ble bacteremia. 1. Respiratory. Continue aggressive suctioning, followup chest x-ray. Remains on Mucomyst for his secretions. May switch to IV Lasix, as patient appears to be slightly more edematous. 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 Follow up chest x-ray. Cardiology is following. Continue anticoagulation for now with aspirin and Lovenox. 2. Infectious disease. The patient with urinary tract infection and wound infection, also bacterem ia. White count is normal. The patient is afebrile. Infection is under control. 3. Transaminitis, spontaneously improving. Again, the patient cannot undergo MRCP or CAT scan seco ndary to weight and pacemaker. 4. Nutrition. Continue NG-tube feeding. I do not anticipate him to be able to eat. Would like to proceed with G-tube placement when more stable per GI. 5. Benign prostatic hypertrophy, on Flomax. 6. Continue wound care. Currently on air mattress bed, frequent turnings. 7. Encephalopathy. I am concerned for possible cerebrovascular accident, as the patient does have risk as he has atrial fibrillation. MRI cannot be done. CAT scan was unremarkable. We will follow . The patient is able to move all of his extremities, but remains very lethargic. I did hold all h is psych meds secondary to his lethargy. The patient is FULL CODE. Dictated By: MARY MONTERO/SHANTAL Conf#: [id number] DID#: [id number]
[2017-01-23] MEDS ORDERED: VANCOMYCIN 1.5 GM in SOD CHLORIDE 0.9% 250 ML IVPB SCH (18:00)
[2017-01-23] MEDS: INSULIN ASPART [NOVOLOG] 3 ML PEN SC SCH (18:00)
[2017-01-23] MEDS: ATORVASTATIN 10 MG TAB PO SCH (21:28)
[2017-01-23] MEDS: TAMSULOSIN (SR) 0.4 MG CAP PO SCH (21:28)
[2017-01-24] VITALS (15 sets, daily range): BP systolic 103–199; BP diastolic 56–74; PULSE 61–100; RESP 18–20
[2017-01-24] MEDS: INSULIN ASPART [NOVOLOG] 3 ML PEN SC SCH ×4 (01:30→18:00)
[2017-01-24] MEDS: ALBUTEROL/IPRATROPIUM (NEB) 3 ML AMP NEB PRN ×4 (02:05→19:24)
[2017-01-24] MEDS: ACETYLCYSTEINE 20% 4 ML VIAL NEB SCH ×4 (02:05→19:24)
[2017-01-24] MEDS: ACCU-CHEK XX SCH (04:19)
[2017-01-24] MEDS: PANTOPRAZOLE (EC) 40 MG TAB PO SCH (06:47)
[2017-01-24] MEDS: FUROSEMIDE 40 MG TAB PO SCH (06:47)
[2017-01-24 06:48] LABS: BASOPHILS % 0.3 % (0.0-2.0); EOSINOPHILS # 0.1 10^3/ul (0.0-0.5); EOSINOPHILS % 1.7 % (0.0-7.0); HEMATOCRIT 32.7 % (42.0-52.0); HEMOGLOBIN 10.2 g/dl (14.0-18.0); LYMPHOCYTES # 0.8 10^3/ul (0.8-2.9); LYMPHOCYTES % 10.6 % (15.0-51.0); MEAN CORPUSCULAR HEMOGLOBIN 28.3 pg (29.0-33.0); MEAN CORPUSCULAR HGB CONC 31.2 g/dl (32.0-37.0); MEAN CORPUSCULAR VOLUME 90.6 fl (82.0-101.0); MEAN PLATELET VOLUME 11.3 fl (7.4-10.4); MONOCYTE # 0.8 10^3/ul (0.3-0.9); MONOCYTES % 10.2 % (0.0-11.0); NEUTROPHIL # 5.6 10^3/ul (1.6-7.5); NEUTROPHILS % 74.4 % (39.0-77.0); NUCLEATED RED BLOOD CELLS% 0.3 /100WBC (0.0-0.0); PLATELET COUNT 163 10^3/UL (140-415); RED BLOOD COUNT 3.61 10^6/ul (4.70-6.10); WHITE BLOOD COUNT 7.6 10^3/ul (4.8-10.8)
[2017-01-24 06:56] LABS: ALBUMIN 2.5 g/dl (3.3-4.9); ALBUMIN/GLOBULIN RATIO 0.96; BILIRUBIN,INDIRECT 0.3 mg/dl (0-1.1); BILIRUBIN,TOTAL 0.3 mg/dl (0.2-1.3); CALCIUM 8.2 mg/dl (8.4-10.2); CREATININE 0.75 mg/dl (0.61-1.24); POTASSIUM 3.4 mmol/L (3.5-5.1); TOTAL PROTEIN 5.1 g/dl (6.1-8.1)
[2017-01-24 07:06] LABS: MAGNESIUM 2.2 mg/dl (1.7-2.5); PHOSPHORUS 2.6 mg/dl (2.5-4.9)
[2017-01-24 08:43] LABS: AADO2 Arterial 254.9 mmHg (7.0-24.0); Allen Test ACCEPTAB; Arterial Base Excess 11.8 mmol/L (-3.0-3); Arterial COHb 0.3 % (0.0-3.0); Arterial Fraction of Oxyhgb 97.7 % (93.0-99.0); Arterial HCO3 35.4 mmol/L (22.0-26.0); Arterial MetHb 0 % (0.0-1.5); Arterial Total Hemglobin 11.5 g/dl (12.0-18.0); MODE MASK - SIMPLE
[2017-01-24] MEDS: CHOLECALCIFEROL 1,000 UNIT TAB PO SCH (09:44)
[2017-01-24] MEDS: SPIRONOLACTONE 25 MG TAB PO SCH (09:44)
[2017-01-24] MEDS: MULTIVITAMINS THERAPEUTIC TAB PO SCH (09:44)
[2017-01-24] MEDS: DEXTROSE 5% 1,000 ML IV SCH (09:44)
[2017-01-24] MEDS: ASPIRIN 325 MG TAB NGT SCH (09:45)
[2017-01-24] MEDS: COLLAGENASE 30 GM TUBE TOP SCH (09:45)
[2017-01-24] MEDS: ASCORBIC ACID 500 MG TAB PO SCH (09:45)
[2017-01-24] MEDS: L ACIDOPHIL/B LACTIS/B LONGUM CAPSULE PO SCH ×2 (09:45→21:54)
[2017-01-24] MEDS: ENOXAPARIN 40 MG/0.4 ML SYG SC SCH (09:47)
--- NOTE | 2017-01-24 11:22 | RADRPT ---
PROCEDURE: Chest x-ray CLINICAL INDICATION: Shortness of breath TECHNIQUE: Chest single view COMPARISON: 01/21/2017 FINDINGS: Nasogastric tube remains good position. As before there is left chest AICD. Stable cardiomegaly and atherosclerotic aortic calcification is seen. There is mild central venous congestion. There is pers istent bilateral lower lobe consolidation right greater than left. This is unchanged. No new infiltr ates are seen. IMPRESSION: 1. Nasogastric tube remains in good position. Cardiomegaly with mild central venous congestion. Thi s is partially exaggerated by the low lung volumes 3. Persistent bilateral lower lung volume loss and consolidation right greater than left. 4. No new infiltrates. 5. AICD RPTAT: HH .Abdiaziz Bravo MD, Date Time Electronically viewed and signed by .Abdiaziz Bravo MD, on 01/24/2017 11:22 .W/
--- NOTE | 2017-01-24 14:16 | CONS ---
Date/Time of Note Date/Time of Note DATE: 01/24/17 TIME: 14:13 Assessment/Plan Assessment/Plan Chief Complaint/Hosp Course IMp: 1.SVT's- currently SR with PAC's. TSH WNL. Review of or prior strip reveal likely PAF short runs. Most recently c/w SR with PAC's 2.CHF-diastolic acute on chronic by echo this admit 3.HTN 4. 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 development of contraction alkalosis and thus would consider decrase in dose -Contnue coreg -Continue abx's and f/u cx data -Continue statin -Continue free water for na -Continue asa/lovenox for now until placement of G tube nd then will likely transition to eliquis Problems: Consultation Date/Type/Reason Admit Date/Time Jan 14, 2017 at 10:52 Initial Consult Date 01/16/17 Type of Consultation: cardiology Reason for Consultation CHF/SVT Referring Provider: MARY FORREST MD Exam/Review of Systems Vital Signs Vitals Vital Signs Date Time Temp Pulse Resp B/P Pulse Ox O2 Delivery O2 Flow Rate FiO2 01/24/17 12:33 99.2 18 110/68 98 01/24/17 12:28 83 01/24/17 08:00 Simple Mask 8.0 01/23/17 02:06 60 Intake and Output 01/23/17 01/23/17 01/24/17 15:00 23:00 07:00 Intake Total 880 ml Output Total 2240 ml Balance -1360 ml Exam Review of Systems: CONSTITUTIONAL: No fevers, chills. PULMONARY: No sob CARDIOVASCULAR: No chest pain/palpitations GASTROINTESTINAL: No nausea/vomiting. GENITOURINARY: No hematuria/dysuria. MUSCULOSKELETAL: No myagias/arthalgias. PSYCHIATRIC: The patient denies depression. NEUROLOGIC: No weakness Constitutional: other (sleeping but arousable) Psych: no complaints Head: normocephalic ENMT: mucosa pink and moist Neck: jvd (9 cm water), supple Respiratory: diminished breath sounds (at bases/B) Cardiovascular: regular rate and rhythm Gastrointestinal: non-tender, soft Musculoskeletal: muscle weakness (generalized) Extremities: pitting pedal edema (trace/B) Neurological: lethargic Results Result Diagram: 01/24/17 0559 01/24/17 0559 Results 24 hrs Laboratory Tests Test 01/23/17 17:50 01/24/17 01:18 01/24/17 04:18 01/24/17 05:59 Bedside Glucose 117 142 143 White Blood Count 7.6 Red Blood Count 3.61 L Hemoglobin 10.2 L Hematocrit 32.7 L Mean Corpuscular Volume 90.6 Mean Corpuscular Hemoglobin 28.3 L Mean Corpuscular Hemoglobin Concent 31.2 L Red Cell Distribution Width 16.0 H Platelet Count 163 Mean Platelet Volume 11.3 H Neutrophils % 74.4 Lymphocytes % 10.6 L Monocytes % 10.2 Eosinophils % 1.7 Basophils % 0.3 Nucleated Red Blood Cells % 0.3 H Neutrophils # 5.6 Lymphocytes # 0.8 Monocytes # 0.8 Eosinophils # 0.1 Basophils # 0.0 Nucleated Red Blood Cells # 0.0 Sodium Level 140 Potassium Level 3.4 L Chloride Level 96 L Carbon Dioxide Level 43 *H Anion Gap 4 L Blood Urea Nitrogen 19 Creatinine 0.75 Glucose Level 118 Calcium Level 8.2 L Phosphorus Level 2.6 Magnesium Level 2.2 Total Bilirubin 0.3 Direct Bilirubin 0.00 Indirect Bilirubin 0.3 Aspartate Amino Transf (AST/SGOT) 33 Alanine Aminotransferase (ALT/SGPT) 54 Alkaline Phosphatase 179 H B-Type Natriuretic Peptide 2990 H Total Protein 5.1 L Albumin 2.5 L Globulin 2.60 Albumin/Globulin Ratio 0.96 Test 01/24/17 06:38 01/24/17 08:00 01/24/17 12:39 Bedside Glucose 120 127 Blood Gas Specimen Source Blood arterial Arterial Blood Date Drawn 01/24/2017 8:30:41 AM Arterial Blood pH (Temp corrected) 7.541 H Arterial Blood pCO2 (Temp correct) 42.3 Arterial Blood pO2 (Temp corrected) 104.7 H Arterial Blood HCO3 35.4 H Arterial Blood Base Excess 11.8 H Arterial Blood Oxygen Saturation 98.0 Ernesto Test ACCEPTAB Arterial Blood Gas Puncture Site Right Radial Arterial Blood Carboxyhemoglobin 0.3 Arterial Blood Methemoglobin 0 Blood Gas A-a O2 Differential 254.9 H Oxyhemoglobin Percent 97.7 Total Hemoglobin 11.5 L Blood Gas Temperature 37.0 Blood Gas Modality MASK - SIMPLE FiO2 57.0 Blood Gas Notified Whom DTAYLOR Blood Gas Notified Time 01/24/2017 8:43:21 AM Medications Medications Current Medications Ondansetron HCl (Zofran Inj) 4 mg Q6H PRN IV NAUSEA AND/OR VOMITING; Start at 14:30 Docusate Sodium (Colace) 100 mg Q12H PRN PO CONSTIPATION; Start 01/14/17 at 14 :30 Magnesium Hydroxide (Milk Of Mag) 30 ml DAILY PRN PO CONSTIPATION; Start 01/14 at 14:30 Pantoprazole (Protonix Tab) 40 mg DAILY@06 PO Last administered on 01/24/17 06 :47; Admin Dose 40 MG; Start 01/15/17 at 06:00 Acetaminophen (Tylenol Tab) 650 mg Q4 PRN PO PAIN AND OR ELEVATED TEMP; Start 01/14/17 at 14:30 Ascorbic Acid (Vitamin C) 500 mg DAILY PO Last administered on 01/24/17 09:45 ; Admin Dose 500 MG; Start 01/15/17 at 09:00 Atorvastatin Calcium (Lipitor) 10 mg QHS PO Last administered on 01/23/17 21: 28; Admin Dose 10 MG; Start 01/14/17 at 21:00 Carvedilol (Coreg) 12.5 mg BID PO Last administered on 01/24/17 09:45; Admin Dose 12.5 MG; Start 01/14/17 at 21:00 Cholecalciferol (Vitamin D) 1,000 unit DAILY PO Last administered on 01/24/17 09:44; Admin Dose 1,000 UNIT; Start 01/15/17 at 09:00 Multivitamins Therapeutic (Theragran) 1 tab DAILY PO Last administered on 09:44; Admin Dose 1 TAB; Start 01/15/17 at 09:00 Spironolactone (Aldactone) 25 mg DAILY PO Last administered on 01/24/17 09:44 ; Admin Dose 25 MG; Start 01/15/17 at 09:00 Tamsulosin HCl (Flomax) 0.4 mg HS PO Last administered on 01/23/17 21:28; Admin Dose 0.4 MG; Start 01/14/17 at 21:00 Lactobacillus Acidophilus (Florajen3 Capsule) 1 each BID PO Last administered on 01/24/17 09:45; Admin Dose 1 EACH; Start 01/14/17 at 21:00 Enoxaparin Sodium (Lovenox) 40 mg DAILY SC Last administered on 01/24/17 09:47 ; Admin Dose 40 MG; Start 01/14/17 at 15:30 Miscellaneous Information (Pending Santyl Order For Wound Care) This patient hampton... PRN PRN XX WOUND CARE; Start 01/16/17 at 12:00 Collagenase (Santyl) 1 applic DAILY TOP Last administered on 01/24/17 09:45; Admin Dose 1 APPLIC; Start 01/16/17 at 13:00 Aspirin 325 mg 325 mg DAILY NGT Last administered on 01/24/17 09:45; Admin Dose 325 MG; Start 01/17/17 at 09:00 Dextrose (D5W) 1,000 ml @ 50 mls/hr Q20H IV Last administered on 01/24/17 09: 44; Admin Dose 50 MLS/HR; Start 01/18/17 at 12:30 Diagnostic Test (Pha) (Accu-Chek) 1 ea 02 XX Last administered on 01/24/17 04: 19; Admin Dose 1 EA; Start 01/24/17 at 02:00 Insulin Aspart (Novolog Insulin Pen) NOVOLOG *MODERATE* ALGORI... Q6 SC Last administered on 01/24/17 01:30; Admin Dose 2 UNIT; Start 01/23/17 at 18:00 Miscellaneous Information 1 ea NOTE XX ; Start 01/23/17 at 14:30 Glucose (Glutose) 15 gm Q15M PRN PO DECREASED GLUCOSE; Start 01/23/17 at 14:30 Glucose (Glutose) 22.5 gm Q15M PRN PO DECREASED GLUCOSE; Start 01/23/17 at 14: 30 Dextrose (D50w Syringe) 25 ml Q15M PRN IV DECREASED GLUCOSE; Start 01/23/17 at 14:30 Dextrose (D50w Syringe) 50 ml Q15M PRN IV DECREASED GLUCOSE; Start 01/23/17 at 14:30 Glucagon (Glucagen) 1 mg Q15M PRN IM DECREASED GLUCOSE; Start 01/23/17 at 14:30 Glucose (Glutose) 15 gm Q15M PRN BUCCAL DECREASED GLUCOSE; Start 01/23/17 at 14 :30 PREET BECERRA Jan 24, 2017 14:16
[2017-01-24] MEDS ORDERED: POTASSIUM CHLORIDE 250 ML IVPB ONE (14:30)
--- NOTE | 2017-01-24 14:50 | CONS ---
Date/Time of Note Date/Time of Note DATE: 01/24/17 TIME: 14:43 Consult Date/Type/Reason Admit Date/Time Jan 14, 2017 at 10:52 Initial Consult Date 01/22/17 Type of Consultation: cardiology Ordering Provider: MARY FORREST MD Subjective Very lethargic, but arousable. Objective Vital Signs Date Time Temp Pulse Resp B/P Pulse Ox O2 Delivery O2 Flow Rate FiO2 01/24/17 14:11 98 10.0 01/24/17 14:10 62 20 Simple Mask 01/24/17 12:33 99.2 110/68 01/23/17 02:06 60 Intake and Output 01/23/17 01/23/17 01/24/17 14:59 22:59 06:59 Intake Total 880 ml Output Total 2240 ml Balance -1360 ml Exam HEENT: Neck supple; no JVD; no LAD CVS: Irreg, S1 and S2 CHEST: Basilar rales ABD: Obese, NT, + BS EXT: No c/c; + edema Results/Medications Result Diagram: 01/24/17 0559 01/24/17 0559 Results 24 hrs Laboratory Tests Test 01/23/17 17:50 01/24/17 01:18 01/24/17 04:18 01/24/17 05:59 Bedside Glucose 117 142 143 White Blood Count 7.6 Red Blood Count 3.61 L Hemoglobin 10.2 L Hematocrit 32.7 L Mean Corpuscular Volume 90.6 Mean Corpuscular Hemoglobin 28.3 L Mean Corpuscular Hemoglobin Concent 31.2 L Red Cell Distribution Width 16.0 H Platelet Count 163 Mean Platelet Volume 11.3 H Neutrophils % 74.4 Lymphocytes % 10.6 L Monocytes % 10.2 Eosinophils % 1.7 Basophils % 0.3 Nucleated Red Blood Cells % 0.3 H Neutrophils # 5.6 Lymphocytes # 0.8 Monocytes # 0.8 Eosinophils # 0.1 Basophils # 0.0 Nucleated Red Blood Cells # 0.0 Sodium Level 140 Potassium Level 3.4 L Chloride Level 96 L Carbon Dioxide Level 43 *H Anion Gap 4 L Blood Urea Nitrogen 19 Creatinine 0.75 Glucose Level 118 Calcium Level 8.2 L Phosphorus Level 2.6 Magnesium Level 2.2 Total Bilirubin 0.3 Direct Bilirubin 0.00 Indirect Bilirubin 0.3 Aspartate Amino Transf (AST/SGOT) 33 Alanine Aminotransferase (ALT/SGPT) 54 Alkaline Phosphatase 179 H B-Type Natriuretic Peptide 2990 H Total Protein 5.1 L Albumin 2.5 L Globulin 2.60 Albumin/Globulin Ratio 0.96 Test 01/24/17 06:38 01/24/17 08:00 01/24/17 12:39 Bedside Glucose 120 127 Blood Gas Specimen Source Blood arterial Arterial Blood Date Drawn 01/24/2017 8:30:41 AM Arterial Blood pH (Temp corrected) 7.541 H Arterial Blood pCO2 (Temp correct) 42.3 Arterial Blood pO2 (Temp corrected) 104.7 H Arterial Blood HCO3 35.4 H Arterial Blood Base Excess 11.8 H Arterial Blood Oxygen Saturation 98.0 Ernesto Test ACCEPTAB Arterial Blood Gas Puncture Site Right Radial Arterial Blood Carboxyhemoglobin 0.3 Arterial Blood Methemoglobin 0 Blood Gas A-a O2 Differential 254.9 H Oxyhemoglobin Percent 97.7 Total Hemoglobin 11.5 L Blood Gas Temperature 37.0 Blood Gas Modality MASK - SIMPLE FiO2 57.0 Blood Gas Notified Whom DTAYLOR Blood Gas Notified Time 01/24/2017 8:43:21 AM Medications Current Medications Ondansetron HCl (Zofran Inj) 4 mg Q6H PRN IV NAUSEA AND/OR VOMITING; Start at 14:30 Docusate Sodium (Colace) 100 mg Q12H PRN PO CONSTIPATION; Start 01/14/17 at 14 :30 Magnesium Hydroxide (Milk Of Mag) 30 ml DAILY PRN PO CONSTIPATION; Start 01/14 at 14:30 Pantoprazole (Protonix Tab) 40 mg DAILY@06 PO Last administered on 01/24/17 06 :47; Admin Dose 40 MG; Start 01/15/17 at 06:00 Acetaminophen (Tylenol Tab) 650 mg Q4 PRN PO PAIN AND OR ELEVATED TEMP; Start 01/14/17 at 14:30 Ascorbic Acid (Vitamin C) 500 mg DAILY PO Last administered on 01/24/17 09:45 ; Admin Dose 500 MG; Start 01/15/17 at 09:00 Atorvastatin Calcium (Lipitor) 10 mg QHS PO Last administered on 01/23/17 21: 28; Admin Dose 10 MG; Start 01/14/17 at 21:00 Carvedilol (Coreg) 12.5 mg BID PO Last administered on 01/24/17 09:45; Admin Dose 12.5 MG; Start 01/14/17 at 21:00 Cholecalciferol (Vitamin D) 1,000 unit DAILY PO Last administered on 01/24/17 09:44; Admin Dose 1,000 UNIT; Start 01/15/17 at 09:00 Multivitamins Therapeutic (Theragran) 1 tab DAILY PO Last administered on 09:44; Admin Dose 1 TAB; Start 01/15/17 at 09:00 Spironolactone (Aldactone) 25 mg DAILY PO Last administered on 01/24/17 09:44 ; Admin Dose 25 MG; Start 01/15/17 at 09:00 Tamsulosin HCl (Flomax) 0.4 mg HS PO Last administered on 01/23/17 21:28; Admin Dose 0.4 MG; Start 01/14/17 at 21:00 Lactobacillus Acidophilus (Florajen3 Capsule) 1 each BID PO Last administered on 01/24/17 09:45; Admin Dose 1 EACH; Start 01/14/17 at 21:00 Enoxaparin Sodium (Lovenox) 40 mg DAILY SC Last administered on 01/24/17 09:47 ; Admin Dose 40 MG; Start 01/14/17 at 15:30 Miscellaneous Information (Pending Santyl Order For Wound Care) This patient hampton... PRN PRN XX WOUND CARE; Start 01/16/17 at 12:00 Collagenase (Santyl) 1 applic DAILY TOP Last administered on 01/24/17 09:45; Admin Dose 1 APPLIC; Start 01/16/17 at 13:00 Aspirin 325 mg 325 mg DAILY NGT Last administered on 01/24/17 09:45; Admin Dose 325 MG; Start 01/17/17 at 09:00 Dextrose (D5W) 1,000 ml @ 50 mls/hr Q20H IV Last administered on 01/24/17 09: 44; Admin Dose 50 MLS/HR; Start 01/18/17 at 12:30 Diagnostic Test (Pha) (Accu-Chek) 1 ea 02 XX Last administered on 01/24/17 04: 19; Admin Dose 1 EA; Start 01/24/17 at 02:00 Insulin Aspart (Novolog Insulin Pen) NOVOLOG *MODERATE* ALGORI... Q6 SC Last administered on 01/24/17t 01:30; Admin Dose 2 UNIT; Start 01/23/17 at 18:00 Miscellaneous Information 1 ea NOTE XX ; Start 01/23/17 at 14:30 Glucose (Glutose) 15 gm Q15M PRN PO DECREASED GLUCOSE; Start 01/23/17 at 14:30 Glucose (Glutose) 22.5 gm Q15M PRN PO DECREASED GLUCOSE; Start 01/23/17 at 14: 30 Dextrose (D50w Syringe) 25 ml Q15M PRN IV DECREASED GLUCOSE; Start 01/23/17 at 14:30 Dextrose (D50w Syringe) 50 ml Q15M PRN IV DECREASED GLUCOSE; Start 01/23/17 at 14:30 Glucagon (Glucagen) 1 mg Q15M PRN IM DECREASED GLUCOSE; Start 01/23/17 at 14:30 Glucose (Glutose) 15 gm Q15M PRN BUCCAL DECREASED GLUCOSE; Start 01/23/17 at 14 :30 Furosemide 40 mg 40 mg DAILY PO ; Start 01/25/17 at 09:00 Potassium Chloride (KCl 40 MEQ/250 ML NS) 250 ml @ 62.5 mls/hr ONCE ONCE IVPB ; Start 01/24/17 at 14:30; Stop 01/24/17 at 18:29 Assessment/Plan Additional Assessment/Plan IMP: 1. Acute on chronic hypoxemic/hypercapnic Resp Insufficiency. 2. CHF 3. FAM/OHS 4, Notable Metabolic Alkalosis--contraction related RECS: 1. Nocturnal BiPAP 2. Titrate FiO2 to SpO2 88-92 3. ICS 4. D/C lasix; use diamox; follow K+ closely CADEN MORENO MD Jan 24, 2017 14:50
[2017-01-24] MEDS: ACETAZOLAMIDE 500 MG INJ IV SCH (16:33)
--- NOTE | 2017-01-24 18:02 | PN ---
DATE: 01/24/2017 SUBJECTIVE: The patient is seen, remains weak and somewhat lethargic. Case discussed with nursing staff and case discussed with his father, Rahat, who actually saw him today and felt that he is doing better. The patient definitely has less secretions. I appreciate followup by cardiology, pulmonol nadege, infectious disease, GI. PHYSICAL EXAMINATION: VITAL SIGNS: Temperature 99.2, pulse is 62, respirations 20, blood pressure 110/68, saturation 98% on 10 liters face mask, . GENERAL: The patient is in no acute distress, morbidly obese, lethargic. The patient closes eyes, arousable upon stating his name. CARDIOVASCULAR: S1, S2. Distant heart sounds. LUNGS: Faint rhonchi. ABDOMEN: Soft, nontender. EXTREMITIES: Trace to +1 edema, more edema in the upper extremities. LABORATORY DATA: White count is 7.6, hemoglobin 10.2, hematocrit 33, platelet count is 162 with nor mal differential. Chemistry: Sodium 140, potassium 3.4, chloride 96, bicarb increased to 43, BUN i s 19, creatinine 0.75, glucose of 118. BNP is just slightly high at 2990. Albumin is 2.5. Urinaly sis was positive on the . The patient's respiratory culture on 01/20/2017 was negative. The jayjay ya's chest x-ray dated today shows nasogastric tube remains in good position, cardiomegaly with m ild central venous congestion, possibly exacerbated by low lung volume. There is persistent bilater al lower lung volume loss and consolidation in the right the left. There is no new infiltrate . There is AICD. MEDICATIONS: 1. Lasix 40 mg daily. 2. KCl as directed. 3. Accu-Chek q.a.c. and at bedtime. 4. Insulin as per sliding scale. 5. Hypoglycemia protocol. 6. Mucomyst every 6 hours. 7. Aspirin 325 daily. 8. Santyl daily. 9. Vitamin C 500 mg daily. 10. Vitamin D 1000 daily. 11. Multivitamin 1 tablet daily. 12. Aldactone 25 daily. 13. Protonix 40 mg daily. 14. Lipitor 20 mg at bedtime. 15. Coreg 12.5 b.i.d. 16. Flomax 0.4 at bedtime. 17. Lactobacillus b.i.d. 18. Lovenox 40 mg subQ daily. 19. Zofran p.r.n. 20. Colace p.r.n. 21. Milk of magnesia p.r.n. 22. DuoNebs p.r.n. 23. Tylenol p.r.n. ASSESSMENT AND PLAN: This is a 66-year-old male with history of CHF, AICD pacemaker, diab etes mellitus, currently off medications for diabetes, who presented with acute encephalopathy, was found to be septic with possible pneumonia, UTI, sacral wound and possible bacteremia. 1. Respiratory. Continue pulmonary care, breathing treatment, oral diuretics. Pulmonary and cardi ology are both following. 2. Cardiovascular. The patient with a history of possible atrial fibrillation, status post AICD pl acement, not on full anticoagulation secondary to possible procedure, will need to have likely a G-t ube placement. Case discussed with Dr. Cohen. 3. Infectious disease. ID is following. The patient with recent history of C. diff, now with pneu monia, UTI, wound infection and bacteremia. I appreciate ID followup. 4. Transaminitis, spontaneously improving. 5. Nutrition. Continue NG tube feeding. We will likely need to proceed with G-tube placement, as patient is too lethargic and too high risk to be fed by mouth. 6. BPH, on Flomax. 7. Continue wound care. 8. Encephalopathy. I am concerned about CVA. Again, continue to monitor, physical therapy as tole rated, continue supportive care. May consider evaluation at [facility], as patient needs close supervision for a prolonged period of time. We will follow. Dictated By: MARY MONTERO/SHANTAL Conf#: [id number] DID#: [id number]
--- NOTE | 2017-01-24 19:54 | CONS ---
Date/Time of Note Date/Time of Note DATE: 01/24/17 TIME: 19:53 Assessment/Plan Assessment/Plan Chief Complaint/Hosp Course SUBJECTIVE: No acute changes, looks comfortable. No fevers MICROBIOLOGY: Blood culture on admission grew coag negative staph species. Repeat blood cultures negative. ANTIMICROBIALS: none INDWELLINGS: NG tube, Nielsen catheter. PHYSICAL EXAMINATION: GENERAL: This is a chronically ill-appearing, obese elderly man who is in no distress. The patient is lethargic but arousable and follows simple commands. HEAD: Atraumatic, normocephalic. Sclerae anicteric. NECK: Obese. CHEST: Rise symmetrical. Breath sounds diminished to bases. HEART: S1, S2. ABDOMEN: Soft, bowel tones present. EXTREMITIES: Without cyanosis. Bilateral lower extremity edema. ASSESSMENT: 1. Status post septic shock. 2. Encephalopathy. 3. Proteus mirabilis urinary tract infection==> treated. 4. Coagulase-negative Staphylococcus bacteremia, possibly contaminant, repeat blood cultures negative. 5. Sacral decubitus with wound culture growing Klebsiella, Enterococcus, coagulase-negative Staphylococcus species and Proteus mirabilis. 6. Resolving pneumonia, sputum culture grew yeast, not Meghana albicans 7. Diabetes. 8. History of recent Clostridium difficile colitis, patient remains on oral vancomycin. 9. Abnormal liver function tests, gastroenterology on case. 10. Coronary artery disease with atrial fibrillation, status post automatic implantable cardioverter-defibrillator. PLAN: Patient remains stable, completed antibiotics, continue present care, aspiration precautions [facility] staff Problems: Consultation Date/Type/Reason Admit Date/Time Jan 14, 2017 at 10:52 Initial Consult Date 01/16/17 Type of Consultation: id Referring Provider: MARY FORREST MD Exam/Review of Systems Vital Signs Vitals Vital Signs Date Time Temp Pulse Resp B/P Pulse Ox O2 Delivery O2 Flow Rate FiO2 01/24/17 19:34 92 18 100 Simple Mask 9.0 01/24/17 19:28 98.5 119/56 01/23/17 02:06 60 Intake and Output 01/23/17 01/23/17 01/24/17 15:00 23:00 07:00 Intake Total 880 ml Output Total 2240 ml Balance -1360 ml Results Result Diagram: 01/24/17 0559 01/24/17 0559 Results 24 hrs Laboratory Tests Test 01/24/17 01:18 01/24/17 04:18 01/24/17 05:59 01/24/17 06:38 Bedside Glucose 142 143 120 White Blood Count 7.6 Red Blood Count 3.61 L Hemoglobin 10.2 L Hematocrit 32.7 L Mean Corpuscular Volume 90.6 Mean Corpuscular Hemoglobin 28.3 L Mean Corpuscular Hemoglobin Concent 31.2 L Red Cell Distribution Width 16.0 H Platelet Count 163 Mean Platelet Volume 11.3 H Neutrophils % 74.4 Lymphocytes % 10.6 L Monocytes % 10.2 Eosinophils % 1.7 Basophils % 0.3 Nucleated Red Blood Cells % 0.3 H Neutrophils # 5.6 Lymphocytes # 0.8 Monocytes # 0.8 Eosinophils # 0.1 Basophils # 0.0 Nucleated Red Blood Cells # 0.0 Sodium Level 140 Potassium Level 3.4 L Chloride Level 96 L Carbon Dioxide Level 43 *H Anion Gap 4 L Blood Urea Nitrogen 19 Creatinine 0.75 Glucose Level 118 Calcium Level 8.2 L Phosphorus Level 2.6 Magnesium Level 2.2 Total Bilirubin 0.3 Direct Bilirubin 0.00 Indirect Bilirubin 0.3 Aspartate Amino Transf (AST/SGOT) 33 Alanine Aminotransferase (ALT/SGPT) 54 Alkaline Phosphatase 179 H B-Type Natriuretic Peptide 2990 H Total Protein 5.1 L Albumin 2.5 L Globulin 2.60 Albumin/Globulin Ratio 0.96 Test 01/24/17 08:00 01/24/17 12:39 01/24/17 17:40 Blood Gas Specimen Source Blood arterial Arterial Blood Date Drawn 01/24/2017 8:30:41 AM Arterial Blood pH (Temp corrected) 7.541 H Arterial Blood pCO2 (Temp correct) 42.3 Arterial Blood pO2 (Temp corrected) 104.7 H Arterial Blood HCO3 35.4 H Arterial Blood Base Excess 11.8 H Arterial Blood Oxygen Saturation 98.0 Ernesto Test ACCEPTAB Arterial Blood Gas Puncture Site Right Radial Arterial Blood Carboxyhemoglobin 0.3 Arterial Blood Methemoglobin 0 Blood Gas A-a O2 Differential 254.9 H Oxyhemoglobin Percent 97.7 Total Hemoglobin 11.5 L Blood Gas Temperature 37.0 Blood Gas Modality MASK - SIMPLE FiO2 57.0 Blood Gas Notified Whom DTAYLOR Blood Gas Notified Time 01/24/2017 8:43:21 AM Bedside Glucose 127 135 Medications Medications Current Medications Ondansetron HCl (Zofran Inj) 4 mg Q6H PRN IV NAUSEA AND/OR VOMITING; Start at 14:30 Docusate Sodium (Colace) 100 mg Q12H PRN PO CONSTIPATION; Start 01/14/17 at 14 :30 Magnesium Hydroxide (Milk Of Mag) 30 ml DAILY PRN PO CONSTIPATION; Start 01/14 at 14:30 Pantoprazole (Protonix Tab) 40 mg DAILY@06 PO Last administered on 01/24/17 06 :47; Admin Dose 40 MG; Start 01/15/17 at 06:00 Acetaminophen (Tylenol Tab) 650 mg Q4 PRN PO PAIN AND OR ELEVATED TEMP; Start 01/14/17 at 14:30 Ascorbic Acid (Vitamin C) 500 mg DAILY PO Last administered on 01/24/17 09:45 ; Admin Dose 500 MG; Start 01/15/17 at 09:00 Atorvastatin Calcium (Lipitor) 10 mg QHS PO Last administered on 01/23/17 21: 28; Admin Dose 10 MG; Start 01/14/17 at 21:00 Carvedilol (Coreg) 12.5 mg BID PO Last administered on 01/24/17 09:45; Admin Dose 12.5 MG; Start 01/14/17 at 21:00 Cholecalciferol (Vitamin D) 1,000 unit DAILY PO Last administered on 01/24/17 09:44; Admin Dose 1,000 UNIT; Start 01/15/17 at 09:00 Multivitamins Therapeutic (Theragran) 1 tab DAILY PO Last administered on 09:44; Admin Dose 1 TAB; Start 01/15/17 at 09:00 Spironolactone (Aldactone) 25 mg DAILY PO Last administered on 01/24/17 09:44 ; Admin Dose 25 MG; Start 01/15/17 at 09:00 Tamsulosin HCl (Flomax) 0.4 mg HS PO Last administered on 01/23/17 21:28; Admin Dose 0.4 MG; Start 01/14/17 at 21:00 Lactobacillus Acidophilus (Florajen3 Capsule) 1 each BID PO Last administered on 01/24/17 09:45; Admin Dose 1 EACH; Start 01/14/17 at 21:00 Enoxaparin Sodium (Lovenox) 40 mg DAILY SC Last administered on 01/24/17 09:47 ; Admin Dose 40 MG; Start 01/14/17 at 15:30 Miscellaneous Information (Pending Santyl Order For Wound Care) This patient hampton... PRN PRN XX WOUND CARE; Start 01/16/17 at 12:00 Collagenase (Santyl) 1 applic DAILY TOP Last administered on 01/24/17 09:45; Admin Dose 1 APPLIC; Start 01/16/17 at 13:00 Aspirin 325 mg 325 mg DAILY NGT Last administered on 01/24/17 09:45; Admin Dose 325 MG; Start 01/17/17 at 09:00 Dextrose (D5W) 1,000 ml @ 50 mls/hr Q20H IV Last administered on 01/24/17 09: 44; Admin Dose 50 MLS/HR; Start 01/18/17 at 12:30 Diagnostic Test (Pha) (Accu-Chek) 1 ea 02 XX Last administered on 01/24/17 04: 19; Admin Dose 1 EA; Start 01/24/17 at 02:00 Insulin Aspart (Novolog Insulin Pen) NOVOLOG *MODERATE* ALGORI... Q6 SC Last administered on 01/24/17 01:30; Admin Dose 2 UNIT; Start 01/23/17 at 18:00 Miscellaneous Information 1 ea NOTE XX ; Start 01/23/17 at 14:30 Glucose (Glutose) 15 gm Q15M PRN PO DECREASED GLUCOSE; Start 01/23/17 at 14:30 Glucose (Glutose) 22.5 gm Q15M PRN PO DECREASED GLUCOSE; Start 01/23/17 at 14: 30 Dextrose (D50w Syringe) 25 ml Q15M PRN IV DECREASED GLUCOSE; Start 01/23/17 at 14:30 Dextrose (D50w Syringe) 50 ml Q15M PRN IV DECREASED GLUCOSE; Start 01/23/17 at 14:30 Glucagon (Glucagen) 1 mg Q15M PRN IM DECREASED GLUCOSE; Start 01/23/17 at 14:30 Glucose (Glutose) 15 gm Q15M PRN BUCCAL DECREASED GLUCOSE; Start 01/23/17 at 14 :30 Furosemide (Lasix) 40 mg DAILY PO ; Start 01/25/17 at 09:00 Acetazolamide (Diamox) 500 mg DAILY IV Last administered on 12/3/17at 16:33; Admin Dose 500 MG; Start 01/24/17 at 15:00 JONY ANDERS NP Jan 24, 2017 19:54
[2017-01-24] MEDS: TAMSULOSIN (SR) 0.4 MG CAP PO SCH (21:54)
[2017-01-24] MEDS: ATORVASTATIN 10 MG TAB PO SCH (21:54)
[2017-01-24 22:46] LABS: AADO2 Arterial 158.3 mmHg (7.0-24.0); Allen Test ACCEPTAB; Arterial Base Excess 9.4 mmol/L (-3.0-3); Arterial COHb 0.3 % (0.0-3.0); Arterial HCO3 34.7 mmol/L (22.0-26.0); Arterial MetHb 0.3 % (0.0-1.5); Arterial Total Hemglobin 9.5 g/dl (12.0-18.0); Blood Gas IEPAP 15/8; Blood Gas PS 7; MODE MASK - BIPAP
[2017-01-25] VITALS (14 sets, daily range): BP systolic 110–127; BP diastolic 57–80; PULSE 68–102; RESP 20–21
[2017-01-25] MEDS: ACETYLCYSTEINE 20% 4 ML VIAL NEB SCH ×4 (01:16→19:23)
[2017-01-25] MEDS: ALBUTEROL/IPRATROPIUM (NEB) 3 ML AMP NEB PRN ×4 (01:16→19:23)
[2017-01-25] MEDS: ACCU-CHEK XX SCH (02:00)
[2017-01-25] MEDS: INSULIN ASPART [NOVOLOG] 3 ML PEN SC SCH ×4 (06:00→17:12)
[2017-01-25 06:07] LABS: BASOPHILS % 0.3 % (0.0-2.0); EOSINOPHILS # 0.2 10^3/ul (0.0-0.5); EOSINOPHILS % 1.7 % (0.0-7.0); HEMATOCRIT 32.8 % (42.0-52.0); HEMOGLOBIN 10.3 g/dl (14.0-18.0); LYMPHOCYTES # 0.9 10^3/ul (0.8-2.9); LYMPHOCYTES % 9.6 % (15.0-51.0); MEAN CORPUSCULAR HEMOGLOBIN 28.2 pg (29.0-33.0); MEAN CORPUSCULAR HGB CONC 31.4 g/dl (32.0-37.0); MEAN CORPUSCULAR VOLUME 89.9 fl (82.0-101.0); MEAN PLATELET VOLUME 11.1 fl (7.4-10.4); MONOCYTE # 0.9 10^3/ul (0.3-0.9); MONOCYTES % 9.9 % (0.0-11.0); NEUTROPHIL # 6.8 10^3/ul (1.6-7.5); NEUTROPHILS % 75.8 % (39.0-77.0); PLATELET COUNT 176 10^3/UL (140-415); RED BLOOD COUNT 3.65 10^6/ul (4.70-6.10); RED CELL DISTRIBUTION WIDTH 16.4 % (11.5-14.5)
[2017-01-25] MEDS: PANTOPRAZOLE (EC) 40 MG TAB PO SCH (06:32)
[2017-01-25] MEDS: DEXTROSE 5% 1,000 ML IV SCH (06:32)
[2017-01-25 06:36] LABS: MAGNESIUM 2.2 mg/dl (1.7-2.5); PHOSPHORUS 2.7 mg/dl (2.5-4.9)
[2017-01-25 06:55] LABS: CREATININE 0.81 mg/dl (0.61-1.24); POTASSIUM 3.6 mmol/L (3.5-5.1)
[2017-01-25] MEDS: ASPIRIN 325 MG TAB NGT SCH (08:59)
[2017-01-25] MEDS: FUROSEMIDE 40 MG TAB PO SCH (08:59)
[2017-01-25] MEDS: SPIRONOLACTONE 25 MG TAB PO SCH (08:59)
[2017-01-25] MEDS: MULTIVITAMINS THERAPEUTIC TAB PO SCH (09:00)
[2017-01-25] MEDS: ACETAZOLAMIDE 500 MG INJ IV SCH (09:00)
[2017-01-25] MEDS: CHOLECALCIFEROL 1,000 UNIT TAB PO SCH (09:00)
[2017-01-25] MEDS: ASCORBIC ACID 500 MG TAB PO SCH (09:00)
[2017-01-25] MEDS: L ACIDOPHIL/B LACTIS/B LONGUM CAPSULE PO SCH ×2 (09:00→21:00)
[2017-01-25] MEDS: ENOXAPARIN 40 MG/0.4 ML SYG SC SCH (09:18)
[2017-01-25] MEDS: COLLAGENASE 30 GM TUBE TOP SCH (09:18)
--- NOTE | 2017-01-25 13:24 | CONS ---
Date/Time of Note Date/Time of Note DATE: 01/25/17 TIME: 13:21 Assessment/Plan Assessment/Plan Chief Complaint/Hosp Course IMp: 1.SVT's- currently SR with PAC's. TSH WNL. Review of or prior strip reveal likely PAF short runs. Most recently c/w SR with PAC's 2.CHF-diastolic acute on chronic by echo this admit 3.HTN 4. 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 development of contraction alkalosis and thus would consider decrease in dose -Now on diamox for development of alkalosis -Contnue coreg -Continue abx's and f/u cx data -Continue statin -Continue free water for na -Continue asa/lovenox for now until placement of G tube and then will likely transition to eliquis Problems: Consultation Date/Type/Reason Admit Date/Time Jan 14, 2017 at 10:52 Initial Consult Date 01/16/17 Type of Consultation: cardiology Reason for Consultation SOB Referring Provider: MARY FORREST MD Exam/Review of Systems Vital Signs Vitals Vital Signs Date Time Temp Pulse Resp B/P Pulse Ox O2 Delivery O2 Flow Rate FiO2 01/25/17 12:24 73 01/25/17 11:57 98.1 20 110/64 96 01/25/17 11:45 40 01/25/17 06:18 8.0 01/24/17 20:00 Simple Mask Intake and Output 01/24/17 01/24/17 01/25/17 15:00 23:00 07:00 Intake Total 880 ml 880 ml 880 ml Output Total 900 ml 1200 ml 600 ml Balance -20 ml -320 ml 280 ml Exam Review of Systems: CONSTITUTIONAL: No fevers, chills. PULMONARY: No sob CARDIOVASCULAR: No chest pain/palpitations GASTROINTESTINAL: No nausea/vomiting. GENITOURINARY: No hematuria/dysuria. MUSCULOSKELETAL: No myagias/arthalgias. PSYCHIATRIC: The patient denies depression. NEUROLOGIC: No weakness Constitutional: alert Psych: no complaints ENMT: mucosa pink and moist Neck: jvd, supple Respiratory: diminished breath sounds Cardiovascular: regular rate and rhythm Gastrointestinal: non-tender, soft Musculoskeletal: muscle tone (normaL) Extremities: edema (NONE) Neurological: other (nO FOCAL DEFICITS) Results Result Diagram: 01/25/17 0536 01/25/17 0536 Results 24 hrs Laboratory Tests Test 01/24/17 17:40 01/24/17 22:00 01/25/17 00:31 01/25/17 05:36 Bedside Glucose 135 127 Blood Gas Specimen Source Blood arterial Arterial Blood Date Drawn 01/24/2017 10:35:26 PM Arterial Blood pH (Temp corrected) 7.444 Arterial Blood pCO2 (Temp correct) 51.8 H Arterial Blood pO2 (Temp corrected) 67.3 L Arterial Blood HCO3 34.7 H Arterial Blood Base Excess 9.4 H Arterial Blood Oxygen Saturation 93.6 L Ernesto Test ACCEPTAB Arterial Blood Gas Puncture Site Right Radial Arterial Blood Carboxyhemoglobin 0.3 Arterial Blood Methemoglobin 0.3 Blood Gas A-a O2 Differential 158.3 H Oxyhemoglobin Percent 93.0 Total Hemoglobin 9.5 L Blood Gas Temperature 37.0 Blood Gas Respiration Rate 12.0 Blood Gas Actual Respiration Rate 18 Blood Gas Modality MASK - BIPAP FiO2 40.0 Blood Gas Pressure Support 7 Blood Gas IPAP/EPAP Ratio 15/8 Blood Gas Notified Whom RH Blood Gas Notified Time 01/24/2017 10:46:47 PM White Blood Count 9.0 Red Blood Count 3.65 L Hemoglobin 10.3 L Hematocrit 32.8 L Mean Corpuscular Volume 89.9 Mean Corpuscular Hemoglobin 28.2 L Mean Corpuscular Hemoglobin Concent 31.4 L Red Cell Distribution Width 16.4 H Platelet Count 176 Mean Platelet Volume 11.1 H Neutrophils % 75.8 Lymphocytes % 9.6 L Monocytes % 9.9 Eosinophils % 1.7 Basophils % 0.3 Nucleated Red Blood Cells % 0.0 Neutrophils # 6.8 Lymphocytes # 0.9 Monocytes # 0.9 Eosinophils # 0.2 Basophils # 0.0 Nucleated Red Blood Cells # 0.0 Sodium Level 136 Potassium Level 3.6 Chloride Level 95 L Carbon Dioxide Level 38 H Anion Gap 7 L Blood Urea Nitrogen 17 Creatinine 0.81 Glucose Level 124 Calcium Level 8.0 L Phosphorus Level 2.7 Magnesium Level 2.2 Test 01/25/17 06:31 01/25/17 12:30 Bedside Glucose 118 122 Medications Medications Current Medications Ondansetron HCl (Zofran Inj) 4 mg Q6H PRN IV NAUSEA AND/OR VOMITING; Start at 14:30 Docusate Sodium (Colace) 100 mg Q12H PRN PO CONSTIPATION; Start 01/14/17 at 14 :30 Magnesium Hydroxide (Milk Of Mag) 30 ml DAILY PRN PO CONSTIPATION; Start 01/14 at 14:30 Pantoprazole (Protonix Tab) 40 mg DAILY@06 PO Last administered on 01/25/17 06 :32; Admin Dose 40 MG; Start 01/15/17 at 06:00 Acetaminophen (Tylenol Tab) 650 mg Q4 PRN PO PAIN AND OR ELEVATED TEMP; Start 01/14/17 at 14:30 Ascorbic Acid (Vitamin C) 500 mg DAILY PO Last administered on 01/25/17 09:00 ; Admin Dose 500 MG; Start 01/15/17 at 09:00 Atorvastatin Calcium (Lipitor) 10 mg QHS PO Last administered on 01/24/17 21: 54; Admin Dose 10 MG; Start 01/14/17 at 21:00 Carvedilol (Coreg) 12.5 mg BID PO Last administered on 01/25/17 08:59; Admin Dose 12.5 MG; Start 01/14/17 at 21:00 Cholecalciferol (Vitamin D) 1,000 unit DAILY PO Last administered on 01/25/17 09:00; Admin Dose 1,000 UNIT; Start 01/15/17 at 09:00 Multivitamins Therapeutic (Theragran) 1 tab DAILY PO Last administered on 09:00; Admin Dose 1 TAB; Start 01/15/17 at 09:00 Spironolactone (Aldactone) 25 mg DAILY PO Last administered on 01/25/17 08:59 ; Admin Dose 25 MG; Start 01/15/17 at 09:00 Tamsulosin HCl (Flomax) 0.4 mg HS PO Last administered on 01/24/17 21:54; Admin Dose 0.4 MG; Start 01/14/17 at 21:00 Lactobacillus Acidophilus (Florajen3 Capsule) 1 each BID PO Last administered on 01/25/17 09:00; Admin Dose 1 EACH; Start 01/14/17 at 21:00 Enoxaparin Sodium (Lovenox) 40 mg DAILY SC Last administered on 01/25/17 09:18 ; Admin Dose 40 MG; Start 01/14/17 at 15:30 Miscellaneous Information (Pending Santyl Order For Wound Care) This patient hampton... PRN PRN XX WOUND CARE; Start 01/16/17 at 12:00 Collagenase (Santyl) 1 applic DAILY TOP Last administered on 01/25/17 09:18; Admin Dose 1 APPLIC; Start 01/16/17 at 13:00 Aspirin 325 mg 325 mg DAILY NGT Last administered on 01/25/17 08:59; Admin Dose 325 MG; Start 01/17/17 at 09:00 Dextrose (D5W) 1,000 ml @ 50 mls/hr Q20H IV Last administered on 01/25/17 06: 32; Admin Dose 50 MLS/HR; Start 01/18/17 at 12:30 Diagnostic Test (Pha) (Accu-Chek) 1 ea 02 XX Last administered on 01/24/17 04: 19; Admin Dose 1 EA; Start 01/24/17 at 02:00 Insulin Aspart (Novolog Insulin Pen) NOVOLOG *MODERATE* ALGORI... Q6 SC Last administered on 01/24/17 01:30; Admin Dose 2 UNIT; Start 01/23/17 at 18:00 Miscellaneous Information 1 ea NOTE XX ; Start 01/23/17 at 14:30 Glucose (Glutose) 15 gm Q15M PRN PO DECREASED GLUCOSE; Start 01/23/17 at 14:30 Glucose (Glutose) 22.5 gm Q15M PRN PO DECREASED GLUCOSE; Start 01/23/17 at 14: 30 Dextrose (D50w Syringe) 25 ml Q15M PRN IV DECREASED GLUCOSE; Start 01/23/17 at 14:30 Dextrose (D50w Syringe) 50 ml Q15M PRN IV DECREASED GLUCOSE; Start 01/23/17 at 14:30 Glucagon (Glucagen) 1 mg Q15M PRN IM DECREASED GLUCOSE; Start 01/23/17 at 14:30 Glucose (Glutose) 15 gm Q15M PRN BUCCAL DECREASED GLUCOSE; Start 01/23/17 at 14 :30 Furosemide (Lasix) 40 mg DAILY PO Last administered on 01/25/17 08:59; Admin Dose 40 MG; Start 01/25/17 at 09:00 Acetazolamide (Diamox) 500 mg DAILY IV Last administered on 01/25/17t 09:00; Admin Dose 500 MG; Start 01/24/17 at 15:00 PREET BECERRA Jan 25, 2017 13:24
--- NOTE | 2017-01-25 14:04 | PN ---
DATE: 01/25/2017 SUBJECTIVE: The patient seen, unfortunately was placed overnight on BiPAP. ABG seen was not that b ad, pH of 7.44, pCO2 is 52, bicarbonate 35, saturation 94%, this is after being placed on BiPAP at 4 0, FIO2 with setting of 15/8. The patient remains lethargic. PHYSICAL EXAMINATION: VITAL SIGNS: Temperature 98.1, pulse 73, respirations 20, blood pressure 110/64, saturation 96% on 40% FIO2. GENERAL: The patient is in no acute distress on BiPAP. CARDIOVASCULAR: S1, S2, regular rate. LUNGS: Decreased bilaterally, otherwise clear to auscultation. The patient is morbidly. ABDOMEN: Soft, nontender. EXTREMITIES: Trace edema throughout. LABORATORY DATA: White count is normal at 9, hemoglobin 10.3, hematocrit 33, platelets 176 with grace trophils count of 76, lymphocytes 10%. Chemistry: Sodium 136, potassium 3.6, chloride 95, bicarbon ate 38, BUN is 17, creatinine 0.81, glucose of 124. Last glucose levels 122. Respiratory culture o n 01/20/2017 shows normal respiratory leif. Chest x-ray dated yesterday shows persistent bilateral lower lobe volume loss and consolidation, right greater than left. No new infiltrates. Has AICD. CURRENT MEDICATIONS: 1. Lasix 40 p.o. daily. 2. Diamox 500 IV daily. 3. Accu-Chek q.a.c. and at bedtime. 4. Hypoglycemia protocol as directed. 5. Mucomyst every 6 hours. 6. Aspirin 325 daily. 7. Santyl daily. 8. Vitamin C 500 mg daily. 9. Vitamin D 1000 daily. 10. Multivitamin 1 tablet daily. 11. Aldactone 25 daily. 12. Protonix 40 mg daily. 13. Lipitor 10 mg at bedtime. 14. Coreg 12.5 b.i.d. 14. Flomax 0.4 q.h.s. 15. Lactobacillus b.i.d. 16. Lovenox 40 mg subcutaneous daily. 17. Zofran p.r.n. 18. Colace p.r.n. 19. Milk of magnesia p.r.n. 20. DuoNebs p.r.n. 21. Tylenol p.r.n. ASSESSMENT AND PLAN: This is a 66-year-old male with history of CHF, AICD pacemaker, diab etes mellitus, currently off medications for diabetes who presented with encephalopathy, found to be septic with pneumonia, urinary tract infection, sacral wound, possible bacteremia. 1. Respiratory. Remains on BiPAP. The patient is lethargic. Further vent settings and weaning pe r pulmonology. 2. Cardiovascular. The patient with paroxysmal atrial fibrillation most likely status post automat ic implantable cardioverter-defibrillator placement, not on full anticoagulation as he may need a G- tube placement. 3. Infectious disease. The patient with recent Clostridium difficile colitis, but is being treated for pneumonia, urinary tract infection, wound infection and bacteremia. Infectious disease is foll owing closely. The patient finished a course of antibiotics so now antibiotics were discontinued. 4. Tendency for congestive heart failure and fluid overload with jose a alkalosis. The patient was started on Diamox. 5. Nutrition: Continue NG tube. Would definitely like G-tube placement. 6. Benign prostatic hypertrophy, on Flomax. 7. Encephalopathy. May consider another CT scan of the brain. The patient remains encephalopathic . We will follow. Dictated By: MARY MONTERO/SHANTAL Conf#: [id number] DID#: [id number]
--- NOTE | 2017-01-25 15:11 | CONS ---
Date/Time of Note Date/Time of Note DATE: 01/25/17 TIME: 15:10 Assessment/Plan Assessment/Plan Chief Complaint/Hosp Course SUBJECTIVE: On BiPAP, looks comfortable. No fevers MICROBIOLOGY: Blood culture on admission grew coag negative staph species. Repeat blood cultures negative. ANTIMICROBIALS: none INDWELLINGS: NG tube, Nielsen catheter. PHYSICAL EXAMINATION: GENERAL: This is a chronically ill-appearing, obese elderly man who is in no distress. The patient is lethargic but arousable and follows simple commands. HEAD: Atraumatic, normocephalic. Sclerae anicteric. NECK: Obese. CHEST: Rise symmetrical. Breath sounds diminished to bases. HEART: S1, S2. ABDOMEN: Soft, bowel tones present. EXTREMITIES: Without cyanosis. Bilateral lower extremity edema. ASSESSMENT: 1. Status post septic shock. 2. Encephalopathy. 3. Proteus mirabilis urinary tract infection==> treated. 4. Coagulase-negative Staphylococcus bacteremia, possibly contaminant, repeat blood cultures negative. 5. Sacral decubitus with wound culture growing Klebsiella, Enterococcus, coagulase-negative Staphylococcus species and Proteus mirabilis. 6. Resolving pneumonia, sputum culture grew yeast, not Meghana albicans 7. Diabetes. 8. History of recent Clostridium difficile colitis, patient remains on oral vancomycin. 9. Abnormal liver function tests, gastroenterology on case. 10. Coronary artery disease with atrial fibrillation, status post automatic implantable cardioverter-defibrillator. PLAN: Patient remains stable, off antibiotics, continue present care, aspiration precautions, pulmonary/cardiology recommendations [facility] staff Problems: Consultation Date/Type/Reason Admit Date/Time Jan 14, 2017 at 10:52 Initial Consult Date 01/16/17 Type of Consultation: id Referring Provider: MARY FORREST MD Exam/Review of Systems Vital Signs Vitals Vital Signs Date Time Temp Pulse Resp B/P Pulse Ox O2 Delivery O2 Flow Rate FiO2 01/25/17 14:47 8.0 01/25/17 14:28 100 40 01/25/17 12:24 73 01/25/17 11:57 98.1 20 110/64 01/24/17 20:00 Simple Mask Intake and Output 01/24/17 01/24/17 01/25/17 15:00 23:00 07:00 Intake Total 880 ml 880 ml 880 ml Output Total 900 ml 1200 ml 600 ml Balance -20 ml -320 ml 280 ml Results Result Diagram: 01/25/17 0536 01/25/17 0536 Results 24 hrs Laboratory Tests Test 01/24/17 17:40 01/24/17 22:00 01/25/17 00:31 01/25/17 05:36 Bedside Glucose 135 127 Blood Gas Specimen Source Blood arterial Arterial Blood Date Drawn 01/24/2017 10:35:26 PM Arterial Blood pH (Temp corrected) 7.444 Arterial Blood pCO2 (Temp correct) 51.8 H Arterial Blood pO2 (Temp corrected) 67.3 L Arterial Blood HCO3 34.7 H Arterial Blood Base Excess 9.4 H Arterial Blood Oxygen Saturation 93.6 L Ernesto Test ACCEPTAB Arterial Blood Gas Puncture Site Right Radial Arterial Blood Carboxyhemoglobin 0.3 Arterial Blood Methemoglobin 0.3 Blood Gas A-a O2 Differential 158.3 H Oxyhemoglobin Percent 93.0 Total Hemoglobin 9.5 L Blood Gas Temperature 37.0 Blood Gas Respiration Rate 12.0 Blood Gas Actual Respiration Rate 18 Blood Gas Modality MASK - BIPAP FiO2 40.0 Blood Gas Pressure Support 7 Blood Gas IPAP/EPAP Ratio 15/8 Blood Gas Notified Whom RH Blood Gas Notified Time 01/24/2017 10:46:47 PM White Blood Count 9.0 Red Blood Count 3.65 L Hemoglobin 10.3 L Hematocrit 32.8 L Mean Corpuscular Volume 89.9 Mean Corpuscular Hemoglobin 28.2 L Mean Corpuscular Hemoglobin Concent 31.4 L Red Cell Distribution Width 16.4 H Platelet Count 176 Mean Platelet Volume 11.1 H Neutrophils % 75.8 Lymphocytes % 9.6 L Monocytes % 9.9 Eosinophils % 1.7 Basophils % 0.3 Nucleated Red Blood Cells % 0.0 Neutrophils # 6.8 Lymphocytes # 0.9 Monocytes # 0.9 Eosinophils # 0.2 Basophils # 0.0 Nucleated Red Blood Cells # 0.0 Sodium Level 136 Potassium Level 3.6 Chloride Level 95 L Carbon Dioxide Level 38 H Anion Gap 7 L Blood Urea Nitrogen 17 Creatinine 0.81 Glucose Level 124 Calcium Level 8.0 L Phosphorus Level 2.7 Magnesium Level 2.2 Test 01/25/17 06:31 01/25/17 12:30 Bedside Glucose 118 122 Medications Medications Current Medications Ondansetron HCl (Zofran Inj) 4 mg Q6H PRN IV NAUSEA AND/OR VOMITING; Start 11/ 23/17 at 14:30 Docusate Sodium (Colace) 100 mg Q12H PRN PO CONSTIPATION; Start 01/14/17 at 14 :30 Magnesium Hydroxide (Milk Of Mag) 30 ml DAILY PRN PO CONSTIPATION; Start 01/14 at 14:30 Pantoprazole (Protonix Tab) 40 mg DAILY@06 PO Last administered on 01/25/17 06 :32; Admin Dose 40 MG; Start 01/15/17 at 06:00 Acetaminophen (Tylenol Tab) 650 mg Q4 PRN PO PAIN AND OR ELEVATED TEMP; Start 01/14/17 at 14:30 Ascorbic Acid (Vitamin C) 500 mg DAILY PO Last administered on 01/25/17 09:00 ; Admin Dose 500 MG; Start 01/15/17 at 09:00 Atorvastatin Calcium (Lipitor) 10 mg QHS PO Last administered on 01/24/17 21: 54; Admin Dose 10 MG; Start 01/14/17 at 21:00 Carvedilol (Coreg) 12.5 mg BID PO Last administered on 01/25/17 08:59; Admin Dose 12.5 MG; Start 01/14/17 at 21:00 Cholecalciferol (Vitamin D) 1,000 unit DAILY PO Last administered on 01/25/17 09:00; Admin Dose 1,000 UNIT; Start 01/15/17 at 09:00 Multivitamins Therapeutic (Theragran) 1 tab DAILY PO Last administered on 09:00; Admin Dose 1 TAB; Start 01/15/17 at 09:00 Spironolactone (Aldactone) 25 mg DAILY PO Last administered on 01/25/17 08:59 ; Admin Dose 25 MG; Start 01/15/17 at 09:00 Tamsulosin HCl (Flomax) 0.4 mg HS PO Last administered on 01/24/17 21:54; Admin Dose 0.4 MG; Start 01/14/17 at 21:00 Lactobacillus Acidophilus (Florajen3 Capsule) 1 each BID PO Last administered on 01/25/17 09:00; Admin Dose 1 EACH; Start 01/14/17 at 21:00 Enoxaparin Sodium (Lovenox) 40 mg DAILY SC Last administered on 01/25/17 09:18 ; Admin Dose 40 MG; Start 01/14/17 at 15:30 Miscellaneous Information (Pending Santyl Order For Wound Care) This patient hampton... PRN PRN XX WOUND CARE; Start 01/16/17 at 12:00 Collagenase (Santyl) 1 applic DAILY TOP Last administered on 01/25/17 09:18; Admin Dose 1 APPLIC; Start 01/16/17 at 13:00 Aspirin 325 mg 325 mg DAILY NGT Last administered on 01/25/17 08:59; Admin Dose 325 MG; Start 01/17/17 at 09:00 Dextrose (D5W) 1,000 ml @ 50 mls/hr Q20H IV Last administered on 01/25/17 06: 32; Admin Dose 50 MLS/HR; Start 01/18/17 at 12:30 Diagnostic Test (Pha) (Accu-Chek) 1 ea 02 XX Last administered on 01/24/17 04: 19; Admin Dose 1 EA; Start 01/24/17 at 02:00 Insulin Aspart (Novolog Insulin Pen) NOVOLOG *MODERATE* ALGORI... Q6 SC Last administered on 01/24/17 01:30; Admin Dose 2 UNIT; Start 01/23/17 at 18:00 Miscellaneous Information 1 ea NOTE XX ; Start 01/23/17 at 14:30 Glucose (Glutose) 15 gm Q15M PRN PO DECREASED GLUCOSE; Start 01/23/17 at 14:30 Glucose (Glutose) 22.5 gm Q15M PRN PO DECREASED GLUCOSE; Start 01/23/17 at 14: 30 Dextrose (D50w Syringe) 25 ml Q15M PRN IV DECREASED GLUCOSE; Start 01/23/17 at 14:30 Dextrose (D50w Syringe) 50 ml Q15M PRN IV DECREASED GLUCOSE; Start 01/23/17 at 14:30 Glucagon (Glucagen) 1 mg Q15M PRN IM DECREASED GLUCOSE; Start 01/23/17 at 14:30 Glucose (Glutose) 15 gm Q15M PRN BUCCAL DECREASED GLUCOSE; Start 01/23/17 at 14 :30 Furosemide (Lasix) 40 mg DAILY PO Last administered on 01/25/17 08:59; Admin Dose 40 MG; Start 01/25/17 at 09:00 Acetazolamide (Diamox) 500 mg DAILY IV Last administered on 01/25/17 09:00; Admin Dose 500 MG; Start 01/24/17 at 15:00 JONY ANDERS NP Jan 25, 2017 15:11
--- NOTE | 2017-01-25 16:01 | RADRPT ---
PROCEDURE: XR Chest. CLINICAL INDICATION: Aspiration. TECHNIQUE: Chest x-ray, single view. COMPARISON: CHEST 01/24/2017. FINDINGS: The cardiac silhouette is magnified and unchanged in size. A single ICD lead terminates within the e xpected location of the right ventricle. Low lung volumes are observed. Patchy parenchymal opacifi cation is seen within the right lung base and has increased since previous examination. A combinatio n of air space disease and atelectasis is suspected. The enteric tube has been removed. IMPRESSION: Low lung volumes with right basilar opacification, increased. A combination of air space disease and atelectasis is suspected. RPTAT: HLST .Penelope Oneal MD, MD Date Time Electronically viewed and signed by .Penelope Oneal MD, on 01/25/2017 16:01 .T/
--- NOTE | 2017-01-25 16:03 | CONS ---
Date/Time of Note Date/Time of Note DATE: 01/25/17 TIME: 16:01 Consult Date/Type/Reason Admit Date/Time Jan 14, 2017 at 10:52 Initial Consult Date 01/22/17 Type of Consultation: Pulmonary Ordering Provider: MARY FORREST MD Subjective Patient comfortable this morning. No new events Objective Vital Signs Date Time Temp Pulse Resp B/P Pulse Ox O2 Delivery O2 Flow Rate FiO2 01/25/17 15:30 98.1 68 20 112/66 99 01/25/17 14:47 8.0 01/25/17 14:28 40 01/24/17 20:00 Simple Mask Intake and Output 01/24/17 01/24/17 01/25/17 15:00 23:00 07:00 Intake Total 880 ml 880 ml 880 ml Output Total 900 ml 1200 ml 600 ml Balance -20 ml -320 ml 280 ml Exam GENERAL: Moderately obese gentleman comfortable at rest no acute distress VITAL SIGNS: per chart NECK: Supple. No JVD or lymphadenopathy. CARDIAC EXAM: S1, S2. No added sounds or murmurs. CHEST: clear bilaterally, No added sounds, rales or wheezes ABDOMEN: Soft, nontender. No guarding or rebound. EXTREMITIES: No cyanosis, clubbing or edema. NEUROLOGIC: Generalized weakness. No focal deficits. Results/Medications Result Diagram: 01/25/17 0536 01/25/17 0536 Results 24 hrs Laboratory Tests Test 01/24/17 17:40 01/24/17 22:00 01/25/17 00:31 01/25/17 05:36 Bedside Glucose 135 127 Blood Gas Specimen Source Blood arterial Arterial Blood Date Drawn 01/24/2017 10:35:26 PM Arterial Blood pH (Temp corrected) 7.444 Arterial Blood pCO2 (Temp correct) 51.8 H Arterial Blood pO2 (Temp corrected) 67.3 L Arterial Blood HCO3 34.7 H Arterial Blood Base Excess 9.4 H Arterial Blood Oxygen Saturation 93.6 L Ernesto Test ACCEPTAB Arterial Blood Gas Puncture Site Right Radial Arterial Blood Carboxyhemoglobin 0.3 Arterial Blood Methemoglobin 0.3 Blood Gas A-a O2 Differential 158.3 H Oxyhemoglobin Percent 93.0 Total Hemoglobin 9.5 L Blood Gas Temperature 37.0 Blood Gas Respiration Rate 12.0 Blood Gas Actual Respiration Rate 18 Blood Gas Modality MASK - BIPAP FiO2 40.0 Blood Gas Pressure Support 7 Blood Gas IPAP/EPAP Ratio 15/8 Blood Gas Notified Whom RH Blood Gas Notified Time 01/24/2017 10:46:47 PM White Blood Count 9.0 Red Blood Count 3.65 L Hemoglobin 10.3 L Hematocrit 32.8 L Mean Corpuscular Volume 89.9 Mean Corpuscular Hemoglobin 28.2 L Mean Corpuscular Hemoglobin Concent 31.4 L Red Cell Distribution Width 16.4 H Platelet Count 176 Mean Platelet Volume 11.1 H Neutrophils % 75.8 Lymphocytes % 9.6 L Monocytes % 9.9 Eosinophils % 1.7 Basophils % 0.3 Nucleated Red Blood Cells % 0.0 Neutrophils # 6.8 Lymphocytes # 0.9 Monocytes # 0.9 Eosinophils # 0.2 Basophils # 0.0 Nucleated Red Blood Cells # 0.0 Sodium Level 136 Potassium Level 3.6 Chloride Level 95 L Carbon Dioxide Level 38 H Anion Gap 7 L Blood Urea Nitrogen 17 Creatinine 0.81 Glucose Level 124 Calcium Level 8.0 L Phosphorus Level 2.7 Magnesium Level 2.2 Test 01/25/17 06:31 01/25/17 12:30 Bedside Glucose 118 122 Medications Current Medications Ondansetron HCl (Zofran Inj) 4 mg Q6H PRN IV NAUSEA AND/OR VOMITING; Start at 14:30 Docusate Sodium (Colace) 100 mg Q12H PRN PO CONSTIPATION; Start 01/14/17 at 14 :30 Magnesium Hydroxide (Milk Of Mag) 30 ml DAILY PRN PO CONSTIPATION; Start 01/14 at 14:30 Pantoprazole (Protonix Tab) 40 mg DAILY@06 PO Last administered on 01/25/17 06 :32; Admin Dose 40 MG; Start 01/15/17 at 06:00 Acetaminophen (Tylenol Tab) 650 mg Q4 PRN PO PAIN AND OR ELEVATED TEMP; Start 01/14/17 at 14:30 Ascorbic Acid (Vitamin C) 500 mg DAILY PO Last administered on 01/25/17 09:00 ; Admin Dose 500 MG; Start 01/15/17 at 09:00 Atorvastatin Calcium (Lipitor) 10 mg QHS PO Last administered on 01/24/17 21: 54; Admin Dose 10 MG; Start 01/14/17 at 21:00 Carvedilol (Coreg) 12.5 mg BID PO Last administered on 01/25/17 08:59; Admin Dose 12.5 MG; Start 01/14/17 at 21:00 Cholecalciferol (Vitamin D) 1,000 unit DAILY PO Last administered on 01/25/17 09:00; Admin Dose 1,000 UNIT; Start 01/15/17 at 09:00 Multivitamins Therapeutic (Theragran) 1 tab DAILY PO Last administered on 09:00; Admin Dose 1 TAB; Start 01/15/17 at 09:00 Spironolactone (Aldactone) 25 mg DAILY PO Last administered on 01/25/17 08:59 ; Admin Dose 25 MG; Start 01/15/17 at 09:00 Tamsulosin HCl (Flomax) 0.4 mg HS PO Last administered on 01/24/17 21:54; Admin Dose 0.4 MG; Start 01/14/17 at 21:00 Lactobacillus Acidophilus (Florajen3 Capsule) 1 each BID PO Last administered on 01/25/17 09:00; Admin Dose 1 EACH; Start 01/14/17 at 21:00 Enoxaparin Sodium (Lovenox) 40 mg DAILY SC Last administered on 01/25/17 09:18 ; Admin Dose 40 MG; Start 01/14/17 at 15:30 Miscellaneous Information (Pending Santyl Order For Wound Care) This patient hampton... PRN PRN XX WOUND CARE; Start 01/16/17 at 12:00 Collagenase (Santyl) 1 applic DAILY TOP Last administered on 01/25/17 09:18; Admin Dose 1 APPLIC; Start 01/16/17 at 13:00 Aspirin 325 mg 325 mg DAILY NGT Last administered on 01/25/17 08:59; Admin Dose 325 MG; Start 01/17/17 at 09:00 Dextrose (D5W) 1,000 ml @ 50 mls/hr Q20H IV Last administered on 01/25/17 06: 32; Admin Dose 50 MLS/HR; Start 01/18/17 at 12:30 Diagnostic Test (Pha) (Accu-Chek) 1 ea 02 XX Last administered on 01/24/17 04: 19; Admin Dose 1 EA; Start 01/24/17 at 02:00 Insulin Aspart (Novolog Insulin Pen) NOVOLOG *MODERATE* ALGORI... Q6 SC Last administered on 01/24/17 01:30; Admin Dose 2 UNIT; Start 01/23/17 at 18:00 Miscellaneous Information 1 ea NOTE XX ; Start 01/23/17 at 14:30 Glucose (Glutose) 15 gm Q15M PRN PO DECREASED GLUCOSE; Start 01/23/17 at 14:30 Glucose (Glutose) 22.5 gm Q15M PRN PO DECREASED GLUCOSE; Start 01/23/17 at 14: 30 Dextrose (D50w Syringe) 25 ml Q15M PRN IV DECREASED GLUCOSE; Start 01/23/17 at 14:30 Dextrose (D50w Syringe) 50 ml Q15M PRN IV DECREASED GLUCOSE; Start 01/23/17 at 14:30 Glucagon (Glucagen) 1 mg Q15M PRN IM DECREASED GLUCOSE; Start 01/23/17 at 14:30 Glucose (Glutose) 15 gm Q15M PRN BUCCAL DECREASED GLUCOSE; Start 01/23/17 at 14 :30 Furosemide (Lasix) 40 mg DAILY PO Last administered on 01/25/17 08:59; Admin Dose 40 MG; Start 01/25/17 at 09:00 Acetazolamide (Diamox) 500 mg DAILY IV Last administered on 01/25/17 09:00; Admin Dose 500 MG; Start 01/24/17 at 15:00 Assessment/Plan Chief Complaint/Hosp Course Encourage out of bed if tolerated. IMP: 1. Acute on chronic hypoxemic/hypercapnic Resp Insufficiency. 2. CHF 3. FAM/OHS 4, Notable Metabolic Alkalosis--contraction related RECS: 1. Nocturnal BiPAP 2. Titrate FiO2 to SpO2 88-92 3. ICS 4. Encourage out of bed if tolerated Problems: EBONI PONCE [facility], [facility] Jan 25, 2017 16:03
--- NOTE | 2017-01-25 16:36 | CONS ---
Date/Time of Note Date/Time of Note DATE: 01/25/17 TIME: 16:35 Assessment/Plan Assessment/Plan Additional Assessment/Plan IMPRESSION: 1. Abnormal LFT, most probably related to fatty liver. Rule out bile duct stone, given the dilated biliary system. Patient is not a candidate for MRCP, given AICD. We will get a CAT scan of the abdomen and pelvis done. 2. Status post AICD. 3. Atrial fibrillation. 4. Diabetes mellitus. 5. Possible pneumonia. 6. Urinary tract infection. 7. Sacral wound. 8. Psychiatric disorder. 9. Dysphagia. 10. Obesity Plan Radiology department could not do a CAT scan of the abdomen and pelvis because of his weight MRCP is not possible because of AICD We will continue to monitor liver function tests PEG once he is more stable. Son is on 10 L of oxygen through Venturi mask. I will discuss with the forestry aid technician if cleared will proceed with PEG on Wednesday Consultation Date/Type/Reason Admit Date/Time Jan 14, 2017 at 10:52 Initial Consult Date 01/16/17 Type of Consultation: Pulmonary Referring Provider: MARY FORREST MD 24 HR Interval Summary Free Text/Dictation Patient is lethargic Exam/Review of Systems Vital Signs Vitals Vital Signs Date Time Temp Pulse Resp B/P Pulse Ox O2 Delivery O2 Flow Rate FiO2 01/25/17 15:30 98.1 68 20 112/66 99 01/25/17 14:47 8.0 01/25/17 14:28 40 01/24/17 20:00 Simple Mask Intake and Output 01/24/17 01/24/17 01/25/17 14:59 22:59 06:59 Intake Total 880 ml 880 ml Output Total 900 ml 1200 ml Balance -20 ml -320 ml Exam Constitutional: alert, oriented, well developed Psych: nl mood/affect, no complaints Head: atraumatic, normocephalic Eyes: EOMI, PERRL, nl conjunctiva, nl lids, nl sclera ENMT: nl external ears & nose, nl lips & teeth, nl nasal mucosa & septum Neck: non-tender, supple Respiratory: clear to auscultation, normal air movement Cardiovascular: nl pulses, regular rate and rhythm Gastrointestinal: nl liver, spleen, non-tender, soft Musculoskeletal: nl extremities to inspection, nl gait and stance Extremities: normal pulses Neurological: COOKER LOADER II-XII intact, nl mental status, nl speech, nl strength Skin: nl turgor, No rash or lesions Lymph: nl lymph nodes Results Result Diagram: 01/25/17 0536 01/25/17 0536 Results 24 hrs Laboratory Tests Test 01/24/17 17:40 01/24/17 22:00 01/25/17 00:31 01/25/17 05:36 Bedside Glucose 135 127 Blood Gas Specimen Source Blood arterial Arterial Blood Date Drawn 01/24/2017 10:35:26 PM Arterial Blood pH (Temp corrected) 7.444 Arterial Blood pCO2 (Temp correct) 51.8 H Arterial Blood pO2 (Temp corrected) 67.3 L Arterial Blood HCO3 34.7 H Arterial Blood Base Excess 9.4 H Arterial Blood Oxygen Saturation 93.6 L Ernesto Test ACCEPTAB Arterial Blood Gas Puncture Site Right Radial Arterial Blood Carboxyhemoglobin 0.3 Arterial Blood Methemoglobin 0.3 Blood Gas A-a O2 Differential 158.3 H Oxyhemoglobin Percent 93.0 Total Hemoglobin 9.5 L Blood Gas Temperature 37.0 Blood Gas Respiration Rate 12.0 Blood Gas Actual Respiration Rate 18 Blood Gas Modality MASK - BIPAP FiO2 40.0 Blood Gas Pressure Support 7 Blood Gas IPAP/EPAP Ratio 15/8 Blood Gas Notified Whom RH Blood Gas Notified Time 01/24/2017 10:46:47 PM White Blood Count 9.0 Red Blood Count 3.65 L Hemoglobin 10.3 L Hematocrit 32.8 L Mean Corpuscular Volume 89.9 Mean Corpuscular Hemoglobin 28.2 L Mean Corpuscular Hemoglobin Concent 31.4 L Red Cell Distribution Width 16.4 H Platelet Count 176 Mean Platelet Volume 11.1 H Neutrophils % 75.8 Lymphocytes % 9.6 L Monocytes % 9.9 Eosinophils % 1.7 Basophils % 0.3 Nucleated Red Blood Cells % 0.0 Neutrophils # 6.8 Lymphocytes # 0.9 Monocytes # 0.9 Eosinophils # 0.2 Basophils # 0.0 Nucleated Red Blood Cells # 0.0 Sodium Level 136 Potassium Level 3.6 Chloride Level 95 L Carbon Dioxide Level 38 H Anion Gap 7 L Blood Urea Nitrogen 17 Creatinine 0.81 Glucose Level 124 Calcium Level 8.0 L Phosphorus Level 2.7 Magnesium Level 2.2 Test 01/25/17 06:31 01/25/17 12:30 Bedside Glucose 118 122 Medications Medications Current Medications Ondansetron HCl (Zofran Inj) 4 mg Q6H PRN IV NAUSEA AND/OR VOMITING; Start at 14:30 Docusate Sodium (Colace) 100 mg Q12H PRN PO CONSTIPATION; Start 01/14/17 at 14 :30 Magnesium Hydroxide (Milk Of Mag) 30 ml DAILY PRN PO CONSTIPATION; Start 01/14 at 14:30 Pantoprazole (Protonix Tab) 40 mg DAILY@06 PO Last administered on 01/25/17 06 :32; Admin Dose 40 MG; Start 01/15/17 at 06:00 Acetaminophen (Tylenol Tab) 650 mg Q4 PRN PO PAIN AND OR ELEVATED TEMP; Start 01/14/17 at 14:30 Ascorbic Acid (Vitamin C) 500 mg DAILY PO Last administered on 01/25/17 09:00 ; Admin Dose 500 MG; Start 01/15/17 at 09:00 Atorvastatin Calcium (Lipitor) 10 mg QHS PO Last administered on 01/24/17 21: 54; Admin Dose 10 MG; Start 01/14/17 at 21:00 Carvedilol (Coreg) 12.5 mg BID PO Last administered on 01/25/17 08:59; Admin Dose 12.5 MG; Start 01/14/17 at 21:00 Cholecalciferol (Vitamin D) 1,000 unit DAILY PO Last administered on 01/25/17 09:00; Admin Dose 1,000 UNIT; Start 01/15/17 at 09:00 Multivitamins Therapeutic (Theragran) 1 tab DAILY PO Last administered on 09:00; Admin Dose 1 TAB; Start 01/15/17 at 09:00 Spironolactone (Aldactone) 25 mg DAILY PO Last administered on 01/25/17 08:59 ; Admin Dose 25 MG; Start 01/15/17 at 09:00 Tamsulosin HCl (Flomax) 0.4 mg HS PO Last administered on 01/24/17 21:54; Admin Dose 0.4 MG; Start 01/14/17 at 21:00 Lactobacillus Acidophilus (Florajen3 Capsule) 1 each BID PO Last administered on 01/25/17 09:00; Admin Dose 1 EACH; Start 01/14/17 at 21:00 Enoxaparin Sodium (Lovenox) 40 mg DAILY SC Last administered on 01/25/17 09:18 ; Admin Dose 40 MG; Start 01/14/17 at 15:30 Miscellaneous Information (Pending Santyl Order For Wound Care) This patient hampton... PRN PRN XX WOUND CARE; Start 01/16/17 at 12:00 Collagenase (Santyl) 1 applic DAILY TOP Last administered on 01/25/17 09:18; Admin Dose 1 APPLIC; Start 01/16/17 at 13:00 Aspirin 325 mg 325 mg DAILY NGT Last administered on 01/25/17 08:59; Admin Dose 325 MG; Start 01/17/17 at 09:00 Dextrose (D5W) 1,000 ml @ 50 mls/hr Q20H IV Last administered on 01/25/17 06: 32; Admin Dose 50 MLS/HR; Start 01/18/17 at 12:30 Diagnostic Test (Pha) (Accu-Chek) 1 ea 02 XX Last administered on 01/24/17 04: 19; Admin Dose 1 EA; Start 01/24/17 at 02:00 Insulin Aspart (Novolog Insulin Pen) NOVOLOG *MODERATE* ALGORI... Q6 SC Last administered on 01/24/17 01:30; Admin Dose 2 UNIT; Start 01/23/17 at 18:00 Miscellaneous Information 1 ea NOTE XX ; Start 01/23/17 at 14:30 Glucose (Glutose) 15 gm Q15M PRN PO DECREASED GLUCOSE; Start 01/23/17 at 14:30 Glucose (Glutose) 22.5 gm Q15M PRN PO DECREASED GLUCOSE; Start 01/23/17 at 14: 30 Dextrose (D50w Syringe) 25 ml Q15M PRN IV DECREASED GLUCOSE; Start 01/23/17 at 14:30 Dextrose (D50w Syringe) 50 ml Q15M PRN IV DECREASED GLUCOSE; Start 01/23/17 at 14:30 Glucagon (Glucagen) 1 mg Q15M PRN IM DECREASED GLUCOSE; Start 01/23/17 at 14:30 Glucose (Glutose) 15 gm Q15M PRN BUCCAL DECREASED GLUCOSE; Start 01/23/17 at 14 :30 Furosemide (Lasix) 40 mg DAILY PO Last administered on 01/25/17 08:59; Admin Dose 40 MG; Start 01/25/17 at 09:00 Acetazolamide (Diamox) 500 mg DAILY IV Last administered on 01/25/17 09:00; Admin Dose 500 MG; Start 01/24/17 at 15:00 HERRERA ELLIS MD Jan 25, 2017 16:36
[2017-01-25] MEDS: ATORVASTATIN 10 MG TAB PO SCH (21:00)
[2017-01-25] MEDS: TAMSULOSIN (SR) 0.4 MG CAP PO SCH (21:00)
--- NOTE | 2017-01-25 21:52 | PN ---
DATE: 01/24/2017 HISTORY OF PRESENT ILLNESS: A 66-year-old gentleman with a history of atrial fibrillation status po st AICD, psychiatric disorder, pneumonia. He is mentally obtunded. OBJECTIVE: GENERAL: The patient is lethargic. VITAL SIGNS: Stable. ABDOMEN: Morbidly obese. LUNGS: Diminished air entry. EXTREMITIES: No edema. LABORATORY DATA: WBC 7.6, hematocrit is 32.7. BNP was grossly within normal limits. IMPRESSION: 1. Morbid obesity. 2. Status post automatic implantable cardioverter-defibrillator. 3. Dysphagia, being fed through the nasogastric tube. 4. Mental obtundation. 5. Pneumonia. 6. Psychiatric disorder. 7. Benign prostatic hypertrophy. 8. Obstructive sleep apnea. PLAN: Continue BiPAP. Continue supplemental oxygen. Weight loss. Continue present care and once he is more stable, will proceed with placement of a G-tube. Dictated By: HERRERA HARGROVE/NTS Conf#: [id number] DID#: [id number] CC: MARY FORREST MD;*EndCC*
[2017-01-26] VITALS (24 sets, daily range): BP systolic 106–117; BP diastolic 59–74; PULSE 66–89; RESP 15–20
[2017-01-26] MEDS: INSULIN ASPART [NOVOLOG] 3 ML PEN SC SCH ×5 (01:00→23:45)
[2017-01-26] MEDS: DEXTROSE 5% 1,000 ML IV SCH ×2 (01:16→21:28)
[2017-01-26] MEDS: ALBUTEROL/IPRATROPIUM (NEB) 3 ML AMP NEB PRN ×4 (01:52→20:06)
[2017-01-26] MEDS: ACETYLCYSTEINE 20% 4 ML VIAL NEB SCH ×4 (01:52→20:06)
[2017-01-26] MEDS: ACCU-CHEK XX SCH (02:00)
--- NOTE | 2017-01-26 04:14 | RADRPT ---
PROCEDURE: CT Brain without contrast. CLINICAL INDICATION: Persistent encephalopathy. TECHNIQUE: A CT of the brain was performed utilizing axial imaging from the skull base through the vertex without IV contrast. Multiplanar reformatted images were made. Images were reviewed on a [employer] workstation. The CTDIvol is 45.01 mGy and the DLP is 810.25 mGycm. DICOM images are available. One or more of the following dose reduction techniques were utilized: 1.) Automated exposure control 2.) Adjustment of the mA +/- kV according to patient's size 3.) Use of iterative reconstruction technique. COMPARISON: None FINDINGS: Mild chronic changes of atrophy and small vessel disease of white matter. There is no intracranial hemorrhage, mass effect, or midline shift. No extra-axial fluid collection is seen. The ventricles and sulci are otherwise normal in size and configuration. The density of th e brain is otherwise normal, and the clemente white matter differentiation appears well-preserved. The visualized paranasal sinuses and osseous structures are grossly unremarkable. IMPRESSION: 1. Mild chronic changes of atrophy and small vessel disease white matter. 2. Otherwise, no evident acute process in the head. RPTAT: [facility] Physician Blaze Date Time Electronically viewed and signed by Physician Blaze on 01/26/2017 04:13 RS/
[2017-01-26] MEDS: PANTOPRAZOLE (EC) 40 MG TAB PO SCH (06:00)
[2017-01-26 07:21] LABS: CALCIUM 8.3 mg/dl (8.4-10.2); CREATININE 0.72 mg/dl (0.61-1.24); POTASSIUM 3.6 mmol/L (3.5-5.1)
[2017-01-26 07:23] LABS: MAGNESIUM 2.1 mg/dl (1.7-2.5); PHOSPHORUS 3.1 mg/dl (2.5-4.9)
[2017-01-26] MEDS: ACETAZOLAMIDE 500 MG INJ IV SCH (09:00)
[2017-01-26] MEDS: SPIRONOLACTONE 25 MG TAB PO SCH (09:00)
[2017-01-26] MEDS: ASCORBIC ACID 500 MG TAB PO SCH (09:00)
[2017-01-26] MEDS: ASPIRIN 325 MG TAB NGT SCH (09:00)
[2017-01-26] MEDS: L ACIDOPHIL/B LACTIS/B LONGUM CAPSULE PO SCH ×2 (09:00→21:00)
[2017-01-26] MEDS: MULTIVITAMINS THERAPEUTIC TAB PO SCH (09:00)
[2017-01-26] MEDS: FUROSEMIDE 40 MG TAB PO SCH (09:00)
[2017-01-26] MEDS: CHOLECALCIFEROL 1,000 UNIT TAB PO SCH (09:00)
--- NOTE | 2017-01-26 11:07 | CONS ---
Date/Time of Note Date/Time of Note DATE: 01/26/17 TIME: 11:06 Consult Date/Type/Reason Admit Date/Time Jan 14, 2017 at 10:52 Initial Consult Date 01/22/17 Type of Consultation: Pulmonary Ordering Provider: MARY FORREST MD Subjective Patient awake alert and oriented this morning on BiPAP. Objective Vital Signs Date Time Temp Pulse Resp B/P Pulse Ox O2 Delivery O2 Flow Rate FiO2 01/26/17 09:55 70 100 40 01/26/17 07:53 16 115/63 01/26/17 04:23 98.3 01/26/17 01:56 6.0 01/25/17 22:30 Simple Mask Intake and Output 01/25/17 01/25/17 01/26/17 14:59 22:59 06:59 Intake Total 880 ml 360 ml Output Total 600 ml 1700 ml 1000 ml Balance 280 ml -1340 ml -1000 ml Exam GENERAL: Moderately obese gentleman comfortable at rest no acute distress currently on BiPAP. VITAL SIGNS: per chart NECK: Supple. No JVD or lymphadenopathy. CARDIAC EXAM: S1, S2. No added sounds or murmurs. CHEST: clear bilaterally, No added sounds, rales or wheezes ABDOMEN: Soft, nontender. No guarding or rebound. EXTREMITIES: No cyanosis, clubbing or edema. NEUROLOGIC: Generalized weakness. No focal deficits. Currently on BiPAP. Results/Medications Result Diagram: 01/25/17 0536 01/26/17 0607 Results 24 hrs Laboratory Tests Test 01/25/17 12:30 01/25/17 17:11 01/26/17 01:14 01/26/17 06:07 Bedside Glucose 122 108 97 White Blood Count Pending Red Blood Count Pending Hemoglobin Pending Hematocrit Pending Mean Corpuscular Volume Pending Mean Corpuscular Hemoglobin Pending Mean Corpuscular Hemoglobin Concent Pending Red Cell Distribution Width Pending Platelet Count Pending Mean Platelet Volume Pending Sodium Level 134 L Potassium Level 3.6 Chloride Level 94 L Carbon Dioxide Level 35 H Anion Gap 9 Blood Urea Nitrogen 14 Creatinine 0.72 Glucose Level 93 Calcium Level 8.3 L Phosphorus Level 3.1 Magnesium Level 2.1 Test 01/26/17 06:27 Bedside Glucose 145 Medications Current Medications Ondansetron HCl (Zofran Inj) 4 mg Q6H PRN IV NAUSEA AND/OR VOMITING; Start at 14:30 Docusate Sodium (Colace) 100 mg Q12H PRN PO CONSTIPATION; Start 01/14/17 at 14 :30 Magnesium Hydroxide (Milk Of Mag) 30 ml DAILY PRN PO CONSTIPATION; Start 01/14 at 14:30 Pantoprazole (Protonix Tab) 40 mg DAILY@06 PO Last administered on 01/25/17 06 :32; Admin Dose 40 MG; Start 01/15/17 at 06:00 Acetaminophen (Tylenol Tab) 650 mg Q4 PRN PO PAIN AND OR ELEVATED TEMP; Start 01/14/17 at 14:30 Ascorbic Acid (Vitamin C) 500 mg DAILY PO Last administered on 01/25/17 09:00 ; Admin Dose 500 MG; Start 01/15/17 at 09:00 Atorvastatin Calcium (Lipitor) 10 mg QHS PO Last administered on 01/24/17 21: 54; Admin Dose 10 MG; Start 01/14/17 at 21:00 Carvedilol (Coreg) 12.5 mg BID PO Last administered on 01/25/17 08:59; Admin Dose 12.5 MG; Start 01/14/17 at 21:00 Cholecalciferol (Vitamin D) 1,000 unit DAILY PO Last administered on 01/25/17 09:00; Admin Dose 1,000 UNIT; Start 01/15/17 at 09:00 Multivitamins Therapeutic (Theragran) 1 tab DAILY PO Last administered on 09:00; Admin Dose 1 TAB; Start 01/15/17 at 09:00 Spironolactone (Aldactone) 25 mg DAILY PO Last administered on 01/25/17 08:59 ; Admin Dose 25 MG; Start 01/15/17 at 09:00 Tamsulosin HCl (Flomax) 0.4 mg HS PO Last administered on 01/24/17 21:54; Admin Dose 0.4 MG; Start 01/14/17 at 21:00 Lactobacillus Acidophilus (Florajen3 Capsule) 1 each BID PO Last administered on 01/25/17 09:00; Admin Dose 1 EACH; Start 01/14/17 at 21:00 Enoxaparin Sodium (Lovenox) 40 mg DAILY SC Last administered on 01/25/17 09:18 ; Admin Dose 40 MG; Start 01/14/17 at 15:30 Miscellaneous Information (Pending Santyl Order For Wound Care) This patient hampton... PRN PRN XX WOUND CARE; Start 01/16/17 at 12:00 Collagenase (Santyl) 1 applic DAILY TOP Last administered on 01/25/17 09:18; Admin Dose 1 APPLIC; Start 01/16/17 at 13:00 Aspirin 325 mg 325 mg DAILY NGT Last administered on 01/25/17 08:59; Admin Dose 325 MG; Start 01/17/17 at 09:00 Dextrose (D5W) 1,000 ml @ 50 mls/hr Q20H IV Last administered on 01/26/17 01: 16; Admin Dose 50 MLS/HR; Start 01/18/17 at 12:30 Diagnostic Test (Pha) (Accu-Chek) 1 ea 02 XX Last administered on 01/26/17 02: 00; Admin Dose 1 EA; Start 01/24/17 at 02:00 Insulin Aspart (Novolog Insulin Pen) NOVOLOG *MODERATE* ALGORI... Q6 SC Last administered on 01/24/17 01:30; Admin Dose 2 UNIT; Start 01/23/17 at 18:00 Miscellaneous Information 1 ea NOTE XX ; Start 01/23/17 at 14:30 Glucose (Glutose) 15 gm Q15M PRN PO DECREASED GLUCOSE; Start 01/23/17 at 14:30 Glucose (Glutose) 22.5 gm Q15M PRN PO DECREASED GLUCOSE; Start 01/23/17 at 14: 30 Dextrose (D50w Syringe) 25 ml Q15M PRN IV DECREASED GLUCOSE; Start 01/23/17 at 14:30 Dextrose (D50w Syringe) 50 ml Q15M PRN IV DECREASED GLUCOSE; Start 01/23/17 at 14:30 Glucagon (Glucagen) 1 mg Q15M PRN IM DECREASED GLUCOSE; Start 01/23/17 at 14:30 Glucose (Glutose) 15 gm Q15M PRN BUCCAL DECREASED GLUCOSE; Start 01/23/17 at 14 :30 Furosemide (Lasix) 40 mg DAILY PO Last administered on 01/25/17 08:59; Admin Dose 40 MG; Start 01/25/17 at 09:00 Acetazolamide (Diamox) 500 mg DAILY IV Last administered on 01/25/17t 09:00; Admin Dose 500 MG; Start 01/24/17 at 15:00 Assessment/Plan Chief Complaint/Hosp Course IMP: 1. Acute on chronic hypoxemic/hypercapnic Resp Insufficiency. 2. CHF 3. FAM/OHS 4, Notable Metabolic Alkalosis--contraction related RECS: 1. Nocturnal BiPAP, ENCOURAGE OFF DURING DAY. 2. Titrate FiO2 to SpO2 88-92 3. ICS 4. Encourage out of bed if tolerated Consider [facility]. Problems: EBONI PONCE MD, [facility] Jan 26, 2017 11:07
--- NOTE | 2017-01-26 11:18 | CONS ---
Date/Time of Note Date/Time of Note DATE: 01/26/17 TIME: : Assessment/Plan Assessment/Plan Additional Assessment/Plan 1. Congestive heart failure. The patient has heart failure, systolic, acute on chronic. Will continue to adjust therapy as necessary, now patient appears to be responding somewhat to diuresis. Continue to monitor. Con't diuresis as tolerated. GOOD URINE OUTPUT. EF normalized by latest ECHO. BETTER now - lasix held with contraction alkalosis 2. Hypernatremia, etiology is unclear. Dr. Heath follows. Will defer to Dr. Heath.- stable 3. Implantable cardioverter defibrillator. The patient has history of ICD. The device was interrogated in the last 3 months in my office with good function. No further risk stratification needed.GOOD fxn - intermitted pacing 4. Supraventricular tachycardia. The patient with SVTs, likely atrial tachycardias. Continue to monitor now. Continue to replace electrolytes. Per report: A. Fib with RVR last night - added dig and coreg - will increase therapy as tolerated. i reviewed rhytym strip - dificult tracing, maybe sinus tach with PAC - will hold off on global anti-coag now. 5. Hypokalemia. Continue to replace potassium as needed.REPLACE NOW. Consultation Date/Type/Reason Admit Date/Time Jan 14, 2017 at 10:52 Type of Consultation: Pulmonary Referring Provider: MARY HEATH MD 24 HR Interval Summary Free Text/Dictation No acute events - intermittent pacing noted on tele ROS: No fever, no chills, no nausea, no vomiting, no diarrhea/constipation No recent weight changes No chest pain, no PND, no orthopnea No dizziness, blurred vision No thirst, no heat or cold intolerance Exam/Review of Systems Vital Signs Vitals Vital Signs Date Time Temp Pulse Resp B/P Pulse Ox O2 Delivery O2 Flow Rate FiO2 01/26/17 09:55 70 100 40 01/26/17 07:53 16 115/63 01/26/17 04:23 98.3 01/26/17 01:56 6.0 01/25/17 22:30 Simple Mask Intake and Output 01/25/17 01/25/17 01/26/17 15:00 23:00 07:00 Intake Total 360 ml Output Total 1700 ml 1000 ml Balance -1340 ml -1000 ml Exam General: WN/WD/NAD, AOx comfortable HEENT: Unicetric/atraumatic/EOMI (does not follow commands) NECK: JVD elevated, no thyromegaly Lymph: no lymphadenopathy HEART: regular with no S3, II/ systolic murmur at apex, ICD LUNGS: Coarse sounds ABD: soft, NT, ND, +BS : Intact Neuro: non focal SKIN: chronic changes EXT: trace edema Results Result Diagram: 01/25/17 0536 01/26/17 0607 Results 24 hrs Laboratory Tests Test 01/25/17 12:30 01/25/17 17:11 01/26/17 01:14 01/26/17 06:07 Bedside Glucose 122 108 97 White Blood Count Pending Red Blood Count Pending Hemoglobin Pending Hematocrit Pending Mean Corpuscular Volume Pending Mean Corpuscular Hemoglobin Pending Mean Corpuscular Hemoglobin Concent Pending Red Cell Distribution Width Pending Platelet Count Pending Mean Platelet Volume Pending Sodium Level 134 L Potassium Level 3.6 Chloride Level 94 L Carbon Dioxide Level 35 H Anion Gap 9 Blood Urea Nitrogen 14 Creatinine 0.72 Glucose Level 93 Calcium Level 8.3 L Phosphorus Level 3.1 Magnesium Level 2.1 Test 01/26/17 06:27 Bedside Glucose 145 Medications Medications Current Medications Ondansetron HCl (Zofran Inj) 4 mg Q6H PRN IV NAUSEA AND/OR VOMITING; Start at 14:30 Docusate Sodium (Colace) 100 mg Q12H PRN PO CONSTIPATION; Start 01/14/17 at 14 :30 Magnesium Hydroxide (Milk Of Mag) 30 ml DAILY PRN PO CONSTIPATION; Start 01/14 at 14:30 Pantoprazole (Protonix Tab) 40 mg DAILY@06 PO Last administered on 01/25/17 06 :32; Admin Dose 40 MG; Start 01/15/17 at 06:00 Acetaminophen (Tylenol Tab) 650 mg Q4 PRN PO PAIN AND OR ELEVATED TEMP; Start 01/14/17 at 14:30 Ascorbic Acid (Vitamin C) 500 mg DAILY PO Last administered on 01/25/17 09:00 ; Admin Dose 500 MG; Start 01/15/17 at 09:00 Atorvastatin Calcium (Lipitor) 10 mg QHS PO Last administered on 01/24/17 21: 54; Admin Dose 10 MG; Start 01/14/17 at 21:00 Carvedilol (Coreg) 12.5 mg BID PO Last administered on 01/25/17 08:59; Admin Dose 12.5 MG; Start 01/14/17 at 21:00 Cholecalciferol (Vitamin D) 1,000 unit DAILY PO Last administered on 01/25/17 09:00; Admin Dose 1,000 UNIT; Start 01/15/17 at 09:00 Multivitamins Therapeutic (Theragran) 1 tab DAILY PO Last administered on 09:00; Admin Dose 1 TAB; Start 01/15/17 at 09:00 Spironolactone (Aldactone) 25 mg DAILY PO Last administered on 01/25/17 08:59 ; Admin Dose 25 MG; Start 01/15/17 at 09:00 Tamsulosin HCl (Flomax) 0.4 mg HS PO Last administered on 01/24/17 21:54; Admin Dose 0.4 MG; Start 01/14/17 at 21:00 Lactobacillus Acidophilus (Florajen3 Capsule) 1 each BID PO Last administered on 01/25/17 09:00; Admin Dose 1 EACH; Start 01/14/17 at 21:00 Enoxaparin Sodium (Lovenox) 40 mg DAILY SC Last administered on 01/25/17 09:18 ; Admin Dose 40 MG; Start 01/14/17 at 15:30 Miscellaneous Information (Pending Santyl Order For Wound Care) This patient hampton... PRN PRN XX WOUND CARE; Start 01/16/17 at 12:00 Collagenase (Santyl) 1 applic DAILY TOP Last administered on 01/25/17 09:18; Admin Dose 1 APPLIC; Start 01/16/17 at 13:00 Aspirin 325 mg 325 mg DAILY NGT Last administered on 01/25/17 08:59; Admin Dose 325 MG; Start 01/17/17 at 09:00 Dextrose (D5W) 1,000 ml @ 50 mls/hr Q20H IV Last administered on 01/26/17 01: 16; Admin Dose 50 MLS/HR; Start 01/18/17 at 12:30 Diagnostic Test (Pha) (Accu-Chek) 1 ea 02 XX Last administered on 01/26/17 02: 00; Admin Dose 1 EA; Start 01/24/17 at 02:00 Insulin Aspart (Novolog Insulin Pen) NOVOLOG *MODERATE* ALGORI... Q6 SC Last administered on 01/24/17 01:30; Admin Dose 2 UNIT; Start 01/23/17 at 18:00 Miscellaneous Information 1 ea NOTE XX ; Start 01/23/17 at 14:30 Glucose (Glutose) 15 gm Q15M PRN PO DECREASED GLUCOSE; Start 01/23/17 at 14:30 Glucose (Glutose) 22.5 gm Q15M PRN PO DECREASED GLUCOSE; Start 01/23/17 at 14: 30 Dextrose (D50w Syringe) 25 ml Q15M PRN IV DECREASED GLUCOSE; Start 01/23/17 at 14:30 Dextrose (D50w Syringe) 50 ml Q15M PRN IV DECREASED GLUCOSE; Start 01/23/17 at 14:30 Glucagon (Glucagen) 1 mg Q15M PRN IM DECREASED GLUCOSE; Start 01/23/17 at 14:30 Glucose (Glutose) 15 gm Q15M PRN BUCCAL DECREASED GLUCOSE; Start 01/23/17 at 14 :30 Furosemide (Lasix) 40 mg DAILY PO Last administered on 01/25/17 08:59; Admin Dose 40 MG; Start 01/25/17 at 09:00 Acetazolamide (Diamox) 500 mg DAILY IV Last administered on 01/25/17 09:00; Admin Dose 500 MG; Start 01/24/17 at 15:00 LAM GONZALEZ MD Jan 26, 2017 11:18
[2017-01-26] MEDS: COLLAGENASE 30 GM TUBE TOP SCH (11:31)
[2017-01-26] MEDS: ENOXAPARIN 40 MG/0.4 ML SYG SC SCH (11:43)
--- NOTE | 2017-01-26 13:13 | CONS ---
Date/Time of Note Date/Time of Note DATE: 01/26/17 TIME: 13:12 Assessment/Plan Assessment/Plan Chief Complaint/Hosp Course SUBJECTIVE: On BiPAP, awake, looks comfortable. No fevers MICROBIOLOGY: Blood culture on admission grew coag negative staph species. Repeat blood cultures negative. ANTIMICROBIALS: none INDWELLINGS: NG tube, Nielsen catheter. PHYSICAL EXAMINATION: GENERAL: This is a chronically ill-appearing, obese elderly man who is in no distress. The patient is lethargic but arousable and follows simple commands. HEAD: Atraumatic, normocephalic. Sclerae anicteric. NECK: Obese. CHEST: Rise symmetrical. Breath sounds diminished to bases. HEART: S1, S2. ABDOMEN: Soft, bowel tones present. EXTREMITIES: Without cyanosis. Bilateral lower extremity edema. ASSESSMENT: 1. Status post septic shock. 2. Encephalopathy. 3. Proteus mirabilis urinary tract infection==> treated. 4. Coagulase-negative Staphylococcus bacteremia, cw contaminant, repeat blood cultures negative. 5. Sacral decubitus with wound culture growing Klebsiella, Enterococcus, coagulase-negative Staphylococcus species and Proteus mirabilis. 6. Resolving pneumonia, sputum culture grew yeast, not Meghana albicans 7. Diabetes. 8. History of recent Clostridium difficile colitis, patient remains on oral vancomycin. 9. Abnormal liver function tests, gastroenterology on case. 10. Coronary artery disease with atrial fibrillation, status post automatic implantable cardioverter-defibrillator. PLAN: Patient remains stable, off antibiotics, continue present care, aspiration precautions, pulmonary/cardiology recommendations [facility] staff Problems: Consultation Date/Type/Reason Admit Date/Time Jan 14, 2017 at 10:52 Initial Consult Date 01/16/17 Type of Consultation: ID Referring Provider: MARY FORREST MD Exam/Review of Systems Vital Signs Vitals Vital Signs Date Time Temp Pulse Resp B/P Pulse Ox O2 Delivery O2 Flow Rate FiO2 01/26/17 12:06 70 01/26/17 11:22 99 40 01/26/17 11:18 97.6 15 110/73 01/26/17 01:56 6.0 01/25/17 22:30 Simple Mask Intake and Output 01/25/17 01/25/17 01/26/17 15:00 23:00 07:00 Intake Total 360 ml Output Total 1700 ml 1000 ml Balance -1340 ml -1000 ml Results Result Diagram: 12/4/17 0536 01/26/17 0607 Results 24 hrs Laboratory Tests Test 01/25/17 17:11 01/26/17 01:14 01/26/17 06:07 01/26/17 06:27 Bedside Glucose 108 97 145 White Blood Count Pending Red Blood Count Pending Hemoglobin Pending Hematocrit Pending Mean Corpuscular Volume Pending Mean Corpuscular Hemoglobin Pending Mean Corpuscular Hemoglobin Concent Pending Red Cell Distribution Width Pending Platelet Count Pending Mean Platelet Volume Pending Sodium Level 134 L Potassium Level 3.6 Chloride Level 94 L Carbon Dioxide Level 35 H Anion Gap 9 Blood Urea Nitrogen 14 Creatinine 0.72 Glucose Level 93 Calcium Level 8.3 L Phosphorus Level 3.1 Magnesium Level 2.1 Test 01/26/17 11:59 Bedside Glucose 125 Medications Medications Current Medications Ondansetron HCl (Zofran Inj) 4 mg Q6H PRN IV NAUSEA AND/OR VOMITING; Start at 14:30 Docusate Sodium (Colace) 100 mg Q12H PRN PO CONSTIPATION; Start 01/14/17 at 14 :30 Magnesium Hydroxide (Milk Of Mag) 30 ml DAILY PRN PO CONSTIPATION; Start 01/14 at 14:30 Pantoprazole (Protonix Tab) 40 mg DAILY@06 PO Last administered on 01/25/17 06 :32; Admin Dose 40 MG; Start 01/15/17 at 06:00 Acetaminophen (Tylenol Tab) 650 mg Q4 PRN PO PAIN AND OR ELEVATED TEMP; Start 01/14/17 at 14:30 Ascorbic Acid (Vitamin C) 500 mg DAILY PO Last administered on 01/25/17 09:00 ; Admin Dose 500 MG; Start 01/15/17 at 09:00 Atorvastatin Calcium (Lipitor) 10 mg QHS PO Last administered on 01/24/17 21: 54; Admin Dose 10 MG; Start 01/14/17 at 21:00 Carvedilol (Coreg) 12.5 mg BID PO Last administered on 01/25/17 08:59; Admin Dose 12.5 MG; Start 01/14/17 at 21:00 Cholecalciferol (Vitamin D) 1,000 unit DAILY PO Last administered on 01/25/17 09:00; Admin Dose 1,000 UNIT; Start 01/15/17 at 09:00 Multivitamins Therapeutic (Theragran) 1 tab DAILY PO Last administered on 09:00; Admin Dose 1 TAB; Start 01/15/17 at 09:00 Spironolactone (Aldactone) 25 mg DAILY PO Last administered on 01/25/17 08:59 ; Admin Dose 25 MG; Start 01/15/17 at 09:00 Tamsulosin HCl (Flomax) 0.4 mg HS PO Last administered on 01/24/17 21:54; Admin Dose 0.4 MG; Start 01/14/17 at 21:00 Lactobacillus Acidophilus (Florajen3 Capsule) 1 each BID PO Last administered on 01/25/17 09:00; Admin Dose 1 EACH; Start 01/14/17 at 21:00 Enoxaparin Sodium (Lovenox) 40 mg DAILY SC Last administered on 01/26/17 11:43 ; Admin Dose 40 MG; Start 01/14/17 at 15:30 Miscellaneous Information (Pending Santyl Order For Wound Care) This patient hampton... PRN PRN XX WOUND CARE; Start 01/16/17 at 12:00 Collagenase (Santyl) 1 applic DAILY TOP Last administered on 01/26/17 11:31; Admin Dose 1 APPLIC; Start 01/16/17 at 13:00 Aspirin 325 mg 325 mg DAILY NGT Last administered on 01/25/17 08:59; Admin Dose 325 MG; Start 01/17/17 at 09:00 Dextrose (D5W) 1,000 ml @ 50 mls/hr Q20H IV Last administered on 01/26/17 01: 16; Admin Dose 50 MLS/HR; Start 01/18/17 at 12:30 Diagnostic Test (Pha) (Accu-Chek) 1 ea 02 XX Last administered on 01/26/17 02: 00; Admin Dose 1 EA; Start 01/24/17 at 02:00 Insulin Aspart (Novolog Insulin Pen) NOVOLOG *MODERATE* ALGORI... Q6 SC Last administered on 01/24/17 01:30; Admin Dose 2 UNIT; Start 01/23/17 at 18:00 Miscellaneous Information 1 ea NOTE XX ; Start 01/23/17 at 14:30 Glucose (Glutose) 15 gm Q15M PRN PO DECREASED GLUCOSE; Start 01/23/17 at 14:30 Glucose (Glutose) 22.5 gm Q15M PRN PO DECREASED GLUCOSE; Start 01/23/17 at 14: 30 Dextrose (D50w Syringe) 25 ml Q15M PRN IV DECREASED GLUCOSE; Start 01/23/17 at 14:30 Dextrose (D50w Syringe) 50 ml Q15M PRN IV DECREASED GLUCOSE; Start 01/23/17 at 14:30 Glucagon (Glucagen) 1 mg Q15M PRN IM DECREASED GLUCOSE; Start 01/23/17 at 14:30 Glucose (Glutose) 15 gm Q15M PRN BUCCAL DECREASED GLUCOSE; Start 01/23/17 at 14 :30 Furosemide (Lasix) 40 mg DAILY PO Last administered on 01/25/17 08:59; Admin Dose 40 MG; Start 01/25/17 at 09:00 Acetazolamide (Diamox) 500 mg DAILY IV Last administered on 01/26/17 09:00; Admin Dose 500 MG; Start 01/24/17 at 15:00 JONY ANDERS NP Jan 26, 2017 13:13
[2017-01-26 16:19] LABS: BASOPHILS % 0.3 % (0.0-2.0); EOSINOPHILS # 0.1 10^3/ul (0.0-0.5); EOSINOPHILS % 1.4 % (0.0-7.0); HEMATOCRIT 31.1 % (42.0-52.0); HEMOGLOBIN 10.1 g/dl (14.0-18.0); LYMPHOCYTES # 0.8 10^3/ul (0.8-2.9); LYMPHOCYTES % 11.7 % (15.0-51.0); MEAN CORPUSCULAR HEMOGLOBIN 29.1 pg (29.0-33.0); MEAN CORPUSCULAR HGB CONC 32.5 g/dl (32.0-37.0); MEAN CORPUSCULAR VOLUME 89.6 fl (82.0-101.0); MEAN PLATELET VOLUME 10.8 fl (7.4-10.4); MONOCYTE # 0.7 10^3/ul (0.3-0.9); MONOCYTES % 10.2 % (0.0-11.0); NEUTROPHIL # 4.9 10^3/ul (1.6-7.5); NEUTROPHILS % 74.3 % (39.0-77.0); PLATELET COUNT 167 10^3/UL (140-415); RED BLOOD COUNT 3.47 10^6/ul (4.70-6.10); RED CELL DISTRIBUTION WIDTH 16.4 % (11.5-14.5); WHITE BLOOD COUNT 6.6 10^3/ul (4.8-10.8)
--- NOTE | 2017-01-26 20:08 | PN ---
DATE: 01/26/2017 SUBJECTIVE: The patient seen. Remains on BiPAP. Case discussed with Dr. Oleary. The patient verena l be appropriate for possibly LTAC placement such as [facility]. NG tube was removed as the patient omaira eared to have food coming out of his mouth. So, now the NG tube it out. The patient is arousable b ut very still weak and lethargic. Breathing comfortably on BiPAP. PHYSICAL EXAMINATION: VITAL SIGNS: Temperature 98.1, pulse 65, respirations 18, blood pressure 108/59, saturation 98% on 40% FiO2. GENERAL: The patient is morbidly obese, frail, lying flat. The patient is pale. CARDIOVASCULAR: S1, S2. Distant heart sounds. LUNGS: Decreased bilaterally, otherwise clear. ABDOMEN: Soft, nontender. EXTREMITIES: Trace edema of lower extremities. LABORATORIES: CBC today is pending. Sodium 134, potassium 3.6, chloride 94, bicarb 35, BUN is 14, creatinine 0.72, glucose of 93. Urinalysis: +1 leukocyte esterase on presentation. Normal respira tory culture on 01/20. Chest x-ray dated yesterday shows low lung volume with right basilar opacifi cation increased, combination of airspace disease and atelectasis suspected. [facility] again yesterday, shows mild chronic changes of atrophy and small vessel disease in white matter; otherwise, no evidence of acute process. MEDICATIONS: Include: 1. Lasix 40 mg daily. 2. Diamox 500 IV daily. 3. Accu-Chek with meals and at bedtime, hypoglycemia protocol as directed. 4. Mucomyst every 6 hours. 5. Aspirin 325 daily. 6. Santyl daily. 7. Vitamin C 500 mg daily. 8. Vitamin D 1000 daily. 9. Multivitamin 1 tab daily. 10. Aldactone 25 daily. 11. Protonix 40 mg daily. 12. Lipitor 10 mg at bedtime. 13. Coreg 12.5 b.i.d. 14. Flomax 0.4 at bedtime. 15. Lactobacillus b.i.d. 16. Lovenox 40 mg subcutaneous daily. 17. Zofran p.r.n. 18. Colace p.r.n. 19. Milk of magnesia p.r.n. 20. DuoNeb p.r.n. 21. Tylenol p.r.n. ASSESSMENT AND PLAN: This is a 66-year-old male with history of congestive heart failure, automatic implantable cardioverter-defibrillator pacemaker, diabetes mellitus currently off medicat ions for diabetes who presented with encephalopathy, was found to be septic with pneumonia, urinary tract infection, sacral wound and possible bacteremia. 1. Respiratory: Remains quite lethargic. Continue BiPAP. Hopefully, we can titrate him off of it . Pulmonary is following. Consider [facility] evaluation for long-term acute care. 2. Cardiovascular: The patient with paroxysmal atrial fibrillation, not fully anticoagulated. The patient needs a gastrostomy tube. 3. Dysphagia: Awaiting gastrostomy tube placement when more stable. 4. Infectious disease: Off antibiotics. Status post treatment recently for Clostridium difficile, pneumonia, urinary tract infection, bacteremia, wound infection. 5. Tendency for congestive heart failure: Observe. On Diamox now. 6. Nutrition: If gastrostomy is not done soon, would put the nasogastric tube back in. 7. Benign prostatic hypertrophy: On Flomax. 8. Encephalopathy: Another CAT scan of the brain shows no significant new findings. Observe. Condition remains guarded. We will follow. Dictated By: MARY MONTERO/SHANTAL Conf#: [id number] DID#: [id number] CC: MARY FORREST MD;*End*
[2017-01-26] MEDS: ATORVASTATIN 10 MG TAB PO SCH (21:00)
[2017-01-26] MEDS: TAMSULOSIN (SR) 0.4 MG CAP PO SCH (21:00)
[2017-01-27] VITALS (17 sets, daily range): BP systolic 100–137; BP diastolic 55–74; PULSE 61–78; RESP 15–20
[2017-01-27] MEDS ORDERED: morphine 2 MG INJ IV PRN (00:30)
[2017-01-27] MEDS: morphine 2 MG INJ IV PRN ×2 (01:09→13:19)
[2017-01-27] MEDS: ACETYLCYSTEINE 20% 4 ML VIAL NEB SCH ×4 (01:27→20:16)
[2017-01-27] MEDS: ALBUTEROL/IPRATROPIUM (NEB) 3 ML AMP NEB PRN ×3 (01:27→20:16)
[2017-01-27] MEDS: ACCU-CHEK XX SCH (02:00)
[2017-01-27] MEDS: INSULIN ASPART [NOVOLOG] 3 ML PEN SC SCH ×3 (06:00→18:00)
[2017-01-27] MEDS: PANTOPRAZOLE (EC) 40 MG TAB PO SCH (06:00)
[2017-01-27] MEDS: ENOXAPARIN 40 MG/0.4 ML SYG SC SCH (08:50)
[2017-01-27] MEDS: ACETAZOLAMIDE 500 MG INJ IV SCH (08:51)
[2017-01-27] MEDS: FUROSEMIDE 40 MG TAB PO SCH (08:53)
[2017-01-27] MEDS: ASPIRIN 325 MG TAB NGT SCH (08:53)
[2017-01-27] MEDS: L ACIDOPHIL/B LACTIS/B LONGUM CAPSULE PO SCH ×2 (08:53→21:00)
[2017-01-27] MEDS: SPIRONOLACTONE 25 MG TAB PO SCH (08:53)
[2017-01-27] MEDS: COLLAGENASE 30 GM TUBE TOP SCH (08:54)
[2017-01-27] MEDS: MULTIVITAMINS THERAPEUTIC TAB PO SCH (08:54)
[2017-01-27] MEDS: CHOLECALCIFEROL 1,000 UNIT TAB PO SCH (08:54)
[2017-01-27] MEDS: ASCORBIC ACID 500 MG TAB PO SCH (08:55)
[2017-01-27 09:09] LABS: ABNORMAL IP MESSAGE 1; BASOPHILS % 0.2 % (0.0-2.0); EOSINOPHILS # 0.1 10^3/ul (0.0-0.5); EOSINOPHILS % 1.5 % (0.0-7.0); HEMATOCRIT 28.6 % (42.0-52.0); HEMOGLOBIN 9.4 g/dl (14.0-18.0); LYMPHOCYTES # 0.6 10^3/ul (0.8-2.9); LYMPHOCYTES % 10.1 % (15.0-51.0); MEAN CORPUSCULAR HEMOGLOBIN 28.7 pg (29.0-33.0); MEAN CORPUSCULAR HGB CONC 32.9 g/dl (32.0-37.0); MEAN CORPUSCULAR VOLUME 87.5 fl (82.0-101.0); MEAN PLATELET VOLUME 10.9 fl (7.4-10.4); MONOCYTE # 0.6 10^3/ul (0.3-0.9); MONOCYTES % 10.8 % (0.0-11.0); NEUTROPHIL # 4.4 10^3/ul (1.6-7.5); NEUTROPHILS % 75.3 % (39.0-77.0); PLATELET COUNT 165 10^3/UL (140-415); POSITIVE DIFF @See below; RED BLOOD COUNT 3.27 10^6/ul (4.70-6.10); RED CELL DISTRIBUTION WIDTH 16.3 % (11.5-14.5); WHITE BLOOD COUNT 5.8 10^3/ul (4.8-10.8)
[2017-01-27 09:37] LABS: ALBUMIN 2.6 g/dl (3.3-4.9); ALBUMIN/GLOBULIN RATIO 0.92; BILIRUBIN,INDIRECT 0.4 mg/dl (0-1.1); BILIRUBIN,TOTAL 0.4 mg/dl (0.2-1.3); CALCIUM 8.9 mg/dl (8.4-10.2); CREATININE 0.74 mg/dl (0.61-1.24); POTASSIUM 3.2 mmol/L (3.5-5.1); TOTAL PROTEIN 5.4 g/dl (6.1-8.1)
[2017-01-27 09:40] LABS: MAGNESIUM 2.1 mg/dl (1.7-2.5); PHOSPHORUS 3.5 mg/dl (2.5-4.9)
--- NOTE | 2017-01-27 10:04 | CONS ---
Date/Time of Note Date/Time of Note DATE: 01/27/17 TIME: 10:02 Assessment/Plan Assessment/Plan Chief Complaint/Hosp Course Pulmonary consult dictated [id number] Patient doing well on current treatment regimen. On account of hypercapnia patient would qualify for BiPAP device and would also benefit from a sleep study on an outpatient basis. Problems: Additional Assessment/Plan Assessment and recommendations; 1. Patient admitted with hypercapnic respiratory failure doing fairly well on BiPAP. 2. Underlying CHF. 3. Metabolic alkalosis due to volume contraction. 4. Underlying sleep apnea. 5. History of cardiac arrhythmia, status post pacemaker in the past. 6. Mild anemia and thrombocytopenia. 7. History of hypertension. 8. History of BPH. 9. History of schizophrenia. 10. Possibly mild right lower lobe pneumonia. Continue current treatment. Discontinue Diamox. Consultation Date/Type/Reason Admit Date/Time Jan 14, 2017 at 10:52 Initial Consult Date 01/22/17 Type of Consultation: Pulmonary Referring Provider: MARY FORREST MD 24 HR Interval Summary Free Text/Dictation Patient's condition is stable. Still requiring BiPAP intermittently. Shortness of breath is improving. Denies any chest pain, fever. General exam; elderly male, currently no distress. On BiPAP. Awake and alert. Exam/Review of Systems Vital Signs Vitals Vital Signs Date Time Temp Pulse Resp B/P Pulse Ox O2 Delivery O2 Flow Rate FiO2 01/27/17 09:44 70 98 40 01/27/17 07:55 98.2 15 120/72 01/26/17 01:56 6.0 01/25/17 22:30 Simple Mask Intake and Output 01/26/17 01/26/17 01/27/17 15:00 23:00 07:00 Intake Total 0 ml 600 ml Output Total 800 ml Balance -800 ml 600 ml Exam HEENT exam; supple neck, positive JVD. No lymphadenopathy. Midline trachea. No thyromegaly. Patient is edentulous. Pupils are small bilaterally. Chest exam; diminished breath sounds bilaterally. No added sounds. S1-S2 audible, no murmurs. Pacemaker in left chest wall. Abdomen exam; soft, protuberant. Nontender. No organomegaly. Bowel sounds audible. Extremity exam; trace peripheral edema. 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 Results Result Diagram: 12/6/17 0808 12/6/17 0808 Results 24 hrs Laboratory Tests Test 01/26/17 11:59 01/26/17 16:00 01/26/17 17:09 01/26/17 23:43 Bedside Glucose 125 93 82 White Blood Count 6.6 # Red Blood Count 3.47 L Hemoglobin 10.1 L Hematocrit 31.1 L Mean Corpuscular Volume 89.6 Mean Corpuscular Hemoglobin 29.1 Mean Corpuscular Hemoglobin Concent 32.5 Red Cell Distribution Width 16.4 H Platelet Count 167 Mean Platelet Volume 10.8 H Neutrophils % 74.3 Lymphocytes % 11.7 L Monocytes % 10.2 Eosinophils % 1.4 Basophils % 0.3 Nucleated Red Blood Cells % 0.0 Neutrophils # 4.9 Lymphocytes # 0.8 Monocytes # 0.7 Eosinophils # 0.1 Basophils # 0.0 Nucleated Red Blood Cells # 0.0 Test 01/27/17 06:28 01/27/17 08:08 Bedside Glucose 88 White Blood Count 5.8 Red Blood Count 3.27 L Hemoglobin 9.4 L Hematocrit 28.6 L Mean Corpuscular Volume 87.5 Mean Corpuscular Hemoglobin 28.7 L Mean Corpuscular Hemoglobin Concent 32.9 Red Cell Distribution Width 16.3 H Platelet Count 165 Mean Platelet Volume 10.9 H Neutrophils % 75.3 Lymphocytes % 10.1 L Monocytes % 10.8 Eosinophils % 1.5 Basophils % 0.2 Nucleated Red Blood Cells % 0.0 Neutrophils # 4.4 Lymphocytes # 0.6 L Monocytes # 0.6 Eosinophils # 0.1 Basophils # 0.0 Nucleated Red Blood Cells # 0.0 Sodium Level 132 L Potassium Level 3.2 L Chloride Level 94 L Carbon Dioxide Level 33 H Anion Gap 8 Blood Urea Nitrogen 10 Creatinine 0.74 Glucose Level 91 Calcium Level 8.9 Phosphorus Level 3.5 Magnesium Level 2.1 Total Bilirubin 0.4 Direct Bilirubin 0.00 Indirect Bilirubin 0.4 Aspartate Amino Transf (AST/SGOT) 29 Alanine Aminotransferase (ALT/SGPT) 51 Alkaline Phosphatase 119 Total Protein 5.4 L Albumin 2.6 L Globulin 2.80 Albumin/Globulin Ratio 0.92 Medications Medications Current Medications Ondansetron HCl (Zofran Inj) 4 mg Q6H PRN IV NAUSEA AND/OR VOMITING; Start at 14:30 Docusate Sodium (Colace) 100 mg Q12H PRN PO CONSTIPATION; Start 01/14/17 at 14 :30 Magnesium Hydroxide (Milk Of Mag) 30 ml DAILY PRN PO CONSTIPATION; Start 01/14 at 14:30 Pantoprazole (Protonix Tab) 40 mg DAILY@06 PO Last administered on 01/25/17 06 :32; Admin Dose 40 MG; Start 01/15/17 at 06:00 Acetaminophen (Tylenol Tab) 650 mg Q4 PRN PO PAIN AND OR ELEVATED TEMP; Start 01/14/17 at 14:30 Ascorbic Acid (Vitamin C) 500 mg DAILY PO Last administered on 01/25/17 09:00 ; Admin Dose 500 MG; Start 01/15/17 at 09:00 Atorvastatin Calcium (Lipitor) 10 mg QHS PO Last administered on 01/24/17 21: 54; Admin Dose 10 MG; Start 01/14/17 at 21:00 Carvedilol (Coreg) 12.5 mg BID PO Last administered on 01/25/17 08:59; Admin Dose 12.5 MG; Start 01/14/17 at 21:00 Cholecalciferol (Vitamin D) 1,000 unit DAILY PO Last administered on 01/25/17 09:00; Admin Dose 1,000 UNIT; Start 01/15/17 at 09:00 Multivitamins Therapeutic (Theragran) 1 tab DAILY PO Last administered on 09:00; Admin Dose 1 TAB; Start 01/15/17 at 09:00 Spironolactone (Aldactone) 25 mg DAILY PO Last administered on 01/25/17 08:59 ; Admin Dose 25 MG; Start 01/15/17 at 09:00 Tamsulosin HCl (Flomax) 0.4 mg HS PO Last administered on 01/24/17 21:54; Admin Dose 0.4 MG; Start 01/14/17 at 21:00 Lactobacillus Acidophilus (Florajen3 Capsule) 1 each BID PO Last administered on 01/25/17 09:00; Admin Dose 1 EACH; Start 01/14/17 at 21:00 Enoxaparin Sodium (Lovenox) 40 mg DAILY SC Last administered on 01/27/17 08:50 ; Admin Dose 40 MG; Start 01/14/17 at 15:30 Miscellaneous Information (Pending Santyl Order For Wound Care) This patient [place]... PRN PRN XX WOUND CARE; Start 01/16/17 at 12:00 Collagenase (Santyl) 1 applic DAILY TOP Last administered on 01/27/17 08:54; Admin Dose 1 APPLIC; Start 01/16/17 at 13:00 Aspirin 325 mg 325 mg DAILY NGT Last administered on 01/25/17 08:59; Admin Dose 325 MG; Start 01/17/17 at 09:00 Dextrose (D5W) 1,000 ml @ 50 mls/hr Q20H IV Last administered on 01/26/17 21: 28; Admin Dose 50 MLS/HR; Start 01/18/17 at 12:30 Diagnostic Test (Pha) (Accu-Chek) 1 ea 02 XX Last administered on 01/26/17 02: 00; Admin Dose 1 EA; Start 01/24/17 at 02:00 Insulin Aspart (Novolog Insulin Pen) NOVOLOG *MODERATE* ALGORI... Q6 SC Last administered on 01/24/17 01:30; Admin Dose 2 UNIT; Start 01/23/17 at 18:00 Miscellaneous Information 1 ea NOTE XX ; Start 01/23/17 at 14:30 Glucose (Glutose) 15 gm Q15M PRN PO DECREASED GLUCOSE; Start 01/23/17 at 14:30 Glucose (Glutose) 22.5 gm Q15M PRN PO DECREASED GLUCOSE; Start 01/23/17 at 14: 30 Dextrose (D50w Syringe) 25 ml Q15M PRN IV DECREASED GLUCOSE; Start 01/23/17 at 14:30 Dextrose (D50w Syringe) 50 ml Q15M PRN IV DECREASED GLUCOSE; Start 01/23/17 at 14:30 Glucagon (Glucagen) 1 mg Q15M PRN IM DECREASED GLUCOSE; Start 01/23/17 at 14:30 Glucose (Glutose) 15 gm Q15M PRN BUCCAL DECREASED GLUCOSE; Start 01/23/17 at 14 :30 Furosemide (Lasix) 40 mg DAILY PO Last administered on 01/25/17 08:59; Admin Dose 40 MG; Start 01/25/17 at 09:00 Acetazolamide (Diamox) 500 mg DAILY IV Last administered on 01/27/17 08:51; Admin Dose 500 MG; Start 12/3/17 at 15:00 Morphine Sulfate (morphine) 2 mg Q4H PRN IV PAIN LEVEL 7-10 Last administered on 01/27/17t 01:09; Admin Dose 2 MG; Start 01/27/17 at 01:30 NEYMAR MARCUS Jan 27, 2017 10:04
--- NOTE | 2017-01-27 11:56 | CONS ---
Date/Time of Note Date/Time of Note DATE: 01/27/17 TIME: 11:50 Assessment/Plan Assessment/Plan Chief Complaint/Hosp Course IMp: 1.SVT's- currently SR with PAC's. TSH WNL. Review of or prior strip reveal likely PAF short runs. Most recently c/w SR with PAC's 2.CHF-diastolic acute on chronic by echo this admit 3.HTN 4. 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 held -Contnue coreg -Continue abx's and f/u cx data -Continue statin -Continue asa/lovenox for now until placement of G tube and then will likely transition to eliquis Problems: Consultation Date/Type/Reason Admit Date/Time Jan 14, 2017 at 10:52 Initial Consult Date 01/16/17 Type of Consultation: cardiology Reason for Consultation SVT Referring Provider: MARY FORREST MD Exam/Review of Systems Vital Signs Vitals Vital Signs Date Time Temp Pulse Resp B/P Pulse Ox O2 Delivery O2 Flow Rate FiO2 01/27/17 11:09 97.6 71 15 137/74 98 01/27/17 09:44 40 01/26/17 01:56 6.0 01/25/17 22:30 Simple Mask Intake and Output 01/26/17 01/26/17 01/27/17 15:00 23:00 07:00 Intake Total 0 ml 600 ml Output Total 800 ml Balance -800 ml 600 ml Exam Review of Systems: CONSTITUTIONAL: No fevers, chills. PULMONARY: No sob CARDIOVASCULAR: No chest pain/palpitations GASTROINTESTINAL: No nausea/vomiting. GENITOURINARY: No hematuria/dysuria. MUSCULOSKELETAL: No myagias/arthalgias. PSYCHIATRIC: The patient denies depression. NEUROLOGIC: No weakness Psych: no complaints Head: normocephalic ENMT: mucosa pink and moist Neck: jvd, supple Respiratory: diminished breath sounds Cardiovascular: regular rate and rhythm Gastrointestinal: non-tender Musculoskeletal: muscle tone (normal) Extremities: edema (none) Neurological: other (No focal deficits) Results Result Diagram: 01/27/17 0808 01/27/17 0808 Results 24 hrs Laboratory Tests Test 01/26/17 11:59 01/26/17 16:00 01/26/17 17:09 01/26/17 23:43 Bedside Glucose 125 93 82 White Blood Count 6.6 # Red Blood Count 3.47 L Hemoglobin 10.1 L Hematocrit 31.1 L Mean Corpuscular Volume 89.6 Mean Corpuscular Hemoglobin 29.1 Mean Corpuscular Hemoglobin Concent 32.5 Red Cell Distribution Width 16.4 H Platelet Count 167 Mean Platelet Volume 10.8 H Neutrophils % 74.3 Lymphocytes % 11.7 L Monocytes % 10.2 Eosinophils % 1.4 Basophils % 0.3 Nucleated Red Blood Cells % 0.0 Neutrophils # 4.9 Lymphocytes # 0.8 Monocytes # 0.7 Eosinophils # 0.1 Basophils # 0.0 Nucleated Red Blood Cells # 0.0 Test 01/27/17 06:28 01/27/17 08:08 Bedside Glucose 88 White Blood Count 5.8 Red Blood Count 3.27 L Hemoglobin 9.4 L Hematocrit 28.6 L Mean Corpuscular Volume 87.5 Mean Corpuscular Hemoglobin 28.7 L Mean Corpuscular Hemoglobin Concent 32.9 Red Cell Distribution Width 16.3 H Platelet Count 165 Mean Platelet Volume 10.9 H Neutrophils % 75.3 Lymphocytes % 10.1 L Monocytes % 10.8 Eosinophils % 1.5 Basophils % 0.2 Nucleated Red Blood Cells % 0.0 Neutrophils # 4.4 Lymphocytes # 0.6 L Monocytes # 0.6 Eosinophils # 0.1 Basophils # 0.0 Nucleated Red Blood Cells # 0.0 Sodium Level 132 L Potassium Level 3.2 L Chloride Level 94 L Carbon Dioxide Level 33 H Anion Gap 8 Blood Urea Nitrogen 10 Creatinine 0.74 Glucose Level 91 Calcium Level 8.9 Phosphorus Level 3.5 Magnesium Level 2.1 Total Bilirubin 0.4 Direct Bilirubin 0.00 Indirect Bilirubin 0.4 Aspartate Amino Transf (AST/SGOT) 29 Alanine Aminotransferase (ALT/SGPT) 51 Alkaline Phosphatase 119 Total Protein 5.4 L Albumin 2.6 L Globulin 2.80 Albumin/Globulin Ratio 0.92 Medications Medications Current Medications Ondansetron HCl (Zofran Inj) 4 mg Q6H PRN IV NAUSEA AND/OR VOMITING; Start at 14:30 Docusate Sodium (Colace) 100 mg Q12H PRN PO CONSTIPATION; Start 01/14/17 at 14 :30 Magnesium Hydroxide (Milk Of Mag) 30 ml DAILY PRN PO CONSTIPATION; Start 01/14 at 14:30 Pantoprazole (Protonix Tab) 40 mg DAILY@06 PO Last administered on 01/25/17 06 :32; Admin Dose 40 MG; Start 01/15/17 at 06:00 Acetaminophen (Tylenol Tab) 650 mg Q4 PRN PO PAIN AND OR ELEVATED TEMP; Start 01/14/17 at 14:30 Ascorbic Acid (Vitamin C) 500 mg DAILY PO Last administered on 01/25/17 09:00 ; Admin Dose 500 MG; Start 01/15/17 at 09:00 Atorvastatin Calcium (Lipitor) 10 mg QHS PO Last administered on 01/24/17 21: 54; Admin Dose 10 MG; Start 01/14/17 at 21:00 Carvedilol (Coreg) 12.5 mg BID PO Last administered on 01/25/17 08:59; Admin Dose 12.5 MG; Start 01/14/17 at 21:00 Cholecalciferol (Vitamin D) 1,000 unit DAILY PO Last administered on 01/25/17 09:00; Admin Dose 1,000 UNIT; Start 01/15/17 at 09:00 Multivitamins Therapeutic (Theragran) 1 tab DAILY PO Last administered on 09:00; Admin Dose 1 TAB; Start 01/15/17 at 09:00 Spironolactone (Aldactone) 25 mg DAILY PO Last administered on 01/25/17 08:59 ; Admin Dose 25 MG; Start 01/15/17 at 09:00 Tamsulosin HCl (Flomax) 0.4 mg HS PO Last administered on 01/24/17 21:54; Admin Dose 0.4 MG; Start 01/14/17 at 21:00 Lactobacillus Acidophilus (Florajen3 Capsule) 1 each BID PO Last administered on 01/25/17 09:00; Admin Dose 1 EACH; Start 01/14/17 at 21:00 Enoxaparin Sodium (Lovenox) 40 mg DAILY SC Last administered on 01/27/17 08:50 ; Admin Dose 40 MG; Start 01/14/17 at 15:30 Miscellaneous [facility] This patient ham[place]... PRN PRN XX WOUND CARE; Start 01/16/17 at 12:00 Collagenase (Santyl) 1 applic DAILY TOP Last administered on 01/27/17 08:54; Admin Dose 1 APPLIC; Start 01/16/17 at 13:00 Aspirin 325 mg 325 mg DAILY NGT Last administered on 01/25/17 08:59; Admin Dose 325 MG; Start 01/17/17 at 09:00 Dextrose (D5W) 1,000 ml @ 50 mls/hr Q20H IV Last administered on 01/26/17 21: 28; Admin Dose 50 MLS/HR; Start 01/18/17 at 12:30 Diagnostic Test (Pha) (Accu-Chek) 1 ea 02 XX Last administered on 01/26/17 02: 00; Admin Dose 1 EA; Start 01/24/17 at 02:00 Insulin Aspart (Novolog Insulin Pen) NOVOLOG *MODERATE* ALGORI... Q6 SC Last administered on 01/24/17 01:30; Admin Dose 2 UNIT; Start 01/23/17 at 18:00 Miscellaneous Information 1 ea NOTE XX ; Start 01/23/17 at 14:30 Glucose (Glutose) 15 gm Q15M PRN PO DECREASED GLUCOSE; Start 01/23/17 at 14:30 Glucose (Glutose) 22.5 gm Q15M PRN PO DECREASED GLUCOSE; Start 01/23/17 at 14: 30 Dextrose (D50w Syringe) 25 ml Q15M PRN IV DECREASED GLUCOSE; Start 01/23/17 at 14:30 Dextrose (D50w Syringe) 50 ml Q15M PRN IV DECREASED GLUCOSE; Start 01/23/17 at 14:30 Glucagon (Glucagen) 1 mg Q15M PRN IM DECREASED GLUCOSE; Start 01/23/17 at 14:30 Glucose (Glutose) 15 gm Q15M PRN BUCCAL DECREASED GLUCOSE; Start 01/23/17 at 14 :30 Furosemide (Lasix) 40 mg DAILY PO Last administered on 01/25/17 08:59; Admin Dose 40 MG; Start 01/25/17 at 09:00 Morphine Sulfate (morphine) 2 mg Q4H PRN IV PAIN LEVEL 7-10 Last administered on 01/27/17 01:09; Admin Dose 2 MG; Start 01/27/17 at 01:30 PREET BECERRA 6, 2017 11:55
--- NOTE | 2017-01-27 14:08 | CONS ---
Date/Time of Note Date/Time of Note DATE: 01/27/17 TIME: 14:08 Assessment/Plan Assessment/Plan Chief Complaint/Hosp Course SUBJECTIVE: Remains on BiPAP, looks comfortable. No fevers MICROBIOLOGY: Blood culture on admission grew coag negative staph species. Repeat blood cultures negative. ANTIMICROBIALS: none INDWELLINGS: NG tube, Nielsen catheter. PHYSICAL EXAMINATION: GENERAL: This is a chronically ill-appearing, obese elderly man who is in no distress. The patient is lethargic but arousable and follows simple commands. HEAD: Atraumatic, normocephalic. Sclerae anicteric. NECK: Obese. CHEST: Rise symmetrical. Breath sounds diminished to bases. HEART: S1, S2. ABDOMEN: Soft, bowel tones present. EXTREMITIES: Without cyanosis. Bilateral lower extremity edema. ASSESSMENT: 1. Status post septic shock. 2. Encephalopathy. 3. Proteus mirabilis urinary tract infection==> treated. 4. Coagulase-negative Staphylococcus bacteremia, cw contaminant, repeat blood cultures negative. 5. Sacral decubitus with wound culture growing Klebsiella, Enterococcus, coagulase-negative Staphylococcus species and Proteus mirabilis. 6. Resolving pneumonia, sputum culture grew yeast, not Meghana albicans 7. Diabetes. 8. History of recent Clostridium difficile colitis, patient remains on oral vancomycin. 9. Abnormal liver function tests, gastroenterology on case. 10. Coronary artery disease with atrial fibrillation, status post automatic implantable cardioverter-defibrillator. PLAN: Patient remains stable, off antibiotics, continue present care, aspiration precautions, pulmonary/cardiology recommendations [facility] staff Problems: Consultation Date/Type/Reason Admit Date/Time Jan 14, 2017 at 10:52 Initial Consult Date 01/16/17 Type of Consultation: ID Referring Provider: MARY FORREST MD Exam/Review of Systems Vital Signs Vitals Vital Signs Date Time Temp Pulse Resp B/P Pulse Ox O2 Delivery O2 Flow Rate FiO2 01/27/17 12:11 73 01/27/17 11:09 97.6 15 137/74 98 01/27/17 09:44 40 01/26/17 01:56 6.0 01/25/17 22:30 Simple Mask Intake and Output 01/26/17 01/26/17 01/27/17 15:00 23:00 07:00 Intake Total 0 ml 600 ml Output Total 800 ml Balance -800 ml 600 ml Results Result Diagram: 01/27/17 0808 01/27/17 0808 Results 24 hrs Laboratory Tests Test 01/26/17 16:00 01/26/17 17:09 01/26/17 23:43 01/27/17 06:28 White Blood Count 6.6 # Red Blood Count 3.47 L Hemoglobin 10.1 L Hematocrit 31.1 L Mean Corpuscular Volume 89.6 Mean Corpuscular Hemoglobin 29.1 Mean Corpuscular Hemoglobin Concent 32.5 Red Cell Distribution Width 16.4 H Platelet Count 167 Mean Platelet Volume 10.8 H Neutrophils % 74.3 Lymphocytes % 11.7 L Monocytes % 10.2 Eosinophils % 1.4 Basophils % 0.3 Nucleated Red Blood Cells % 0.0 Neutrophils # 4.9 Lymphocytes # 0.8 Monocytes # 0.7 Eosinophils # 0.1 Basophils # 0.0 Nucleated Red Blood Cells # 0.0 Bedside Glucose 93 82 88 Test 01/27/17 08:08 01/27/17 12:47 White Blood Count 5.8 Red Blood Count 3.27 L Hemoglobin 9.4 L Hematocrit 28.6 L Mean Corpuscular Volume 87.5 Mean Corpuscular Hemoglobin 28.7 L Mean Corpuscular Hemoglobin Concent 32.9 Red Cell Distribution Width 16.3 H Platelet Count 165 Mean Platelet Volume 10.9 H Neutrophils % 75.3 Lymphocytes % 10.1 L Monocytes % 10.8 Eosinophils % 1.5 Basophils % 0.2 Nucleated Red Blood Cells % 0.0 Neutrophils # 4.4 Lymphocytes # 0.6 L Monocytes # 0.6 Eosinophils # 0.1 Basophils # 0.0 Nucleated Red Blood Cells # 0.0 Sodium Level 132 L Potassium Level 3.2 L Chloride Level 94 L Carbon Dioxide Level 33 H Anion Gap 8 Blood Urea Nitrogen 10 Creatinine 0.74 Glucose Level 91 Calcium Level 8.9 Phosphorus Level 3.5 Magnesium Level 2.1 Total Bilirubin 0.4 Direct Bilirubin 0.00 Indirect Bilirubin 0.4 Aspartate Amino Transf (AST/SGOT) 29 Alanine Aminotransferase (ALT/SGPT) 51 Alkaline Phosphatase 119 Total Protein 5.4 L Albumin 2.6 L Globulin 2.80 Albumin/Globulin Ratio 0.92 Bedside Glucose 99 Medications Medications Current Medications Ondansetron HCl (Zofran Inj) 4 mg Q6H PRN IV NAUSEA AND/OR VOMITING; Start at 14:30 Docusate Sodium (Colace) 100 mg Q12H PRN PO CONSTIPATION; Start 01/14/17 at 14 :30 Magnesium Hydroxide (Milk Of Mag) 30 ml DAILY PRN PO CONSTIPATION; Start 01/14 at 14:30 Pantoprazole (Protonix Tab) 40 mg DAILY@06 PO Last administered on 01/25/17 06 :32; Admin Dose 40 MG; Start 01/15/17 at 06:00 Acetaminophen (Tylenol Tab) 650 mg Q4 PRN PO PAIN AND OR ELEVATED TEMP; Start 01/14/17 at 14:30 Ascorbic Acid (Vitamin C) 500 mg DAILY PO Last administered on 01/25/17 09:00 ; Admin Dose 500 MG; Start 01/15/17 at 09:00 Atorvastatin Calcium (Lipitor) 10 mg QHS PO Last administered on 01/24/17 21: 54; Admin Dose 10 MG; Start 01/14/17 at 21:00 Carvedilol (Coreg) 12.5 mg BID PO Last administered on 01/25/17 08:59; Admin Dose 12.5 MG; Start 01/14/17 at 21:00 Cholecalciferol (Vitamin D) 1,000 unit DAILY PO Last administered on 01/25/17 09:00; Admin Dose 1,000 UNIT; Start 01/15/17 at 09:00 Multivitamins Therapeutic (Theragran) 1 tab DAILY PO Last administered on 09:00; Admin Dose 1 TAB; Start 01/15/17 at 09:00 Spironolactone (Aldactone) 25 mg DAILY PO Last administered on 01/25/17 08:59 ; Admin Dose 25 MG; Start 01/15/17 at 09:00 Tamsulosin HCl (Flomax) 0.4 mg HS PO Last administered on 01/24/17 21:54; Admin Dose 0.4 MG; Start 01/14/17 at 21:00 Lactobacillus Acidophilus (Florajen3 Capsule) 1 each BID PO Last administered on 01/25/17 09:00; Admin Dose 1 EACH; Start 01/14/17 at 21:00 Enoxaparin Sodium (Lovenox) 40 mg DAILY SC Last administered on 01/27/17 08:50 ; Admin Dose 40 MG; Start 01/14/17 at 15:30 Miscellaneous Information (Pending Santyl Order For Wound Care) This patient hampton... PRN PRN XX WOUND CARE; Start 01/16/17 at 12:00 Collagenase (Santyl) 1 applic DAILY TOP Last administered on 01/27/17 08:54; Admin Dose 1 APPLIC; Start 01/16/17 at 13:00 Aspirin 325 mg 325 mg DAILY NGT Last administered on 01/25/17 08:59; Admin Dose 325 MG; Start 01/17/17 at 09:00 Dextrose (D5W) 1,000 ml @ 50 mls/hr Q20H IV Last administered on 01/26/17 21: 28; Admin Dose 50 MLS/HR; Start 01/18/17 at 12:30 Diagnostic Test (Pha) (Accu-Chek) 1 ea 02 XX Last administered on 01/26/17 02: 00; Admin Dose 1 EA; Start 01/24/17 at 02:00 Insulin Aspart (Novolog Insulin Pen) NOVOLOG *MODERATE* ALGORI... Q6 SC Last administered on 01/24/17 01:30; Admin Dose 2 UNIT; Start 01/23/17 at 18:00 Miscellaneous Information 1 ea NOTE XX ; Start 01/23/17 at 14:30 Glucose (Glutose) 15 gm Q15M PRN PO DECREASED GLUCOSE; Start 01/23/17 at 14:30 Glucose (Glutose) 22.5 gm Q15M PRN PO DECREASED GLUCOSE; Start 01/23/17 at 14: 30 Dextrose (D50w Syringe) 25 ml Q15M PRN IV DECREASED GLUCOSE; Start 01/23/17 at 14:30 Dextrose (D50w Syringe) 50 ml Q15M PRN IV DECREASED GLUCOSE; Start 01/23/17 at 14:30 Glucagon (Glucagen) 1 mg Q15M PRN IM DECREASED GLUCOSE; Start 01/23/17 at 14:30 Glucose (Glutose) 15 gm Q15M PRN BUCCAL DECREASED GLUCOSE; Start 01/23/17 at 14 :30 Furosemide (Lasix) 40 mg DAILY PO Last administered on 01/25/17 08:59; Admin Dose 40 MG; Start 01/25/17 at 09:00 Morphine Sulfate (morphine) 2 mg Q4H PRN IV PAIN LEVEL 7-10 Last administered on 01/27/17 13:19; Admin Dose 2 MG; Start 01/27/17 at 01:30 JONY ANDERS NP Jan 27, 2017 14:08
[2017-01-27] MEDS: DEXTROSE 5%-0.9% NACL 1,000 ML IV SCH (15:00)
--- NOTE | 2017-01-27 15:31 | PN ---
DATE: 01/27/2017 SUBJECTIVE: The patient seen, appears to be less congested, breathing more comfortably, but overal l very weak, does not talk too much. He was seen by the speech therapist today and she felt that th e patient would not meet any caloric demands. The patient is not eating that much. She would state that would do just feeding for oral gratification. We will ask Dr. Rubalcava to pursue a G-tube place ment. The patient appears to be more stable. He is now off the BiPAP. PHYSICAL EXAMINATION: VITAL SIGNS: Temperature 97.6, pulse 72, respirations 18, blood pressure 137/74, saturation 98% on 40% FIO2. GENERAL: The patient is morbidly obese, patient is pale, alert, responding, but very weak. CARDIOVASCULAR: Positive S1 and S2. LUNGS: Decreased bilaterally, otherwise clear. ABDOMEN: Soft, nontender. EXTREMITIES: Trace edema throughout. Again, patient is morbidly obese with a BMI of 45. LABORATORY DATA: White count is 5.8, hemoglobin 9.4, hematocrit 29, platelet count 165, neutrophils 75%, lymphocytes 10%. Chemistry: Sodium 132, potassium is low at 3.2, chloride 94, bicarbonate 33 , BUN 10, creatinine 0.74, glucose of 91. LFTs are normal. Leukocyte esterase was +1 on 01/14/2017 . MEDICATIONS: 1. Morphine p.r.n. 2. Lasix 40 mg daily. 3. Accu-Chek q.a.c. and at bedtime. 4. Mucomyst every 6 hours breathing treatment. 5. Aspirin 325 daily. 6. Santyl daily. 7. Vitamin C 500 mg daily. 8. Vitamin D 1000 daily. 9. Multivitamin 1 tablet daily. 10. Aldactone 25 mg daily. 11. Protonix 40 mg daily. 12. Lipitor 10 mg at bedtime. 13. Coreg 12.5 b.i.d. 14. Flomax 0.4 at bedtime. This medication was held as patient is n.p.o., but patient is on fluids of D5W at 50 mL an hour. We will switch his fluids as patient has a sodium of 132. ASSESSMENT AND PLAN: This is a 66-year-old male with history of congestive heart failure, automatic implantable cardioverter-defibrillator, diabetes mellitus, was found to be septic with pn eumonia, urinary tract infection, sacral wound and possible bacteremia. 1. Respiratory. On and off BiPAP p.r.n. Remains still lethargic. Consider evaluation for l ameena-term medical management. 2. Cardiovascular. The patient with paroxysmal atrial fibrillation, continue aspirin, Lasix, aldac tone, Lipitor, Coreg and Lovenox. 3. Dysphagia. Will pursue G-tube placement as patient is not eating and high risk of aspiration. The patient is lethargic. 4. Infectious disease, now off antibiotics, status post treatment for the urinary tract infection, bacteremia and pneumonia, recent Clostridium difficile colitis, as well. Currently, no evidence of infection. 5. Tendency for congestive heart failure, status post Diamox now on Lasix. 6. Nutrition, will pursue G-tube placement. 7. Benign prostatic hypertrophy on Flomax. 8. Encephalopathy, observe. 9. Physical therapy as tolerated. In the meantime, the patient will be placed on D5 normal saline for hydration. Dictated By: MARY MONTERO/SHANTAL Conf#: [id number] DID#: [id number]
[2017-01-27] MEDS: TAMSULOSIN (SR) 0.4 MG CAP PO SCH (21:00)
[2017-01-27] MEDS: ATORVASTATIN 10 MG TAB PO SCH (21:00)
[2017-01-28] VITALS (25 sets, daily range): BP systolic 98–136; BP diastolic 41–71; PULSE 58–84; RESP 16–22
[2017-01-28] MEDS: ACETYLCYSTEINE 20% 4 ML VIAL NEB SCH ×4 (01:14→19:25)
[2017-01-28] MEDS: ALBUTEROL/IPRATROPIUM (NEB) 3 ML AMP NEB PRN ×4 (01:14→19:25)
[2017-01-28] MEDS: ACCU-CHEK XX SCH (02:00)
[2017-01-28] MEDS: INSULIN ASPART [NOVOLOG] 3 ML PEN SC SCH ×4 (06:00→18:00)
[2017-01-28] MEDS: PANTOPRAZOLE (EC) 40 MG TAB PO SCH (06:00)
[2017-01-28 07:31] LABS: BASOPHILS % 0.3 % (0.0-2.0); EOSINOPHILS # 0.1 10^3/ul (0.0-0.5); EOSINOPHILS % 1.4 % (0.0-7.0); HEMATOCRIT 28.8 % (42.0-52.0); HEMOGLOBIN 9.3 g/dl (14.0-18.0); LYMPHOCYTES # 0.7 10^3/ul (0.8-2.9); LYMPHOCYTES % 10.6 % (15.0-51.0); MEAN CORPUSCULAR HEMOGLOBIN 28.3 pg (29.0-33.0); MEAN CORPUSCULAR HGB CONC 32.3 g/dl (32.0-37.0); MEAN CORPUSCULAR VOLUME 87.5 fl (82.0-101.0); MEAN PLATELET VOLUME 10.3 fl (7.4-10.4); MONOCYTE # 0.7 10^3/ul (0.3-0.9); NEUTROPHIL # 4.7 10^3/ul (1.6-7.5); NEUTROPHILS % 74.7 % (39.0-77.0); PLATELET COUNT 184 10^3/UL (140-415); RED BLOOD COUNT 3.29 10^6/ul (4.70-6.10); RED CELL DISTRIBUTION WIDTH 16.2 % (11.5-14.5); WHITE BLOOD COUNT 6.4 10^3/ul (4.8-10.8)
[2017-01-28 07:42] LABS: ALBUMIN 2.6 g/dl (3.3-4.9); BILIRUBIN,INDIRECT 0.3 mg/dl (0-1.1); BILIRUBIN,TOTAL 0.3 mg/dl (0.2-1.3); CALCIUM 8.4 mg/dl (8.4-10.2); POTASSIUM 3.3 mmol/L (3.5-5.1); TOTAL PROTEIN 5.2 g/dl (6.1-8.1)
[2017-01-28 07:43] LABS: CREATININE 0.68 mg/dl (0.61-1.24)
[2017-01-28 07:47] LABS: PHOSPHORUS 3.6 mg/dl (2.5-4.9)
[2017-01-28] MEDS: DEXTROSE 5%-0.9% NACL 1,000 ML IV SCH (08:24)
[2017-01-28] MEDS: ASPIRIN 325 MG TAB NGT SCH (08:42)
[2017-01-28] MEDS: SPIRONOLACTONE 25 MG TAB PO SCH (08:42)
[2017-01-28] MEDS: L ACIDOPHIL/B LACTIS/B LONGUM CAPSULE PO SCH ×2 (08:42→23:37)
[2017-01-28] MEDS: FUROSEMIDE 40 MG TAB PO SCH (08:43)
[2017-01-28] MEDS: CHOLECALCIFEROL 1,000 UNIT TAB PO SCH (08:43)
[2017-01-28] MEDS: ASCORBIC ACID 500 MG TAB PO SCH (08:43)
[2017-01-28] MEDS: MULTIVITAMINS THERAPEUTIC TAB PO SCH (08:43)
[2017-01-28] MEDS: COLLAGENASE 30 GM TUBE TOP SCH (09:00)
--- NOTE | 2017-01-28 10:57 | CONS ---
Date/Time of Note Date/Time of Note DATE: 01/28/17 TIME: 10:56 Consult Date/Type/Reason Admit Date/Time Jan 14, 2017 at 10:52 Initial Consult Date 01/22/17 Type of Consultation: Pulmonary Ordering Provider: MARY FORREST MD Subjective Patient appears comfortable this morning. On nasal cannula oxygen. Objective Vital Signs Date Time Temp Pulse Resp B/P Pulse Ox O2 Delivery O2 Flow Rate FiO2 01/28/17 08:14 94 1.0 01/28/17 08:14 81 16 Nasal Cannula 01/28/17 07:42 98.4 123/67 01/28/17 03:18 40 Intake and Output 01/27/17 01/27/17 01/28/17 15:00 23:00 07:00 Intake Total 0 ml 0 ml Output Total 800 ml 550 ml Balance -800 ml -550 ml Exam GENERAL: Moderately obese gentleman comfortable at rest no acute distress VITAL SIGNS: per chart NECK: Supple. No JVD or lymphadenopathy. CARDIAC EXAM: S1, S2. No added sounds or murmurs. CHEST: clear bilaterally, No added sounds, rales or wheezes ABDOMEN: Soft, nontender. No guarding or rebound. EXTREMITIES: No cyanosis, clubbing or edema. NEUROLOGIC: Generalized weakness. No focal deficits. Results/Medications Result Diagram: 01/28/17 0702 01/28/17 0702 Results 24 hrs Laboratory Tests Test 01/27/17 12:47 01/27/17 18:56 01/28/17 00:16 01/28/17 06:25 Bedside Glucose 99 120 87 90 Test 01/28/17 07:02 White Blood Count 6.4 Red Blood Count 3.29 L Hemoglobin 9.3 L Hematocrit 28.8 L Mean Corpuscular Volume 87.5 Mean Corpuscular Hemoglobin 28.3 L Mean Corpuscular Hemoglobin Concent 32.3 Red Cell Distribution Width 16.2 H Platelet Count 184 Mean Platelet Volume 10.3 Neutrophils % 74.7 Lymphocytes % 10.6 L Monocytes % 11.0 Eosinophils % 1.4 Basophils % 0.3 Nucleated Red Blood Cells % 0.0 Neutrophils # 4.7 Lymphocytes # 0.7 L Monocytes # 0.7 Eosinophils # 0.1 Basophils # 0.0 Nucleated Red Blood Cells # 0.0 Sodium Level 132 L Potassium Level 3.3 L Chloride Level 95 L Carbon Dioxide Level 30 Anion Gap 10 Blood Urea Nitrogen 9 Creatinine 0.68 Glucose Level 91 Calcium Level 8.4 Phosphorus Level 3.6 Magnesium Level 2.0 Total Bilirubin 0.3 Direct Bilirubin 0.00 Indirect Bilirubin 0.3 Aspartate Amino Transf (AST/SGOT) 26 Alanine Aminotransferase (ALT/SGPT) 48 Alkaline Phosphatase 108 Total Protein 5.2 L Albumin 2.6 L Globulin 2.60 Albumin/Globulin Ratio 1.00 Medications Current Medications Ondansetron HCl (Zofran Inj) 4 mg Q6H PRN IV NAUSEA AND/OR VOMITING; Start at 14:30 Docusate Sodium (Colace) 100 mg Q12H PRN PO CONSTIPATION; Start 01/14/17 at 14 :30 Magnesium Hydroxide (Milk Of Mag) 30 ml DAILY PRN PO CONSTIPATION; Start 01/14 at 14:30 Pantoprazole (Protonix Tab) 40 mg DAILY@06 PO Last administered on 01/25/17 06 :32; Admin Dose 40 MG; Start 01/15/17 at 06:00 Acetaminophen (Tylenol Tab) 650 mg Q4 PRN PO PAIN AND OR ELEVATED TEMP; Start 01/14/17 at 14:30 Ascorbic Acid (Vitamin C) 500 mg DAILY PO Last administered on 01/25/17 09:00 ; Admin Dose 500 MG; Start 01/15/17 at 09:00 Atorvastatin Calcium (Lipitor) 10 mg QHS PO Last administered on 01/24/17 21: 54; Admin Dose 10 MG; Start 01/14/17 at 21:00 Carvedilol (Coreg) 12.5 mg BID PO Last administered on 01/25/17 08:59; Admin Dose 12.5 MG; Start 01/14/17 at 21:00 Cholecalciferol (Vitamin D) 1,000 unit DAILY PO Last administered on 01/25/17 09:00; Admin Dose 1,000 UNIT; Start 01/15/17 at 09:00 Multivitamins Therapeutic (Theragran) 1 tab DAILY PO Last administered on 09:00; Admin Dose 1 TAB; Start 01/15/17 at 09:00 Spironolactone (Aldactone) 25 mg DAILY PO Last administered on 01/25/17 08:59 ; Admin Dose 25 MG; Start 01/15/17 at 09:00 Tamsulosin HCl (Flomax) 0.4 mg HS PO Last administered on 01/24/17 21:54; Admin Dose 0.4 MG; Start 01/14/17 at 21:00 Lactobacillus Acidophilus (Florajen3 Capsule) 1 each BID PO Last administered on 01/25/17 09:00; Admin Dose 1 EACH; Start 01/14/17 at 21:00 Enoxaparin Sodium (Lovenox) 40 mg DAILY SC Last administered on 01/27/17 08:50 ; Admin Dose 40 MG; Start 01/14/17 at 15:30; Status Future hold Miscellaneous Information (Pending Santyl Order For Wound Care) This patient hampton... PRN PRN XX WOUND CARE; Start 01/16/17 at 12:00 Collagenase (Santyl) 1 applic DAILY TOP Last administered on 01/27/17 08:54; Admin Dose 1 APPLIC; Start 01/16/17 at 13:00 Aspirin (Aspirin) 325 mg DAILY NGT Last administered on 01/25/17 08:59; Admin Dose 325 MG; Start 01/17/17 at 09:00 Diagnostic Test (Pha) (Accu-Chek) 1 ea 02 XX Last administered on 01/26/17 02: 00; Admin Dose 1 EA; Start 01/24/17 at 02:00 Insulin Aspart (Novolog Insulin Pen) NOVOLOG *MODERATE* ALGORI... Q6 SC Last administered on 01/24/17 01:30; Admin Dose 2 UNIT; Start 01/23/17 at 18:00 Miscellaneous Information 1 ea NOTE XX ; Start 01/23/17 at 14:30 Glucose (Glutose) 15 gm Q15M PRN PO DECREASED GLUCOSE; Start 01/23/17 at 14:30 Glucose (Glutose) 22.5 gm Q15M PRN PO DECREASED GLUCOSE; Start 01/23/17 at 14: 30 Dextrose (D50w Syringe) 25 ml Q15M PRN IV DECREASED GLUCOSE; Start 01/23/17 at 14:30 Dextrose (D50w Syringe) 50 ml Q15M PRN IV DECREASED GLUCOSE; Start 01/23/17 at 14:30 Glucagon (Glucagen) 1 mg Q15M PRN IM DECREASED GLUCOSE; Start 01/23/17 at 14:30 Glucose (Glutose) 15 gm Q15M PRN BUCCAL DECREASED GLUCOSE; Start 01/23/17 at 14 :30 Furosemide (Lasix) 40 mg DAILY PO Last administered on 01/25/17 08:59; Admin Dose 40 MG; Start 01/25/17 at 09:00 Morphine Sulfate 2 mg 2 mg Q4H PRN IV PAIN LEVEL 7-10 Last administered on 01/27 13:19; Admin Dose 2 MG; Start 01/27/17 at 01:30 Dextrose/Sodium Chloride (D5-NS) 1,000 ml @ 60 mls/hr [id number] IV Last administered on 01/28/17 08:24; Admin Dose 60 MLS/HR; Start 01/27/17 at 15:00 Assessment/Plan Chief Complaint/Hosp Course IMP: 1. Acute on chronic hypoxemic/hypercapnic Resp Insufficiency. 2. CHF 3. FAM/OHS 4, Notable Metabolic Alkalosis--contraction related RECS: 1. Nocturnal BiPAP, ENCOURAGE OFF DURING DAY. 2. Titrate FiO2 to SpO2 88-92 3. ICS 4. Encourage out of bed if tolerated Rivera evaluation.. Problems: EBONI PONCE [facility], [facility] Jan 28, 2017 10:57
[2017-01-28] MEDS ORDERED: LIDOCAINE 2% (SDV) 5 ML INJ ONE (12:24)
[2017-01-28] MEDS ORDERED: PROPOFOL 40 ML ONE (12:24)
[2017-01-28] MEDS ORDERED: CEFAZOLIN 2 GM/50 ML (PMX) 50 ML IVPB ONE (12:26)
[2017-01-28] MEDS ORDERED: CEFAZOLIN 1 GM/50 ML (PMX) 50 ML IVPB ONE (12:26)
--- NOTE | 2017-01-28 12:45 | OPPN ---
Date/Time of Note Date/Time of Note DATE: 01/28/17 TIME: 12:45 Proc Note GI Procedure Date 01/28/17 Indication: treatment, other Pre-procedure Diagnosis Dysphagia Post-procedure Diagnosis PEG Procedure Performed: Endoscopy Surgeon see signature line Student Ambassador none Anesthesia Type: MAC Tourniquet Time none EBL none Transfusion required none Biopsy 1: None Grafts/Implants none Tubes/Drains none Complication(s) none Disposition: PACU Procedure Description Dictated HERRERA ELLIS MD Jan 28, 2017 12:45
--- NOTE | 2017-01-28 13:24 | CONS ---
Date/Time of Note Date/Time of Note DATE: 01/28/17 TIME: 13:23 Assessment/Plan Assessment/Plan Chief Complaint/Hosp Course SUBJECTIVE: Awake, being taken to GI lab, looks comfortable. No fevers MICROBIOLOGY: Blood culture on admission grew coag negative staph species. Repeat blood cultures negative. ANTIMICROBIALS: none INDWELLINGS: NG tube, Nielsen catheter. PHYSICAL EXAMINATION: GENERAL: This is a chronically ill-appearing, obese elderly man who is in no distress. The patient is lethargic but arousable and follows simple commands. HEAD: Atraumatic, normocephalic. Sclerae anicteric. NECK: Obese. CHEST: Rise symmetrical. Breath sounds diminished to bases. HEART: S1, S2. ABDOMEN: Soft, bowel tones present. EXTREMITIES: Without cyanosis. Bilateral lower extremity edema. ASSESSMENT: 1. Status post septic shock. 2. S/p acute encephalopathy. 3. Proteus mirabilis urinary tract infection==> treated. 4. Coagulase-negative Staphylococcus bacteremia, cw contaminant, repeat blood cultures negative. 5. Sacral decubitus with wound culture growing Klebsiella, Enterococcus, coagulase-negative Staphylococcus species and Proteus mirabilis. 6. Resolving pneumonia, sputum culture grew yeast, not Meghana albicans 7. Diabetes. 8. History of recent Clostridium difficile colitis, patient remains on oral vancomycin. 9. Abnormal liver function tests, gastroenterology on case. 10. Coronary artery disease with atrial fibrillation, status post automatic implantable cardioverter-defibrillator. PLAN: Patient remains stable off antibiotics, continue present care, aspiration precautions, pending PEG. DW staff Problems: Consultation Date/Type/Reason Admit Date/Time Jan 14, 2017 at 10:52 Initial Consult Date 01/16/17 Type of Consultation: ID Referring Provider: MARY FORREST MD Exam/Review of Systems Vital Signs Vitals Vital Signs Date Time Temp Pulse Resp B/P Pulse Ox O2 Delivery O2 Flow Rate FiO2 01/28/17 13:22 78 22 98/64 98 Nasal Cannula 2.0 01/28/17 13:04 97.9 01/28/17 03:18 40 Intake and Output 01/27/17 01/27/17 01/28/17 15:00 23:00 07:00 Intake Total 0 ml 0 ml Output Total 800 ml 550 ml Balance -800 ml -550 ml Results Result Diagram: 01/28/17 0702 01/28/17 0702 Results 24 hrs Laboratory Tests Test 01/27/17 18:56 01/28/17 00:16 01/28/17 06:25 01/28/17 07:02 Bedside Glucose 120 87 90 White Blood Count 6.4 Red Blood Count 3.29 L Hemoglobin 9.3 L Hematocrit 28.8 L Mean Corpuscular Volume 87.5 Mean Corpuscular Hemoglobin 28.3 L Mean Corpuscular Hemoglobin Concent 32.3 Red Cell Distribution Width 16.2 H Platelet Count 184 Mean Platelet Volume 10.3 Neutrophils % 74.7 Lymphocytes % 10.6 L Monocytes % 11.0 Eosinophils % 1.4 Basophils % 0.3 Nucleated Red Blood Cells % 0.0 Neutrophils # 4.7 Lymphocytes # 0.7 L Monocytes # 0.7 Eosinophils # 0.1 Basophils # 0.0 Nucleated Red Blood Cells # 0.0 Sodium Level 132 L Potassium Level 3.3 L Chloride Level 95 L Carbon Dioxide Level 30 Anion Gap 10 Blood Urea Nitrogen 9 Creatinine 0.68 Glucose Level 91 Calcium Level 8.4 Phosphorus Level 3.6 Magnesium Level 2.0 Total Bilirubin 0.3 Direct Bilirubin 0.00 Indirect Bilirubin 0.3 Aspartate Amino Transf (AST/SGOT) 26 Alanine Aminotransferase (ALT/SGPT) 48 Alkaline Phosphatase 108 Total Protein 5.2 L Albumin 2.6 L Globulin 2.60 Albumin/Globulin Ratio 1.00 Test 01/28/17 11:40 Bedside Glucose 93 Medications Medications Current Medications Ondansetron HCl (Zofran Inj) 4 mg Q6H PRN IV NAUSEA AND/OR VOMITING; Start at 14:30 Docusate Sodium (Colace) 100 mg Q12H PRN PO CONSTIPATION; Start 01/14/17 at 14 :30 Magnesium Hydroxide (Milk Of Mag) 30 ml DAILY PRN PO CONSTIPATION; Start 01/14 at 14:30 Pantoprazole (Protonix Tab) 40 mg DAILY@06 PO Last administered on 01/25/17 06 :32; Admin Dose 40 MG; Start 01/15/17 at 06:00 Acetaminophen (Tylenol Tab) 650 mg Q4 PRN PO PAIN AND OR ELEVATED TEMP; Start 01/14/17 at 14:30 Ascorbic Acid (Vitamin C) 500 mg DAILY PO Last administered on 01/25/17 09:00 ; Admin Dose 500 MG; Start 01/15/17 at 09:00 Atorvastatin Calcium (Lipitor) 10 mg QHS PO Last administered on 01/24/17 21: 54; Admin Dose 10 MG; Start 01/14/17 at 21:00 Carvedilol (Coreg) 12.5 mg BID PO Last administered on 01/25/17 08:59; Admin Dose 12.5 MG; Start 01/14/17 at 21:00 Cholecalciferol (Vitamin D) 1,000 unit DAILY PO Last administered on 01/25/17 09:00; Admin Dose 1,000 UNIT; Start 01/15/17 at 09:00 Multivitamins Therapeutic (Theragran) 1 tab DAILY PO Last administered on 09:00; Admin Dose 1 TAB; Start 01/15/17 at 09:00 Spironolactone (Aldactone) 25 mg DAILY PO Last administered on 01/25/17 08:59 ; Admin Dose 25 MG; Start 01/15/17 at 09:00 Tamsulosin HCl (Flomax) 0.4 mg HS PO Last administered on 01/24/17 21:54; Admin Dose 0.4 MG; Start 01/14/17 at 21:00 Lactobacillus Acidophilus (Florajen3 Capsule) 1 each BID PO Last administered on 01/25/17 09:00; Admin Dose 1 EACH; Start 01/14/17 at 21:00 Enoxaparin Sodium (Lovenox) 40 mg DAILY SC Last administered on 01/27/17 08:50 ; Admin Dose 40 MG; Start 01/14/17 at 15:30; Status Future hold Miscellaneous Information (Pending Santyl Order For Wound Care) This patient hampton... PRN PRN XX WOUND CARE; Start 01/16/17 at 12:00 Collagenase (Santyl) 1 applic DAILY TOP Last administered on 01/28/17 09:00; Admin Dose 1 APPLIC; Start 01/16/17 at 13:00 Aspirin (Aspirin) 325 mg DAILY NGT Last administered on 01/25/17 08:59; Admin Dose 325 MG; Start 01/17/17 at 09:00 Diagnostic Test (Pha) (Accu-Chek) 1 ea 02 XX Last administered on 01/26/17 02: 00; Admin Dose 1 EA; Start 01/24/17 at 02:00 Insulin Aspart (Novolog Insulin Pen) NOVOLOG *MODERATE* ALGORI... Q6 SC Last administered on 01/24/17 01:30; Admin Dose 2 UNIT; Start 01/23/17 at 18:00 Miscellaneous Information 1 ea NOTE XX ; Start 01/23/17 at 14:30 Glucose (Glutose) 15 gm Q15M PRN PO DECREASED GLUCOSE; Start 01/23/17 at 14:30 Glucose (Glutose) 22.5 gm Q15M PRN PO DECREASED GLUCOSE; Start 01/23/17 at 14: 30 Dextrose (D50w Syringe) 25 ml Q15M PRN IV DECREASED GLUCOSE; Start 01/23/17 at 14:30 Dextrose (D50w Syringe) 50 ml Q15M PRN IV DECREASED GLUCOSE; Start 01/23/17 at 14:30 Glucagon (Glucagen) 1 mg Q15M PRN IM DECREASED GLUCOSE; Start 01/23/17 at 14:30 Glucose (Glutose) 15 gm Q15M PRN BUCCAL DECREASED GLUCOSE; Start 01/23/17 at 14 :30 Furosemide (Lasix) 40 mg DAILY PO Last administered on 01/25/17 08:59; Admin Dose 40 MG; Start 01/25/17 at 09:00 Morphine Sulfate 2 mg 2 mg Q4H PRN IV PAIN LEVEL 7-10 Last administered on 01/27 13:19; Admin Dose 2 MG; Start 01/27/17 at 01:30 Dextrose/Sodium Chloride (D5-NS) 1,000 ml @ 60 mls/hr [id number] IV Last administered on 01/28/17 08:24; Admin Dose 60 MLS/HR; Start 01/27/17 at 15:00 JONY ANDERS NP Jan 28, 2017 13:24
--- NOTE | 2017-01-28 13:45 | CONS ---
Date/Time of Note Date/Time of Note DATE: 01/28/17 TIME: 13:42 Assessment/Plan Assessment/Plan Chief Complaint/Hosp Course IMp: 1.SVT's- currently SR with PAC's. TSH WNL. Review of or prior strip reveal likely PAF short runs. Most recently c/w SR with PAC's 2.CHF-diastolic acute on chronic by echo this admit 3.HTN 4. 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 -Contnue coreg but will decreae dose to allow patient to tolerate -Continue abx's and f/u cx data -Continue statin -Continue asa/lovenox for now until placement of G tube ongong today and then will likely transition to eliquis Problems: Consultation Date/Type/Reason Admit Date/Time Jan 14, 2017 at 10:52 Initial Consult Date 01/16/17 Type of Consultation: cardiology Reason for Consultation sob Referring Provider: MARY FORREST MD Exam/Review of Systems Vital Signs Vitals Vital Signs Date Time Temp Pulse Resp B/P Pulse Ox O2 Delivery O2 Flow Rate FiO2 01/28/17 13:22 78 22 98/64 98 Nasal Cannula 2.0 01/28/17 13:04 97.9 01/28/17 03:18 40 Intake and Output 01/27/17 01/27/17 01/28/17 15:00 23:00 07:00 Intake Total 0 ml 0 ml Output Total 800 ml 550 ml Balance -800 ml -550 ml Exam Review of Systems: CONSTITUTIONAL: No fevers, chills. PULMONARY: No sob CARDIOVASCULAR: No chest pain/palpitations GASTROINTESTINAL: No nausea/vomiting. GENITOURINARY: No hematuria/dysuria. MUSCULOSKELETAL: No myagias/arthalgias. PSYCHIATRIC: The patient denies depression. NEUROLOGIC: No weakness Constitutional: alert, oriented Psych: no complaints Head: normocephalic Neck: jvd, supple Respiratory: diminished breath sounds Cardiovascular: regular rate and rhythm Gastrointestinal: non-tender, soft Musculoskeletal: muscle tone (normal) Extremities: edema (none) Neurological: other (No focal deficits) Results Result Diagram: 01/28/1770101/28/17701 Results 24 hrs Laboratory Tests Test 12/6/17 18:56 01/28/17 00:16 01/28/17 06:25 01/28/17 07:02 Bedside Glucose 120 87 90 White Blood Count 6.4 Red Blood Count 3.29 L Hemoglobin 9.3 L Hematocrit 28.8 L Mean Corpuscular Volume 87.5 Mean Corpuscular Hemoglobin 28.3 L Mean Corpuscular Hemoglobin Concent 32.3 Red Cell Distribution Width 16.2 H Platelet Count 184 Mean Platelet Volume 10.3 Neutrophils % 74.7 Lymphocytes % 10.6 L Monocytes % 11.0 Eosinophils % 1.4 Basophils % 0.3 Nucleated Red Blood Cells % 0.0 Neutrophils # 4.7 Lymphocytes # 0.7 L Monocytes # 0.7 Eosinophils # 0.1 Basophils # 0.0 Nucleated Red Blood Cells # 0.0 Sodium Level 132 L Potassium Level 3.3 L Chloride Level 95 L Carbon Dioxide Level 30 Anion Gap 10 Blood Urea Nitrogen 9 Creatinine 0.68 Glucose Level 91 Calcium Level 8.4 Phosphorus Level 3.6 Magnesium Level 2.0 Total Bilirubin 0.3 Direct Bilirubin 0.00 Indirect Bilirubin 0.3 Aspartate Amino Transf (AST/SGOT) 26 Alanine Aminotransferase (ALT/SGPT) 48 Alkaline Phosphatase 108 Total Protein 5.2 L Albumin 2.6 L Globulin 2.60 Albumin/Globulin Ratio 1.00 Test 01/28/17 11:40 Bedside Glucose 93 Medications Medications Current Medications Ondansetron HCl (Zofran Inj) 4 mg Q6H PRN IV NAUSEA AND/OR VOMITING; Start at 14:30 Docusate Sodium (Colace) 100 mg Q12H PRN PO CONSTIPATION; Start 01/14/17 at 14 :30 Magnesium Hydroxide (Milk Of Mag) 30 ml DAILY PRN PO CONSTIPATION; Start 01/14 at 14:30 Pantoprazole (Protonix Tab) 40 mg DAILY@06 PO Last administered on 01/25/17 06 :32; Admin Dose 40 MG; Start 01/15/17 at 06:00 Acetaminophen (Tylenol Tab) 650 mg Q4 PRN PO PAIN AND OR ELEVATED TEMP; Start 01/14/17 at 14:30 Ascorbic Acid (Vitamin C) 500 mg DAILY PO Last administered on 01/25/17 09:00 ; Admin Dose 500 MG; Start 01/15/17 at 09:00 Atorvastatin Calcium (Lipitor) 10 mg QHS PO Last administered on 01/24/17 21: 54; Admin Dose 10 MG; Start 01/14/17 at 21:00 Carvedilol (Coreg) 12.5 mg BID PO Last administered on 01/25/17 08:59; Admin Dose 12.5 MG; Start 01/14/17 at 21:00 Cholecalciferol (Vitamin D) 1,000 unit DAILY PO Last administered on 01/25/17 09:00; Admin Dose 1,000 UNIT; Start 01/15/17 at 09:00 Multivitamins Therapeutic (Theragran) 1 tab DAILY PO Last administered on 09:00; Admin Dose 1 TAB; Start 01/15/17 at 09:00 Spironolactone (Aldactone) 25 mg DAILY PO Last administered on 01/25/17 08:59 ; Admin Dose 25 MG; Start 01/15/17 at 09:00 Tamsulosin HCl (Flomax) 0.4 mg HS PO Last administered on 01/24/17 21:54; Admin Dose 0.4 MG; Start 01/14/17 at 21:00 Lactobacillus Acidophilus (Florajen3 Capsule) 1 each BID PO Last administered on 01/25/17 09:00; Admin Dose 1 EACH; Start 01/14/17 at 21:00 Enoxaparin Sodium (Lovenox) 40 mg DAILY SC Last administered on 01/27/17 08:50 ; Admin Dose 40 MG; Start 01/14/17 at 15:30; Status Future hold Miscellaneous Information (Pending Santyl Order For Wound Care) This patient hampton... PRN PRN XX WOUND CARE; Start 01/16/17 at 12:00 Collagenase (Santyl) 1 applic DAILY TOP Last administered on 01/28/17 09:00; Admin Dose 1 APPLIC; Start 01/16/17 at 13:00 Aspirin (Aspirin) 325 mg DAILY NGT Last administered on 01/25/17 08:59; Admin Dose 325 MG; Start 01/17/17 at 09:00 Diagnostic Test (Pha) (Accu-Chek) 1 ea 02 XX Last administered on 01/26/17 02: 00; Admin Dose 1 EA; Start 01/24/17 at 02:00 Insulin Aspart (Novolog Insulin Pen) NOVOLOG *MODERATE* ALGORI... Q6 SC Last administered on 01/24/17 01:30; Admin Dose 2 UNIT; Start 01/23/17 at 18:00 Miscellaneous Information 1 ea NOTE XX ; Start 01/23/17 at 14:30 Glucose (Glutose) 15 gm Q15M PRN PO DECREASED GLUCOSE; Start 01/23/17 at 14:30 Glucose (Glutose) 22.5 gm Q15M PRN PO DECREASED GLUCOSE; Start 01/23/17 at 14: 30 Dextrose (D50w Syringe) 25 ml Q15M PRN IV DECREASED GLUCOSE; Start 01/23/17 at 14:30 Dextrose (D50w Syringe) 50 ml Q15M PRN IV DECREASED GLUCOSE; Start 01/23/17 at 14:30 Glucagon (Glucagen) 1 mg Q15M PRN IM DECREASED GLUCOSE; Start 01/23/17 at 14:30 Glucose (Glutose) 15 gm Q15M PRN BUCCAL DECREASED GLUCOSE; Start 01/23/17 at 14 :30 Furosemide (Lasix) 40 mg DAILY PO Last administered on 01/25/17 08:59; Admin Dose 40 MG; Start 01/25/17 at 09:00 Morphine Sulfate 2 mg 2 mg Q4H PRN IV PAIN LEVEL 7-10 Last administered on 01/27 13:19; Admin Dose 2 MG; Start 01/27/17 at 01:30 Dextrose/Sodium Chloride (D5-NS) 1,000 ml @ 60 mls/hr [id number] IV Last administered on 01/28/17 08:24; Admin Dose 60 MLS/HR; Start 01/27/17 at 15:00 PREET BECERRA Jan 28, 2017 13:45
--- NOTE | 2017-01-28 14:10 | GILP ---
DATE OF PROCEDURE: PROCEDURE PERFORMED: Percutaneous endoscopy and gastrostomy. INDICATION: A 66-year-old male undergoing this procedure for aspiration pneumonia and dysphagia. T he risks of the procedure, related and unrelated complications, anesthetic risks, alternatives discu ssed. This was in view of his multiple comorbidities which the brother understood and gave informed consent. DESCRIPTION OF PROCEDURE: The patient was brought to the GI lab, sedated by the anesthesiologist. After optimal sedation, scope was passed with much ease into esophagus and advanced further down int o stomach and duodenum. There was no evidence of obstruction. By transillumination and digital pal pation technique, the appropriate site was chosen on anterior abdominal wall. Site was sterilized w ith chlorhexidine solution, 2% Xylocaine instilled by safe method. A small incision was made. Thro ugh that incision, trocar stylus passed into the stomach. Stylet was removed through the hollow tip of the catheter. The blue color string was passed and it was snared with transendoscopically pass snare and the whole procedure was completed by modified Ponsky technique. The patient was rescoped. The position of the internal bumper confirmed. External bumper secured. Tolerated the procedure very well. IMPRESSION: Successful placement of G-tube done. PLAN: Resume feeding after 6 hours and all the medication after 3 hours. Dictated By: HERRERA HARGROVE/NTS Conf#: [id number] DID#: [id number] CC: MARY FORREST MD;*EndCC*
[2017-01-28] MEDS ORDERED: POTASSIUM CHLORIDE 20 MEQ in DEXTROSE 5% 100 ML IVPB ONE (19:30)
--- NOTE | 2017-01-28 20:41 | PN ---
DATE: 01/28/2017 SUBJECTIVE: The patient seen status post G-tube placement. The patient remains weak, does not talk too much, but does respond to me with yes or no and does understand me. PHYSICAL EXAMINATION: VITAL SIGNS: Temperature 97.9, pulse ____ respirations 16, blood pressure ____ saturation 95% to 97 % on 2 liters. GENERAL: The patient in no acute distress, morbidly obese. The patient is pale. CARDIOVASCULAR: S1, S2, regular rate. Distant heart sounds. LUNGS: Clear. Poor effort. ABDOMEN: Soft, nontender. EXTREMITIES: Slight edema of the lower extremities. LABORATORY DATA: White count is 6.4, hemoglobin 9.2, hematocrit 29, platelets 184 with normal diffe rential. Chemistry: Sodium is 132, potassium 3.3, chloride 95, bicarbonate ____ BUN is 9, creatin ine 0.68, glucose of 91, normal respiratory leif on 12/20/2016. MEDICATIONS: Include: 1. Coreg 6.25 b.i.d. 2. D5 normal saline at 60 mL an hour. 3. Morphine p.r.n. 4. Lasix 40 mg daily. 5. Hypoglycemia protocol. 6. Aspirin 81 daily. 7. Mucomyst q.6. 8. Santyl daily. 9. Vitamin C 500 mg daily. 10. Vitamin D 1000 daily. 11. Multivitamin 1 tablet daily. The patient is n.p.o. so he is not on any of those meds. The patient again is status post G-tube pl acement. ASSESSMENT AND PLAN: This is a 66-year-old male with history of CHF, AICD defibrillator, diabetes mellitus, who was found to be septic with pneumonia, UTI, sacral wound and possible bactere jacob. 1. Respiratory: BiPAP as needed, still lethargic, observe. 2. Cardiovascular: The patient with possible paroxysmal atrial fibrillation. Remains on Lasix and aspirin, Aldactone, Lipitor, Coreg and Lovenox. May consider placing him on Eliquis. Will discuss with cardiology now that he has a G-tube. 3. Dysphagia: Proceed with starting feeding via G-tube and oral feeding just for oral gratificatio n. Hopefully, the patient will perk up and be more awake. 4. Infectious disease: Status post treatment for urinary tract infection, bacteremia, pneumonia an d empiric treatment for C. difficile as recently he was diagnosed with C. difficile. 5. Tendency for CHF. Continue oral Lasix status post-trial with Diamox. 6. Benign prostatic hypertrophy on Flomax. 7. Encephalopathy: Observe. I am concerned about possible CVA. The patient cannot have an MRI se condary to pacemaker. 8. Physical therapy as tolerated. 9. Continue gentle hydration. 10. Replace potassium. We will follow. Dictated By: MARY MONTERO/SHANTAL Conf#: [id number] DID#: [id number]
[2017-01-28] MEDS: ATORVASTATIN 10 MG TAB PO SCH (23:37)
[2017-01-28] MEDS: TAMSULOSIN (SR) 0.4 MG CAP PO SCH (23:38)
[2017-01-29] VITALS (13 sets, daily range): BP systolic 101–149; BP diastolic 57–81; PULSE 71–84; RESP 18–19
[2017-01-29] MEDS: DEXTROSE 5%-0.9% NACL 1,000 ML IV SCH ×2 (00:20→12:21)
[2017-01-29] MEDS: INSULIN ASPART [NOVOLOG] 3 ML PEN SC SCH ×4 (01:15→17:52)
[2017-01-29] MEDS: ALBUTEROL/IPRATROPIUM (NEB) 3 ML AMP NEB PRN ×4 (01:21→20:41)
[2017-01-29] MEDS: ACETYLCYSTEINE 20% 4 ML VIAL NEB SCH ×4 (01:21→20:41)
[2017-01-29] MEDS: PANTOPRAZOLE (EC) 40 MG TAB PO SCH (06:07)
[2017-01-29] MEDS: L ACIDOPHIL/B LACTIS/B LONGUM CAPSULE PO SCH ×2 (09:18→21:03)
[2017-01-29] MEDS: ASPIRIN 325 MG TAB NGT SCH (09:18)
[2017-01-29] MEDS: CHOLECALCIFEROL 1,000 UNIT TAB PO SCH (09:19)
[2017-01-29] MEDS: MULTIVITAMINS THERAPEUTIC TAB PO SCH (09:19)
[2017-01-29] MEDS: ASCORBIC ACID 500 MG TAB PO SCH (09:19)
[2017-01-29] MEDS: SPIRONOLACTONE 25 MG TAB PO SCH (09:19)
[2017-01-29] MEDS: FUROSEMIDE 40 MG TAB PO SCH (09:19)
[2017-01-29] MEDS: COLLAGENASE 30 GM TUBE TOP SCH (09:20)
[2017-01-29] MEDS: ENOXAPARIN 40 MG/0.4 ML SYG SC SCH (09:33)
--- NOTE | 2017-01-29 13:11 | CONS ---
Date/Time of Note Date/Time of Note DATE: 01/29/17 TIME: 13:07 Assessment/Plan Assessment/Plan Chief Complaint/Hosp Course IMp: 1.SVT's- currently SR with PAC's. TSH WNL. Review of or prior strip reveal likely PAF short runs. Most recently c/w SR with PAC's 2.CHF-diastolic acute on chronic by echo this admit 3.HTN 4. 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 -Contnue coreg as tolerated -Continue abx's and f/u cx data -Continue statin -Now s/p G tube and will transition patient to eliquis Problems: Consultation Date/Type/Reason Admit Date/Time Jan 14, 2017 at 10:52 Initial Consult Date 01/16/17 Type of Consultation: cardiology Reason for Consultation arrythmia Referring Provider: MARY FORREST MD Exam/Review of Systems Vital Signs Vitals Vital Signs Date Time Temp Pulse Resp B/P Pulse Ox O2 Delivery O2 Flow Rate FiO2 01/29/17 13:03 72 01/29/17 11:10 99.2 18 101/72 96 01/29/17 08:34 Nasal Cannula 2.0 01/28/17 23:10 40 Intake and Output 01/28/17 01/28/17 01/29/17 14:59 22:59 06:59 Intake Total 0 ml 110 ml 880 ml Output Total 800 ml 400 ml 300 ml Balance -800 ml -290 ml 580 ml Exam Review of Systems: CONSTITUTIONAL: No fevers, chills. PULMONARY: No sob CARDIOVASCULAR: No chest pain/palpitations GASTROINTESTINAL: No nausea/vomiting. GENITOURINARY: No hematuria/dysuria. MUSCULOSKELETAL: No myagias/arthalgias. PSYCHIATRIC: The patient denies depression. NEUROLOGIC: lethargic Constitutional: alert, oriented Psych: no complaints ENMT: mucosa pink and moist Neck: jvd (9 cm water), supple Respiratory: diminished breath sounds (at bases/B) Cardiovascular: regular rate and rhythm Gastrointestinal: non-tender, soft Musculoskeletal: muscle weakness (mild generalized weakness) Extremities: edema (trace/B) Neurological: lethargic Results Result Diagram: 01/28/1770101/28/17701 Results 24 hrs Laboratory Tests Test 01/28/17 18:37 01/29/17 01:14 01/29/17 06:39 01/29/17 12:20 Bedside Glucose 90 95 91 99 Medications Medications Current Medications Ondansetron HCl (Zofran Inj) 4 mg Q6H PRN IV NAUSEA AND/OR VOMITING; Start at 14:30 Docusate Sodium (Colace) 100 mg Q12H PRN PO CONSTIPATION; Start 01/14/17 at 14 :30 Magnesium Hydroxide (Milk Of Mag) 30 ml DAILY PRN PO CONSTIPATION; Start 01/14 at 14:30 Pantoprazole (Protonix Tab) 40 mg DAILY@06 PO Last administered on 01/29/17 06 :07; Admin Dose 40 MG; Start 01/15/17 at 06:00 Acetaminophen (Tylenol Tab) 650 mg Q4 PRN PO PAIN AND OR ELEVATED TEMP Last administered on 01/29/17 00:01; Admin Dose 650 MG; Start 01/14/17 at 14:30 Ascorbic Acid (Vitamin C) 500 mg DAILY PO Last administered on 01/29/17 09:19 ; Admin Dose 500 MG; Start 01/15/17 at 09:00 Atorvastatin Calcium (Lipitor) 10 mg QHS PO Last administered on 01/28/17 23: 37; Admin Dose 10 MG; Start 01/14/17 at 21:00 Cholecalciferol (Vitamin D) 1,000 unit DAILY PO Last administered on 01/29/17 09:19; Admin Dose 1,000 UNIT; Start 01/15/17 at 09:00 Multivitamins Therapeutic (Theragran) 1 tab DAILY PO Last administered on 09:19; Admin Dose 1 TAB; Start 01/15/17 at 09:00 Spironolactone (Aldactone) 25 mg DAILY PO Last administered on 01/29/17 09:19 ; Admin Dose 25 MG; Start 01/15/17 at 09:00 Tamsulosin HCl (Flomax) 0.4 mg HS PO Last administered on 01/28/17 23:38; Admin Dose 0.4 MG; Start 01/14/17 at 21:00 Lactobacillus Acidophilus (Florajen3 Capsule) 1 each BID PO Last administered on 01/29/17 09:18; Admin Dose 1 EACH; Start 01/14/17 at 21:00 Enoxaparin Sodium (Lovenox) 40 mg DAILY SC Last administered on 01/29/17 09:33 ; Admin Dose 40 MG; Start 01/14/17 at 15:30; Status Future hold Miscellaneous Information (Pending Santyl Order For Wound Care) This patient hampton... PRN PRN XX WOUND CARE; Start 01/16/17 at 12:00 Collagenase (Santyl) 1 applic DAILY TOP Last administered on 01/29/17 09:20; Admin Dose 1 APPLIC; Start 01/16/17 at 13:00 Aspirin (Aspirin) 325 mg DAILY NGT Last administered on 01/29/17 09:18; Admin Dose 325 MG; Start 01/17/17 at 09:00 Insulin Aspart (Novolog Insulin Pen) NOVOLOG *MODERATE* ALGORI... Q6 SC Last administered on 01/24/17 01:30; Admin Dose 2 UNIT; Start 01/23/17 at 18:00 Miscellaneous Information 1 ea NOTE XX ; Start 01/23/17 at 14:30 Glucose (Glutose) 15 gm Q15M PRN PO DECREASED GLUCOSE; Start 01/23/17 at 14:30 Glucose (Glutose) 22.5 gm Q15M PRN PO DECREASED GLUCOSE; Start 01/23/17 at 14: 30 Dextrose (D50w Syringe) 25 ml Q15M PRN IV DECREASED GLUCOSE; Start 01/23/17 at 14:30 Dextrose (D50w Syringe) 50 ml Q15M PRN IV DECREASED GLUCOSE; Start 01/23/17 at 14:30 Glucagon (Glucagen) 1 mg Q15M PRN IM DECREASED GLUCOSE; Start 01/23/17 at 14:30 Glucose (Glutose) 15 gm Q15M PRN BUCCAL DECREASED GLUCOSE; Start 01/23/17 at 14 :30 Furosemide (Lasix) 40 mg DAILY PO Last administered on 01/29/17 09:19; Admin Dose 40 MG; Start 01/25/17 at 09:00 Morphine Sulfate 2 mg 2 mg Q4H PRN IV PAIN LEVEL 7-10 Last administered on 01/27 13:19; Admin Dose 2 MG; Start 01/27/17 at 01:30 Dextrose/Sodium Chloride (D5-NS) 1,000 ml @ 60 mls/hr [id number] IV Last administered on 01/29/17 12:21; Admin Dose 60 MLS/HR; Start 01/27/17 at 15:00 Carvedilol (Coreg) 6.25 mg BID PO Last administered on 01/29/17 09:19; Admin Dose 6.25 MG; Start 01/28/17 at 21:00 PREET BECERRA Jan 29, 2017 13:11
--- NOTE | 2017-01-29 14:13 | CONS ---
Date/Time of Note Date/Time of Note DATE: 01/29/17 TIME: 14:12 Assessment/Plan Assessment/Plan Chief Complaint/Hosp Course SUBJECTIVE: Looks comfortable. No fevers MICROBIOLOGY: Blood culture on admission grew coag negative staph species. Repeat blood cultures negative. ANTIMICROBIALS: none INDWELLINGS: NG tube, Nielsen catheter. PHYSICAL EXAMINATION: GENERAL: This is a chronically ill-appearing, obese elderly man who is in no distress. The patient is lethargic but arousable and follows simple commands. HEAD: Atraumatic, normocephalic. Sclerae anicteric. NECK: Obese. CHEST: Rise symmetrical. Breath sounds diminished to bases. HEART: S1, S2. ABDOMEN: Soft, bowel tones present. EXTREMITIES: Without cyanosis. Bilateral lower extremity edema. ASSESSMENT: 1. Status post septic shock. 2. S/p acute encephalopathy. 3. Proteus mirabilis urinary tract infection==> treated. 4. Coagulase-negative Staphylococcus bacteremia, cw contaminant, repeat blood cultures negative. 5. Sacral decubitus with wound culture growing Klebsiella, Enterococcus, coagulase-negative Staphylococcus species and Proteus mirabilis. 6. Resolving pneumonia, sputum culture grew yeast, not Meghana albicans 7. Diabetes. 8. History of recent Clostridium difficile colitis, patient remains on oral vancomycin. 9. Abnormal liver function tests, gastroenterology on case. 10. Coronary artery disease with atrial fibrillation, status post automatic implantable cardioverter-defibrillator. PLAN: Patient remains stable off antibiotics, s/p PEG, continue present care, aspiration precautions. DW staff Problems: Consultation Date/Type/Reason Admit Date/Time Jan 14, 2017 at 10:52 Initial Consult Date 01/16/17 Type of Consultation: id Referring Provider: MARY FORREST MD Exam/Review of Systems Vital Signs Vitals Vital Signs Date Time Temp Pulse Resp B/P Pulse Ox O2 Delivery O2 Flow Rate FiO2 01/29/17 13:03 72 01/29/17 11:10 99.2 18 101/72 96 01/29/17 08:34 Nasal Cannula 2.0 01/28/17 23:10 40 Intake and Output 01/28/17 01/28/17 01/29/17 14:59 22:59 06:59 Intake Total 0 ml 110 ml 880 ml Output Total 800 ml 400 ml 300 ml Balance -800 ml -290 ml 580 ml Results Result Diagram: 01/28/17 0702 01/28/17 0702 Results 24 hrs Laboratory Tests Test 01/28/17 18:37 01/29/17 01:14 01/29/17 06:39 01/29/17 12:20 Bedside Glucose 90 95 91 99 Medications Medications Current Medications Ondansetron HCl (Zofran Inj) 4 mg Q6H PRN IV NAUSEA AND/OR VOMITING; Start at 14:30 Docusate Sodium (Colace) 100 mg Q12H PRN PO CONSTIPATION; Start 01/14/17 at 14 :30 Magnesium Hydroxide (Milk Of Mag) 30 ml DAILY PRN PO CONSTIPATION; Start 01/14 at 14:30 Pantoprazole (Protonix Tab) 40 mg DAILY@06 PO Last administered on 01/29/17 06 :07; Admin Dose 40 MG; Start 01/15/17 at 06:00 Acetaminophen (Tylenol Tab) 650 mg Q4 PRN PO PAIN AND OR ELEVATED TEMP Last administered on 01/29/17 00:01; Admin Dose 650 MG; Start 01/14/17 at 14:30 Ascorbic Acid (Vitamin C) 500 mg DAILY PO Last administered on 01/29/17 09:19 ; Admin Dose 500 MG; Start 01/15/17 at 09:00 Atorvastatin Calcium (Lipitor) 10 mg QHS PO Last administered on 01/28/17 23: 37; Admin Dose 10 MG; Start 01/14/17 at 21:00 Cholecalciferol (Vitamin D) 1,000 unit DAILY PO Last administered on 01/29/17 09:19; Admin Dose 1,000 UNIT; Start 01/15/17 at 09:00 Multivitamins Therapeutic (Theragran) 1 tab DAILY PO Last administered on 09:19; Admin Dose 1 TAB; Start 01/15/17 at 09:00 Spironolactone (Aldactone) 25 mg DAILY PO Last administered on 01/29/17 09:19 ; Admin Dose 25 MG; Start 01/15/17 at 09:00 Tamsulosin HCl (Flomax) 0.4 mg HS PO Last administered on 01/28/17 23:38; Admin Dose 0.4 MG; Start 01/14/17 at 21:00 Lactobacillus Acidophilus (Florajen3 Capsule) 1 each BID PO Last administered on 01/29/17 09:18; Admin Dose 1 EACH; Start 01/14/17 at 21:00 Enoxaparin Sodium (Lovenox) 40 mg DAILY SC Last administered on 01/29/17 09:33 ; Admin Dose 40 MG; Start 01/14/17 at 15:30; Status Future hold Miscellaneous Information (Pending Santyl Order For Wound Care) This patient hampton... PRN PRN XX WOUND CARE; Start 01/16/17 at 12:00 Collagenase (Santyl) 1 applic DAILY TOP Last administered on 01/29/17 09:20; Admin Dose 1 APPLIC; Start 01/16/17 at 13:00 Aspirin (Aspirin) 325 mg DAILY NGT Last administered on 01/29/17 09:18; Admin Dose 325 MG; Start 01/17/17 at 09:00 Insulin Aspart (Novolog Insulin Pen) NOVOLOG *MODERATE* ALGORI... Q6 SC Last administered on 01/24/17 01:30; Admin Dose 2 UNIT; Start 01/23/17 at 18:00 Miscellaneous Information 1 ea NOTE XX ; Start 01/23/17 at 14:30 Glucose (Glutose) 15 gm Q15M PRN PO DECREASED GLUCOSE; Start 01/23/17 at 14:30 Glucose (Glutose) 22.5 gm Q15M PRN PO DECREASED GLUCOSE; Start 01/23/17 at 14: 30 Dextrose (D50w Syringe) 25 ml Q15M PRN IV DECREASED GLUCOSE; Start 01/23/17 at 14:30 Dextrose (D50w Syringe) 50 ml Q15M PRN IV DECREASED GLUCOSE; Start 01/23/17 at 14:30 Glucagon (Glucagen) 1 mg Q15M PRN IM DECREASED GLUCOSE; Start 01/23/17 at 14:30 Glucose (Glutose) 15 gm Q15M PRN BUCCAL DECREASED GLUCOSE; Start 01/23/17 at 14 :30 Morphine Sulfate 2 mg 2 mg Q4H PRN IV PAIN LEVEL 7-10 Last administered on 01/27 13:19; Admin Dose 2 MG; Start 01/27/17 at 01:30 Dextrose/Sodium Chloride (D5-NS) 1,000 ml @ 60 mls/hr [id number] IV Last administered on 01/29/17 12:21; Admin Dose 60 MLS/HR; Start 01/27/17 at 15:00 Carvedilol (Coreg) 6.25 mg BID PO Last administered on 01/29/17t 09:19; Admin Dose 6.25 MG; Start 01/28/17 at 21:00 Apixaban (Eliquis) 5 mg BID PO ; Start 01/29/17 at 21:00 JONY ANDERS NP Jan 29, 2017 14:13
--- NOTE | 2017-01-29 14:55 | CONS ---
Date/Time of Note Date/Time of Note DATE: 01/29/17 TIME: 14:54 Consult Date/Type/Reason Admit Date/Time Jan 14, 2017 at 10:52 Initial Consult Date 01/22/17 Type of Consultation: Pulmonary Ordering Provider: MARY FORREST MD Subjective Status post PEG tube placement. Patient remains stable. No respiratory distress this morning remains off BiPAP. Objective Vital Signs Date Time Temp Pulse Resp B/P Pulse Ox O2 Delivery O2 Flow Rate FiO2 01/29/17 13:03 72 01/29/17 11:10 99.2 18 101/72 96 01/29/17 08:34 Nasal Cannula 2.0 01/28/17 23:10 40 Intake and Output 01/28/17 01/28/17 01/29/17 15:00 23:00 07:00 Intake Total 0 ml 110 ml 880 ml Output Total 800 ml 400 ml 300 ml Balance -800 ml -290 ml 580 ml Exam GENERAL: Moderately obese gentleman comfortable at rest no acute distress VITAL SIGNS: per chart NECK: Supple. No JVD or lymphadenopathy. CARDIAC EXAM: S1, S2. No added sounds or murmurs. CHEST: clear bilaterally, No added sounds, rales or wheezes ABDOMEN: Soft, nontender. No guarding or rebound. EXTREMITIES: No cyanosis, clubbing or edema. NEUROLOGIC: Generalized weakness. No focal deficits. Results/Medications Result Diagram: 01/28/1770101/28/17701 Results 24 hrs Laboratory Tests Test 01/28/17 18:37 01/29/17 01:14 01/29/17 06:39 01/29/17 12:20 Bedside Glucose 90 95 91 99 Medications Current Medications Ondansetron HCl (Zofran Inj) 4 mg Q6H PRN IV NAUSEA AND/OR VOMITING; Start at 14:30 Docusate Sodium (Colace) 100 mg Q12H PRN PO CONSTIPATION; Start 01/14/17 at 14 :30 Magnesium Hydroxide (Milk Of Mag) 30 ml DAILY PRN PO CONSTIPATION; Start 01/14 at 14:30 Pantoprazole (Protonix Tab) 40 mg DAILY@06 PO Last administered on 01/29/17t 06 :07; Admin Dose 40 MG; Start 01/15/17 at 06:00 Acetaminophen (Tylenol Tab) 650 mg Q4 PRN PO PAIN AND OR ELEVATED TEMP Last administered on 01/29/17 00:01; Admin Dose 650 MG; Start 01/14/17 at 14:30 Ascorbic Acid (Vitamin C) 500 mg DAILY PO Last administered on 01/29/17 09:19 ; Admin Dose 500 MG; Start 01/15/17 at 09:00 Atorvastatin Calcium (Lipitor) 10 mg QHS PO Last administered on 01/28/17 23: 37; Admin Dose 10 MG; Start 01/14/17 at 21:00 Cholecalciferol (Vitamin D) 1,000 unit DAILY PO Last administered on 01/29/17 09:19; Admin Dose 1,000 UNIT; Start 01/15/17 at 09:00 Multivitamins Therapeutic (Theragran) 1 tab DAILY PO Last administered on 09:19; Admin Dose 1 TAB; Start 01/15/17 at 09:00 Spironolactone (Aldactone) 25 mg DAILY PO Last administered on 01/29/17 09:19 ; Admin Dose 25 MG; Start 01/15/17 at 09:00 Tamsulosin HCl (Flomax) 0.4 mg HS PO Last administered on 01/28/17 23:38; Admin Dose 0.4 MG; Start 01/14/17 at 21:00 Lactobacillus Acidophilus (Florajen3 Capsule) 1 each BID PO Last administered on 01/29/17 09:18; Admin Dose 1 EACH; Start 01/14/17 at 21:00 Enoxaparin Sodium (Lovenox) 40 mg DAILY SC Last administered on 01/29/17 09:33 ; Admin Dose 40 MG; Start 01/14/17 at 15:30; Status Future hold Miscellaneous Information (Pending Santyl Order For Wound Care) This patient hampton... PRN PRN XX WOUND CARE; Start 01/16/17 at 12:00 Collagenase (Santyl) 1 applic DAILY TOP Last administered on 01/29/17 09:20; Admin Dose 1 APPLIC; Start 01/16/17 at 13:00 Aspirin (Aspirin) 325 mg DAILY NGT Last administered on 01/29/17 09:18; Admin Dose 325 MG; Start 01/17/17 at 09:00 Insulin Aspart (Novolog Insulin Pen) NOVOLOG *MODERATE* ALGORI... Q6 SC Last administered on 01/24/17 01:30; Admin Dose 2 UNIT; Start 01/23/17 at 18:00 Miscellaneous Information 1 ea NOTE XX ; Start 01/23/17 at 14:30 Glucose (Glutose) 15 gm Q15M PRN PO DECREASED GLUCOSE; Start 01/23/17 at 14:30 Glucose (Glutose) 22.5 gm Q15M PRN PO DECREASED GLUCOSE; Start 01/23/17 at 14: 30 Dextrose (D50w Syringe) 25 ml Q15M PRN IV DECREASED GLUCOSE; Start 01/23/17 at 14:30 Dextrose (D50w Syringe) 50 ml Q15M PRN IV DECREASED GLUCOSE; Start 01/23/17 at 14:30 Glucagon (Glucagen) 1 mg Q15M PRN IM DECREASED GLUCOSE; Start 01/23/17 at 14:30 Glucose (Glutose) 15 gm Q15M PRN BUCCAL DECREASED GLUCOSE; Start 01/23/17 at 14 :30 Morphine Sulfate 2 mg 2 mg Q4H PRN IV PAIN LEVEL 7-10 Last administered on 01/27 13:19; Admin Dose 2 MG; Start 01/27/17 at 01:30 Dextrose/Sodium Chloride (D5-NS) 1,000 ml @ 60 mls/hr [id number] IV Last administered on 01/29/17 12:21; Admin Dose 60 MLS/HR; Start 01/27/17 at 15:00 Carvedilol (Coreg) 6.25 mg BID PO Last administered on 01/29/17 09:19; Admin Dose 6.25 MG; Start 01/28/17 at 21:00 Apixaban (Eliquis) 5 mg BID PO ; Start 01/29/17 at 21:00 Assessment/Plan Chief Complaint/Hosp Course IMP: 1. Acute on chronic hypoxemic/hypercapnic Resp Insufficiency. 2. CHF 3. FAM/OHS 4, status post PEG tube placement RECS: 1. Nocturnal BiPAP, ENCOURAGE OFF DURING DAY. 2. Titrate FiO2 to SpO2 88-92 3. ICS 4. Continue tube feeding Rivera transfer. Problems: EBONI PONCE MD, [facility] Jan 29, 2017 14:55
--- NOTE | 2017-01-29 15:39 | PDOCDIS ---
Discharge Instructions CONDITION Patient Condition: Stable HOME CARE INSTRUCTIONS: Special Diet: TUBE FEEDING ACTIVITY: Activity Restrictions: Slowly Increase Activity FOLLOW UP/APPOINTMENTS Follow-up Plan [facility], see reconciliation MARY FORREST MD Jan 29, 2017 15:39
--- NOTE | 2017-01-29 17:08 | CONS ---
Date/Time of Note Date/Time of Note DATE: 01/29/17 TIME: 17:06 Assessment/Plan Assessment/Plan Additional Assessment/Plan IMPRESSION: 1. Morbid obesity. 2. Status post automatic implantable cardioverter-defibrillator. 3. Dysphagia, being fed through the nasogastric tube. 4. Mental obtundation. 5. Pneumonia. 6. Psychiatric disorder. 7. Benign prostatic hypertrophy. 8. Obstructive sleep apnea. 9. Status post a PEG patient is tolerating feeding PLAN: Continue feeding, increase it slowly as per dietitian recommendation Consultation Date/Type/Reason Admit Date/Time Jan 14, 2017 at 10:52 Initial Consult Date 01/16/17 Type of Consultation: Pulmonary Referring Provider: MARY FORREST MD 24 HR Interval Summary Subjective hx not possible: pt non-verbal Constitutional: no complaints Exam/Review of Systems Vital Signs Vitals Vital Signs Date Time Temp Pulse Resp B/P Pulse Ox O2 Delivery O2 Flow Rate FiO2 01/29/17 16:16 71 01/29/17 15:44 98.4 18 120/61 97 01/29/17 08:34 Nasal Cannula 2.0 01/28/17 23:10 40 Intake and Output 01/28/17 01/28/17 01/29/17 15:00 23:00 07:00 Intake Total 0 ml 110 ml 880 ml Output Total 800 ml 400 ml 300 ml Balance -800 ml -290 ml 580 ml Exam Constitutional: alert, oriented, well developed Psych: nl mood/affect, no complaints Head: atraumatic, normocephalic Eyes: EOMI, PERRL, nl conjunctiva, nl lids, nl sclera ENMT: nl external ears & nose, nl lips & teeth, nl nasal mucosa & septum Neck: non-tender, supple Respiratory: clear to auscultation, normal air movement Cardiovascular: nl pulses, regular rate and rhythm Gastrointestinal: nl liver, spleen, non-tender, soft Musculoskeletal: nl extremities to inspection, nl gait and stance Extremities: normal pulses Neurological: ROLL FORMER II-XII intact, nl mental status, nl speech, nl strength Skin: nl turgor, No rash or lesions Lymph: nl lymph nodes Results Result Diagram: 01/28/17 0702 01/28/17 0702 Results 24 hrs Laboratory Tests Test 01/28/17 18:37 01/29/17 01:14 01/29/17 06:39 01/29/17 12:20 Bedside Glucose 90 95 91 99 Medications Medications Current Medications Ondansetron HCl (Zofran Inj) 4 mg Q6H PRN IV NAUSEA AND/OR VOMITING; Start at 14:30 Docusate Sodium (Colace) 100 mg Q12H PRN PO CONSTIPATION; Start 01/14/17 at 14 :30 Magnesium Hydroxide (Milk Of Mag) 30 ml DAILY PRN PO CONSTIPATION; Start 01/14 at 14:30 Pantoprazole (Protonix Tab) 40 mg DAILY@06 PO Last administered on 01/29/17 06 :07; Admin Dose 40 MG; Start 01/15/17 at 06:00 Acetaminophen (Tylenol Tab) 650 mg Q4 PRN PO PAIN AND OR ELEVATED TEMP Last administered on 01/29/17 00:01; Admin Dose 650 MG; Start 01/14/17 at 14:30 Ascorbic Acid (Vitamin C) 500 mg DAILY PO Last administered on 01/29/17 09:19 ; Admin Dose 500 MG; Start 01/15/17 at 09:00 Atorvastatin Calcium (Lipitor) 10 mg QHS PO Last administered on 01/28/17 23: 37; Admin Dose 10 MG; Start 01/14/17 at 21:00 Cholecalciferol (Vitamin D) 1,000 unit DAILY PO Last administered on 01/29/17 09:19; Admin Dose 1,000 UNIT; Start 01/15/17 at 09:00 Multivitamins Therapeutic (Theragran) 1 tab DAILY PO Last administered on 09:19; Admin Dose 1 TAB; Start 01/15/17 at 09:00 Spironolactone (Aldactone) 25 mg DAILY PO Last administered on 01/29/17 09:19 ; Admin Dose 25 MG; Start 01/15/17 at 09:00 Tamsulosin HCl (Flomax) 0.4 mg HS PO Last administered on 01/28/17 23:38; Admin Dose 0.4 MG; Start 01/14/17 at 21:00 Lactobacillus Acidophilus (Florajen3 Capsule) 1 each BID PO Last administered on 01/29/17 09:18; Admin Dose 1 EACH; Start 01/14/17 at 21:00 Enoxaparin Sodium (Lovenox) 40 mg DAILY SC Last administered on 01/29/17 09:33 ; Admin Dose 40 MG; Start 01/14/17 at 15:30; Status Future hold Miscellaneous Information (Pending Santyl Order For Wound Care) This patient hampton... PRN PRN XX WOUND CARE; Start 01/16/17 at 12:00 Collagenase (Santyl) 1 applic DAILY TOP Last administered on 01/29/17 09:20; Admin Dose 1 APPLIC; Start 01/16/17 at 13:00 Aspirin (Aspirin) 325 mg DAILY NGT Last administered on 01/29/17 09:18; Admin Dose 325 MG; Start 01/17/17 at 09:00 Insulin Aspart (Novolog Insulin Pen) NOVOLOG *MODERATE* ALGORI... Q6 SC Last administered on 01/24/17 01:30; Admin Dose 2 UNIT; Start 01/23/17 at 18:00 Miscellaneous Information 1 ea NOTE XX ; Start 01/23/17 at 14:30 Glucose (Glutose) 15 gm Q15M PRN PO DECREASED GLUCOSE; Start 01/23/17 at 14:30 Glucose (Glutose) 22.5 gm Q15M PRN PO DECREASED GLUCOSE; Start 01/23/17 at 14: 30 Dextrose (D50w Syringe) 25 ml Q15M PRN IV DECREASED GLUCOSE; Start 01/23/17 at 14:30 Dextrose (D50w Syringe) 50 ml Q15M PRN IV DECREASED GLUCOSE; Start 01/23/17 at 14:30 Glucagon (Glucagen) 1 mg Q15M PRN IM DECREASED GLUCOSE; Start 01/23/17 at 14:30 Glucose (Glutose) 15 gm Q15M PRN BUCCAL DECREASED GLUCOSE; Start 01/23/17 at 14 :30 Morphine Sulfate 2 mg 2 mg Q4H PRN IV PAIN LEVEL 7-10 Last administered on 01/27 13:19; Admin Dose 2 MG; Start 01/27/17 at 01:30 Dextrose/Sodium Chloride (D5-NS) 1,000 ml @ 60 mls/hr [id number] IV Last administered on 01/29/17 12:21; Admin Dose 60 MLS/HR; Start 01/27/17 at 15:00 Carvedilol (Coreg) 6.25 mg BID PO Last administered on 01/29/17 09:19; Admin Dose 6.25 MG; Start 01/28/17 at 21:00 Apixaban (Eliquis) 5 mg BID PO ; Start 01/29/17 at 21:00 HERRERA ELLIS MD Jan 29, 2017 17:08
[2017-01-29] MEDS ORDERED: APIXABAN 5 MG TABLET PO SCH (21:00)
[2017-01-29] MEDS: ATORVASTATIN 10 MG TAB PO SCH (21:03)
[2017-01-29] MEDS: TAMSULOSIN (SR) 0.4 MG CAP PO SCH (21:03)
--- NOTE | 2017-01-30 05:12 | DS ---
DATE OF ADMISSION: 01/14/2017 DATE OF DISCHARGE: 01/29/2017 REASON FOR ADMISSION: Encephalopathy, sepsis, UTI, rule out pneumonia, decubitus wound. HOSPITAL COURSE: The patient is a 66-year-old morbidly obese male with history of CHF, st atus post AICD placement by Dr. Ruiz in 2010, also history of extensive psychiatric disorder, hype rtension, diabetes mellitus, BPH, schizophrenia who recently discharged from [facility] to sepsis and was found to have C. diff colitis, dehydration, renal failure and UTI. The patien t resides at [facility] when he was noted to be more encephalopathic a nd has difficulty with swallowing and eating and doing poorly. He noted to be more confused, had a fever of 100.3 and was tachycardic, all suggestive of sepsis and was transferred to [facility] for further evaluation. In the ER, the patient was noted to have a fever, urinary trac t infection and overall lethargy. The patient underwent multiple diagnostic imaging including a CAT scan of the brain that initially showed no evidence of acute intracranial infarct, hemorrhage or ac [place] intracranial pathology, mild chronic microvascular ischemic disease and diffuse volume loss. Th is was followed by another CT scan later on, which showed again, mild chronic changes of atrophy and small vessel disease of white matter. I was ____ maybe he had a stroke, but we could not do MRI be cause of his pacemaker. He was seen also by multiple physicians during this hospitalization includsam Meyers, the neurologist, Dr. Rubalcava, the GI specialist, Dr. Worthington, the infectious disease sp ecialist, Dr. Cohen, the architecture professor, Dr. Humphrey, the air conditioning technician. We had to place him at ti mes on BiPAP because of increasing encephalopathy. He also was deemed to be too high risk to be fed by mouth. All cultures, most of them came back positive. His blood culture showed Corynebacterium species. Urine culture showed Proteus mirabilis. Respiratory culture shows yeast, not Meghana alb icans and wound culture from the back shows Proteus mirabilis, Klebsiella pneumoniae, enterococcus a nd coagulase negative Staph. He was placed on various antibiotics and antifungals throughout the st ay. ____ resolved, but ultimately we decided to proceed with G-tube placement as patient was too hi gh risk to aspirate and would not meet his caloric demand. The patient still is on and off on BiPAP , especially at night. We decided to transfer to [facility] for further evaluation and possible weaning him off the BiPAP. The patient's encephalopathy may be related to his obstruc tive sleep apnea and likely apneic episodes and CO2 retention. DISCHARGE MEDICATIONS: The patient will be discharged with the following medications: 1. Tylenol p.r.n. for pain. 2. Mucomyst every 6 hours, which was recommended only for a few more days. 3. DuoNeb every 2 hours p.r.n. 4. Eliquis 5 mg b.i.d. for his atrial fibrillation. 5. Vitamin C 500 mg daily. 6. Aspirin 325 mg daily. We can actually lower the dose now that he is on Eliquis 81 mg daily. 7. Lipitor 10 mg at bedtime. 8. Coreg 6.25 b.i.d. 9. Vitamin D 1000 units daily. 10. Santyl as directed. 11. Hyperglycemia protocol as expected. 12. Colace 100 b.i.d. 13. We will discontinue the Lovenox. 14. ____ as directed. 15. Insulin aspart per sliding scale. 16. Acidophilus as directed twice a day. 17. Milk magnesia p.r.n. 18. Treatment of hypoglycemia. 19. Multivitamin 1 tab daily. 20. Zofran 4 mg p.o. q. 4 p.r.n. 21. Protonix 40 mg daily. 22. Aldactone 25 mg daily. 23. Flomax 0.4 at bedtime. I did stop all his psych medications secondary to lethargy, encephalopathy. The patient will be dis charged today. FINAL DIAGNOSES: 1. Sepsis. 2. Urinary tract infection. 3. Bacteremia. 4. Rule out pneumonia. 5. Wound infection. 6. Sacral wound. See pictures. 7. Dysphagia. 8. Morbidly obese state. 9. Encephalopathy. 10. Benign prostatic hypertrophy. 11. Paroxysmal atrial fibrillation. 12. Tendency for congestive heart failure and peripheral edema. 13. Anemia. 14. Transaminitis, resolved, transient. We wanted to do MRCP which we could not do, but then LFTs normalized. 15. Hypokalemia. 16. Hyponatremia and hypernatremia as well. Case discussed with his brother on a regular basis. He is aware of plan of care and disposition. W e will continue with G-tube feeding for now for all feeding for oral gratification. The patient verena l definitely need physical therapy as patient has been hospitalized for prolonged period of time. DIET: Continue current diet via G-tube. DISPOSITION: Patient will be discharged to [facility] for further care. Dictated By: MARY MONTERO/SHANTAL Conf#: [id number] DID#: [id number]
== END 2017-01-29 21:30 | DRG 871 ==
LOC: E/R 09:33 → ICU 10:52 → TEL 01-16 01:54
PROVIDERS: ADMIT Internal Medicine; ATTEND Internal Medicine
PROC: 5A09357 Assistance with Respiratory Ventilation, Less than 24 Consecutive Hours, Continuous Positive Airway Pressure (ICD-10-PCS; 2017-01-14)
PROC: 0DH63UZ Insertion of Feeding Device into Stomach, Percutaneous Approach (ICD-10-PCS; principal; 2017-01-28 12:00)
DX: A41.9 Sepsis, unspecified organism (principal); G93.40 Encephalopathy, unspecified; I50.23 Acute on chronic systolic (congestive) heart failure; L89.313 Pressure ulcer of right buttock, stage 3; E87.0 Hyperosmolality and hypernatremia; R13.10 Dysphagia, unspecified; J18.9 Pneumonia, unspecified organism; L89.323 Pressure ulcer of left buttock, stage 3; N39.0 Urinary tract infection, site not specified; I47.1 Supraventricular tachycardia; Z68.41 Body mass index [BMI] 40.0-44.9, adult; B37.0 Candidal stomatitis; J44.9 Chronic obstructive pulmonary disease, unspecified; E66.01 Morbid (severe) obesity due to excess calories; L89.621 Pressure ulcer of left heel, stage 1; L89.611 Pressure ulcer of right heel, stage 1; Z95.810 Presence of automatic (implantable) cardiac defibrillator; N40.0 Benign prostatic hyperplasia without lower urinary tract symptoms; Z87.891 Personal history of nicotine dependence; Z86.718 Personal history of other venous thrombosis and embolism; Z86.711 Personal history of pulmonary embolism; E87.6 Hypokalemia; B96.4 Proteus (mirabilis) (morganii) as the cause of diseases classified elsewhere; B96.1 Klebsiella pneumoniae [K. pneumoniae] as the cause of diseases classified elsewhere; B95.2 Enterococcus as the cause of diseases classified elsewhere; E11.9 Type 2 diabetes mellitus without complications; Z79.4 Long term (current) use of insulin; F20.9 Schizophrenia, unspecified; G47.33 Obstructive sleep apnea (adult) (pediatric)
CPT/HCPCS: 36415; 36600; 70450; 70490; 71010; 74176; 76700; 80048; 80053; 80061; 80202; 81001; 82140; 82803; 82962; 83036; 83605; 83690; 83735; 83880; 84100; 84443; 84484; 85025; 85610; 85730; 87040; 87045; 87070; 87075; 87081; 87086; 89220; 92526; 92610; 93005; 93306; 94640; 94644; 94660; 94664; 96374; 96375; J1120; J0690; J0692; J1450; J1650; J1720; J1815; J2270; J2543; J3370; J3480; J7030; J7042; J7050; J7070

== ENCOUNTER 2017-06-23 10:08 | Emergency (ER) | END 2017-06-23 10:54 | disposition home or self-care (01) ==